=== PATIENT | female | born 1940 | race African-American/Black ===

== ENCOUNTER 2017-01-11 21:24 | Emergency (ER) | payer OTHER ==
--- NOTE | 2017-01-11 21:53 | PROVIDER DOCUMENTATION ---
HPI-General Adult - General Chief Complaint: Weakness Stated Complaint: CONGESTION/WEAKNESS Time Seen by Provider: 01/11/17 21:45 Source: patient, family Allergies/Adverse Reactions: Patient Allergies Allergy/AdvReac Type Severity Reaction Status Date / Time EXCEDRIN AdvReac Intermediate NAUSEA/VOMI Uncoded 07/08/16 11:51 TING Home Medications: Home Medication List Medication Instructions Recorded Confirmed Last Taken Type Amlodipine [Norvasc] 10 mg PO DAILY 03/23/14 01/11/17 01/11/17 History Aspirin [Aspirin EC] 81 mg PO DAILY 03/23/14 01/11/17 01/11/17 History Carvedilol [Coreg] 25 mg PO BID 03/23/14 01/11/17 01/11/17 History Losartan Potassium [Cozaar] 100 mg PO DAILY 03/23/14 01/11/17 01/11/17 History Metformin HCl 1,000 mg PO BID 03/23/14 01/11/17 01/11/17 History Simvastatin 40 mg PO QHS 03/23/14 01/11/17 01/11/17 History Hydralazine HCl 50 mg PO TID 07/06/16 01/11/17 01/11/17 History Insulin Glargine [Lantus] 35 unit SUBQ QHS 07/06/16 01/11/17 01/11/17 History Insulin Lispro [Humalog] 0 unit SQ DIRECTED 07/06/16 01/11/17 01/11/17 History Hydrocodone/Acetaminophen [[place] 1 - 2 each PO Q4-6H PRN PRN #30 07/08/1601/11/17 Rx 7.5-325 Tablet] tablet Benzonatate [Tessalon] 100 mg PO TID PRN PRN #20 capsule 01/12/17 Unknown Rx - History of Present Illness -Gen Adult Nature of Presenting Problems: Pt is a 76 y/o F c chief complaint of generalized weakness and lower back pain x 3 days. Pt has a h/o similar symptoms c DKA however her blood sugar was 175 this evening. Pt has had a non-productive cough. Decreased appetite. On arrival, pt has a low grade fever and is in minimal distress. Review of Systems - Adult - REVIEW OF SYSTEMS - ADULT Constitutional: reports: chills, fever, fatique Eyes: reports: no symptoms reported. denies: discharge, blurred vision, double vision Ears, Nose, Mouth & Throat: reports: no symptoms reported. denies: nose pain, loose teeth Cardiovascular: reports: no symptoms reported. denies: chest pain, irregular heart rate Respiratory: reports: no symptoms reported. denies: cough, shortness of breath Gastrointestinal: reports: no symptoms reported. denies: abdominal pain, nausea Genitourinary: reports: no symptoms reported. denies: dysuria, hematuria Musculoskeletal: reports: back pain. denies: joint pain, joint swelling Integumentary: reports: no symptoms reported. denies: itching, rash Neurological: reports: no symptoms reported. denies: numbness, paresthesia Psychiatric: reports: no symptoms reported. denies: anxiety, emotional problems Endocrine: reports: no symptoms reported. denies: cold intolerance, heat intolerance Hematologic/Lymphatic: reports: no symptoms reported. denies: blood clots, low blood count Allergic/Immunologic: reports: no symptoms reported. denies: allergic reactions , food allergy All Other Systems: Reviewed and Negative Past History - Adult - PAST MEDICAL HISTORY-ADULT Review of Records: reports: Old Records Reviewed, Nursing Assessment Review, Medications Reviewed, Social history reviewed & non-contributory. Major Childhood Illnesses: reports: history unknown Cardiovascular: reports: HTN Respiratory: reports: denies history Gastrointestinal: reports: denies history Obstetrical/Gynecological: reports: denies history Genitourinary: reports: ESRD, kidney disease Musculoskeletal: reports: denies history Neurological: reports: Seizures/Epilepsy Psychiatric: reports: denies history Endocrine/Immune: reports: Diabetes Other Conditions: reports: other cancer - PRIOR SURGERIES/PROCEDURES Surgical/Procedure History: reports: orthopedic (extremity) (right ankle), other (sinus) - IMMUNIZATION STATUS Childhood Immunizations: See Nurse Assessment Flu Vaccine: See Nurse Assessment - FAMILY HISTORY Family History: reviewed, not pertinent - SOCIAL HISTORY Smoking: denies Substance Use: none/never Alcohol Use Frequency: never Living Situation: family Physical Exam-General - PHYSICAL EXAM-ADULT Initial Vital Signs Reviewed: Yes - CONSTITUTIONAL General Appearance: appears well, alert, no apparent distress - EYES Eyes: PERRL/EOMI, pink conjunctivae - HEAD, EARS, NOSE, MOUTH & THROAT HENMT: normocephalic/atraumatic, moist mucous membranes, normal ENT inspection - NECK Neck: non-tender - RESPIRATORY Respiratory: chest non-tender, lungs clear, normal breath sounds - CARDIOVASCULAR Cardiovascular: normal peripheral pulses, regular rate, rhythm, no edema - GASTROINTESTINAL (ABDOMEN) Abdominal Exam: normal bowel sounds, non tender, soft - MUSCULOSKELETAL Back Exam: normal inspection, CVA tenderness Extremity: normal range of motion, non-tender - SKIN Integumentary: normal color, normal turgor, warm/dry - NEUROLOGIC Neurologic: grossly normal - PSYCHIATRIC Psych/Mental Status: normal mood/affect, normal thought content, normal thought process, oriented x 3 Progress - PLAN OF CARE/RESULTS Progress/Plan/Lab Results: Orders Category Date Time Status Finger Stick Blood Sugar (ED) DIRECTED Care 01/11/17 21:46 Active Oxygen Therapy- ED Nursing DIRECTED Care 01/11/17 21:46 Active CHEST-2 VIEWS [RAD] Stat Exams 01/11/17 21:32 Taken HEAD W/O CONTRAST [CT] Stat Exams 01/11/17 23:26 Taken ABG [RESP] Routine Lab 01/11/17 21:46 Completed BLOOD CULTURE [BLDCUL] Stat Lab 01/11/17 21:32 Ordered CBC WITH DIFF [HEME] Stat Lab 01/11/17 21:49 Completed CK PROFILE [SP CHEM] Stat Lab 01/11/17 21:49 Completed COMPREHENSIVE METABOLIC PANEL [CHEM] Stat Lab 01/11/17 21:[address] Stat Lab 01/11/17 21:25 Completed LACTATE, PLASMA [CHEM] Stat Lab 01/11/17 21:49 Completed [address]OTIME WITH INR PL [COAG] Stat Lab 01/11/17 21:[address] [COAG] Stat Lab 01/11/17 21:49 Completed TROPONIN T Stat Lab 01/11/17 21:[address] W/POSS RFLX CULT [URINALYSIS] Stat Lab 01/11/17 23:50 Completed CefTRIAXONE [Rocephin] Med 01/12/17 01:48 Discontinued 1 gm IM NOW ONE Dexamethasone [Decadron] Med 01/12/17 01:48 Discontinued 10 mg IM NOW ONE Lidocaine 1% Pf [Xylocaine-Mpf 1%] Med 01/12/17 01:48 Discontinued 5 ml INJ NOW ONE Pulse Oximetry Stat Oth 01/11/17 21:32 Active EKG [EKG] Stat Ther 01/11/17 21:46 Draft Laboratory Tests 01/11/17 01/11/17 01/11/17 21:25 21:46 21:49 WBC 9.32 RBC 3.91 L Hgb 10.5 L Hct 32.0 L MCV 81.8 MCH 26.9 L MCHC 32.8 L RDW Std Deviation 15.1 H Plt Count 179 MPV 10.7 H Immature Gran % (Auto) 0.2 Neut % (Auto) 60.2 Lymph % (Auto) 26.5 [place] % (Auto) 9.1 Eos % (Auto) 3.8 Baso % (Auto) 0.2 Immature Gran # (Auto) 0.02 Neut # (Auto) 5.61 Lymph # (Auto) 2.47 [place] # (Auto) 0.85 H Eos # (Auto) 0.35 Baso # (Auto) 0.02 PT INR APTT (Factor Assay) Specimen Type ARTERIAL Sample Site R RADIAL pH 7.32 L pCO2 49 H pO2 53 L HCO3 23.7 Base Excess -1.3 Oxyhemoglobin 87.7 L* ABG O2 Sat (Calculated) 14.3 L ABG O2 Saturation 89.6 L ABG Carboxyhemoglobin 1.30 ABG Methemoglobin 0.8 Yovani Test YES A-a O2 Difference 35.0 Total Hemoglobin 11.6 Lactate 0.80 Blood Gas Modality ROOM AIR FiO2 % 21.0 Sodium Potassium Chloride Carbon Dioxide Anion Gap BUN Creatinine Estimated GFR/1.73 m2 BUN/Creatinine Ratio Glucose POC Glucose Calculated Osmolality Calcium Total Bilirubin AST ALT Alkaline Phosphatase Creatine Kinase Creatine Kinase Index CK-MB (CK-2) Troponin T Total Protein Albumin Globulin Albumin/Globulin Ratio Plasma Lactate Urine Source Urine Color Urine Clarity Urine pH Ur Specific Brice Urine Protein Urine Ketones Urine Blood Urine Nitrite Urine Bilirubin Urine Urobilinogen Urine Microscopic RBC Urine WBC Urine Microscopic WBC Ur Epithelial Cells Urine Bacteria Urine Glucose Influenza A (Rapid) NEGATIVE Influenza B (Rapid) NEGATIVE 01/11/17 01/11/17 01/11/17 21:49 21:49 21:49 WBC RBC Hgb Hct MCV MCH MCHC RDW Std Deviation Plt Count MPV Immature Gran % (Auto) Neut % (Auto) Lymph % (Auto) [place] % (Auto) Eos % (Auto) Baso % (Auto) Immature Gran # (Auto) Neut # (Auto) Lymph # (Auto) [place] # (Auto) Eos # (Auto) Baso # (Auto) PT INR APTT (Factor Assay) Specimen Type Sample Site pH pCO2 pO2 HCO3 Base Excess Oxyhemoglobin ABG O2 Sat (Calculated) ABG O2 Saturation ABG Carboxyhemoglobin ABG Methemoglobin Yovani Test A-a O2 Difference Total Hemoglobin Lactate Blood Gas Modality FiO2 % Sodium 138 Potassium 4.4 Chloride 105 Carbon Dioxide 21 L Anion Gap 12 BUN 32 H Creatinine 2.1 H Estimated GFR/1.73 m2 23 BUN/Creatinine Ratio 15 Glucose 104 POC Glucose Calculated Osmolality 283 Calcium 8.8 Total Bilirubin 0.20 AST 24 ALT 24 Alkaline Phosphatase 50 Creatine Kinase 232 H Creatine Kinase Index 3.7 H CK-MB (CK-2) 8.66 H Troponin T < 0.010 Total Protein 6.1 L Albumin 3.6 Globulin 3.0 Albumin/Globulin Ratio 1.0 Plasma Lactate 1.0 Urine Source Urine Color Urine Clarity Urine pH Ur Specific Brice Urine Protein Urine Ketones Urine Blood Urine Nitrite Urine Bilirubin Urine Urobilinogen Urine Microscopic RBC Urine WBC Urine Microscopic WBC Ur Epithelial Cells Urine Bacteria Urine Glucose Influenza A (Rapid) Influenza B (Rapid) 01/11/17 01/11/17 01/12/17 21:49 23:50 01:30 WBC RBC Hgb Hct MCV MCH MCHC RDW Std Deviation Plt Count MPV Immature Gran % (Auto) Neut % (Auto) Lymph % (Auto) [place] % (Auto) Eos % (Auto) Baso % (Auto) Immature Gran # (Auto) Neut # (Auto) Lymph # (Auto) [place] # (Auto) Eos # (Auto) Baso # (Auto) PT 14.0 INR 1.05 APTT (Factor Assay) 28.5 Specimen Type Sample Site pH pCO2 pO2 HCO3 Base Excess Oxyhemoglobin ABG O2 Sat (Calculated) ABG O2 Saturation ABG Carboxyhemoglobin ABG Methemoglobin Yovani Test A-a O2 Difference Total Hemoglobin Lactate Blood Gas Modality FiO2 % Sodium Potassium Chloride Carbon Dioxide Anion Gap BUN Creatinine Estimated GFR/1.73 m2 BUN/Creatinine Ratio Glucose POC Glucose 125 H Calculated Osmolality Calcium Total Bilirubin AST ALT Alkaline Phosphatase Creatine Kinase Creatine Kinase Index CK-MB (CK-2) Troponin T Total Protein Albumin Globulin Albumin/Globulin Ratio Plasma Lactate Urine Source CLEAN CATCH Urine Color YELLOW Urine Clarity CLEAR Urine pH 5.0 Ur Specific [place] 1.010 Urine Protein 2+(100 mg/dL) A Urine Ketones NEGATIVE Urine Blood NEGATIVE Urine Nitrite NEGATIVE Urine Bilirubin NEGATIVE Urine Urobilinogen NORMAL Urine Microscopic RBC Not Reportable Urine WBC NEGATIVE Urine Microscopic WBC <10 Ur Epithelial Cells <10 Urine Bacteria 1+ Urine Glucose NEGATIVE Influenza A (Rapid) Influenza B (Rapid) Vital Signs - 24 hr 01/11/17 01/11/17 21:29 23:13 Temperature 99.6 F 99.2 F Pulse Rate 76 86 Respiratory 20 22 Rate Blood Pressure 161/55 207/90 O2 Sat by Pulse 94 L 95 Oximetry - REASSESSMENT Reassessment #1 Time Reassessed: 01:30 (Discussed c Dr. Muniz who recommended admission to PCP (Dr. Chavez) after reviewing labs and imaging studies.) Reassessment #2 Time Reassessed: 01:45 (Discussed plan of care c family and pt. Pt does not wish to be admitted. Her oxygen sat decreased to 90% however she took several deep breaths and she was satting at 98%. ) Reassessment #3 Time Reassessed: 01:52 (Discussed c Dr. Chavez and reviewed labs and imaging studies. Dr. Chavez is very familiar c this pt and felt comfortable c treating her as an out-pt. He will see her in clinic on Monday. Family and pt agree c this plan and also agree to return to the ER if any worsening of symptoms.) - XRAY 1 XRAY Study: Chest Impression: Normal XRAY Interpretation: no pna, no change from 2016 - CT/MRI 1 CT Study: Head Impression: Normal CT Results: nad - CONSULTS/PCP/HOSPITALIST Notification #1 *Consult/PCP/Hospitalist*: Dr. Chavez (PCP) Time Discussed: 01:35 Reason/Comments: Will see pt in Monday in clinic Departure - Departure Time of Disposition Order: 01:53 DIAGNOSIS: Viral illness URI (upper respiratory infection) Qualifiers: URI type: unspecified URI Qualified Code(s): J06.9 - Acute upper respiratory infection, unspecified Disposition: HOME 01 Certified Medical Emergency: Emergent Condition: Stable Additional Instructions: ED Follow Up Instructions: You have been treated by a care provider in the Emergency Department. These instructions are being provided to you so you can have an understanding of how to care for yourself upon discharge. Upon discharge from the Emergency Department, you are responsible for making arrangements for follow-up care by a physician of your choice. Take all prescribed medications as directed. Return to the Emergency Department immediately for any new or worsening symptoms. You may call the Physician Referral phone number at [phone] to obtain a list of Physicians who are taking new patients. Prescriptions: Benzonatate [Tessalon] 100 mg PO TID PRN PRN #20 capsule PRN Reason: Cough Referrals: Maria A Chavez MD [Primary Care Provider] - Instructions: Viral Infections, [id number], Upper Respiratory Infection, Adult, [id number], Benzonatate capsules Attestation - Physician/ YESSICA Attestation Patient care was provided by Advanced Practice Provider:: Yes Advanced Practice Provider:: Fili De Leon Advanced Practice Provider documentation review:: The Mid-level provider documentation, treatment plan and medical decision making was reviewed by the physician who agrees with all treatment and medical decision making by the P.
[2017-01-11 22:05] LABS: MANUAL DIFF NEEDED? NO
[2017-01-11 22:12] LABS: BASO% 0.2 % (0.0-0.8); EOS# 0.35 X1000 (0.0-0.7); EOS% 3.8 % (0.0-10.0); HEMOGLOBIN 10.5 g/dL (12.0-16.0); IMM GRAN# 0.02 X1000 (0.0-0.04); IMM GRAN% 0.2 % (0.0-0.5); LYMPH# 2.47 X1000 (1.2-3.4); LYMPH% 26.5 % (20.5-51.1); MCH 26.9 PG (27-31); MCHC 32.8 g/dL (33-37); MCV 81.8 FL (81-99); MONO# 0.85 X1000 (0.11-0.59); MONO% 9.1 % (1.7-9.3); MPV 10.7 FL (7.4-10.4); NEUT% 60.2 % (42.2-75.2); PLT 179 X1000 (130-400); RBC 3.91 XMIL (4.2-5.4)
[2017-01-11 22:25] LABS: INR 1.05 (0.86-1.15)
[2017-01-11 22:26] LABS: PTT PL 28.5 Seconds (22.6-43.9)
[2017-01-11 22:35] LABS: ALBUMIN 3.6 g/dL (3.5-5.0); CALCIUM 8.8 mg/dL (8.8-10.2); POTASSIUM 4.4 mmol/L (3.5-5.1); TOTAL BILIRUBIN 0.2 mg/dL (0.20-1.00); TOTAL PROTEIN 6.1 g/dL (6.3-8.3)
[2017-01-11 22:52] LABS: CK INDEX 3.7 (0.0-2.5); CK-MB 8.66 ng/mL (0.0-5.0)
[2017-01-11 23:40] LABS: BE -1.3 mmoll (-3.0-3.0); BLOOD TYPE ARTERIAL; DRAW SITE R RADIAL; METHB 0.8 % (0.0-1.5); O2(CT) 14.3 mL/dL (15.0-23.0); PCO2(98.6) 49 mmHg (35-45); PO2(98.6) 53 mmHg (60-100); SAMPLE BLOOD; SAO2 89.6 % (95.0-100.0); THB 11.6 g/dL (11.5-17.4); pH(98.6) 7.32 (7.35-7.45)
[2017-01-11 23:59] LABS: URINE CULTURE PL NEEDED? NO; URINE SOURCE CLEAN CATCH
[2017-01-12 00:37] LABS: BILIRUBIN URINE NEGATIVE (NEGATIVE); BLOOD URINE NEGATIVE (NEGATIVE); CLARITY CLEAR (CLEAR); COLOR YELLOW; GLUCOSE URINE NEGATIVE (NEGATIVE); LEUKOCYTES URINE NEGATIVE (NEGATIVE); NITRITE URINE NEGATIVE (NEGATIVE); PROTEIN URINE 2+(100 mg/dL) mg/dL (NEGATIVE); UROBILINOGEN URINE NORMAL
--- NOTE | 2017-01-12 00:37 | ED EKG INTERP ---
EKG Interpretation - EKG Time of EKG reading by physician:: 23:25 EKG Read and Signed by:: Boby Muniz Rate: 87 Rhythm: NSR QRS: LVH Comments: borderline ECG Attestation - Scribe Verification/Attestation Scribe:: Jose La Acting as Scribe for:: Boby Muniz Scribe documention review:: This chart was documented by a scribe and accurately reflects the service the provider performed and the decisions made by the provider.
[2017-01-12 00:41] LABS: URINE EPITHELIAL CELLS <10 /HPF (<10); URINE WBC <10 /HPF (<10)
[2017-01-12 00:46] LABS: ALLEN TEST YES; MODALITY ROOM AIR
--- NOTE | 2017-01-12 01:29 | EKG Report ---
Test Performed on : 01/11/2017 11:25:13 PM Test Reason : AMS Blood Pressure : / mmHG Vent. Rate : 087 BPM Atrial Rate : 087 BPM P-R Int : 190 ms QRS Dur : 092 ms QT Int : 358 ms P-R-T Axes : 049 -14 063 degrees QTc Int : 430 ms Normal sinus rhythm. Moderate voltage criteria for LVH, may be normal variant Borderline ECG When compared with ECG of 06-JUL-2016 16:44, Right bundle branch block is no longer present Unconfirmed Result
[2017-01-12] MEDS ORDERED: ROCEPHIN IM ONE (01:48)
[2017-01-12] MEDS ORDERED: XYLOCAINE-MPF 1% INJ ONE (01:48)
[2017-01-12] MEDS ORDERED: DECADRON IM ONE (01:48)
[2017-01-12] MEDS ORDERED: TYLENOL PO ONE (02:19)
[2017-01-12] MEDS ORDERED: TYLENOL ONE (02:21)
[2017-01-12 02:31] VITALS: BP 167/72
--- NOTE | 2017-01-12 06:52 | Diag Imaging Result Document ---
PROCEDURE NAME: CHEST-2 VIEWS - 01/11/2017 FRONTAL AND LATERAL CHEST, 2 VIEWS: COMPARISON: 07/15/2014. FINDINGS: The lungs are well expanded. The heart is mildly enlarged. The vessels are not distended. There are no infiltrates. No pleural effusions. IMPRESSION: 1. No pneumonia. 2. Cardiomegaly.
--- NOTE | 2017-01-12 07:45 | Diag Imaging Result Document ---
PROCEDURE NAME: HEAD W/O CONTRAST - 01/11/2017 CT BRAIN WITHOUT CONTRAST. DOSE REDUCTION PROTOCOL: FINDINGS: No parenchymal hemorrhage. No epidural or subdural hematoma. No subarachnoid hemorrhage. No mass identified on this noncontrasted exam. Mild microvascular ischemic changes. No hydrocephalus. Prominent mucus and mild mucosal thickening in the left maxillary sinus. IMPRESSION: 1. No hemorrhage. 2. Mild microvascular ischemic changes. 3. Left maxillary sinusitis. A preliminary report was given at 1:11 a.m.
== END 2017-01-12 02:33 | disposition home or self-care (01) ==
LOC: P.ED 21:24
DX: B34.9 Viral infection, unspecified (principal); J02.9 Acute pharyngitis, unspecified; R53.1 Weakness; M54.5 Low back pain; R50.9 Fever, unspecified; R53.83 Other fatigue; I12.0 Hypertensive chronic kidney disease with stage 5 chronic kidney disease or end stage renal disease; N18.6 End stage renal disease; Z79.899 Other long term (current) drug therapy; E11.9 Type 2 diabetes mellitus without complications; Z85.9 Personal history of malignant neoplasm, unspecified; Z79.4 Long term (current) use of insulin; Z79.82 Long term (current) use of aspirin
CPT/HCPCS: 70450; 71020; 80053; 81001; 82550; 82553; 82805; 82948; 83605; 84484; 85025; 85610; 85730; 87040; 87804; 93005; 96372; J0696; J1100

== ENCOUNTER 2018-10-10 17:15 | Inpatient (IN) ==
[2018-10-10 18:17] LABS: BE -2.1 mmoll (-3.0-3.0); BLOOD TYPE ARTERIAL; HCO3-(ACT) 23.3 mmoll (20.0-26.0); METHB 0.4 % (0.0-1.5); O2(CT) 13.1 mL/dL (15.0-23.0); O2HB 95.1 % (95.0-99.0); PCO2(98.6) 35 mmHg (35-45); PO2(98.6) 81 mmHg (60-100); SAMPLE BLOOD; THB 9.7 g/dL (11.5-17.4); pH(98.6) 7.41 (7.35-7.45)
[2018-10-10 18:19] LABS: MODALITY CANNULA
[2018-10-10 18:20] LABS: ALLEN TEST YES
--- NOTE | 2018-10-10 18:48 | Diag Imaging Result Doc PS360 ---
EXAM: CHEST-PORTABLE INDICATION: SOB TECHNIQUE: One view COMPARISON: 05/11/2018 FINDINGS: There is airspace consolidation throughout the right lung that is most dense at the right lung base consistent with pneumonia. There is no discrete pleural fluid collection or pneumothorax. The cardiac silhouette is somewhat prominent but stable. IMPRESSION: Multilobar pneumonia on the right. Electronically signed by Fili Greenberg 10/10/2018 6:46 PM
[2018-10-10] MEDS ORDERED: ZITHROMAX 500 MG/NS 500 MG/250 ML IVPB IV ONE (19:06)
[2018-10-10] MEDS ORDERED: ROCEPHIN 1 GM in NS 50 ML IV ONE (19:06)
--- NOTE | 2018-10-10 19:08 | PROVIDER DOCUMENTATION ---
This chart was entered by Ruth Lopez Scribe, acting as scribe for Jostin Rose MD. HPI-Respiratory General - General Chief Complaint: Shortness of Breath Stated Complaint: SOB Time Seen by Provider: 10/10/18 17:27 Source: patient, family (daughter) Allergies/Adverse Reactions: Patient Allergies Allergy/AdvReac Type Severity Reaction Status Date / Time Iodinated Contrast- Oral and AdvReac Unknown Verified 11/15/17 18:42 IV Dye [IV Dye] Home Medications: Home Medication List Medication Instructions Recorded Confirmed Last Taken Type Amlodipine Besylate 10 mg PO DAILY 09/14/17 10/10/18 Unknown History Insulin Lispro [Humalog Kwikpen See Protocol SQ AC + HS 09/14/17 10/10/18 Unknown History [id number]] Sertraline HCl 100 mg PO DAILY 09/14/17 10/10/18 Unknown History Simvastatin 40 mg PO HS 09/14/17 10/10/18 Unknown History Carvedilol 25 mg PO BID@0700,1200 04/17/18 10/10/18 Unknown History Pregabalin [Lyrica] 75 mg PO DAILY 04/17/18 10/10/18 Unknown History Clonidine [Catapres] 0.1 mg PO TID@0700,1200,2000 10/10/18 10/10/18 Unknown History Clopidogrel Bisulfate [Clopidogrel] 75 mg PO QHS 10/10/18 10/10/18 Unknown History Furosemide [Lasix] 40 mg PO DAILY PRN PRN 10/10/18 10/10/18 Unknown History Hydralazine [Apresoline] 100 mg PO TID@0700,1200,1600 10/10/18 10/10/18 Unknown History Insulin Glargine [Lantus] 10 units SUBQ QHS 10/10/18 10/10/18 Unknown History Insulin Glargine [Lantus] 15 unit SUBQ QAM 10/10/18 10/10/18 Unknown History Losartan Potassium 100 mg PO DAILY 10/10/18 10/10/18 Unknown History Polyethylene Glycol 3350 [Miralax] 17 gm PO DAILY 10/10/18 10/10/18 Unknown History - History of Present Illness-Resp Nature of Presenting Problem: 78 yobf presents to the ed with c/o sob, weakness, fever/chills, cough. pt saw pcp and was given a z-pack but took the last dose today. pt had home health nuirse come by today and pt had 80% RA O2 sat and was sent to ed. pt has hx of cancer Quality of Pain: reports: aching Onset/Duration: reports: 1 week ago Timing: reports: still present, intermittent Context: reports: recent URI Cough Quality/Degree: reports: dry cough Episode Frequency: occasional episodes Current Respiratory Medication Therapy: Initiated see nurses note Modifying Factors: worse with: exertion Associated Symptoms: reports: chest pain/soreness, cough, fever/chills, muscle/ bodyaches, shortness of breath. denies: earache Similar Symptoms Previously?: Yes Recently seen or treated by another doctor?: Yes (saw pcp recently given z-pack) Review of Systems - Adult - REVIEW OF SYSTEMS - ADULT Constitutional: reports: chills, fever, fatique Eyes: reports: no symptoms reported Ears, Nose, Mouth & Throat: reports: no symptoms reported Cardiovascular: denies: chest pain, syncope Respiratory: reports: cough, dyspnea on exertion, shortness of breath. denies: pleurisy, wheezing Gastrointestinal: denies: abdominal pain, diarrhea, nausea, vomiting Genitourinary: reports: no symptoms reported Musculoskeletal: reports: see HPI, muscle aches (bodyaches). denies: back pain , neck pain Integumentary: reports: no symptoms reported Neurological: denies: dizziness/vertigo, headache/migraines, numbness, paresthesia, slurred speech, tremors Psychiatric: reports: no symptoms reported Endocrine: reports: no symptoms reported Hematologic/Lymphatic: reports: no symptoms reported Allergic/Immunologic: reports: no symptoms reported All Other Systems: Reviewed and Negative Past History - Adult - PAST MEDICAL HISTORY-ADULT Review of Records: reports: Old Records Reviewed, Nursing Assessment Review, Medications Reviewed, Social history reviewed & non-contributory. 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 Psychiatric: reports: denies history Endocrine/Immune: reports: Diabetes Diabetes Type: Type 2 Diabetes controlled by:: Insulin Dependent Other Conditions: reports: other cancer (CLL) - PRIOR SURGERIES/PROCEDURES Surgical/Procedure History: reports: orthopedic (extremity) (right ankle), other (sinus) - IMMUNIZATION STATUS Childhood Immunizations: See Nurse Assessment Flu Vaccine: See Nurse Assessment - FAMILY HISTORY Family History: reviewed, not pertinent - SOCIAL HISTORY Smoking: denies Substance Use: none/never Alcohol Use Frequency: never Living Situation: family Physical Exam-General - PHYSICAL EXAM-ADULT Initial Vital Signs Reviewed: Yes - CONSTITUTIONAL General Appearance: appears well, alert, mild distress, obese - EYES Eyes: PERRL/EOMI, pink conjunctivae - HEAD, EARS, NOSE, MOUTH & THROAT HENMT: normocephalic/atraumatic, moist mucous membranes - NECK Neck: full range of motion, supple, normal inspection - RESPIRATORY Respiratory: chest non-tender, rales (R>L), other (O2 95% on 2LPM) - CARDIOVASCULAR Cardiovascular: normal peripheral pulses, regular rate, rhythm - GASTROINTESTINAL (ABDOMEN) Abdominal Exam: normal bowel sounds, non tender, soft - MUSCULOSKELETAL Back Exam: normal inspection, no CVA tenderness, no vertebral tenderness Extremity: normal range of motion, non-tender, normal gait, normal inspection, no calf tenderness, normal capillary refill, pelvis stable, swelling (BLE edema trace) - SKIN Integumentary: normal color, normal turgor, warm/dry - NEUROLOGIC Neurologic: e commerce web developer II-XII nml as tested, grossly normal, no motor/sensory deficits - PSYCHIATRIC Psych/Mental Status: normal mood/affect, normal thought content, normal thought process, oriented x 3 Progress - PLAN OF CARE/RESULTS Progress/Plan/Lab Results: Laboratory Results - last 24 hr 10/10/18 10/10/18 10/10/18 18:10 18:47 19:01 WBC RBC Hgb Hct MCV MCH MCHC RDW Std Deviation Plt Count MPV Immature Gran % (Auto) Neut % (Auto) Lymph % (Auto) Pacific % (Auto) Eos % (Auto) Baso % (Auto) Immature Gran # (Auto) Neut # (Auto) Lymph # (Auto) Pacific # (Auto) Eos # (Auto) Baso # (Auto) D-Dimer, Quantitative Specimen Type ARTERIAL Sample Site R RADIAL pH 7.41 pCO2 35 pO2 81 HCO3 23.3 Base Excess -2.1 Oxyhemoglobin 95.1 ABG O2 Sat (Calculated) 13.1 L ABG O2 Saturation 97.0 ABG Carboxyhemoglobin 1.50 ABG Methemoglobin 0.4 Yovani Test YES A-a O2 Difference 132.0 Total Hemoglobin 9.7 L Lactate 0.70 Liter Flow 4.0 Blood Gas Modality CANNULA FiO2 % 36.0 Sodium 138 Potassium 4.0 Chloride 102 Carbon Dioxide 20 L Anion Gap 16 BUN 44 H Creatinine 3.1 H Estimated GFR/1.73 m2 15 BUN/Creatinine Ratio 14 Glucose 171 H Calculated Osmolality 291 Calcium 8.9 Magnesium Total Bilirubin 0.50 AST 30 ALT 26 Alkaline Phosphatase 62 Troponin T C-Reactive Prot, Quant 233.11 H Eau-V-Lzxhofovaqa Pept Total Protein 6.6 Albumin 3.2 L Globulin 3.0 Albumin/Globulin Ratio 1.0 Plasma Lactate Urine Source Urine Color Urine Clarity Urine pH Ur Specific [place] Urine Protein Urine Ketones Urine Blood Urine Nitrite Urine Bilirubin Urine Urobilinogen Urine Microscopic RBC Urine WBC Urine Microscopic WBC Ur Epithelial Cells Urine Crystals Urine Bacteria Urine Casts Urine Yeast Urine Glucose Acetone Level Influenza A (Rapid) NEGATIVE Influenza B (Rapid) NEGATIVE 10/10/18 10/10/18 10/10/18 19:01 19:01 19:01 WBC RBC Hgb Hct MCV MCH MCHC RDW Std Deviation Plt Count MPV Immature Gran % (Auto) Neut % (Auto) Lymph % (Auto) Pacific % (Auto) Eos % (Auto) Baso % (Auto) Immature Gran # (Auto) Neut # (Auto) Lymph # (Auto) Pacific # (Auto) Eos # (Auto) Baso # (Auto) D-Dimer, Quantitative 1.33 H Specimen Type Sample Site pH pCO2 pO2 HCO3 Base Excess Oxyhemoglobin ABG O2 Sat (Calculated) ABG O2 Saturation ABG Carboxyhemoglobin ABG Methemoglobin Yovani Test A-a O2 Difference Total Hemoglobin Lactate Liter Flow Blood Gas Modality FiO2 % Sodium Potassium Chloride Carbon Dioxide Anion Gap BUN Creatinine Estimated GFR/1.73 m2 BUN/Creatinine Ratio Glucose Calculated Osmolality Calcium Magnesium 2.2 Total Bilirubin AST ALT Alkaline Phosphatase Troponin T C-Reactive Prot, Quant [id number]-[id number] Pept Total Protein Albumin Globulin Albumin/Globulin Ratio Plasma Lactate Urine Source Urine Color Urine Clarity Urine pH Ur Specific [place] Urine Protein Urine Ketones Urine Blood Urine Nitrite Urine Bilirubin Urine Urobilinogen Urine Microscopic RBC Urine WBC Urine Microscopic WBC Ur Epithelial Cells Urine Crystals Urine Bacteria Urine Casts Urine Yeast Urine Glucose Acetone Level NEGATIVE Influenza A (Rapid) Influenza B (Rapid) 10/10/18 10/10/18 10/10/18 19:01 19:01 19:01 WBC 22.62 H RBC 3.36 L Hgb 8.9 L Hct 27.1 L MCV 80.7 L MCH 26.5 L MCHC 32.8 L RDW Std Deviation 13.9 Plt Count 194 MPV 10.5 H Immature Gran % (Auto) 0.4 Neut % (Auto) 59.1 Lymph % (Auto) 35.9 Pacific % (Auto) 4.5 Eos % (Auto) 0.0 Baso % (Auto) 0.1 Immature Gran # (Auto) 0.10 H Neut # (Auto) 13.35 H Lymph # (Auto) 8.13 H Pacific # (Auto) 1.01 H Eos # (Auto) 0.01 Baso # (Auto) 0.02 D-Dimer, Quantitative Specimen Type Sample Site pH pCO2 pO2 HCO3 Base Excess Oxyhemoglobin ABG O2 Sat (Calculated) ABG O2 Saturation ABG Carboxyhemoglobin ABG Methemoglobin Yovani Test A-a O2 Difference Total Hemoglobin Lactate Liter Flow Blood Gas Modality FiO2 % Sodium Potassium Chloride Carbon Dioxide Anion Gap BUN Creatinine Estimated GFR/1.73 m2 BUN/Creatinine Ratio Glucose Calculated Osmolality Calcium Magnesium Total Bilirubin AST ALT Alkaline Phosphatase Troponin T 0.020 C-Reactive Prot, Quant [id number]-[id number] Pept 6746 H Total Protein Albumin Globulin Albumin/Globulin Ratio Plasma Lactate Urine Source Urine Color Urine Clarity Urine pH Ur Specific [place] Urine Protein Urine Ketones Urine Blood Urine Nitrite Urine Bilirubin Urine Urobilinogen Urine Microscopic RBC Urine WBC Urine Microscopic WBC Ur Epithelial Cells Urine Crystals Urine Bacteria Urine Casts Urine Yeast Urine Glucose Acetone Level Influenza A (Rapid) Influenza B (Rapid) 10/10/18 10/10/18 19:01 19:27 WBC RBC Hgb Hct MCV MCH MCHC RDW Std Deviation Plt Count MPV Immature Gran % (Auto) Neut % (Auto) Lymph % (Auto) Pacific % (Auto) Eos % (Auto) Baso % (Auto) Immature Gran # (Auto) Neut # (Auto) Lymph # (Auto) [place] # (Auto) Eos # (Auto) Baso # (Auto) D-Dimer, Quantitative Specimen Type Sample Site pH pCO2 pO2 HCO3 Base Excess Oxyhemoglobin ABG O2 Sat (Calculated) ABG O2 Saturation ABG Carboxyhemoglobin ABG Methemoglobin Yovani Test A-a O2 Difference Total Hemoglobin Lactate Liter Flow Blood Gas Modality FiO2 % Sodium Potassium Chloride Carbon Dioxide Anion Gap BUN Creatinine Estimated GFR/1.73 m2 BUN/Creatinine Ratio Glucose Calculated Osmolality Calcium Magnesium Total Bilirubin AST ALT Alkaline Phosphatase Troponin T C-Reactive Prot, Quant Val-C-Nklbchjvpqu Pept Total Protein Albumin Globulin Albumin/Globulin Ratio Plasma Lactate 0.5 Urine Source CATH Urine Color YELLOW Urine Clarity VERY CLOUDY A Urine pH 5.0 Ur Specific [place] 1.015 Urine Protein 3+(500 mg/dL) A Urine Ketones TRACE Urine Blood NEGATIVE Urine Nitrite NEGATIVE Urine Bilirubin NEGATIVE Urine Urobilinogen NORMAL Urine Microscopic RBC <10 Urine WBC TRACE A Urine Microscopic WBC <10 Ur Epithelial Cells <10 Urine Crystals NONE SEEN Urine Bacteria 4+ Urine Casts NONE SEEN Urine Yeast NONE SEEN Urine Glucose NEGATIVE Acetone Level Influenza A (Rapid) Influenza B (Rapid) Orders Category Date Time Status Admit - [facility] Routine AdmDCTranf 10/10/18 20:30 Active Activity - Strict Bedrest ORDERED Care 10/10/18 20:30 Active Saline Loc NOW Care 10/10/18 17:50 Completed Vital Signs Order Q 4-HR ASSESS Care 10/10/18 20:30 Active Diabetic Diet Diet 10/10/18 20:32 Active CHEST-PORTABLE [RAD] Stat Exams 10/10/18 17:53 Completed ABG [RESP] Routine Lab 10/10/18 18:10 Completed C REACTIVE PROT QUANT [CHEM] Stat Lab 10/10/18 19:01 Completed CBC WITH ELECTRONIC DIFF [HEME] Stat Lab 10/10/18 19:01 Completed COMPREHENSIVE METABOLIC PANEL [CHEM] Stat Lab 10/10/18 19:01 Completed D-DIMER [COAG] Stat Lab 10/10/18 19:[address] Stat Lab 10/10/18 18:47 Completed Ketone [ACETONE SERUM] [CHEM] Stat Lab 10/10/18 19:01 Completed LACTATE, PLASMA [CHEM] Stat Lab 10/10/18 19:01 Completed MAGNESIUM [CHEM] Stat Lab 10/10/18 19:01 Completed PRO B-NATRIURETIC PEPTIDE Stat Lab 10/10/18 19:01 Completed TROPONIN T Stat Lab 10/10/18 19:[address] W/POSS RFLX CULT [URINALYSIS] Stat Lab 10/10/18 19:27 Completed URINE CULTURE [RM] Routine Lab 10/10/18 19:46 Results 0.9% Sodium Chloride Inj [Ns] 2,000 ml Med 10/10/18 20:30 Discontinued IV 125 mls/hr Azithromycin 500 mg/Ns [Zithromax 500 mg/Ns] Med 10/10/18 19:06 Discontinued 500 mg in 250 ml IV NOW CefTRIAXONE [Rocephin] 1 gm Med 10/10/18 19:06 Discontinued 0.9% Sodium Chloride Inj [Ns] 50 ml IV NOW EKG [EKG] Stat Ther 10/10/18 17:51 Draft Transfer/Admit Order [TRANSFER] Routine Transfer 10/10/18 20:29 Completed Result Diagrams: 10/11/18 11:05 10/11/18 11:05 - XRAY 1 XRAY: Bilateral XRAY Study: Chest Impression: See EMR Report - CHANGE OF SHIFT REPORT (ED Provider) Report Given and Care Transferred to:: DR Nona PEREZ Time of Transfer: 19:08 Items Pending: Labs Departure - Departure Date of Disposition Decision: 10/10/18 Time of Disposition Decision: 19:00 DIAGNOSIS: SOB (shortness of breath) Disposition: ADMITTED INPATIENT 09 Certified Medical Emergency: Emergent Condition: Stable - Critical Care Note This patient required my direct & personal management of CC.: No Attestation - Physician/ YESSICA Attestation Patient care was provided by Advanced Practice Provider:: No The physician spent face to face time with patient:: Yes Advanced Practice Provider documentation review:: Supervising physician onsite and consulted in the evaluation and care of this patient. The physician did have a face to face encounter with the patient. This chart was documented by the indicated scribe, (Ruth Lopez Scribe) and accurately reflects the services I performed and decisions made by me, Jostin Rose MD, as attested by the provider's signature.
[2018-10-10 19:19] LABS: BASO# 0.02 X1000 (0.0-0.2); BASO% 0.1 % (0.0-0.8); EOS# 0.01 X1000 (0.0-0.7); HEMATOCRIT 27.1 % (37.0-47.0); HEMOGLOBIN 8.9 g/dL (12.0-16.0); IMM GRAN% 0.4 % (0.0-0.5); LYMPH# 8.13 X1000 (1.2-3.4); LYMPH% 35.9 % (20.5-51.1); MCH 26.5 PG (27-31); MCHC 32.8 g/dL (33-37); MCV 80.7 FL (81-99); MONO# 1.01 X1000 (0.11-0.59); MONO% 4.5 % (1.7-9.3); MPV 10.5 FL (7.4-10.4); NEUT# 13.35 X1000 (1.4-6.5); NEUT% 59.1 % (42.2-75.2); PLT 194 X1000 (130-400); RBC 3.36 XMIL (4.2-5.4); RDW 13.9 % (11.5-14.5); WBC 22.62 X1000 (4.8-10.8)
[2018-10-10 19:24] LABS: INFLUENZA A NEGATIVE (NEGATIVE); INFLUENZA B NEGATIVE (NEGATIVE)
[2018-10-10 19:32] LABS: ALBUMIN 3.2 g/dL (3.5-5.0); CALCIUM 8.9 mg/dL (8.8-10.2); CREATININE 3.1 mg/dL (0.5-0.9); TOTAL BILIRUBIN 0.5 mg/dL (0.20-1.00); TOTAL PROTEIN 6.6 g/dL (6.3-8.3)
[2018-10-10 19:45] LABS: BILIRUBIN URINE NEGATIVE (NEGATIVE); BLOOD URINE NEGATIVE (NEGATIVE); CLARITY VERY CLOUDY (CLEAR); COLOR YELLOW; GLUCOSE URINE NEGATIVE (NEGATIVE); KETONE URINE TRACE mg/dL (NEGATIVE); LEUKOCYTES URINE TRACE (NEGATIVE); NITRITE URINE NEGATIVE (NEGATIVE); SP GRAVITY URINE 1.015; URINE BACTERIA 4+ /HFP; URINE CAST NONE SEEN /LPF; URINE CRYSTAL NONE SEEN /HPF; URINE EPITHELIAL CELLS <10 /HPF (<10); URINE RBC <10 /HPF (<10); URINE SOURCE CATH; URINE WBC <10 /HPF (<10); URINE YEAST NONE SEEN /HPF; UROBILINOGEN URINE NORMAL
[2018-10-10] MEDS: NS 2,000 ML IV ONE (21:33)
[2018-10-10 22:32] LABS: C REACTIVE PROT QUANT 233.11 mg/L (0.00-5.00)
--- NOTE | 2018-10-11 01:27 | EKG Report ---
Test Performed on : 10/10/2018 10:11:34 PM Test Reason : SOB Blood Pressure : / mmHG Vent. Rate : 071 BPM Atrial Rate : 071 BPM P-R Int : 176 ms QRS Dur : 140 ms QT Int : 480 ms P-R-T Axes : 038 -37 038 degrees QTc Int : 521 ms Normal sinus rhythm. Left axis deviation Right bundle branch block Minimal voltage criteria for LVH, may be normal variant Abnormal ECG When compared with ECG of 06-MAY-2018 07:45, (Unconfirmed) HI interval has decreased Unconfirmed Result
[2018-10-11] MEDS: NS 2,000 ML IV ONE (05:34)
[2018-10-11] MEDS ORDERED: NS 1,000 ML ONE (05:35)
[2018-10-11] MEDS ORDERED: DUONEB (A & A) INH PRN (06:59)
[2018-10-11] MEDS: DUONEB (A & A) INH SCH ×5 (07:57→23:18)
[2018-10-11] MEDS: ZOLOFT PO SCH (10:06)
[2018-10-11] MEDS: NORVASC PO SCH (10:07)
[2018-10-11] MEDS: COZAAR PO SCH (10:07)
[2018-10-11] MEDS: MIRALAX PO SCH (10:07)
[2018-10-11] MEDS: LYRICA PO SCH (10:18)
[2018-10-11] MEDS: BASAGLAR SUBQ SCH ×2 (10:19→21:50)
[2018-10-11 11:24] LABS: CALCIUM 8.8 mg/dL (8.8-10.2); CREATININE 2.8 mg/dL (0.5-0.9)
[2018-10-11 11:36] LABS: BASO# 0.03 X1000 (0.0-0.2)
[2018-10-11 11:37] LABS: BASO% 0.1 % (0.0-0.8); EOS# 0.08 X1000 (0.0-0.7); EOS% 0.4 % (0.0-10.0); HEMATOCRIT 26.7 % (37.0-47.0); HEMOGLOBIN 8.8 g/dL (12.0-16.0); IMM GRAN# 0.13 X1000 (0.0-0.04); IMM GRAN% 0.6 % (0.0-0.5); LYMPH# 8.79 X1000 (1.2-3.4); LYMPH% 39.5 % (20.5-51.1); MCH 26.7 PG (27-31); MCV 81.2 FL (81-99); MONO# 1.16 X1000 (0.11-0.59); MONO% 5.2 % (1.7-9.3); MPV 10.6 FL (7.4-10.4); NEUT# 12.05 X1000 (1.4-6.5); NEUT% 54.2 % (42.2-75.2); PLT 202 X1000 (130-400); RBC 3.29 XMIL (4.2-5.4); RDW 14.2 % (11.5-14.5); WBC 22.24 X1000 (4.8-10.8)
[2018-10-11 11:52] LABS: ANISOCYTOSIS 1+; LYMPHS 27 % (21-51); MONO 2 % (1-9); SEGS 71 % (42-75)
[2018-10-11] MEDS: ZOSYN 2.25 GM in NS 50 ML IV SCH ×4 (12:30→22:57)
[2018-10-11] MEDS: CATAPRES PO SCH ×2 (12:31→21:51)
[2018-10-11] MEDS: COREG PO SCH (12:31)
[2018-10-11] MEDS: APRESOLINE PO SCH ×2 (12:31→16:10)
--- NOTE | 2018-10-11 12:49 | HISTORY AND PHYSICAL ---
PRIMARY CARE PHYSICIAN: Sekou Ovalle MD CHIEF COMPLAINT: Shortness of breath and a subjective fever. Per home health nurse, she had an O2 saturation at home on room air of 80% so she was sent to the emergency room for evaluation. HISTORY OF PRESENTING ILLNESS: This is a 78-year-old female, who presents to [facility] ER after she was seen by her home health nurse and was found to have an O2 saturation on room air of 80%. Was also having some subjective fever and chills, shortness of breath, and weakness. Had apparently seen her primary care physician about a week ago, was given a Z-Armando, and took her last dose yesterday. On arrival to the emergency room, she was saturating 96% on 4 L. Her white blood cell count was 22.62. She had an elevated D-dimer at 1.33. A BUN of 44 with a creatinine of 3.1, which is above her baseline around 2 to 2.30. Her proBNP was 6746. Her C-reactive protein was 233.11. Urinalysis has been negative. Her chest x- ray revealed a multilobar pneumonia on the right so she has been admitted for further evaluation and treatment. PAST MEDICAL HISTORY: Diabetes type 2, chronic kidney disease, hypertension, cancer, and seizures. PAST SURGICAL HISTORY: Right ankle surgery and a sinus surgery. FAMILY HISTORY: Reviewed and noncontributory. SOCIAL HISTORY: She currently lives at home and is cared for by her daughter. ALLERGIES: Iodinated contrast, oral and IV. HOME MEDICATIONS: She takes amlodipine 10 mg p.o. daily, Coreg 25 mg p.o. b.i.d., clonidine 0.1 mg p.o. t.i.d., Plavix 75 mg p.o. at bedtime, Lasix 40 mg p.o. daily p.r.n. will be held, hydralazine 100 mg p.o. t.i.d., Lantus 10 units subcutaneous at bedtime and 15 units subcutaneous q.a.m., Humalog KwikPen per protocol will be held, losartan 100 mg p.o. daily, MiraLAX 17 g p.o. daily, Lyrica 75 mg p.o. daily, sertraline 100 mg p.o. daily, and simvastatin 40 mg p.o. at bedtime. DIAGNOSTIC DATA: Laboratory data showed a white blood cell count of 22.62, hemoglobin 8.9, hematocrit 27.1, platelets 194,000. D-dimer of 1.33. ABG that showed a pH of 7.41, pCO2 of 35, PO2 of 81, bicarbonate 23.3, and this was on 4 L via nasal cannula. Sodium 138 , potassium 4, chloride 102, CO2 of 20, BUN of 44, creatinine 3.1, glucose 171. Magnesium 2.2. C-reactive protein 233.11. Troponin 0.020, proBNP of 6746. Plasma lactate 0.5. Urinalysis was negative except for 4+ bacteria. Acetone level was negative. Influenza A and B were both negative. Chest x-ray showed multilobar pneumonia on the right. EKG: Normal sinus rhythm at 71. REVIEW OF SYSTEMS: She was positive for subjective fever, chills, body aches, generalized weakness, shortness of breath, nonproductive cough. Denied any chest pain, abdominal pain, constipation, diarrhea, or burning or hurting with urination. PHYSICAL EXAMINATION: VITAL SIGNS: On arrival, she had a temperature of 98 degrees, pulse 70, respirations 14, blood pressure 153/85, saturating 96% on 4 L. GENERAL: This is a 78-year-old female who is lying in the bed and answers questions appropriately. HENMT: Normocephalic, atraumatic. Normal ENT inspection. Oropharynx and nares are clear. EYES: Pupils are equal, round, and reactive to light and accommodation. Extraocular movements are intact. NECK: Normal inspection. Normal range of motion. LUNGS: With some scattered rales bilaterally posteriorly with right greater than left. Equal lung expansion and chest wall movement noted. HEART: With regular rate and rhythm. No murmurs, rubs, or gallops. ABDOMEN: Soft. Nontender. Nondistended. Bowel sounds are present x4 quadrants. MUSCULOSKELETAL: She has 5/5 strength x4 extremities. NEUROLOGICAL: The cranial nerves 2 through 12 appear grossly intact. ASSESSMENT: 1. Bilateral multilobar pneumonia. 2. Leukocytosis secondary to #1. 3. Elevated D-dimer. 4. Acute on chronic kidney disease. 5. Diabetes, type 2. PLAN: She was admitted to the medical unit at [place]. Placed on O2 per protocol. She has an indwelling Herndon catheter. Diabetic diet. We are going to check a V/Q lung scan and bilateral lower extremity venous Doppler today to rule out any PE/DVT. I am going to hold up on given her any Lovenox at this time as her creatinine is up, and I do not want to anticoagulate if it is unnecessary. We will place her on DuoNeb q.4 h. routinely and q.2 h. p.r.n., Ambien normal saline at 125 mL an hour, Rocephin 1 gram IV q.24 h., Zithromax 500 mg IV 24. Continue home medicines as previously identified. We will recheck a CBC, BMP in the a.m. Urine culture is pending. Patient seen and examined by me face to face, all the laboratory, vitals signs, and images were reviewed, patient presented to the emergency department with severe shortness of breath, she seems to be in some respiratory distress, apparently she has been diagnosed some days ago with pneumonia, she completed her treatment with azithromycin, and she was starting to get better but for the past few days she started to decline again, she does have bilateral decrease of the breath sounds, rhonchi, x ray showed multilobar pneumonia bilaterally, family at the bedside, she will be on breathing treatment, antibiotics, cultures, I will probably get a Chest CT, I agree with the rest of the OFFICE AUDITOR's assessment and plan, Sneha Shannon MD. Dictated by SUJATHA Barnett for Brandyn Vargas MD cc: MD Guera Justice CRNP Omar J. Sosa-Chirinos, MD [facility]
--- NOTE | 2018-10-11 12:54 | Diag Imaging Result Doc PS360 ---
EXAM: LUNG SCAN / VQ INDICATION: elevated ddimer TECHNIQUE: 39.9 mCi of aerosolized technetium 99 DTPA was administered for the ventilation portion of the scan. 5.8 mCi of IV technetium 99 MAA was administered for the perfusion portion of the scan. COMPARISON: 05/07/2018 FINDINGS: The ventilation portion of the scan is somewhat suboptimal with much of the radiotracer contents in the central bronchi. However, no discrete perfusion defects are identified. IMPRESSION: Negative VQ scan. Electronically signed by Fili Greenberg 10/11/2018 12:52 PM
[2018-10-11] MEDS: ZYVOX 600 MG/D5W 600 MG/300 ML IVPB IV SCH (12:59)
--- NOTE | 2018-10-11 15:17 | Extremity Venous Study ---
EXAM: Venous U/S Bilateral Legs - 10/11/2018 HISTORY: elevated d-dimer TECHNIQUE: Bilateral lower extremity Doppler venous ultrasound COMPARISON: 05/07/2018 FINDINGS: The deep veins of the bilateral lower extremities demonstrate flow and compressibility. There are no filling defects identified. IMPRESSION: No evidence of deep venous thrombosis in either lower extremity. Electronically signed by Sekou Sykes 10/11/2018 3:15 PM
[2018-10-11] MEDS: HUMALOG DOSE (PARKWAY) SUBQ SCH ×2 (16:06→21:51)
[2018-10-11] MEDS ORDERED: ZITHROMAX 500 MG/NS 500 MG/250 ML IVPB IV SCH (18:00)
[2018-10-11] MEDS ORDERED: ROCEPHIN 1 GM in NS 50 ML IV SCH (19:00)
[2018-10-11] MEDS: PLAVIX PO SCH (21:50)
[2018-10-11] MEDS: ZOCOR PO SCH (21:51)
[2018-10-12] MEDS: ZYVOX 600 MG/D5W 600 MG/300 ML IVPB IV SCH ×2 (01:21→12:20)
[2018-10-12] MEDS: DUONEB (A & A) INH SCH ×6 (03:35→22:43)
[2018-10-12] MEDS: ZOSYN 2.25 GM in NS 50 ML IV SCH ×3 (05:50→16:07)
[2018-10-12] MEDS: APRESOLINE PO SCH ×4 (05:51→16:03)
[2018-10-12] MEDS: CATAPRES PO SCH ×4 (05:52→21:26)
[2018-10-12] MEDS: COREG PO SCH ×3 (05:52→12:20)
[2018-10-12] MEDS: HUMALOG DOSE (PARKWAY) SUBQ SCH ×4 (06:06→21:18)
[2018-10-12 07:34] LABS: BASO# 0.02 X1000 (0.0-0.2); BASO% 0.1 % (0.0-0.8); EOS# 0.13 X1000 (0.0-0.7); EOS% 0.6 % (0.0-10.0); HEMATOCRIT 25.6 % (37.0-47.0); HEMOGLOBIN 8.4 g/dL (12.0-16.0); IMM GRAN# 0.09 X1000 (0.0-0.04); IMM GRAN% 0.4 % (0.0-0.5); LYMPH# 9.07 X1000 (1.2-3.4); LYMPH% 41.5 % (20.5-51.1); MCH 26.3 PG (27-31); MCHC 32.8 g/dL (33-37); MCV 80.3 FL (81-99); MONO# 1.03 X1000 (0.11-0.59); MONO% 4.7 % (1.7-9.3); MPV 10.1 FL (7.4-10.4); NEUT# 11.52 X1000 (1.4-6.5); NEUT% 52.7 % (42.2-75.2); PLT 202 X1000 (130-400); RBC 3.19 XMIL (4.2-5.4); RDW 14.1 % (11.5-14.5); WBC 21.86 X1000 (4.8-10.8)
[2018-10-12 08:01] LABS: CALCIUM 8.7 mg/dL (8.8-10.2); CREATININE 2.9 mg/dL (0.5-0.9); POTASSIUM 3.8 mmol/L (3.5-5.1)
[2018-10-12 09:13] LABS: LYMPHS 39 % (21-51); MONO 4 % (1-9); SEGS 57 % (42-75)
[2018-10-12] MEDS: LYRICA PO SCH (10:08)
[2018-10-12] MEDS: NORVASC PO SCH (10:08)
[2018-10-12] MEDS: BASAGLAR SUBQ SCH ×2 (10:08→21:26)
[2018-10-12] MEDS: ZOLOFT PO SCH (10:08)
[2018-10-12] MEDS: MIRALAX PO SCH (10:09)
[2018-10-12] MEDS ORDERED: TYLENOL PO PRN (13:43)
--- NOTE | 2018-10-12 13:43 | Diag Imaging Result Doc PS360 ---
EXAM: CT THORAX W/O CONTRAST HISTORY: Pneumonia TECHNIQUE: Images were obtained from the lung apices through bases as per standard protocol. COMPARISON: 05/13/2018 FINDINGS: There is cardiomegaly with bilateral pleural effusions and bibasilar airspace disease right greater than left. There are enlarged mediastinal lymph nodes right paratracheal, precarinal, AP window and prevascular regions. There are groundglass trays left upper lobe, right upper lobe, right middle lobe, and right lower lobe. Findings consistent with pneumonia, pulmonary edema, or other airspace filling process including hemorrhage or lymphoma. Correlate clinically. There is diffuse anasarca of the visualized upper abdominal wall and bilateral flanks. There is trace ascites. There a 2 cm mildly, hyperdense left renal lesion with possible calcifications. Hounsfield units measure approximately 60. This is considered an indeterminate lesion on this noncontrasted study and renal cell carcinoma is not excluded. Recommend further evaluation with dedicated renal CT or MRI. There is an unchanged hypodensity right kidney, statistically renal cyst. IMPRESSION: 1.Bilateral groundglass infiltrates most prominent on the right associated with bilateral pleural effusions and bibasilar atelectasis. Findings could represent cardiogenic edema or other airspace filling process. Correlate clinically. 2.Mediastinal lymphadenopathy. 3.Diffuse anasarca and trace ascites. 4.Indeterminate hyperdense left renal nodule. Recommend follow-up evaluation with dedicated renal CT or MRI. This exam was performed using automated exposure control, adjustment of mA or kV according to patient size, and/or use of iterative reconstruction technique. Electronically signed by Shakila Henry 10/12/2018 1:40 PM
[2018-10-12] MEDS ORDERED: LASIX IV ONE (14:10)
--- NOTE | 2018-10-12 15:43 | PROGRESS NOTE ---
DATE: 10/12/2018 SUBJECTIVE: This patient states that she is feeling better, she is still complaining of moderate shortness of breath, she does have bilateral multilobar pneumonia which is more evident on the right side, also she has pleural effusion as per the CT scan report. This patient has been getting antibiotics broad spectrum which has been adjusted to her kidney function. She is completely alert and oriented x3. She is tolerating p.o. She is not ambulating right now due to her shortness of breath and weakness. OBJECTIVE: Vital Signs: Temperature 98.9 degrees, pulse 71, respiratory rate 24, blood pressure 107/72, oxygen saturation 93 on 4 L of nasal cannula. HEENT: Head normocephalic. No trauma. PERRLA. Neck: Supple. No JVD. No masses. Central trachea. Chest: Decreased breath sounds globally with bilateral rhonchi and crackles at the bases, decreased air entry and some scattered expiratory wheezing. Abdomen: Soft, nontender, nondistended. No hepatosplenomegaly. Extremities: Edema, no clubbing, no cyanosis. Neurological: Alert and oriented x3. No focal deficits. LABORATORY: WBC 21.8, hemoglobin 8.4, hematocrit 25.6, platelets 202,000, sodium 137, potassium 3.8, chloride 103, bicarbonate 20, BUN 43, creatinine 2.9, glucose 183, calcium 8.7. ASSESSMENT AND PLAN: 1. Multilobar pneumonia which is more evident on the right side, will continue with broad spectrum antibiotics. She has been placed on Zosyn and Zyvox which are renally dosed, will continue with breathing treatment, oxygen supplementation and pulmonary toilet, CPT. 2. Hypoxemic respiratory failure, as per #1 continue with oxygen supplementation. 3. Leukocytosis secondary to #1. 4. Elevated D-dimer, we have requested a V/Q scan and lower extremity venous ultrasound which are normal, for now will monitor. 5. Acute on chronic kidney disease aware. She received some fluids in the emergency department but that has been stopped due to pulmonary edema, now I will give her a dose of Lasix to try to decrease the amount of fluid inside her lungs. 6. Pulmonary edema as above, she will receive 1 dose of Lasix, she does have pulmonary edema which is more evident with the CT scan. 7. Type 2 diabetes stable. Continue with the same management. 8. Resuscitation status, this patient is full code. cc: Brandyn Vargas MD
[2018-10-12] MEDS: PLAVIX PO SCH (21:27)
[2018-10-12] MEDS: ZOCOR PO SCH (21:27)
[2018-10-12] MEDS: HEPARIN SUBQ SCH (21:27)
[2018-10-13] MEDS ORDERED: NS 0 ML ONE (00:01)
[2018-10-13] MEDS: ZOSYN 2.25 GM in NS 50 ML IV SCH ×4 (00:18→18:20)
[2018-10-13] MEDS: ZYVOX 600 MG/D5W 600 MG/300 ML IVPB IV SCH ×2 (01:56→11:50)
[2018-10-13] MEDS: DUONEB (A & A) INH SCH ×5 (03:19→23:38)
[2018-10-13] MEDS: HUMALOG DOSE (PARKWAY) SUBQ SCH ×4 (06:14→21:40)
[2018-10-13] MEDS: COREG PO SCH ×2 (06:29→11:49)
[2018-10-13] MEDS: APRESOLINE PO SCH ×3 (06:29→17:08)
[2018-10-13] MEDS: CATAPRES PO SCH ×3 (06:29→21:47)
[2018-10-13 06:56] LABS: BASO# 0.02 X1000 (0.0-0.2); BASO% 0.1 % (0.0-0.8); EOS# 0.14 X1000 (0.0-0.7); EOS% 0.6 % (0.0-10.0); HEMOGLOBIN 8.5 g/dL (12.0-16.0); IMM GRAN# 0.11 X1000 (0.0-0.04); IMM GRAN% 0.5 % (0.0-0.5); LYMPH# 10.55 X1000 (1.2-3.4); LYMPH% 45.1 % (20.5-51.1); MCH 26.2 PG (27-31); MCHC 32.7 g/dL (33-37); MONO% 4.7 % (1.7-9.3); MPV 10.8 FL (7.4-10.4); NEUT# 11.49 X1000 (1.4-6.5); PLT 229 X1000 (130-400); RBC 3.25 XMIL (4.2-5.4); RDW 14.1 % (11.5-14.5); WBC 23.41 X1000 (4.8-10.8)
[2018-10-13 07:02] LABS: LYMPHS 51 % (21-51); MONO 3 % (1-9); SEGS 44 % (42-75)
[2018-10-13 07:03] LABS: POLYCHROM OCCASIONAL
[2018-10-13 07:04] LABS: OVALOCYTES OCCASIONAL; POIKILOCYTOSIS OCCASIONAL; STOMATOCYTES OCCASIONAL
[2018-10-13 07:18] LABS: CALCIUM 8.7 mg/dL (8.8-10.2); CREATININE 3.3 mg/dL (0.5-0.9); POTASSIUM 3.6 mmol/L (3.5-5.1)
[2018-10-13] MEDS: ZOLOFT PO SCH (09:27)
[2018-10-13] MEDS: LYRICA PO SCH (09:27)
[2018-10-13] MEDS: MIRALAX PO SCH (09:27)
[2018-10-13] MEDS: NORVASC PO SCH (09:27)
[2018-10-13] MEDS: BASAGLAR SUBQ SCH ×2 (09:28→21:48)
[2018-10-13] MEDS: HEPARIN SUBQ SCH ×2 (09:28→21:47)
--- NOTE | 2018-10-13 13:45 | PROGRESS NOTE ---
DATE: 10/13/2018 SUBJECTIVE: The patient notes she is still coughing and congested and still having some shortness of breath. Her sister notes that she has not really been out of bed. She has had decreased oral intake. OBJECTIVE/PHYSICAL: T-max 100.2, T current 99; pulse 65, respiratory 22, BP 150/60. General: Patient is an obese female who is lying flatly in the bed. She is in mild current respiratory distress. HEENT: Normocephalic, atraumatic. ASHISH. Neck supple. No JVD. CARDIOVASCULAR: Regular rate. No murmurs. Chest clear. No crackles, but positive rhonchi. Abdomen soft, nondistended. Extremities: Moves all extremities. Neurologic: No focal changes. Skin warm and dry. No rashes. ASSESSMENT: 1. Multilobar pneumonia. 2. Hypoxic respiratory failure. 3. Leukocytosis. White count still elevated at 23. 4. Fkglz-es-kcifwnq renal failure. Creatinine is still elevated at 3.3. Her baseline is 2 to 2.5. 5. Escherichia coli urinary tract infection. This is resistant to Levaquin. She is currently on Zosyn and Zyvox. 6. Pulmonary edema. We will continue Lasix as needed. PLAN: We will continue following the patient in the hospital. Further orders as needed. cc: Skyler Humphries MD
[2018-10-13] MEDS: ZOCOR PO SCH (21:47)
[2018-10-13] MEDS: PLAVIX PO SCH (21:47)
[2018-10-13] MEDS ORDERED: ZOSYN ONE (23:29)
[2018-10-14] MEDS: ZOSYN 2.25 GM in NS 50 ML IV SCH ×4 (00:16→18:09)
[2018-10-14] MEDS: DUONEB (A & A) INH SCH ×7 (00:57→22:46)
[2018-10-14] MEDS: ZYVOX 600 MG/D5W 600 MG/300 ML IVPB IV SCH ×2 (01:00→12:47)
[2018-10-14] MEDS: COREG PO SCH ×2 (06:40→12:46)
[2018-10-14] MEDS: APRESOLINE PO SCH ×3 (06:41→17:10)
[2018-10-14] MEDS: CATAPRES PO SCH ×3 (06:41→21:04)
[2018-10-14] MEDS: HUMALOG DOSE (PARKWAY) SUBQ SCH ×4 (06:42→21:05)
[2018-10-14] MEDS: LYRICA PO SCH (10:01)
[2018-10-14] MEDS: COZAAR PO SCH (10:01)
[2018-10-14] MEDS: NORVASC PO SCH (10:01)
[2018-10-14] MEDS: ZOLOFT PO SCH (10:02)
[2018-10-14] MEDS: MIRALAX PO SCH (10:02)
[2018-10-14] MEDS: HEPARIN SUBQ SCH ×2 (10:02→21:04)
[2018-10-14] MEDS: BASAGLAR SUBQ SCH ×2 (10:03→21:06)
--- NOTE | 2018-10-14 17:59 | PROGRESS NOTE ---
DATE: 10/14/2018 SUBJECTIVE: Patient notes that she is starting to feel better, she is starting to breathe easier. Denies any chest pains or palpitations. PHYSICAL: Temperature 97.8, pulse 67, respiratory 20, BP 155/59.General: Patient is awake, alert, she is in mild respiratory distress, her color is improved. Overall she appears to feel like she is better than yesterday. HEENT: Normocephalic. Neck: Supple. CV: Regular rate. Chest: Clear, positive rhonchi, no wheezing, better air movement. Abdomen: Soft. Extremities: Moves all extremities. ASSESSMENT: 1. Escherichia coli urinary tract infection resistant to Levaquin currently on Zosyn and Zyvox. 2. Multilobar pneumonia. 3. Acute on chronic renal failure. Creatinine is still mildly elevated at 3.3 with a baseline at 2 to 2.3. 4. Leukocytosis. 5. Pulmonary edema. 6. Type 2 diabetes. Overall patient appears to be improving. We will continue the course today and will adjust tomorrow if necessary, will recheck labs and follow. cc: Skyler Humphries MD
--- NOTE | 2018-10-14 19:52 | Diag Imaging Result Doc PS360 ---
CHEST-PORTABLE - 10/14/2018 INDICATION: choking/sob COMPARISON: 10/10/2018 FINDINGS: There has been improvement in the right basilar infiltrate. Stable cardiomegaly and pulmonary vascular congestion. No pneumothorax or large pleural effusion. IMPRESSION: Improvement in the right basilar infiltrate/pneumonia. Electronically signed by Mayur Nunes 10/14/2018 7:49 PM
[2018-10-14] MEDS: ZOCOR PO SCH (21:04)
[2018-10-14] MEDS: PLAVIX PO SCH (21:04)
[2018-10-15] MEDS: ZOSYN 2.25 GM in NS 50 ML IV SCH ×2 (00:01→06:16)
[2018-10-15] MEDS: ZYVOX 600 MG/D5W 600 MG/300 ML IVPB IV SCH (00:38)
[2018-10-15] MEDS: DUONEB (A & A) INH SCH ×6 (03:31→23:24)
[2018-10-15] MEDS: CATAPRES PO SCH ×2 (06:16→14:42)
[2018-10-15] MEDS: APRESOLINE PO SCH ×3 (06:16→17:01)
[2018-10-15] MEDS: COREG PO SCH ×2 (06:16→14:43)
[2018-10-15] MEDS ORDERED: INSULIN PEN NEEDLES MISC PRN ×2 (06:25→11:53)
[2018-10-15 06:31] LABS: HEMATOCRIT 24.5 % (37.0-47.0); MCHC 32.7 g/dL (33-37); MCV 79.5 FL (81-99); MPV 10.5 FL (7.4-10.4); RBC 3.08 XMIL (4.2-5.4); WBC 23.77 X1000 (4.8-10.8)
[2018-10-15 07:02] LABS: ALBUMIN 2.4 g/dL (3.5-5.0); CALCIUM 8.4 mg/dL (8.8-10.2); MAGNESIUM 2.3 mg/dL (1.5-2.7); POTASSIUM 3.5 mmol/L (3.5-5.1); TOTAL BILIRUBIN 0.3 mg/dL (0.20-1.00); TOTAL PROTEIN 5.9 g/dL (6.3-8.3)
[2018-10-15] MEDS: HUMALOG DOSE (PARKWAY) SUBQ SCH ×2 (07:07→10:32)
[2018-10-15] MEDS ORDERED: NS 1,000 ML IV SCH ×2 (08:30→12:00)
[2018-10-15] MEDS ORDERED: ZYVOX PO SCH (09:00)
[2018-10-15] MEDS: HEPARIN SUBQ SCH ×2 (09:16→22:35)
[2018-10-15] MEDS: COZAAR PO SCH (09:16)
[2018-10-15] MEDS: ZOLOFT PO SCH (09:16)
[2018-10-15] MEDS: LYRICA PO SCH (09:16)
[2018-10-15] MEDS: NORVASC PO SCH (09:16)
[2018-10-15] MEDS: BASAGLAR SUBQ SCH (09:18)
--- NOTE | 2018-10-15 09:18 | PROGRESS NOTE ---
DATE: 10/15/2018 SUBJECTIVE: The patient and her daughter both state that she is feeling better. Her cough has improved. Her speech has improved. She is not gotten out of bed yet. OBJECTIVE: Vital Signs: She has been afebrile over the past 24 hours. Temperature 98.8 degrees, pulse 67, respiratory rate 20, blood pressure 155/59. General: The patient is awake and alert. She is in no current respiratory distress. Overall, she does appear to be improving. She appears clinically strong. Breathing is improved. HEENT: Normocephalic. Neck: Supple. CARDIOVASCULAR: Regular rate. No murmurs. Chest: Decreased but equal breath sounds. No current wheezing. No crackles. Good air movement. Abdomen: Soft, nondistended. Extremities: Moves all extremities. ASSESSMENT: 1. Acute on chronic renal failure. Creatinine this morning has actually worsened to 5.0, was 3.3 to 3.8 yesterday. Her baseline is around 2 to 2.3. Uncertain etiology. We did stop her intravenous fluids yesterday. We will restart her intravenous fluids this morning. Will stop her Zyvox to see if this is contributing. 2. Multilobar pneumonia. Her chest x-ray this morning is better. Clinically, she appears to be improving as noted. However, we will stop her Zyvox due to her renal issue. 3. Hypoxic respiratory failure, appears to be improving. 4. Leukocytosis. White count remains stable at 23. 5. Escherichia coli urinary tract infection resistant to Levaquin, but sensitive to Zosyn. Will continue. 6. Diabetes. PLAN: Per the daughter's request, we will transfer her to [facility], [place] to allow Pulmonology and Infectious Disease to see Ms. Cedeno. We will stop her Herndon catheter. Will restart her IV fluids. Will attempt to get her out of bed. Continue to encourage incentive spirometry. Further orders as needed. cc: Skyler Humphries MD
[2018-10-15] MEDS: MIRALAX PO SCH (09:22)
[2018-10-15] MEDS ORDERED: DUONEB (A & A) INH PRN (11:52)
[2018-10-15] MEDS ORDERED: ZOSYN 2.25 GM in NS 50 ML IV SCH (12:00)
[2018-10-15] MEDS ORDERED: PNEUMOVAX 23 IM ONE (12:45)
[2018-10-15 13:26] LABS: IRON SATURATION 13 %; TIBC 120 ug/dL; TOTAL IRON 15 ug/dL (49-151); UNBOUND IRON 105 ug/dL (112-346)
[2018-10-15 14:15] LABS: FERRITIN 262 ng/mL (13-150)
[2018-10-15 14:45] LABS: URINE SOURCE CATH
[2018-10-15 15:01] LABS: BILIRUBIN URINE NEGATIVE (NEGATIVE); BLOOD URINE LARGE (NEGATIVE); COLOR ORANGE; GLUCOSE URINE NEGATIVE (NEGATIVE); KETONE URINE NEGATIVE (NEGATIVE); LEUKOCYTES URINE LARGE (NEGATIVE); NITRITE URINE NEGATIVE (NEGATIVE); PH URINE 5.5; PROTEIN URINE 200 mg/dL (NEGATIVE); SP GRAVITY URINE 1.012; TURBIDITY URINE TURBID (CLEAR); UROBILINOGEN URINE NORMAL (NORMAL)
[2018-10-15 15:05] LABS: UR EPITHELIAL CELLS <10 /HPF (<10); URINE BACTERIA NEGATIVE /HPF; URINE RBC TNTC /HPF (<10); URINE WBC TNTC /HPF (<10)
[2018-10-15 15:10] LABS: URINE CASTS GRANULAR PRESENT; URINE YEAST PRESENT
[2018-10-15 15:11] LABS: URINE CRYSTALS NONE SEEN; URINE SMALL ROUND CELLS NONE SEEN
[2018-10-15] MEDS: MAXIPIME 1 GM in NS 50 ML IV SCH (15:16)
--- NOTE | 2018-10-15 15:19 | INFECTIOUS DISEASE CONSULT REP ---
DATE: 10/15/2018 CONCLUSION: The patient is admitted to the hospital with what appears to be a right lower lobe pneumonia. She also has a urinary tract infection. RECOMMENDATIONS: I agree with treating the patient with Zyvox. I have substituted cefepime for Zosyn. DISCUSSION: The patient's history was taken from her daughter. The daughter says that her mother approximately 9 days ago became progressively more short of breath. She had a fever up to 103 degrees and a cough, but she did not cough up much sputum. She was not having diarrhea or dysuria. The patient's CBC shows a white count of 23,770, hemoglobin 8 and platelet count 224,000. Creatinine is 5. GFR is 10. Liver function studies are normal. Stool for Clostridium difficile toxin is negative. Blood cultures are negative. Urine grew E coli. Sputum grew normal hanny and yeast. Chest x-ray shows there is less pulmonary venous congestion. There appears to be a right lower lobe pneumonia. PAST MEDICAL HISTORY / REVIEW OF SYSTEMS: I was unable to obtain this from the patient. The patient's daughter said the patient was living alone and doing well until she got sick and at that time the daughter has been taking care of her. The patient was able to walk with a walker. She did not have any problems hearing or seeing. She was able to eat. She was not having diarrhea or dysuria. She was not complaining about any joints or muscle aches according to the daughter. TITLE MANAGER HISTORY: She is a 2, para 1, AB 1. PREVIOUS HOSPITALIZATIONS AND OPERATIONS: She has had surgery on her right ankle. She was admitted for a stroke. She has had a sinus surgery and she had an infection during admission in [place], but the daughter was uncertain as to where the infection came from. MEDICAL DISEASES: Positive for diabetes mellitus, hypertension, stroke and end-stage renal disease. INFECTIOUS DISEASE HISTORY: Positive for pneumonia and UTI. FAMILY HISTORY: Positive for diabetes mellitus and hypertension. SOCIAL HISTORY: [place] She was living alone, but her daughter has been living with her since she has gotten sick. The patient does not have any pets at home. ALLERGIES: Her only allergy is to iodinated contrast, both oral and IV. HOME MEDICATIONS: Include the following: Amlodipine, carvedilol, clonidine, clopidogrel, Lasix, Apresoline, insulin, losartan, MiraLAX, Lyrica, sertraline and simvastatin. PHYSICAL EXAMINATION: Vital Signs: Temperature is 99.1, pulse 79, respirations 16, blood pressure 131/50. Patient weighs 184 pounds. General: This is an ill-appearing elderly female. She is in no acute distress. Head, Eyes, Ears, Nose and Throat: She can hear my spoken words and see near objects. She does not have any white coating to her tongue. She is not draining from her nose or ears. Neck: No stiffness. Lungs: There were bibasilar rales. Cardiovascular: Heart rate was regular with a systolic murmur. Abdomen: Soft and nontender. Extremities: The patient has bilateral leg edema, but no erythema. Neurologic: The patient is slightly lethargic. She can move her extremities. There is no tremor. Integument: No rash noted. Thank you for the consult. cc: Fred Garcia MD
--- NOTE | 2018-10-15 15:43 | Diag Imaging Result Doc PS360 ---
US RENAL 2 (RETROPER) COMPLETE - 10/15/2018 INDICATION: decreased renal function TECHNIQUE: COMPARISON: CT from 05/12/2018 FINDINGS: There is a simple appearing cyst at the lower pole the left kidney measuring 2.2 cm. Renal sizes are a bit small. No hydronephrosis or hydroureter. Urinary bladder is collapsed by a Herndon catheter. The right kidney measures 8 x 3.2 x 3.9 cm. The left kidney measures 8.6 x 4.3 x 4.9 cm. Cortex measures 8 mm bilaterally. IMPRESSION: 1. Bilateral renal atrophy but no acute disease. 2. Benign-appearing left renal cyst. Electronically signed by Mayur Nunes 10/15/2018 3:40 PM
[2018-10-15 16:07] LABS: UR CREAT RANDOM 95.1 mg/dL (11-20)
[2018-10-15 16:16] LABS: UR PROT RANDOM 230.4 mg/dL
[2018-10-15] MEDS ORDERED: LASIX IV ONE (17:01)
[2018-10-15] MEDS: HUMALOG SUBQ SCH ×2 (17:01→22:34)
--- NOTE | 2018-10-15 17:59 | PROGRESS NOTE ---
DATE: 10/15/2018 SUBJECTIVE: The patient has been transferred from [place]. She was admitted over there since 10/11/2018, mainly because of shortness of breath and subjective fever. On presentation, the patient's oxygen saturation was about 80%. This afternoon, she continues to have some shortness of breath. OBJECTIVE: Vital signs: Blood pressure 126/45, pulse 61, respirations 14, temperature 99.3 degrees. General: Ms. Cedeno is a 78-year-old female. She is in bed. She is in mild respiratory distress. HEENT: Mucosa is pink and moist. Anicteric. Acyanotic. Neck: Supple. There is positive JVD. Chest: Air entry is bilaterally reduced. There are diffuse bilateral posterior crackles. Cardiovascular: Regular rate and rhythm. Abdomen: Soft, distended, nontender. Bowel sounds present. Extremities: About 1+ pedal edema. Central nervous system: The patient is awake, alert, and oriented. LABORATORY DATA: WBC 23.77, hemoglobin 8.0, platelet count 224,000. Chemistry is also reviewed. Sodium is 134, potassium 3.5, chloride 95, bicarb 18, BUN 53, and creatinine went up to 5.0. DIAGNOSTIC STUDIES: Renal ultrasound shows bilateral renal atrophy, but no acute. A CT scan of the chest did show bilateral ground-glass infiltrate, most predominant on the right, associated with bilateral pleural effusion. Findings consistent with cardiogenic edema and/or airspace filling process. EKG shows left axis deviation with right bundle branch block. Previous echocardiogram shows ejection fraction of 65%. ASSESSMENT: 1. Fluid overload. I think this is a combination of congestive heart failure with preserved ejection fraction or worsening of patient's underlying renal disease. I will stop the intravenous fluids and start the patient on Lasix. Also, consult has been placed for Nephrology to see the patient. 2. Acute on chronic renal failure. Renal function continues to be remarkably getting worse. I think there is acute tubular necrosis on top of the patient's chronic renal failure. Ultrasound does show bilateral renal atrophy, which would be consistent with the chronicity of her renal problems. Nephrology is pending to evaluate the patient. 3. Hypertension. We will continue with her medications. I have, however, discontinued the losartan because of the worsening renal failure and have also discontinued the amlodipine because of the worsening fluid retention. 4. Suspected bilateral pneumonia. The patient is on Zyvox and Zosyn. PLAN: In general, Ms. Cedeno seems to be retaining a lot of fluid, which I think is a combination of the IV fluid that she is getting and the worsening of her renal failure probably associated with diastolic heart failure. I have discontinued the IV fluids. I will give her 60 mg of IV Lasix to challenge the kidneys and also await Renal consult recommendations. Will continue with the current antibiotics and will follow up with further recommendations from the other subspecialties. cc: Rasheed Park MD
[2018-10-15] MEDS ORDERED: BASAGLAR SUBQ SCH (21:00)
[2018-10-15] MEDS: ZYVOX PO SCH (22:32)
[2018-10-15] MEDS: PLAVIX PO SCH (22:33)
[2018-10-15] MEDS: ZOCOR PO SCH (22:33)
--- NOTE | 2018-10-15 23:43 | CONSULTATION ---
DATE OF CONSULTATION: 10/15/2018 REQUESTING PROVIDER: Dr. Skyler Humphries. REASON FOR CONSULTATION: Pneumonia. Family request. HISTORY OF PRESENT ILLNESS: This is a 78-year-old female with a medical history of diabetes, end-stage renal disease, hypertension, neuropathy, chronic lymphocytic leukemia and seizure. She has been admitted to [facility] with bilateral multilobar pneumonia, hypoxemic respiratory failure, acute on chronic kidney disease, and E coli urinary tract infection since 10/10/2018. Today patient is transferred here for further evaluation and management. Currently the patient still has some dry cough, shortness of breath and general weakness. She also has diarrhea, which is C. diff negative. She has no fever, nausea, vomiting, pleurisy, wheezing, chest pain or palpitation. PAST MEDICAL HISTORY: 1. Diabetes mellitus type 2, insulin dependent. 2. End-stage renal disease. 3. Hypertension. 4. Neuropathy. 5. Chronic lymphocytic leukemia. 6. Seizure. PAST SURGICAL HISTORY: 1. Right ankle open reduction, internal fixation. 2. Sinus surgery. SOCIAL HISTORY: Patient lives at home with home health nurse. She is also cared for by her daughter. She has no history of tobacco, alcohol or illicit drug use. FAMILY HISTORY: Positive for diabetes and hypertension. ALLERGIES: Iodinated contrast both oral and IV. REVIEW OF SYSTEMS: A 10 point review of systems is conducted and the pertinent is listed within the HPI, otherwise noncontributory. PHYSICAL EXAMINATION: Vital Signs: Temperature 98.7 degrees, pulse 65, blood pressure 147/50, respiratory rate 20, and oxygen saturation 100% on nasal cannula at 4 L. General: Chronically ill appealing, obese, in no acute respiratory distress. HEENT: Atraumatic. Trachea midline. Respiratory: Diminished breathing sounds bilaterally with early inspiratory crackles. Cardiovascular: Regular rate and rhythm. Gastrointestinal: Soft, nontender, nondistended. Normoactive bowel sounds in all 4 quadrants. Extremities: Bilateral lower extremity pitting edema 1+. Neurologic: Alert, oriented x3. LAB DATA: White blood cell 23.77, hemoglobin 8.0, hematocrit 24.5, platelet 224,000. Sodium 134, potassium 3.5, chloride 99, carbon dioxide 18, BUN 53, creatinine 5.0, and glucose 114. ASSESSMENT: This is a 78-year-old female with a medical history of diabetes, end- stage renal disease, hypertension, neuropathy, chronic lymphocytic leukemia and seizure. She has been admitted to the [facility] with bilateral multilobar pneumonia, hypoxemic respiratory failure, acute on chronic kidney disease, and Escherichia coli urinary tract infection since 10/10/2018. 1. Pneumonia. 2. Acute renal failure. 3. Lung scan V/Q negative for pulmonary embolism. 4. Congestive heart failure. PLAN: 1. Continue antibiotic and diuretics as prescribed. 2. Renal consultation. 3. ABG and chest x-ray if indicated. 4. Check proBNP in the morning. 5. Continue GI and DVT prophylaxis. Thank you for the courtesy of this consult. Dictated by SUJATHA Escalera for Gabriel Hi MD cc: SUJATHA Escalera MD [facility]
[2018-10-16] MEDS: CATAPRES PO SCH ×2 (01:48→06:35)
[2018-10-16] MEDS: MAXIPIME 1 GM in NS 50 ML IV SCH ×2 (02:27→14:43)
[2018-10-16] MEDS: TYLENOL PO PRN (02:29)
[2018-10-16] MEDS: DUONEB (A & A) INH SCH ×6 (03:01→23:06)
[2018-10-16 04:53] LABS: ALLEN TEST YES; BE -8.8 mmoll (-3.0-3.0); BLOOD TYPE ARTERIAL; HCO3-(ACT) 18.1 mmoll (20.0-26.0); METHB 0.8 % (0.0-1.5); MODALITY CANNULA; O2HB 96.8 % (95.0-99.0); PCO2(98.6) 38 mmHg (35-45); PO2(98.6) 117 mmHg (60-100); SAMPLE BLOOD; SAO2 99.3 % (95.0-100.0); THB 7.9 g/dL (11.5-17.4); pH(98.6) 7.27 (7.35-7.45)
[2018-10-16] MEDS: HUMALOG SUBQ SCH ×4 (06:14→21:34)
[2018-10-16 06:24] LABS: HEMATOCRIT 23.7 % (37.0-47.0); HEMOGLOBIN 7.9 g/dL (12.0-16.0); MCHC 33.3 g/dL (33-37); MCV 80.9 FL (81-99); MPV 10.4 FL (7.4-10.4); RBC 2.93 XMIL (4.2-5.4); RDW 13.9 % (11.5-14.5); WBC 26.99 X1000 (4.8-10.8)
[2018-10-16] MEDS: COREG PO SCH (06:35)
[2018-10-16] MEDS: APRESOLINE PO SCH ×3 (06:36→17:04)
[2018-10-16 06:44] LABS: ALB/GLOB RATIO 0.8; ALBUMIN 2.6 g/dL (3.5-5.0); CALCIUM 8.5 mg/dL (8.8-10.2); CREATININE 5.8 mg/dL (0.5-0.9); MAGNESIUM 2.2 mg/dL (1.5-2.7); POTASSIUM 3.7 mmol/L (3.5-5.1); TOTAL BILIRUBIN 0.33 mg/dL (0.20-1.00); TOTAL PROTEIN 5.9 g/dL (6.3-8.3)
--- NOTE | 2018-10-16 07:12 | Diag Imaging Result Doc PS360 ---
CHEST-1 VIEW - 10/16/2018 INDICATION: SOB COMPARISON: 10/14/2018 FINDINGS: Stable significant cardiomegaly and pulmonary vascular congestion. No focal infiltrates. No pneumothorax or large pleural effusion. IMPRESSION: Cardiomegaly and pulmonary vascular congestion. Improved right basilar infiltrate. Electronically signed by Mayur Nunes 10/16/2018 7:09 AM
--- NOTE | 2018-10-16 07:27 | INFECTIOUS DISEASE PROGRESS NO ---
DATE: 10/16/2018 PRESENT ILLNESS: The patient has a right lower lobe pneumonia and an E. coli urinary tract infection. MEDICATIONS: The patient is receiving Zyvox and cefepime. PHYSICAL EXAMINATION: Vital Signs: Temperature earlier was 101.5. The latest temperature is 99.7 degrees, pulse 61, respirations 18, blood pressure 143/61. General: This is an ill- appearing, elderly female. She is in no acute distress. She told me today she is feeling better. Head, Eyes, Ears, Nose, and Throat: She can hear my spoken words and see near objects. She does not have any white coating on her tongue. Neck: No stiffness. Lungs: Clear to auscultation. Cardiovascular: Regular heart rate. Abdomen: Soft and nontender. Neurologic: The patient is arousable. She moved her extremities to request. There was no tremor. Integument: No rash. LAB AND X-RAY STUDIES: I do not see an x-ray yet for today. The CBC shows a white count of 26,990, hemoglobin 7.9, and platelet count is 226,000. The patient's creatinine is 5.8. GFR is 9. Blood gases show a pH of 7.27, a PO2 of 111, and a pCO2 of 38. ASSESSMENT AND PLAN: The patient has pneumonia and a urinary tract infection. My plan is to continue the current antibiotics as mentioned above. COMORBIDITIES: She is elderly, she has had a stroke, she has end-stage renal disease, and she is a diabetic. cc: Fred Garcia MD
[2018-10-16] MEDS ORDERED: BASAGLAR SUBQ SCH (09:00)
[2018-10-16] MEDS: ZYVOX PO SCH ×3 (09:00→21:40)
[2018-10-16] MEDS ORDERED: NORVASC PO SCH (09:00)
[2018-10-16] MEDS ORDERED: COZAAR PO SCH (09:00)
[2018-10-16] MEDS: ZOLOFT PO SCH (09:20)
[2018-10-16] MEDS: LYRICA PO SCH (09:20)
[2018-10-16] MEDS: HEPARIN SUBQ SCH ×2 (09:21→21:34)
[2018-10-16] MEDS: MIRALAX PO SCH (09:21)
[2018-10-16] MEDS: LASIX IV SCH ×2 (12:28→22:18)
[2018-10-16] MEDS ORDERED: D50W SYRINGE IV ONE (12:37)
--- NOTE | 2018-10-16 12:57 | PROGRESS NOTE ---
DATE: 10/16/2018 SUBJECTIVE: Overnight the patient had a fever episode with temperature of 101.5 degrees Fahrenheit. In the morning time she was also noted to have hypoglycemia. Looking at her medication, she has been receiving long-acting insulin glargine, which I discontinued. We discussed about her lung exam findings and pneumonia. We also discussed about her diabetes and kidney dysfunction. Currently, patient denies feeling short of breath at rest. She does feel a little jittery because of low blood sugars and she is about to start eating her meal. OBJECTIVE: Vital signs: Currently temperature of 98.4 degrees, pulse 64 per minute, blood pressure 150/60, saturating 99% on 3 L nasal cannula. General: Does not appear to be in acute distress. However, she does have lowered speech. HEENT: Oral cavity is moist. Respiratory: Air entry bilaterally equal. She does have bilateral crackles in supramammary and inframammary region. No wheezes on examination. Cardiovascular: S1, S2 normal. Systolic crescendo decrescendo murmur affecting the base of the heart, best heard in the aortic region. No rub or gallop. Abdomen: Soft, nontender. Active bowel sounds. Extremities: Only mild pitting lower extremity edema. Neurologic: Alert and oriented x3. Input and output: She has been making about 400-500 mL of urine every day. LAB: Evaluation suggests persistent leukocytosis, microcytic anemia, metabolic acidosis, hyponatremia, elevated proBNP. MICROBIOLOGY: Previously urine culture was growing Escherichia coli. Repeat blood culture and urine culture has been ordered. ASSESSMENT AND PLAN: 1. Suspected bilateral and predominantly right lower lobe pneumonia which is improving. Continue the patient on intravenous antibiotics including cefepime and linezolid. Infectious Disease on board. 2. Acute hypoxic respiratory failure, combination of right lower lobe pneumonia and volume overload secondary to worsening renal function. The patient has been ordered intravenous Lasix by Nephrology. I will follow up with input and output through her Herndon catheter. 3. Acute on chronic renal failure. The patient appears to have progression of her chronic kidney disease. Nephrology on board. 4. Metabolic acidosis with mild elevation of anion gap with non-anion gap metabolic acidosis, likely related to her progression of chronic kidney disease to end-stage apparently now. Start patient on Bicitra. Follow up with [facility] tomorrow. 5. History of hypertension. Continue patient on carvedilol, home clopidogrel, hydralazine. 6. Episode of fever overnight. The patient is already on broad-spectrum antibiotics. I will follow up with urine culture and blood culture results, which I have ordered. 7. Hypoglycemia with history of insulin dependent diabetes mellitus: likely because of her long-acting insulin use. I have stopped her long-acting insulin. Continue sliding scale insulin and frequent blood sugar checks. 8. Disposition. Patient remains inside the hospital for her pneumonia, volume overload, and end- stage renal disease. Plan of care discussed with her. All of her questions have been answered. cc: Remi Bethea MD MTDD
[2018-10-16] MEDS: BICITRA PO SCH ×3 (15:25→21:41)
[2018-10-16] MEDS: ZOCOR PO SCH ×2 (21:35→21:42)
[2018-10-16] MEDS: PLAVIX PO SCH ×2 (21:35→21:40)
[2018-10-17] MEDS: LASIX IV SCH ×3 (01:44→23:17)
[2018-10-17] MEDS: MAXIPIME 1 GM in NS 50 ML IV SCH ×2 (02:25→14:33)
[2018-10-17] MEDS: DUONEB (A & A) INH SCH ×6 (03:45→22:35)
[2018-10-17] MEDS: APRESOLINE PO SCH ×3 (06:18→17:53)
[2018-10-17] MEDS: COREG PO SCH ×2 (06:18→12:24)
[2018-10-17 06:43] LABS: CALCIUM 8.7 mg/dL (8.8-10.2); CREATININE 5.8 mg/dL (0.5-0.9); POTASSIUM 3.7 mmol/L (3.5-5.1)
[2018-10-17] MEDS: HUMALOG SUBQ SCH ×4 (07:44→21:31)
--- NOTE | 2018-10-17 08:55 | ED EKG INTERP ---
This chart was entered by Jose La Scribe, acting as scribe for Boby Muniz MD. EKG Interpretation - EKG Time of EKG reading by physician:: 22:11 EKG Read and Signed by:: Boby Muniz EKG Interpretation (*Must complete 3 of following elements*): Abnormal Rate: 71 Rhythm: NSR [place]: left QRS: RBB, LVH Attestation - Physician/ YESSICA Attestation The physician spent face to face time with patient:: Yes Advanced Practice Provider documentation review:: Supervising physician onsite and consulted in the evaluation and care of this patient. The physician did have a face to face encounter with the patient. This chart was documented by the indicated scribe, (Jose La Scribe) and accurately reflects the services I performed and decisions made by me, Boby Muniz MD, as attested by the provider's signature.
[2018-10-17] MEDS: ZOLOFT PO SCH (09:11)
[2018-10-17] MEDS: HEPARIN SUBQ SCH ×2 (09:11→21:30)
[2018-10-17] MEDS: ZYVOX PO SCH ×2 (09:11→21:30)
[2018-10-17] MEDS: LYRICA PO SCH (09:12)
[2018-10-17] MEDS: BICITRA PO SCH ×2 (09:12→21:25)
[2018-10-17] MEDS: MIRALAX PO SCH (09:12)
--- NOTE | 2018-10-17 13:14 | NEPHROLOGY CONSULTATION ---
DATE: 10/17/2018 REASON FOR CONSULTATION: Acute kidney injury overlying chronic kidney disease. HISTORY OF PRESENT ILLNESS: Ms. Cedeno is a 78-year-old black female who is followed by us in the office. She has known chronic kidney disease with baseline creatinine of approximately 2.2 to 2.5. She was most recently seen in our office in April. She has been ill at home with hypoxemia, cough, shortness of breath and sputum production. Because of this, she sought attention with the [facility] where she was treated with antibiotics and released. She did not improve and so she returned to the hospital and was subsequently admitted. Her initial laboratory data on the initial ER visit on the found creatinine 3.1, BUN 44. She was treated with IV fluids, but her urine output has been excellent such that her overall fluid balance is roughly equal since admission. Additionally, her chest x-ray was read as multilobar pneumonia initially. Her repeat chest x-ray performed yesterday show improvement of her pneumonia with some evidence of vascular congestion. In this context, her creatinine has risen from 3.1 on presentation to 5.8 yesterday and again unchanged today. We are asked to help with her management. She started the conversation by saying she does not want to go on dialysis. PAST MEDICAL HISTORY: As above. She also has diabetes, hypertension and history of seizure disorder. HOME MEDICATIONS: 1. Azithromycin. 2. Amlodipine. 3. Insulin, 4. Sertraline. 5. Simvastatin. 6. Pregabalin. 7. Carvedilol. 8. Clopidogrel. 9. Losartan. 10. Clonidine. 11. Hydralazine. 12. PEG. 13. Furosemide. ALLERGIES: IV contrast. SOCIAL HISTORY: She lives with her granddaughter currently here in [place]. Her home is in [place]. No alcohol or tobacco. FAMILY HISTORY: Otherwise noncontributory. REVIEW OF SYSTEMS: Otherwise noncontributory. PHYSICAL EXAMINATION: Vital Signs: Blood pressure 156/51, heart rate 66, respirations 16, afebrile. Generally: She is an older black female sitting at 45 degrees. On oxygen no acute distress. Skin: Warm and dry. Somewhat pale. No bruises. HEENT: Conjunctivae are pink and moist. Pupils are equal and round. Oropharynx is dry. Tongue is midline. Dentition normal. Neck: Supple. Trachea is midline. Jugular venous distention is present, as is hepatojugular reflux. Heart: PMI is not palpable. Regular rate and rhythm with systolic murmur present .no gallops. Lungs: Have equal breath sounds. Few scattered crackles. No wheezes. No accessory muscle use. Abdomen: Soft, nontender. Bowel sounds present. No organomegaly. Extremities: Have 2 to 3+ edema. No clubbing or cyanosis. IMPRESSION AND PLAN: Acute kidney injury overlying chronic kidney disease. Her chronic kidney disease is on the basis of her diabetes. Acute kidney injury in the context of her pneumonia. Her ultrasound shows no evidence of obstruction but she does have small kidneys bilaterally. I counseled her regarding the severity of her illness. She does have mild asterixis on exam. She has no absolute indications for dialysis today and her urine output is excellent so we will continue to observe until tomorrow. Her labs have somewhat stabilized in the last 24 hours. I counseled her though that she may require dialysis if her labs are worse tomorrow or she develops other symptoms. I have reviewed her medications and no changes are required today. Thank you for the consult. cc: Kishore Nicholson MD
--- NOTE | 2018-10-17 13:27 | PROGRESS NOTE ---
DATE: 10/17/2018 SUBJECTIVE: This morning, Ms. Cedeno refers to be doing a lot better. She is breathing a whole lot better than before. The daughter was at the bedside at the time of the encounter. OBJECTIVE: Vital Signs: Blood pressure is 156/51, pulse is 66, respirations are 16, temperature is 96 degrees. General Examination: Ms. Cedeno is a 78-year-old, female. She was in bed. No distress. HEENT: Mucosa was pink and moist. Anicteric. Acyanotic. Neck: Supple. Chest: Air entry was still bilaterally reduced. There were crackles posteriorly. Cardiovascular: Regular rate and rhythm. There is a 2/6 murmur radiating to the neck and I think there is a possible R2 regurgitation as well. Abdomen: Soft. Distended but nontender. There is edema around the lateral aspect of the abdominal wall. Extremities: About 3+ pedal edema. PHOTOGRAPHER MODEL: The patient is awake, alert, and oriented. Laboratory Data: Sodium is 138, potassium is 3.7, chloride is 99, bicarb is 20, BUN is 58. Is and Os: Urine output increased to 2450. The patient is currently negative balance of 881. Diagnostic Data: An echocardiogram which was done in November of this year did show an ejection fraction of 65% with normal wall motion. There was no evidence of stenosis or insufficiency on the aortic valve. ASSESSMENT: 1. Fluid overload. We think this is due to worsening of underlying renal failure. However, congestive heart failure with preserved ejection fraction is also a possibility. The patient was seen by nephrology and they have started her on high dose Lasix. We will continue to observe. She seems to be getting a lot better. Fluid is getting down and she is now negative balance. 2. Acute on chronic renal failure. The patient follows up with Dr. Nicholson. 3. Hypertension, controlled. 4. Bilateral lower lobe pneumonia. Patient is on antibiotics and infectious disease is on board. 5. Acute hypoxemic respiratory failure on presentation, improving. PLAN: In general, I think Ms. Cedeno is getting a little better. Fluid status seems to be getting better with the Lasix challenge. We are going to continue with the current antibiotic coverage and Lasix, and follow up with recommendations from the other subspecialties. Patient is being seen by nephrology, ID, and pulmonary medicine, and we appreciate their valuable input. cc: Rasheed Park MD
[2018-10-17] MEDS: TYLENOL PO PRN (17:53)
[2018-10-17] MEDS ORDERED: NORCO-7.5 PO ONE (21:27)
[2018-10-17] MEDS: ZOCOR PO SCH (21:30)
[2018-10-17] MEDS: PLAVIX PO SCH (21:30)
[2018-10-18] MEDS: MAXIPIME 1 GM in NS 50 ML IV SCH ×2 (02:01→14:52)
[2018-10-18] MEDS: DUONEB (A & A) INH SCH ×6 (03:51→23:32)
[2018-10-18] MEDS ORDERED: CALMOSEPTINE OINTMENT TOP PRN (05:25)
[2018-10-18] MEDS: APRESOLINE PO SCH ×4 (06:28→17:05)
[2018-10-18] MEDS: COREG PO SCH ×3 (06:29→12:54)
[2018-10-18 07:08] LABS: BASO# 0.02 X1000 (0.0-0.2); BASO% 0.1 % (0.0-0.8); EOS# 0.37 X1000 (0.0-0.7); EOS% 1.2 % (0.0-10.0); HEMATOCRIT 25.4 % (37.0-47.0); HEMOGLOBIN 8.4 g/dL (12.0-16.0); IMM GRAN# 0.09 X1000 (0.0-0.04); IMM GRAN% 0.3 % (0.0-0.5); LYMPH# 14.59 X1000 (1.2-3.4); MCH 26.3 PG (27-31); MCHC 33.1 g/dL (33-37); MCV 79.4 FL (81-99); MONO# 1.05 X1000 (0.11-0.59); MONO% 3.5 % (1.7-9.3); MPV 10.5 FL (7.4-10.4); NEUT# 13.66 X1000 (1.4-6.5); NEUT% 45.9 % (42.2-75.2); PLT 266 X1000 (130-400); RDW 13.8 % (11.5-14.5); WBC 29.78 X1000 (4.8-10.8)
[2018-10-18 07:31] LABS: LYMPHS 56 % (21-51); MONO 2 % (1-9); SEGS 42 % (42-75)
[2018-10-18 07:34] LABS: ALB/GLOB RATIO 0.8; ALBUMIN 2.8 g/dL (3.5-5.0); CALCIUM 8.9 mg/dL (8.8-10.2); CREATININE 5.8 mg/dL (0.5-0.9); POTASSIUM 3.3 mmol/L (3.5-5.1); TOTAL BILIRUBIN 0.27 mg/dL (0.20-1.00); TOTAL PROTEIN 6.3 g/dL (6.3-8.3)
[2018-10-18] MEDS: HUMALOG SUBQ SCH ×4 (08:17→21:59)
[2018-10-18] MEDS: MIRALAX PO SCH (09:17)
--- NOTE | 2018-10-18 09:26 | Diag Imaging Result Doc PS360 ---
EXAM: CHEST-PORTABLE INDICATION: pneumonia TECHNIQUE: One view COMPARISON: 10/16/2018 FINDINGS: Pulmonary venous congestion is approximately stable. The mild right basilar infiltrate has largely resolved. No new consolidation is identified. There is stable cardiomegaly. IMPRESSION: Stable cardiomegaly and mild pulmonary venous congestion. Essential resolution of the right basilar consolidation seen on previous studies. Electronically signed by Fili Greenberg 10/18/2018 9:24 AM
--- NOTE | 2018-10-18 09:37 | INFECTIOUS DISEASE PROGRESS NO ---
DATE: 10/18/2018 PRESENT ILLNESS: The patient is being treated for right lower lobe pneumonia as well as an E coli urinary tract infection. She has also grown yeast in her urine and has an oral candidiasis. MEDICATIONS: Today is day 3 of cefepime 1 g IV every 12 hours as a modified renal dose. She is also on day 3 of Zyvox 600 mg by mouth every 12 hours. PHYSICAL EXAMINATION: Vital Signs: Temp has stayed down within the last 24 hours. Most recently, her vital signs show a temperature of 98.6 degrees, pulse rate 70, respiratory rate 17. Blood pressure 157/70, O2 saturation 100% on 2 L nasal cannula. General: This is an elderly, chronically ill-appearing female. She is lying in the bed currently in no acute distress. HEENT: Atraumatic, normocephalic. Oral mucous membranes are mildly erythematous and she complains of burning pain to her tongue. Conjunctivae are pale. Neck: Supple. Trachea is midline. Cardiovascular: Heart rate is regular. There is a systolic murmur noted. Pedal and radial pulses are palpable bilaterally. There is a generalized edema noted which is pitting. Respiratory: Lung sounds have some scattered crackles. No wheezes or rhonchi noted. Abdomen: Soft, round, and nontender. Bowel sounds are active. Neurologic: She is awake , alert, and oriented. Equal hand spring bender and able to move her bilateral lower extremities with generalized weakness. LABORATORY AND X-RAY: Today her white count is 29.78, hemoglobin 8.4, platelet count 266,000. Creatinine is 5.8, GFR is 9. AST is 20, ALT 28, alkaline phosphatase is 84. Blood cultures x2 sets have been negative so far. Originally, her urine culture grew Escherichia coli. Most recently, it has grown a yeast on the preliminary report. Sputum culture grew yeast and normal hanny. No imaging reports today. ASSESSMENT AND PLAN: Ms. Cedeno has pneumonia and a urinary tract infection. There is a continued leukocytosis. As far as I can tell, the patient has not received any steroids. Although we normally do not treat yeast in the urine, she does have oral candidiasis, so we will go ahead and give her micafungin 100 mg IV daily as well as Nystatin swish and swallow. Since there has not been a chest x-ray for a couple days, we will go ahead and get a chest x- ray to be done portably, today. We will also continue her Zyvox and cefepime as ordered. These plans have been discussed with and recommended by Dr. Garcia. COMORBIDITIES: She is elderly with a previous stroke and acute on chronic kidney disease which may require dialysis, diabetes mellitus, and a seizure history. Dictated by SUJATHA Martínez for Fred Garcia MD This chart was documented by, SUJATHA Martínez and accurately reflects the services performed, treatment plan and medical decisions as attested by the providers signature Fred Garcia MD. cc: Fred Garcia MD MTDD
[2018-10-18] MEDS: MYCAMINE 100 MG in NS 100 ML IV SCH (09:43)
[2018-10-18] MEDS: BICITRA PO SCH ×2 (09:47→21:59)
[2018-10-18] MEDS: HEPARIN SUBQ SCH ×2 (09:48→21:59)
[2018-10-18] MEDS: ZYVOX PO SCH ×2 (09:48→21:58)
[2018-10-18] MEDS: ZOLOFT PO SCH (09:49)
[2018-10-18] MEDS: LYRICA PO SCH (09:49)
--- NOTE | 2018-10-18 12:05 | NEPHROLOGY PROGRESS NOTE ---
DATE: 10/18/2018 SUBJECTIVE: She is awake today. She states she ate her breakfast. No shortness of breath and remains very weak and has not been out of bed. OBJECTIVE: Vital Signs: Blood pressure 157/70, heart rate 70 respirations 17, afebrile. Intake 1 L, output 2.3 L. She is net -2.2 L since admission. General: No acute distress. Skin: Warm and dry. HEENT: Conjunctivae are pink. Neck: Neck veins are not distended. Heart: Regular with systolic murmur. Lungs: Equal. No crackles or wheezes. Abdomen: Soft, nontender. Bowel sounds present. Extremities: 1+ edema. No clubbing or cyanosis. IMPRESSION: Acute kidney injury overlying chronic kidney disease. Her labs have been stable over the last 3 days and she has excellent urine output. PLAN: I will continue to observe without dialysis. I have warned her that if her renal function does not improve she may require it. She has mild hypokalemia but her electrolytes are otherwise acceptable. Acid-base in target. cc: Kishore Nicholson MD
[2018-10-18] MEDS: LASIX IV SCH (12:54)
[2018-10-18] MEDS: MYCOSTATIN SUSP PO SCH ×3 (12:55→21:59)
--- NOTE | 2018-10-18 15:42 | PROGRESS NOTE ---
DATE: 10/18/2018 SUBJECTIVE: This morning Ms. Cedeno refers to be doing a little better. Per the nursing staff, no acute complaint. The daughter was not at the bedside at the time of the encounter. However, I was able to reach her on the phone to discuss with her about her mother's current medical status. OBJECTIVE: Vitals: Blood pressure is 152/54, pulse is 76, respiration is 16, temperature is 98.4 degrees. The patient is saturating 99% on 2 L. General: On general exam, Ms. Cedeno is a 78- year-old female. She was in bed, no distress. HEENT: Mucosa is pink and moist. Anicteric. Acyanotic. Neck: Supple. Respiratory System: There is bilateral air entry reduction in both lung smith. There are a few crackles in the posterior lung smith. Cardiovascular: Regular rate and rhythm. There is 2/6 murmur radiating to the neck and aortic regurgitation murmur as well. Abdomen: Soft, distended, but nontender. Minimal edema at the lateral aspect of the abdominal wall. Extremities: Just about 2+ pedal edema. ANTHROPOLOGIST PHYSICAL: Patient was slightly lethargic, but easily arousable and was able to sustain adequate conversation. LABORATORY DATA: WBC is up to 29.78, hemoglobin is 8.4, platelet count of 266. The patient has 56% of lymphocytes. BUN is up to 67, creatinine is maintaining at 5.8. The patient's intake/output revealed urine output was 2300. The patient is currently negative balance of 2766. ASSESSMENT: 1. Fluid overload on presentation. The patient is on high-dose regimen Lasix and seems to be doing a lot better. 2. Acute on chronic renal failure. We think this is probably just worsening of the underlying renal failure. Nephrology is on board. They have started discussing possibilities of renal replacement therapy. 3. Hypertension is controlled. 4. Bilateral lower lobe pneumonia. Patient is on intravenous antibiotics. Infectious Disease is on board. 5. Acute hypoxemic respiratory failure on presentation, improving. 6. Candiduria. The patient has been started on micafungin and it is because white cell count is going up, there is yeast in the urine, and there is suspicion of esophageal and oral candidiasis as well. 7. Escherichia coli urinary tract infection. We will continue with the antibiotics. 8. History of chronic lymphocytic leukemia. The patient follows up with Dr. Camacho. The patient does have elevated white cell count, which I think is a combination of her underlying chronic lymphocytic leukemia and possibly the ongoing infection. I have discussed this with both Infectious Disease and Oncology, Dr. Camacho. cc: Rasheed Park MD
[2018-10-18] MEDS: TYLENOL PO PRN (21:58)
[2018-10-18] MEDS: ZOCOR PO SCH (21:58)
[2018-10-18] MEDS: PLAVIX PO SCH (21:59)
[2018-10-19] MEDS: LASIX IV SCH (00:01)
[2018-10-19] MEDS: MAXIPIME 1 GM in NS 50 ML IV SCH ×2 (03:15→15:36)
[2018-10-19] MEDS: DUONEB (A & A) INH SCH ×6 (03:18→23:17)
[2018-10-19 06:18] LABS: BASO# 0.02 X1000 (0.0-0.2); BASO% 0.1 % (0.0-0.8); EOS# 0.42 X1000 (0.0-0.7); EOS% 1.4 % (0.0-10.0); HEMATOCRIT 26.7 % (37.0-47.0); HEMOGLOBIN 8.7 g/dL (12.0-16.0); IMM GRAN# 0.08 X1000 (0.0-0.04); IMM GRAN% 0.3 % (0.0-0.5); LYMPH# 15.48 X1000 (1.2-3.4); LYMPH% 52.9 % (20.5-51.1); MCH 26.2 PG (27-31); MCHC 32.6 g/dL (33-37); MCV 80.4 FL (81-99); MONO# 0.99 X1000 (0.11-0.59); MONO% 3.4 % (1.7-9.3); MPV 9.7 FL (7.4-10.4); NEUT% 41.9 % (42.2-75.2); PLT 270 X1000 (130-400); RBC 3.32 XMIL (4.2-5.4); RDW 13.8 % (11.5-14.5); WBC 29.29 X1000 (4.8-10.8)
[2018-10-19] MEDS: APRESOLINE PO SCH ×3 (06:19→22:12)
[2018-10-19] MEDS: COREG PO SCH ×2 (06:19→15:44)
[2018-10-19] MEDS: HUMALOG SUBQ SCH ×4 (07:43→22:11)
[2018-10-19 07:50] LABS: ALBUMIN 2.8 g/dL (3.5-5.0); CALCIUM 9.3 mg/dL (8.8-10.2); CREATININE 5.3 mg/dL (0.5-0.9); PHOSPHORUS 6.3 mg/dL (2.7-4.5); POTASSIUM 3.5 mmol/L (3.5-5.1)
[2018-10-19] MEDS: NS 1,000 ML IV SCH (10:15)
[2018-10-19] MEDS: ZOLOFT PO SCH (12:25)
[2018-10-19] MEDS: MYCAMINE 100 MG in NS 100 ML IV SCH (12:26)
[2018-10-19] MEDS: ZYVOX PO SCH ×2 (12:26→22:11)
[2018-10-19] MEDS: LYRICA PO SCH (12:26)
[2018-10-19] MEDS: HEPARIN SUBQ SCH (12:26)
[2018-10-19] MEDS: MYCOSTATIN SUSP PO SCH ×3 (12:26→22:10)
[2018-10-19] MEDS: BICITRA PO SCH ×2 (12:30→22:12)
--- NOTE | 2018-10-19 14:01 | NEPHROLOGY PROGRESS NOTE ---
DATE: 10/19/2018 SUBJECTIVE: She is weak and minimally interactive today. Poor intake. No shortness of breath. No nausea or vomiting. OBJECTIVE: Vital Signs: Blood pressure 150/53, heart rate 71 respirations 12 and afebrile. Intake 700 mL; output 4 L. General: On physical exam, lethargic, but arousable. No distress. Skin: Warm and dry. Eyes: Conjunctivae are pink. Neck: Neck veins are flat. Oropharynx is dry. Heart: Regular. No gallops. Lungs: Equal. No crackles. Abdomen: Soft, nontender. Bowel sounds are present. Extremities: No edema, clubbing or cyanosis. IMPRESSION: Acute kidney injury overlying chronic kidney disease. Her labs continue to improve. However, I am concerned that she is somewhat volume contracted today and this may be the cause of her worsening symptoms. I will administer normal saline 75 mL an hour and stop her intravenous Lasix. Observe her response. Her daughter is present today, and we were able to discuss renal replacement therapy. The patient has been very reluctant to consider that at any point. Continue to observe. cc: Kishore Nicholson MD
--- NOTE | 2018-10-19 15:17 | INFECTIOUS DISEASE PROGRESS NO ---
DATE: 10/19/2018 PRESENT ILLNESS: Patient is being treated for a right lower lobe pneumonia and Escherichia coli urinary tract which has resolved and also a fungal urinary tract infection and finally oral candidiasis. MEDICATIONS: This is day 4 of cefepime and day 4 of Zyvox by mouth as well. PHYSICAL EXAMINATION: Vital Signs: Temperature is 98.4 degrees, pulse 71, respirations 12, blood pressure 150/53. General: This is a chronically ill-appearing elderly female. She is in no acute distress. Head, eyes, ears, nose, and throat: She does not have any drainage from her nose or the ears. It was difficult for me to see how well her hearing and vision was. Neck: No stiffness. Lungs: Clear to auscultation. Cardiovascular: Regular heart rate. Abdomen: Soft and nontender. Neurologic: The patient was lying in bed and did not move much. She did not answer questions and she did not follow request to move her extremities. There was no tremor. LAB AND X-RAY: There are no new radiographic studies[place] [address], hemoglobin 8.7, and platelet count of 270,000. Creatinine is 5.3. GFR is 10. Blood cultures are negative. Urine culture in 1st grew eserichia and now is growing yeast. ASSESSMENT AND PLAN: The patient has pneumonia and urinary tract infection. I plan to continue the current antibiotics and repeat her lab and x-ray on October 22. COMORBIDITIES: She is elderly. She has chronic kidney disease and diabetes mellitus and a seizure history. cc: Fred Garcia MD
--- NOTE | 2018-10-19 16:45 | PULMONOLOGY PROGRESS NOTE ---
DATE: 10/19/2018 SUBJECTIVE: The patient is awake and alert. She is slow to answer questions. She repeatedly says, "Okay." OBJECTIVE: The patient has been afebrile for the last 24 hours, blood pressure 150/53, heart rate 71, respiratory rate 12, oxygen saturation 100%. HEENT: Pupils are equal and reactive. Oropharynx appears clear. Neck is supple. Chest reveals shallow breath sounds bilaterally. Cardiac: S1, S2. Abdomen is soft and without hepatosplenomegaly. Extremities reveal trace edema. DIAGNOSTIC DATA: No new microbiology data. Chest x-ray yesterday and from earlier in the admission reviewed. She has mild pulmonary vascular congestion with resolving right-sided infiltrates. White blood count is 29,000, hemoglobin 8.7, platelet count 270,000. Chemistry shows sodium 146, potassium 3.5, chloride 100, bicarbonate 28, BUN is 61, creatinine 5.3. IMPRESSION: A 78 year old with atypical pneumonia, chronic lymphocytic leukemia, acute hypoxemic respiratory failure, acute on chronic renal failure, with component of confusion and decrease in performance status over the last 2 weeks. There is some improvement in the radiograph, but her kidney function continues to remain elevated. It is possible that her decline in functional status is related to her renal function and recent infection, but the patient does have CLL. RECOMMENDATIONS: 1. Continue antibiotics per Infectious Disease. 2. Follow up chest x-ray tomorrow. 3. Additional recommendations pending hospital course. cc: Chalo Robertson MD
[2018-10-19] MEDS: TYLENOL PO PRN (17:16)
--- NOTE | 2018-10-19 18:08 | PROGRESS NOTE ---
DATE: 10/19/2018 SUBJECTIVE: This morning Ms. Cedeno was extremely lethargic, hardly able to wake up. The daughter was at the bedside at the time of the encounter. OBJECTIVE: Vitals: Blood pressure is 151/62, pulse of 83, respiration is 14, temperature 98 degrees. General: Ms. Cedeno 78-year-old female she was in bed. She was extremely drowsy, lethargic but did not have any respiratory compromise symptoms and signs. Cardiovascular: Regular rate and rhythm. There is a 2/6 murmur radiating to the neck. Respiratory: Air entry was bilateral reduced some crackles posteriorly in both lung smith. Abdomen: Soft, nontender. Extremities: No pedal edema. PULP GRINDER AND BLENDER: Patient was more lethargic than yesterday, was hard to really wake her up except with extreme painful stimulation and she would try to fight your hand. Positive asterixis LABORATORY DATA: WBC is 29.29, hemoglobin is 8.7, platelet count of 270-,000. Chemistry is also reviewed, BUN is 61, creatinine is 5.3. Patient I's and O's urine output was 4055, negative balance of 7004. ASSESSMENT: 1. Fluid overload on presentation. Patient was on high dose Lasix regimen currently negative balance of 7000. 2. Altered mental status with no focalization, we think this is multifactorial including renal failure and dehydration. Patient has been started on gentle hydration by nephrology. We are going to keep a very close eye. 3. Acute on chronic renal failure. Creatinine is fairly stable. Electrolytes and acid base are also acceptable. 4. Bilateral lower lobe pneumonia, questionable for aspiration, ID is on board. Will continue with antibiotics. 5. Escherichia coli urinary tract infection. 6. Candiduria. Patient has been started on micafungin. 7. Leukocytosis with predominantly lymphocytic with a background history of chronic lymphocytic leukemia. So in general I think Ms. Cedeno seems to be more lethargic today. I think it is all metabolic related especially from her renal failure on top of that dehydration. Patient is getting gentle hydration overnight and will reevaluate her in the morning. If mentation does not improve we will scan her brain.She might be getting close to dialysis. cc: Rasheed Park MD [facility]
[2018-10-19] MEDS: MIRALAX PO SCH (18:53)
[2018-10-19] MEDS: ZOCOR PO SCH (22:10)
[2018-10-19] MEDS: PLAVIX PO SCH (22:11)
[2018-10-20] MEDS: MYCOSTATIN SUSP PO SCH ×3 (00:35→23:29)
[2018-10-20] MEDS: MAXIPIME 1 GM in NS 50 ML IV SCH ×2 (01:42→17:18)
[2018-10-20] MEDS: TYLENOL PO PRN (01:42)
[2018-10-20] MEDS: DUONEB (A & A) INH SCH ×6 (03:46→23:08)
[2018-10-20] MEDS: HEPARIN SUBQ SCH ×3 (04:26→22:56)
[2018-10-20] MEDS: APRESOLINE PO SCH ×2 (05:52→17:21)
[2018-10-20] MEDS: COREG PO SCH ×2 (05:52→17:22)
[2018-10-20] MEDS: HUMALOG SUBQ SCH ×4 (06:12→23:29)
[2018-10-20 09:11] LABS: BASO# 0.03 X1000 (0.0-0.2); BASO% 0.1 % (0.0-0.8); EOS# 0.44 X1000 (0.0-0.7); EOS% 1.4 % (0.0-10.0); HEMATOCRIT 29.8 % (37.0-47.0); HEMOGLOBIN 9.5 g/dL (12.0-16.0); IMM GRAN# 0.12 X1000 (0.0-0.04); IMM GRAN% 0.4 % (0.0-0.5); LYMPH# 16.57 X1000 (1.2-3.4); LYMPH% 51.4 % (20.5-51.1); MCH 26.1 PG (27-31); MCHC 31.9 g/dL (33-37); MCV 81.9 FL (81-99); MONO# 0.87 X1000 (0.11-0.59); MONO% 2.7 % (1.7-9.3); MPV 9.7 FL (7.4-10.4); NEUT# 14.22 X1000 (1.4-6.5); PLT 279 X1000 (130-400); RBC 3.64 XMIL (4.2-5.4); RDW 13.8 % (11.5-14.5); WBC 32.25 X1000 (4.8-10.8)
[2018-10-20 09:31] LABS: EOS 1 % (1-10); LYMPHS 51 % (21-51); MONO 2 % (1-9); SEGS 41 % (42-75)
[2018-10-20 09:41] LABS: ALBUMIN 3.2 g/dL (3.5-5.0); CALCIUM 9.8 mg/dL (8.8-10.2); CREATININE 4.4 mg/dL (0.5-0.9); PHOSPHORUS 3.9 mg/dL (2.7-4.5)
[2018-10-20] MEDS: OFIRMEV 1000 MG/ISOTONIC SOLN 1,000 MG/100 ML BOTTLE IV PRN ×2 (11:31→22:57)
--- NOTE | 2018-10-20 11:32 | PROGRESS NOTE ---
DATE: 10/20/2018 SUBJECTIVE: This morning, Ms. Cedeno continues to be altered. Still has the eyes closed and will respond only yes or no. OBJECTIVE: Vitals: Blood pressure is 186/68, pulse is 83, respirations 20, temperature 98.5. General: Ms. Cedeno is a 78-year-old, female. She is in bed. Does not seem to be in cardiopulmonary distress. HEENT: Mucosa is pink and dry. Anicteric. Acyanotic. Neck: Supple. Chest: Good air entry bilaterally. Few crackles posteriorly. Cardiovascular: Regular rate and rhythm. No murmurs, no rubs, no gallops. Abdomen: Soft, nontender. Bowel sounds present. Extremities: No pedal edema. Distal pulses present. SPORTS MEDIA: Patient continues to be lethargic, will move very actively all extremities spontaneously and on painful stimulation. Eyes continue to be closed. Pupils are equal and reactive. LABORATORY DATA: WBC is 32.35, hemoglobin is 9.5, platelet count 279. Patient still has lymphocytosis. There is 5% of atypical lymphocytes on peripheral smear. Chemistry is also reviewed, potassium is 3.0, BUN is 51, which is improving and creatinine is down to 4.4. The patient is still making adequate urine with urine output of 2900. The patient is currently negative balance of 8804. ASSESSMENT AND PLAN: 1. Fluid overload on presentation. This is resolved. The patient is actually currently behind, is over diuresed and is negative balance. 2. Altered mental status with no focalization. Etiology could be multifactorial. We think it is a combination of dehydration and renal failure. However, central nervous system manifestation of her underlying chronic lymphocytic leukemia is a remote possibility. We will do a CT scan of the head today to rule out any possible etiology since patient has not been improving for the past couple days. 3. Bilateral lower lobe pneumonia, questionable for aspiration. Patient is on antibiotics including cefepime, Zyvox, today is 5 days. Micafungin was started 3 days ago. 4. Clinical volume depletion. The patient is currently on gentle IV hydration. Kidney function seems to be getting better and urine output continues to be great on acute on chronic renal failure. 5. Candiduria. Patient is on micafungin. 6. Leukocytosis, predominantly lymphocytic. This morning, white cell count continues to be even higher. The patient has a history of chronic lymphocytic leukemia. There is 5% on peripheral blood of atypical lymphocytes, which could all be because of the chronic lymphocytic leukemia. I will notify her oncologist Dr. Camacho on the trend. Also note, that the patient's beta 2 microglobulin was very high at 17.2. 7. Hypokalemia. We will replace this. cc: MD LEONIDES Siu
--- NOTE | 2018-10-20 11:42 | Diag Imaging Result Doc PS360 ---
EXAM: CT HEAD W/O CONTRAST INDICATION: encephalopathy TECHNIQUE: This exam was performed using automated exposure control, adjustment of mA or kV according to patient size, and/or use of iterative reconstruction technique. COMPARISON: 12/17/2017 FINDINGS: There is suggestion of minimal periventricular white matter microangiopathy, stable. There is no definite acute infarct given the limited sensitivity of CT versus MRI. There is no discrete intracranial mass, mass effect, or intracranial hemorrhage. There are small bilateral mastoid air cell effusions. Surrounding soft tissues and bony structures are essentially unremarkable, otherwise. IMPRESSION: 1.Stable minimal chronic appearing white matter changes. No definite acute intracranial pathology. 2.Small bilateral mastoid air cell effusions. Electronically signed by Fili Greenberg 10/20/2018 11:39 AM
[2018-10-20] MEDS: MYCAMINE 100 MG in NS 100 ML IV SCH (12:55)
--- NOTE | 2018-10-20 14:44 | NEPHROLOGY PROGRESS NOTE ---
DATE: 10/20/2018 SUBJECTIVE: She is very somnolent this morning. She really did not answer any of my questions. OBJECTIVE: Vital Signs: Blood pressure 196/82, heart rate 84, respirations 20, afebrile. Intake 1.4 L; output 4.7 L. General: On physical examination, no acute distress. Skin: Warm and dry. Neck: Neck veins are not appreciated. Heart: Regular with systolic murmur present. Lungs: Have equal breath sounds. No crackles. Abdomen: Soft, nontender. Bowel sounds present. Extremities: Have no edema, clubbing, or cyanosis. IMPRESSION: 1. Acute kidney injury overlying chronic kidney disease. Her creatinine is improving again once we started intravenous fluids. We will continue this. She still is polyuric despite discontinuation of furosemide. 2. Electrolytes and acid-base are in target. 3. Altered sensorium. The etiology is not obvious. She is not receiving any medications that should cause significant sedation. cc: Kishore Nicholson MD
[2018-10-20] MEDS: NS 1,000 ML IV SCH (17:14)
[2018-10-20] MEDS: ZOLOFT PO SCH (17:22)
[2018-10-20] MEDS: ZYVOX PO SCH ×2 (17:22→23:28)
[2018-10-20] MEDS: MIRALAX PO SCH (17:23)
[2018-10-20] MEDS: LYRICA PO SCH (17:23)
[2018-10-20] MEDS: BICITRA PO SCH ×2 (17:24→23:27)
--- NOTE | 2018-10-20 17:57 | PULMONOLOGY PROGRESS NOTE ---
DATE: 10/20/2018 SUBJECTIVE: The patient will open her eyes to stimulation. She will not answer questions. OBJECTIVE: The patient has been afebrile over the last 24 hours. Blood pressure is 186/68, heart rate 83, respiratory rate 20, oxygen saturation 100%. HEENT: Pupils are equal and reactive. Oropharynx is clear. Neck is supple. Chest reveals good air entry bilaterally without wheezing or rhonchi. Cardiac: S1, S2. Abdomen is soft. DIAGNOSTIC DATA: CT scan of the brain reveals chronic white matter changes without definite acute intracranial pathology. White blood count is 32,000, hemoglobin 9.5, platelet count 279,000. Sodium is 145, potassium 3.0, chloride 100, bicarbonate 33, BUN is 51, creatinine 4.4. IMPRESSION: A 78 year old with atypical pneumonia, chronic lymphocytic leukemia, acute hypoxemic respiratory failure, acute on chronic renal failure with delirium. Etiology for altered mental status is not clear. RECOMMENDATIONS: 1. Continue current antibiotics. 2. Chest x-ray has been scheduled for Monday morning. 3. Lumbar puncture might be a consideration, but unfortunately the patient is currently on heparin and Plavix. cc: Chalo Robertson MD
[2018-10-20 19:28] LABS: FLOW CYTOMETERY SOURCE WHOLE BLOOD; LEUKEMIA LYMPHOMA BY FLOW REFERRED FOR TESTING
[2018-10-20] MEDS: PLAVIX PO SCH (23:29)
[2018-10-20] MEDS: ZOCOR PO SCH (23:30)
[2018-10-21] MEDS: MAXIPIME 1 GM in NS 50 ML IV SCH ×2 (03:01→16:58)
[2018-10-21] MEDS: DUONEB (A & A) INH SCH ×6 (03:08→22:55)
[2018-10-21] MEDS: OFIRMEV 1000 MG/ISOTONIC SOLN 1,000 MG/100 ML BOTTLE IV PRN ×3 (05:23→17:48)
[2018-10-21 06:20] LABS: BASO# 0.04 X1000 (0.0-0.2); BASO% 0.1 % (0.0-0.8); EOS# 0.26 X1000 (0.0-0.7); EOS% 0.9 % (0.0-10.0); HEMATOCRIT 31.8 % (37.0-47.0); HEMOGLOBIN 10.2 g/dL (12.0-16.0); IMM GRAN# 0.09 X1000 (0.0-0.04); IMM GRAN% 0.3 % (0.0-0.5); LYMPH# 17.23 X1000 (1.2-3.4); LYMPH% 56.9 % (20.5-51.1); MCH 26.6 PG (27-31); MCHC 32.1 g/dL (33-37); MCV 82.8 FL (81-99); MONO# 0.72 X1000 (0.11-0.59); MONO% 2.4 % (1.7-9.3); MPV 10.1 FL (7.4-10.4); NEUT# 11.93 X1000 (1.4-6.5); NEUT% 39.4 % (42.2-75.2); PLT 269 X1000 (130-400); RBC 3.84 XMIL (4.2-5.4); RDW 13.9 % (11.5-14.5); WBC 30.27 X1000 (4.8-10.8)
[2018-10-21 06:36] LABS: ALBUMIN 3.4 g/dL (3.5-5.0); CALCIUM 8.6 mg/dL (8.8-10.2); CREATININE 3.7 mg/dL (0.5-0.9); PHOSPHORUS 4.2 mg/dL (2.7-4.5)
[2018-10-21] MEDS: COREG PO SCH ×2 (06:43→11:59)
[2018-10-21] MEDS: APRESOLINE PO SCH ×3 (06:43→16:58)
[2018-10-21] MEDS: HUMALOG SUBQ SCH ×4 (06:44→20:35)
[2018-10-21] MEDS: NS 1,000 ML IV SCH (08:16)
[2018-10-21] MEDS: HEPARIN SUBQ SCH ×2 (11:54→20:35)
[2018-10-21] MEDS: BICITRA PO SCH ×2 (11:59→20:35)
[2018-10-21] MEDS: ZYVOX PO SCH ×2 (12:00→20:36)
[2018-10-21] MEDS: ZOLOFT PO SCH (12:00)
[2018-10-21] MEDS: LYRICA PO SCH (12:00)
[2018-10-21] MEDS: MIRALAX PO SCH (12:01)
[2018-10-21] MEDS: MYCOSTATIN SUSP PO SCH ×4 (12:01→20:35)
[2018-10-21] MEDS: MYCAMINE 100 MG in NS 100 ML IV SCH (12:02)
[2018-10-21] MEDS ORDERED: LIPOSYN 20% 500 ML IV SCH (12:15)
[2018-10-21] MEDS ORDERED: LIPOSYN 20% 250 ML IV SCH (12:33)
--- NOTE | 2018-10-21 14:49 | PROGRESS NOTE ---
DATE: 10/21/2018 SUBJECTIVE: This morning Mr. Cedeno continues to be altered. The daughter was at the bedside. There were no new complaints. OBJECTIVE: Vital Signs: Blood pressure is 193/79, pulse is 89, respirations 16, temperature 97.7. Patient was saturating 99% on 2 L nasal cannula. General: Ms. Cedeno is a 78-year-old female. She was in bed. She did not seem to be in any cardiopulmonary distress. HEENT: Mucosa pink, slightly dry. Anicteric. Acyanotic. Neck: Supple. Respiratory System: There is good air entry bilaterally. A few crackles in the posterior lung smith. Cardiovascular: Regular rate and rhythm. No murmurs, no rubs, no gallops. Gastrointestinal: Abdomen soft, nontender. Bowel sounds present. There is no hepatosplenomegaly. Extremities: No pedal edema. Distal pulses present. CAMPUS WELLNESS COORDINATOR: Patient is still lethargic. She will move all extremities, but she will not follow any commands. Pupils are equal, and they are reactive. LABORATORY DATA: WBC is 30.27, hemoglobin is 10.2, platelet count of 269,000. Chemistry is also reviewed. Sodium is 148, potassium is 3.0, chloride 98. Creatinine is down to 3.7, and BUN is down to 45. The patient's I's and O's: Urine output was 4300 overnight. The patient is still negative balance of 11,969. ASSESSMENT AND PLAN: 1. Altered mental status, with no focalizing sign. So far, neuroimaging is completely unremarkable. We think this is all associated with metabolic encephalopathy. We will continue to observe. 2. Clinical volume depletion. The patient is still 11,000 mL behind fluid. She is extremely polyuric. We are going to continue with the IV fluids. I was actually going to increase the rate. However, because I will start her on Clinimix, I will rather keep her on the same rate, and add Clinimix for nutritional support. 3. Candiduria. Patient is on micafungin. 4. Lymphocytic predominant leukocytosis, likely due to underlying chronic lymphocytic leukemia. 5. Electrolyte abnormalities. We will continue to replace and address accordingly. Today, we are going to continue with the normal saline infusion. The patient continues to look remarkably dry. She has not eaten anything, and so I will start her on Clinimix with lipid infusion, re-evaluate her later on today, and repeat her labs for tomorrow morning. The daughter was at the bedside at the time of the encounter, and I did explained everything to her. I also notified the patient's Heme-Onc specialist, Dr. Camacho, and he recommends to do an IgG level, and replace if it is low. He does not think that the altered mentation is related to the chronic lymphocytic leukemia. cc: Rasheed Park MD
[2018-10-21] MEDS: CLINIMIX E 4.25%-5% SOLUTION 1,000 ML IV SCH (16:51)
--- NOTE | 2018-10-21 20:17 | PULMONOLOGY PROGRESS NOTE ---
DATE: 10/21/2018 SUBJECTIVE: The patient appears restless and moving arms and legs periodically. She will not follow commands. She will not open her eyes. OBJECTIVE: Vital signs: The patient remains afebrile. Blood pressure is 151/62, heart rate 95, respiratory rate 16 and oxygen saturation 93%. HEENT: Pupils are equal but, the patient purposely closes her eyes. Oropharynx appears dry. Neck: Supple. Chest: Reveals crackles in both lung bases. Cardiac: S1, S2. Abdomen: Soft. Extremities: Without edema. LABORATORY: Sodium 148, potassium 3.0, chloride 98, bicarbonate 29, BUN 45, creatinine 3.7. Glucose 204. WBC 30,000, hemoglobin 10.2, and platelet count 269,000. IMPRESSION: 78-year-old with atypical pneumonia, chronic lymphocytic leukemia, acute hypoxemic respiratory failure, and acute on chronic renal failure with delirium. Kidney function continues to improve, but her mental status continues to remain altered. RECOMMENDATIONS: 1. Continue current antibiotics. 2. Continue oxygen for hypoxemic respiratory failure. 3. Follow up chest x-ray and arterial blood gas tomorrow morning. 4. Consider discontinuation of Plavix. This was used for stroke prevention. She may require lumbar puncture if her mental status does not improve. cc: Chalo Robertson MD
[2018-10-21] MEDS: ZOCOR PO SCH (20:36)
[2018-10-21] MEDS: PLAVIX PO SCH (20:36)
[2018-10-22] MEDS: MAXIPIME 1 GM in NS 50 ML IV SCH ×2 (03:30→15:02)
[2018-10-22] MEDS: DUONEB (A & A) INH SCH ×6 (03:58→23:12)
[2018-10-22] MEDS ORDERED: APRESOLINE IV ONE (04:50)
[2018-10-22 05:04] LABS: ALLEN TEST YES; BE 10.2 mmoll (-3.0-3.0); BLOOD TYPE ARTERIAL; HCO3-(ACT) 32.9 mmoll (20.0-26.0); METHB 1.1 % (0.0-1.5); O2(CT) 15.5 mL/dL (15.0-23.0); O2HB 96.3 % (95.0-99.0); PO2(98.6) 108 mmHg (60-100); SAMPLE BLOOD; SAO2 98.4 % (95.0-100.0); THB 11.3 g/dL (11.5-17.4); pH(98.6) 7.44 (7.35-7.45)
[2018-10-22 05:05] LABS: MODALITY CANNULA
[2018-10-22 05:06] LABS: PCO2(98.6) 53 mmHg (35-45)
[2018-10-22] MEDS: CLINIMIX E 4.25%-5% SOLUTION 1,000 ML IV SCH (05:17)
[2018-10-22] MEDS: OFIRMEV 1000 MG/ISOTONIC SOLN 1,000 MG/100 ML BOTTLE IV PRN (05:30)
[2018-10-22] MEDS: HUMALOG SUBQ SCH ×3 (06:26→11:20)
[2018-10-22 06:48] LABS: BASO# 0.02 X1000 (0.0-0.2); EOS# 0.02 X1000 (0.0-0.7); HEMATOCRIT 35.4 % (37.0-47.0); HEMOGLOBIN 11.3 g/dL (12.0-16.0); LYMPH# 26.72 X1000 (1.2-3.4); MCH 26.7 PG (27-31); MCHC 31.9 g/dL (33-37); MCV 83.5 FL (81-99); MONO# 0.01 X1000 (0.11-0.59); MPV 10.7 FL (7.4-10.4); NEUT# 17.04 X1000 (1.4-6.5); PLT 298 X1000 (130-400); RBC 4.24 XMIL (4.2-5.4); RDW 14.4 % (11.5-14.5); WBC 43.81 X1000 (4.8-10.8)
[2018-10-22 07:12] LABS: MAGNESIUM 2.1 mg/dL (1.5-2.7); PHOSPHORUS 4.4 mg/dL (2.7-4.5)
--- NOTE | 2018-10-22 07:22 | Diag Imaging Result Doc PS360 ---
EXAM: CHEST-1 VIEW 10/22/2018 HISTORY: pneumonia TECHNIQUE: AP portable at 0602 COMMENT: Compared to the previous study of 10/18/2018 the basilar opacities which were previously present have diminished. The heart size is diminished as well. IMPRESSION: Improved pulmonary edema and cardiomegaly. Electronically signed by Jass Velez 10/22/2018 7:20 AM
[2018-10-22 07:26] LABS: CALCIUM 10.1 mg/dL (8.8-10.2); CREATININE 3.2 mg/dL (0.5-0.9); POTASSIUM 3.3 mmol/L (3.5-5.1)
[2018-10-22] MEDS ORDERED: D5W 1,000 ML IV SCH (07:30)
[2018-10-22] MEDS ORDERED: BASAGLAR SUBQ ONE (07:31)
[2018-10-22] MEDS ORDERED: HUMULIN R IV ONE ×3 (08:11→16:30)
[2018-10-22] MEDS ORDERED: 1/2 NS + KCL 20 MEQ 1,000 ML IV SCH ×2 (08:15→13:15)
[2018-10-22] MEDS ORDERED: LABETALOL IV ONE (08:29)
--- NOTE | 2018-10-22 08:45 | PROGRESS NOTE ---
DATE: 10/22/2018 SUBJECTIVE: This morning, Ms. Cedeno continues to be remarkably altered, nonverbal. However, she will move all extremities. OBJECTIVE: Vital Signs: Blood pressure is 202/112, temperature is 97.6 degrees , pulse is 97, respirations are 14, the patient was saturating 100% on nasal cannula. General Examination: Mr. Ceedno is a 78-year-old, female. She is in bed. Did not seem to be in any distress. HEENT: Mucosa is pink and dry. Anicteric. Acyanotic. Neck: Supple. There is no JVD. Respiratory System: There is good air entry bilaterally. I did not hear any crackles or rhonchi. No accessory muscle use. Cardiovascular System: Regular rate and rhythm. No murmurs, no rubs, no gallops. GI: Abdomen was soft. Bowel sounds were present. There was no hepatosplenomegaly. Extremities: No pedal edema. Distal pulses present. DIRECTOR COLLEGE : Patient is still lethargic. Will move all extremities upon painful stimulation. She will barely open her eyes upon the voice of her family members but, for the most part, there is not any focalization. The patient does not have any nuchal rigidity either. Pupils are equal and they are reactive. Laboratory Data: WBC is up to 43.81, hemoglobin is 11.3, platelet count of 298, 000. PH is 7.44, pCO2 is 53, PaO2 of 108. Chemistry is also reviewed. Sodium is 152, potassium is 3.3, chloride is 102, bicarb is 30 but there is a gap of 20, BUN went up to 60 and creatinine is down to 3.2. Patient's glucose was 405. Acetone was positive. ASSESSMENT: 1. Altered mental status with no focalization. The patient continues to be altered. Her neuroimaging was completely unremarkable. This is presumed to be metabolic encephalopathy. Her renal function seems to be getting better but she still looks remarkably dehydrated. This morning, she is ketone positive. Glucoses are high. She has a gap. I am going to presumptively treat her for diabetic ketoacidosis and see if that helps. I will discontinue her Clinimix and lipid infusion, and move her to the intensive care unit. We will re-evaluate her later on this afternoon and see how she is doing. 2. Clinical volume depletion. The patient continues to be significantly polyuric. Urine output yesterday was 3900 and she is negative balance of 14,315. We will continue with the intravenous fluids. I have changed the fluid from normal saline to half- normal saline because of elevated sodium. We will repeat the sodium this afternoon and see how she is doing. 3. Candiduria. The patient is currently on micafungin. 4. Lymphocytic predominant leukocytosis, likely due to underlying chronic lymphocytic leukemia. Hematology/oncology is aware. 5. Electrolyte abnormalities including hypokalemia. We will continue to replace this. 6. Uncontrolled hypertension. The patient is not taking any oral medication because of her altered mentation so I would change her oral medications to intravenous. PLAN: In general, this morning, I think Ms. Cedeno looks more dehydrated. She is positive in her ketones which it could be from the DKA but it could also be from the same dehydration and starvation ketosis. However, her calcium is relatively elevated and her WBC, hemoglobin, and platelet counts are all slightly elevated which I think it is evidence of being hemoconcentrated. We are going to move her to the ICU. We are going to continue with the adequate hydration. I have gone up on the fluid to 100 mL per hour. We will re-evaluate her BMP this afternoon. She is going to be on DKA protocol at least for now until we have the glucose a lot better controlled. There is a concern that the patient could potentially also have a DIRECTOR COLLEGE infection. An LP was mentioned but there was concern that she was on Plavix. Awaiting ID further recommendations. cc: Rasheed Park MD Critical time spent 45 minutes. LEONIDES
[2018-10-22] MEDS: POTASSIUM CHLORIDE 20 MEQ/SWI 20 MEQ/100 ML IVPB IV SCH ×2 (09:15→14:45)
[2018-10-22] MEDS: HEPARIN SUBQ SCH ×2 (09:21→21:23)
[2018-10-22] MEDS: ZYVOX PO SCH ×2 (09:22→22:51)
[2018-10-22] MEDS: MYCOSTATIN SUSP PO SCH ×4 (09:22→21:23)
--- NOTE | 2018-10-22 12:05 | NEPHROLOGY PROGRESS NOTE ---
DATE: 10/22/2018 SUBJECTIVE: She still not responsive today. OBJECTIVE: Vital Signs: Blood pressure 196/85, heart rate 110, respirations 20, afebrile. General: No acute distress. Again, altered mental status. She does not respond. Eyes are closed. Skin: Warm and dry. HEENT: Conjunctivae are pink. Neck: Neck veins are not visible. Heart: Regular. No gallops. Lungs: Equal. No crackles. Extremities: Have no edema, clubbing, or cyanosis. IMPRESSION: Acute kidney injury overlying chronic kidney disease. Creatinine continues to improve. Her baseline creatinine is approximately 2.5. I had a conversation with her daughter today stating that if she does not improve with regard to her other medical illnesses then we may have to consider dialysis. However, given her clinical deterioration in the context of improving creatinine, I think it is unlikely that uremia is the cause of her symptoms. cc: Kishore Nicholson MD
[2018-10-22] MEDS: CARDENE 20 MG/NS 20 MG/200 ML PIGGYBACK IV SCH ×3 (12:34→21:12)
[2018-10-22] MEDS: MYCAMINE 100 MG in NS 100 ML IV SCH (12:35)
[2018-10-22] MEDS ORDERED: POTASSIUM CHLORIDE 40 MEQ/SWI 40 MEQ/100 ML IVPB IV PRN (13:09)
[2018-10-22] MEDS ORDERED: MAGNESIUM SULFATE 2 GM/S.W.I. 2 GM/50 ML IVPB IV PRN (13:09)
[2018-10-22] MEDS ORDERED: D5 NS + KCL 20 MEQ 1,000 ML IV SCH (13:09)
[2018-10-22] MEDS ORDERED: D50W SYRINGE IV PRN (13:09)
[2018-10-22] MEDS ORDERED: POTASSIUM CHLORIDE 20 MEQ/SWI 20 MEQ/100 ML IVPB IV PRN (13:09)
[2018-10-22] MEDS ORDERED: SODIUM PHOSPHATE 30 MMOL in D5W 250 ML IV PRN (13:09)
[2018-10-22] MEDS ORDERED: HUMULIN R 100 UNIT in NS 99 ML IV SCH (13:30)
[2018-10-22 14:32] LABS: CALCIUM 10.4 mg/dL (8.8-10.2); CREATININE 3.3 mg/dL (0.5-0.9); POTASSIUM 3.3 mmol/L (3.5-5.1)
[2018-10-22] MEDS ORDERED: HUMULIN R IV SCH (15:00)
[2018-10-22] MEDS: D5W 1,000 ML IV SCH (16:17)
[2018-10-22] MEDS ORDERED: HUMULIN R 100 UNIT in NS 100 ML SUBQ SCH (16:30)
[2018-10-22] MEDS ORDERED: D50W SYRINGE IV SCH (16:30)
--- NOTE | 2018-10-22 17:25 | PULMONOLOGY PROGRESS NOTE ---
DATE: 10/22/2018 SUBJECTIVE: The patient will not follow commands. She was transferred to the intensive care unit for altered sensorium. OBJECTIVE: The patient remains afebrile. Blood pressure is 196/85, heart rate 110, respiratory rate 20, oxygen saturation 100% on 3 L per nasal cannula. HEENT: Pupils are equal, but the patient forcibly closes her eyes. Oropharynx appears clear but slightly dry. Neck is supple. Chest is clear without wheezing or rhonchi. Cardiac: S1, S2. Abdomen is soft with good bowel sounds. Extremities are without edema. DIAGNOSTIC DATA: Chest x-ray reveals decreasing pulmonary edema. Arterial blood gas reveals a pH of 7.44, pCO2 of 53, pO2 of 108. Chemistries show sodium 155, potassium 3.3, chloride 107, bicarbonate 34, BUN was 65, creatinine 3.3. IMPRESSION: A 78 year old with atypical pneumonia with clearing infiltrates, chronic lymphocytic leukemia, acute hypoxemic respiratory failure with improvement, acute on chronic renal failure with ongoing delirium. She continues to be hypernatremic. RECOMMENDATIONS: 1. Continue current antibiotics. 2. Continue oxygen for hypoxemic respiratory failure. 3. Agree with free water for ongoing hypernatremia. 4. Lumbar puncture discussions are being considered. Review of her Plavix MAR indicates her last dose was on 10/18/2018. cc: Chalo Robertson MD
[2018-10-22 20:32] LABS: CALCIUM 9.9 mg/dL (8.8-10.2); CREATININE 3.3 mg/dL (0.5-0.9); POTASSIUM 3.8 mmol/L (3.5-5.1)
[2018-10-23] MEDS: CARDENE 20 MG/NS 20 MG/200 ML PIGGYBACK IV SCH ×3 (01:38→13:35)
[2018-10-23] MEDS: D5W 1,000 ML IV SCH ×3 (02:20→21:48)
[2018-10-23] MEDS: MAXIPIME 1 GM in NS 50 ML IV SCH (02:26)
[2018-10-23] MEDS: DUONEB (A & A) INH SCH ×6 (03:14→22:56)
[2018-10-23] MEDS: MYCOSTATIN SUSP PO SCH ×4 (08:30→22:00)
[2018-10-23] MEDS: ZYVOX 600 MG/D5W 600 MG/300 ML IVPB IV SCH ×2 (08:32→21:49)
[2018-10-23] MEDS: HEPARIN SUBQ SCH ×2 (08:32→21:50)
[2018-10-23 09:51] LABS: ALBUMIN 3.7 g/dL (3.5-5.0); CALCIUM 9.6 mg/dL (8.8-10.2); CREATININE 3.6 mg/dL (0.5-0.9); PHOSPHORUS 3.4 mg/dL (2.7-4.5); POTASSIUM 3.4 mmol/L (3.5-5.1)
[2018-10-23] MEDS ORDERED: INSULIN PEN NEEDLES ONE (10:03)
[2018-10-23] MEDS: BASAGLAR SUBQ SCH ×2 (10:04→21:51)
[2018-10-23] MEDS: HUMALOG SUBQ SCH ×3 (10:05→21:50)
[2018-10-23] MEDS: MYCAMINE 100 MG in NS 100 ML IV SCH (10:07)
[2018-10-23 10:08] LABS: HEMATOCRIT 32.2 % (37.0-47.0); HEMOGLOBIN 10.3 g/dL (12.0-16.0); MCH 26.4 PG (27-31); MCV 82.6 FL (81-99); MPV 10.3 FL (7.4-10.4); RBC 3.9 XMIL (4.2-5.4); RDW 14.4 % (11.5-14.5); WBC 48.14 X1000 (4.8-10.8)
[2018-10-23] MEDS: MERREM 500 MG in NS 50 ML IV SCH ×2 (10:12→21:49)
--- NOTE | 2018-10-23 10:27 | INFECTIOUS DISEASE PROGRESS NO ---
DATE: 10/23/2018 PRESENT ILLNESS: The patient has an altered mental status, the etiology of which I am uncertain. She also has a marked leukocytosis. MEDICATIONS: The patient is currently receiving Cefepime, micafungin and Zyvox. PHYSICAL EXAMINATION: Vital Signs: Temperature is 97.8 degrees, pulse 92, respirations 21, blood pressure 155/95. General: This is an ill-appearing, elderly female. She seems delirious. Head, Eyes, Ears, Nose, and throat: No drainage noted from the nose or ears. The patient did not respond to verbal stimuli. Neck: No meningismus. Lungs: Clear to auscultation. Cardiovascular: Heart rate is regular. Abdomen: Soft and nontender. Neurologic: The patient occasionally moves her head or extremity. She does not respond to verbal stimuli. There is no tremor. Integument: No rash noted. LABORATORY AND X-RAY: The patient's chest x-ray shows pulmonary venous congestion. The patient's CBC shows a white count that is increased to 43,810, hemoglobin 11.3, and platelet count of 298,000. Blood bases show a pH of 7.44, pO2 of 108, and a pCO2 of 53. The creatinine was 3.3. GFR is 16. IgG is 895. Blood cultures are negative. Urine culture grew yeast. Chest x-ray shows improved pulmonary edema. CT scan of head shows chronic white matter changes. ASSESSMENT AND PLAN: 1. The patient has funguria and she also has an altered mental status and marked leukocytosis. My plan is to continue micafungin and Zyvox and discontinue cefepime and put meropenem in its place. I am getting two blood cultures. I have put in a consult for Dr. Whitley tomorrow to see the patient and to consider doing a lumbar puncture. I ordered the nurses to monitor the patient for seizures while patient is on meropenem. 2. Comorbidities: She is elderly. She has chronic kidney disease, diabetes mellitus and a seizure history. cc: Fred Garcia MD [facility]
--- NOTE | 2018-10-23 14:01 | PULMONOLOGY PROGRESS NOTE ---
DATE: 10/23/2018 SUBJECTIVE: The patient responds to tactile stimuli. She does not respond to voice. She will not follow commands. OBJECTIVE: Vital Signs: The patient has been afebrile for the last 24 hours. Blood pressure 150/92, heart rate 90, respiratory rate 16, oxygen saturation 98% on 2 liters per nasal cannula. HEENT: Pupils are equal and reactive. Oropharynx appears dry. Neck: Supple. Chest: Reveals shallow breath sounds without wheezing or rhonchi. Cardiac: S1 and S2. Abdomen: Soft. Extremities: Without edema. LABORATORY DATA: White blood count continues to climb at 48,000. Sodium 146, potassium 3.4, chloride 102, bicarbonate 29, BUN 66, creatinine 3.6. IMPRESSION: A 78-year-old with pneumonia which is clearing, chronic lymphocytic leukemia. progressive leukocytosis, acute hypoxemic respiratory failure which is stable to improved, acute on chronic renal failure with continued delirium. The patient has hypernatremia but this has improved. RECOMMENDATIONS: 1. Continue current antibiotics. 2. Continue oxygen. 3. Continue free water for hypernatremia. 4. Agree with plans for Neurology evaluation for possible lumbar puncture. cc: Chalo Robertson MD
--- NOTE | 2018-10-23 17:46 | PROGRESS NOTE ---
DATE: 10/23/2018 SUBJECTIVE: Patient resting in bed. She is confused. OBJECTIVE: Vital Signs: Temperature 97.1, pulse 92, respiratory 11, blood pressure 168/88, oxygen 99%. HEENT: Atraumatic, normocephalic. Cardiovascular: S1, S2. Respiratory: Has evidence of good air entry bilaterally. Abdomen: Soft, nontender, no masses felt. Extremities: No evidence of edema. Central nervous system: No obvious focal deficit noted. LABS: WBC is 48.15, hematocrit is 30.2 with a platelet count of 260,000, sodium 146, potassium 3.4, chloride 102, bicarb 29, BUN is 60, creatinine 3.6. ASSESSMENT AND PLAN: 1. Encephalopathy. Etiology not very clear. Will obtain MRI of the brain as well as an EEG, get ammonia level and also thyroid function test. Neurology has been consulted. 2. Candiduria. Antibiotic management per ID. 3. Hypertension. Optimize blood pressure control. 4. Hypokalemia. Replace potassium cautiously in light of impaired renal function. 5. Acute kidney injury with overlying chronic kidney disease. Nephrology following. 6. Deep vein thrombosis prophylaxis heparin. 7. Gastrointestinal prophylaxis PPI. cc: Filiberto Harry MD
[2018-10-23] MEDS: PROTONIX IV SCH (18:04)
[2018-10-23] MEDS: SODIUM CHLORIDE 0.9% INJ SCH (18:05)
[2018-10-24] MEDS: CARDENE 20 MG/NS 20 MG/200 ML PIGGYBACK IV SCH ×4 (01:59→23:22)
[2018-10-24] MEDS: DUONEB (A & A) INH SCH ×6 (03:00→23:30)
[2018-10-24 05:03] LABS: ALLEN TEST YES; BE 4.1 mmoll (-3.0-3.0); BLOOD TYPE ARTERIAL; HCO3-(ACT) 28.1 mmoll (20.0-26.0); METHB 0.8 % (0.0-1.5); O2HB 96.6 % (95.0-99.0); PCO2(98.6) 45 mmHg (35-45); PO2(98.6) 120 mmHg (60-100); SAMPLE BLOOD; SAO2 98.2 % (95.0-100.0); THB 12.4 g/dL (11.5-17.4); pH(98.6) 7.42 (7.35-7.45)
[2018-10-24 05:05] LABS: MODALITY CANNULA
[2018-10-24] MEDS: HUMALOG SUBQ SCH ×4 (06:22→21:15)
[2018-10-24 06:26] LABS: HEMATOCRIT 29.8 % (37.0-47.0); HEMOGLOBIN 9.4 g/dL (12.0-16.0); MCH 26.7 PG (27-31); MCHC 31.5 g/dL (33-37); MCV 84.7 FL (81-99); RBC 3.52 XMIL (4.2-5.4); RDW 14.6 % (11.5-14.5); WBC 31.66 X1000 (4.8-10.8)
--- NOTE | 2018-10-24 07:15 | Diag Imaging Result Doc PS360 ---
EXAM: CHEST-PORTABLE 10/24/2018 HISTORY: abnormal exam TECHNIQUE: AP portable at 0537 COMMENT: There is some subsegmental atelectasis in the left costophrenic angle which was not present previously. Otherwise the appearance the chest considering differences in inspiration has not changed since 10/22/2018. IMPRESSION: Left lower lobe atelectasis. Electronically signed by Jass Velez 10/24/2018 7:13 AM
[2018-10-24 07:58] LABS: ALBUMIN 3.1 g/dL (3.5-5.0); CALCIUM 8.5 mg/dL (8.8-10.2); CREATININE 4.6 mg/dL (0.5-0.9); PHOSPHORUS 3.9 mg/dL (2.7-4.5); POTASSIUM 3.4 mmol/L (3.5-5.1)
[2018-10-24] MEDS: ZYVOX 600 MG/D5W 600 MG/300 ML IVPB IV SCH ×2 (08:08→21:06)
[2018-10-24] MEDS: BASAGLAR SUBQ SCH ×2 (08:08→21:03)
[2018-10-24] MEDS: D5W 1,000 ML IV SCH (08:08)
[2018-10-24] MEDS: MYCOSTATIN SUSP PO SCH ×4 (08:09→21:15)
[2018-10-24] MEDS: HEPARIN SUBQ SCH ×2 (08:09→21:05)
--- NOTE | 2018-10-24 09:30 | INFECTIOUS DISEASE PROGRESS NO ---
DATE: 10/24/2018 PRESENT ILLNESS: The patient has an altered mental status and leukocytosis, the etiology of which I am uncertain. MEDICATIONS: The patient has been on micafungin now for 6 days and on Zyvox and meropenem for 1 day. PHYSICAL EXAMINATION: Vital Signs: Temperature is 98.2 degrees, pulse 89, respirations 12, blood pressure 162/84. General: This is an ill-appearing, elderly female. She seems to be delirious. She moves her head back and forward, but does not respond to verbal stimuli. Head/eyes/ears/nose/throat: No drainage was noted from the nose or ears. Neck: No meningismus. Lungs: Clear to auscultation. Cardiovascular: Regular heart rate. Abdomen: Soft and nontender. Neurologic: The patient moves her head to each side. She does not respond to verbal stimuli. There was no tremor. Integument: No rash noted. LAB AND X-RAY: Chest x-ray shows left lower lobe atelectasis. The latest blood cultures are negative. Creatinine is 4.6. GFR is 11. CBC shows a white count is down to 31,660, hemoglobin 9.4, and platelet count of 129,000. Blood cultures thus far are negative. Arterial blood gases show a pH of 7.42, a PO2 of 120, and a pCO2 of 45. ASSESSMENT AND PLAN: The patient has an altered mental status and leukocytosis, the etiology of which I am uncertain. My plan is to continue Zyvox, meropenem and micafungin. Dr. Whitley has been consulted for the patient. COMORBIDITIES: The patient's comorbidities: She is elderly and she has chronic kidney disease, diabetes mellitus, and a history of seizures. cc: Fred Garcia MD
--- NOTE | 2018-10-24 09:43 | NEPHROLOGY PROGRESS NOTE ---
DATE: 10/24/2018 SUBJECTIVE: She will not open her eyes for me. She did nod in response. No other interaction. OBJECTIVE: Vital Signs: Blood pressure 162/84, heart rate 91, respirations 13, afebrile. General: She is elderly woman lying in bed at 20 degrees, in no distress. Skin: Warm and dry. HEENT: Conjunctivae are pink. Neck: Neck veins are not distended. Trachea is midline. Heart: Regular with a systolic murmur. Lungs: Equal breath sounds. No crackles or wheezes. Abdomen: Soft, nontender. Bowel sounds are present. Extremities: No edema, clubbing, or cyanosis. IMPRESSION: Acute kidney injury overlying chronic kidney disease. Her labs are worsening again. Creatinine is 4.6 today. Urine output is trailing off, but she has been in negative fluid balance overall. We will check urine electrolytes and then give a trial of intravenous fluids today, and observe her response. Her most recent chest x-ray was performed yesterday and there was no mention of pulmonary edema. She is at high risk for requiring hemodialysis. cc: Kishore Nicholson MD
[2018-10-24] MEDS: NS 1,000 ML IV SCH ×2 (10:00→19:36)
[2018-10-24] MEDS: MYCAMINE 100 MG in NS 100 ML IV SCH (10:30)
[2018-10-24] MEDS: MERREM 500 MG in NS 50 ML IV SCH ×2 (10:30→21:04)
[2018-10-24] MEDS ORDERED: XYLOCAINE-MPF 1% INJ ONE (11:29)
--- NOTE | 2018-10-24 12:48 | CONSULTATION ---
DATE OF CONSULTATION: 10/24/2018 HISTORY: Ms. Ferrell is 78 years old, and she has altered mental status with elevated WBC count. Dr. Garcia saw her for infectious disease evaluation and suggested consideration for lumbar puncture. She is not able to provide history. On admission, 10/11/2018, she was noted to "answer questions appropriately." Later notes reported her to be "lethargic." More recently, she has been "not responding." Review of chart shows initial WBC count around 20,000; later 48,000; 31,000 most recently. BUN has increased from 40s at admission to 80s recently. She has been afebrile. Noncontrast CT 10/20/2018 showed minor white matter changes but nothing focal or acute and no bleeding. Computer record shows prior brain MRI without contrast done 12/18/2017 was unremarkable. She has reported evidence of right lower lobe pneumonia, Escherichia coli UTI, fungal UTI, oral Candidiasis. There is reported past history of seizure. She does not have medicines for seizure control listed except for Lyrica only 75 mg daily. She has not had evidence of seizure clinically this admission. I don't know details of prior seizure disorder or timing of initial or last seizure. I do not know her baseline cognitive and mental state. I do not see any documented prior neurologic history of stroke or serious head injury. Record does not show history of ethanol abuse or illicit drug use. PHYSICAL EXAMINATION: On exam today, she is awake, opened eyes when I called her name, looked at me, frowned, grunted a little bit, but did not respond verbally. She did not follow commands with my repeated requests. She moved her limbs purposefully. Tone is symmetric on the right and left. Plantar response is silent bilaterally. Reflexes are absent at the ankles and 1+ at the wrists symmetrically. She has full lateral eye movements spontaneously and with passive head turning. Upgaze may be a little bit diminished, difficult to municipal court judge. Facial motility is diminished, but symmetric. Tongue is midline. Head is unremarkable. Neck is supple without meningismus. Lumbar puncture was done at the L4 space with opening pressure 27 cm of CSF. Crystal clear fluid was obtained and sent to the lab. Closing pressure was about 8 cm. She tolerated that well. IMPRESSION: 1. Global encephalopathy, uncertain etiology. I do not see clinical evidence of increased intracranial pressure, but CSF pressure is elevated. Negative imaging is reassuring. We might consider repeat imaging later. 2. Possible previous seizure history. I do not have any documentation of that. Depending on her clinical course, we might need to consider EEG to make sure there is not subclinical seizure to account for some of her altered mentation. Thanks for asking Neurology to see Ms. Cedeno. cc: Matthew Whitley III, MD MTDD
[2018-10-24 13:53] LABS: GLUCOSE CSF 114 mg/dL (39-75)
[2018-10-24 14:02] LABS: PROTEIN CSF 61.6 mg/dL (15-45)
[2018-10-24 14:22] LABS: APPEARANCE CLEAR; WBC BF 0 /cumm
[2018-10-24 14:25] LABS: RBC BF 7 /cumm
--- NOTE | 2018-10-24 14:53 | PROGRESS NOTE ---
DATE: 10/24/2018 SUBJECTIVE: The patient is resting in bed. She is difficult to arouse. OBJECTIVE: Vital signs are as follows: Temperature 98.2, pulse 90, respirations 18, blood pressure 149/76, oxygen saturation 96%. HEENT: Atraumatic and normocephalic. Cardiovascular: S1, S2. Respiratory System has evidence of good entry bilaterally. Abdomen is soft, nontender. No masses felt. Extremities: No evidence of edema. Central nervous system difficult to assess in light of the patient's current mental status. LABORATORY DATA: WBC 31.6, hematocrit 29.8 with a platelet count of 127,000. ABG 7.42/42/120/98.2 percent. Sodium is 136, potassium 3.4, chloride 94, bicarb 27. BUN is 82, creatinine 4.6. X-ray of the chest shows left lower lobe atelectasis. ASSESSMENT AND PLAN: 1. Encephalopathy, query etiology. The patient has had a spinal tap done. We will follow up on that report. Neurology is following. We will continue to follow up on patient's mental status. 2. Candiduria. Treatment per Infectious Disease. 3. Hypertension. Optimize blood pressure control. 4. Hypokalemia. Replace potassium cautiously in light of impaired renal function. 5. Deep vein thrombosis prophylaxis, heparin. 6. Gastrointestinal prophylaxis. Proton pump inhibitor. cc: Filiberto Harry MD
[2018-10-24] MEDS: POTASSIUM CHLORIDE 20 MEQ/SWI 20 MEQ/100 ML IVPB IV SCH ×2 (15:04→16:59)
[2018-10-24] MEDS: PROTONIX IV SCH (16:58)
[2018-10-25] MEDS: DUONEB (A & A) INH SCH ×6 (03:40→23:29)
[2018-10-25 04:14] LABS: HEMATOCRIT 28.4 % (37.0-47.0); HEMOGLOBIN 9.2 g/dL (12.0-16.0); MCH 26.5 PG (27-31); MCHC 32.4 g/dL (33-37); MCV 81.8 FL (81-99); RBC 3.47 XMIL (4.2-5.4); RDW 14.1 % (11.5-14.5); WBC 32.15 X1000 (4.8-10.8)
[2018-10-25 04:39] LABS: ALBUMIN 2.9 g/dL (3.5-5.0); CALCIUM 8.7 mg/dL (8.8-10.2); CREATININE 4.8 mg/dL (0.5-0.9); POTASSIUM 3.8 mmol/L (3.5-5.1)
[2018-10-25] MEDS: NS 1,000 ML IV SCH ×2 (05:33→15:50)
[2018-10-25] MEDS: HUMALOG SUBQ SCH ×4 (06:28→20:15)
[2018-10-25] MEDS: CARDENE 20 MG/NS 20 MG/200 ML PIGGYBACK IV SCH ×3 (06:34→20:13)
[2018-10-25] MEDS: MYCOSTATIN SUSP PO SCH ×4 (08:40→20:28)
[2018-10-25] MEDS: ZYVOX 600 MG/D5W 600 MG/300 ML IVPB IV SCH ×2 (08:40→20:14)
[2018-10-25] MEDS: HEPARIN SUBQ SCH ×2 (08:40→20:14)
[2018-10-25] MEDS: BASAGLAR SUBQ SCH ×2 (08:48→20:13)
--- NOTE | 2018-10-25 10:01 | NEPHROLOGY PROGRESS NOTE ---
DATE: 10/25/2018 SUBJECTIVE: She does open her eyes for me today, but remains nonverbal. OBJECTIVE: Vital Signs: Blood pressure 115/75, heart rate 97, respirations 17. Intake 3.9 L, output 1.9 L, all of which is urine output. General: No acute distress. Skin: Warm and dry. HEENT: Conjunctivae are pink. Oropharynx is not examined. Neck: Neck veins are not visible. Heart: Regular with systolic murmur. Lungs: Equal. No crackles or wheezes. Abdomen: Soft, nontender. Bowel sounds are present. Extremities: No edema, clubbing, or cyanosis. IMPRESSION: Acute kidney injury overlying chronic kidney disease, stage 4. Her urine output has been low in the last 48 hours and BUN and creatinine have been rising. Fortunately, in the last 24 hours, her urine output has picked up. BUN has fallen significantly though her creatinine is about the same. She does not meet criteria for dialysis, and so we will continue close observation without other intervention. She is in net negative fluid balance since admission, but is in positive fluid balance in the last 3 days. Continue current care. Her last chest x-ray was performed yesterday and there is no evidence of pulmonary edema. cc: Kishore Nicholson MD
--- NOTE | 2018-10-25 10:21 | INFECTIOUS DISEASE PROGRESS NO ---
DATE: 10/25/2018 PRESENT ILLNESS: The patient has an altered mental status and leukocytosis, the etiology of which I am uncertain. She appears to have improved today as far as her mental status goes. MEDICATIONS: This is the 7th day of treatment with micafungin and the second day of treatment with Zyvox and meropenem. PHYSICAL EXAMINATION: VITAL SIGNS: Temperature is 98.2 degrees, pulse 97, respirations 17, blood pressure 115/75. GENERAL: This is an ill-appearing elderly female. Today, she seemed to be tracking with her eyes but she did not respond to verbal stimuli. HEAD, EYES, EARS, NOSE AND THROAT: No drainage was noted from the nose or ears. NECK: No meningismus. LUNGS: Clear to auscultation. CARDIOVASCULAR: Regular heart rate. ABDOMEN: Soft and nontender. NEUROLOGIC: The patient as mentioned above seems more alert. She does track with her eyes. She did not follow my request to move her extremities. There was no tremor. INTEGUMENT: No rash noted. LAB AND X-RAY: The patient's cerebrospinal fluid had no white cells. The glucose was 114 and the protein was 61.6. The CSF meningitis and encephalitis panel was completely negative. CBC shows a white count of 32,150, hemoglobin 9.2 and platelet count 174,000. Creatinine is 4.8. GFR is 11. ASSESSMENT AND PLAN: Patient still has a leukocytosis. I think her mental status has improved slightly. My plan is to continue with the current antimicrobial regimen consisting of Zyvox, meropenem and micafungin. COMORBIDITIES: She is elderly and she has chronic kidney disease. She also is a diabetic and there is a history of seizures. cc: Fred Garcia MD
[2018-10-25] MEDS: MERREM 500 MG in NS 50 ML IV SCH ×2 (11:08→21:39)
[2018-10-25] MEDS: MYCAMINE 100 MG in NS 100 ML IV SCH (11:08)
--- NOTE | 2018-10-25 13:15 | PROGRESS NOTE ---
DATE: 10/25/2018 SUBJECTIVE: Patient is awake. Seems to have improved, remarkably. OBJECTIVE: Vital signs: Temperature 98.1 degrees, pulse is 91, respiratory rate 18, blood pressure is 116/70, oxygen 99%. HEENT: Atraumatic, normocephalic. Cardiovascular: S1, S2. Respiratory system: Good air entry bilaterally. Abdomen: Soft, nontender. No masses felt. Extremities: No evidence of edema. Central nervous system: No obvious focal deficit noted. LABORATORY DATA: WBC 13.15, hematocrit is 28.4 with a platelet count of [id number]. Sodium is 140, potassium 3.8, chloride is 100, bicarb 25, BUN is 66. Creatinine 0.8. ASSESSMENT AND PLAN: 1. Encephalopathy. Etiology not clear. The patient's mental status seemed to have improved. The patient did have a spinal tap yesterday and meningitis/encephalitis. PCR negative. We will continue to follow up on patient's neurologic status. 2. Leukocytosis with candiduria. Antibiotic management per Infectious Disease. Continue to follow up on patient's white count. Suspect that this is due to infection. 3. Hypertension. Optimize blood pressure control. 4. Acute kidney injury superimposed on chronic kidney disease. Nephrology following. 5. Deep vein thrombosis prophylaxis. Heparin. 6. Gastrointestinal prophylaxis. PPI. cc: Filiberto Harry MD
--- NOTE | 2018-10-25 13:47 | PROGRESS NOTE ---
DATE: 10/25/2018 Ms. Cedeno has continued to slowly become brighter and more alert, but she has not communicated verbally. I spoke with daughter at the bedside today. Daughter reports minimal baseline forgetfulness, nothing really remarkable for age. There is no history of serious head injury. There was mention of seizure, but never diagnosis of seizure, and never treatment for seizure according to daughter. According to daughter, patient never had a definite seizure. There is past history of "stroke" causing transient speech difficulty some time ago, but no focal neurologic feature associated with that event. There is no other history of stroke, according to daughter. On exam today, Ms. Cedeno is more alert than yesterday. She kept her gaze on me, frowned, grunted, but did not speak. She did not follow my simple commands. Spinal fluid reports are noted. There is no evidence of UTILIZATION MANAGEMENT RN infection. I do not have any new suggestion from Neurology standpoint. Since she is improving day by day with level of consciousness, I do not think we have to do anything urgently. Thanks for asking Neurology to see Ms. Cedeno. cc: MD LEONIDES Pierce III
--- NOTE | 2018-10-25 16:00 | OPERATIVE NOTE ---
PROCEDURE DATE: 10/24/2018 PROCEDURE: Lumbar puncture at L4 space with opening pressure about 27 cm of CSF. PROCEDURE DETAILS: Crystal clear fluid was obtained and sent to the lab. Closing pressure was about 8 cm. She tolerated procedure well. cc: Matthew Whitley III, MD
[2018-10-25] MEDS: PROTONIX IV SCH (17:25)
[2018-10-25] MEDS: CLINIMIX E 4.25%-5% SOLUTION 1,000 ML IV SCH (17:25)
[2018-10-26] MEDS: DUONEB (A & A) INH SCH ×6 (03:25→23:22)
[2018-10-26] MEDS: CARDENE 20 MG/NS 20 MG/200 ML PIGGYBACK IV SCH ×3 (04:38→21:10)
[2018-10-26 05:35] LABS: ALBUMIN 2.8 g/dL (3.5-5.0); CALCIUM 8.9 mg/dL (8.8-10.2); CREATININE 5.1 mg/dL (0.5-0.9); HEMATOCRIT 27.3 % (37.0-47.0); HEMOGLOBIN 8.8 g/dL (12.0-16.0); MCH 26.5 PG (27-31); MCHC 32.2 g/dL (33-37); MCV 82.2 FL (81-99); MPV 11.1 FL (7.4-10.4); PHOSPHORUS 6.5 mg/dL (2.7-4.5); POTASSIUM 3.6 mmol/L (3.5-5.1); RBC 3.32 XMIL (4.2-5.4); RDW 14.3 % (11.5-14.5); WBC 29.74 X1000 (4.8-10.8)
[2018-10-26] MEDS: HUMALOG SUBQ SCH ×4 (06:50→21:12)
[2018-10-26] MEDS: MERREM 500 MG in NS 50 ML IV SCH ×2 (09:11→21:11)
[2018-10-26] MEDS: ZYVOX 600 MG/D5W 600 MG/300 ML IVPB IV SCH ×2 (09:11→21:12)
[2018-10-26] MEDS: BASAGLAR SUBQ SCH ×2 (09:12→21:23)
[2018-10-26] MEDS ORDERED: INSULIN PEN NEEDLES ONE (09:12)
[2018-10-26] MEDS: HEPARIN SUBQ SCH ×2 (09:13→21:12)
[2018-10-26] MEDS: MYCOSTATIN SUSP PO SCH (09:38)
--- NOTE | 2018-10-26 10:30 | INFECTIOUS DISEASE PROGRESS NO ---
DATE: 10/26/2018 PRESENT ILLNESS: Ms. Cedeno has had a leukocytosis and encephalopathy, both of which seem to be improving. She is status post lumbar puncture. The patient also had an oral candidiasis, which seems to have resolved. MEDICATIONS: Today is day 8 of treatment with micafungin 100 mg IV daily, and day 3 of meropenem 500 mg IV every 12 hours and Zyvox 600 mg IV every 12 hours. She has also been on nystatin swish and swallow for oral candidiasis, which seems to have resolved. PHYSICAL EXAMINATION: Vital Signs: Temperature 98 degrees, pulse rate 93, respiratory rate 14, blood pressure 169/79, O2 saturation 99% on 2 L nasal cannula. General: This is a chronically ill-appearing, elderly female. She is lying in the bed with her daughter at her side. The patient is in no acute distress. HEENT: Atraumatic, normocephalic. Oral mucous membranes are pink and moist. Conjunctivae are pale. Neck: Supple. Trachea is midline. Cardiovascular: Heart rate and rhythm are regular. Normal sinus rhythm on the monitor. Pedal and radial pulses are palpable bilaterally. Mild edema noted to her upper and lower extremities. Respiratory: Lung sounds are clear in the upper lobes, diminished in the bases. Respiratory excursion is normal and symmetric. Abdomen: Soft, round, and nontender. Bowel sounds are active. Neurologic: She is awake and alert. She is currently nonverbal, but follows commands and is responding appropriately today. She has generalized weakness, but is able to move all extremities equally with no tremor. LABORATORY AND X-RAY: Today, her white count is 29.74, hemoglobin 8.8, platelet count 172,000. Creatinine is 5.1, GFR 10. AFB smear from her cerebrospinal fluid is negative. Cerebrospinal fluid showed no white blood cells. The meningitis/encephalitis panel by PCR was negative. CSF Gram stain shows no bacteria and the culture is preliminary. No imaging reports today. ASSESSMENT AND PLAN: Ms. Cedeno has a leukocytosis with altered mental status , both of which seems to be improving. Since she is doing well on the current antimicrobials, we will keep Zyvox, meropenem, and micafungin through the weekend and then reevaluate. Since she is on micafungin, and there is no sign of oral candidiasis at this point, we will go ahead and discontinue her nystatin swish and swallow. The previous plans have been discussed with and recommended by Dr. Garcia. COMORBIDITIES: She is elderly with chronic kidney disease, diabetes mellitus, and history of seizures. Dictated by SUJATHA Martínez for Fred Garcia MD This chart was documented by, SUJATHA Martínez and accurately reflects the services performed, treatment plan and medical decisions as attested by the providers signature Fred Garcia MD. cc: Fred Garcia MD [facility]US[facility]uan F
--- NOTE | 2018-10-26 10:51 | PROGRESS NOTE ---
DATE: 10/26/2018 SUBJECTIVE: Ms. Cedeno's daughter reports no recent deterioration. OBJECTIVE: She is even more alert today. She was much brighter than yesterday during my time at the bedside. She kept her gaze on me and maintained her attention. She followed a few simple commands. She spoke some understandable words inconsistently. I do not have any new suggestion from neurologic standpoint today. We might repeat EEG later, but daughter's history that she did not have definite prior seizure is reassuring. Thanks for asking Neurology to see Ms. Cedeno. cc: MD LEONIDES Pierce III
--- NOTE | 2018-10-26 11:18 | NEPHROLOGY PROGRESS NOTE ---
DATE: 10/26/2018 SUBJECTIVE: She has her eyes spontaneously open and nods and she did answer briefly with 1 or 2 words. OBJECTIVE: Vital Signs: Blood pressure 169/79, heart rate 94, respirations 14, afebrile. Intake 2.5 L. Output 2.1 L. General: No acute distress. Skin: Warm and dry. Eyes: Conjunctivae are pink. Neck: Neck veins are not distended. Heart: Regular with systolic murmur present. Lungs: Have equal breath sounds. No crackles. Abdomen: Soft, nontender. Bowel sounds are present. Extremities: No edema, clubbing or cyanosis. IMPRESSION: Acute kidney injury overlying chronic kidney disease. Creatinine is trending up, but her BUN is trending down. Clinically, she is improved. She has no acute indications for hemodialysis so we will continue to observe daily without change. She is receiving IV fluids in the form of Clinimix. No changes are required today. cc: Kishore Nicholson MD
[2018-10-26] MEDS: CLINIMIX E 4.25%-5% SOLUTION 1,000 ML IV SCH (11:52)
[2018-10-26] MEDS: MYCAMINE 100 MG in NS 100 ML IV SCH (11:52)
--- NOTE | 2018-10-26 17:05 | PROGRESS NOTE ---
DATE: 10/26/2018 SUBJECTIVE: Patient is awake but lethargic. OBJECTIVE: Vital Signs: Temperature 97.8 degrees, pulse 98, respiratory 15, blood pressure is 155/75, oxygen saturation 97%. HEENT: Atraumatic, normocephalic. Cardiovascular: S1-S2. Respiratory: No rales or rhonchi. Abdomen: Soft, nontender, no masses felt. Extremities: No significant edema in the lower extremities. Central nervous system: The patient is awake, nonverbal, lethargic. LABS: WBC 28.75, hematocrit 27.43 with a platelet count of 172,000, sodium is 143, potassium is 3.6, chloride 101, bicarb 22, BUN is 65, creatinine is 5.1. ASSESSMENT AND PLAN: 1. Encephalopathy. Mental status has improved. Will continue to follow patient's clinical progression. Etiology of encephalopathy not clear may be related to infection. 2. Leukocytosis with candiduria. Continue antibiotics as recommended by ID. 3. Hypertension, optimize blood pressure control. 4. Acute kidney injury with superimposed kidney disease. Renal function seems to be worsening, nephrology following. 5. Deep vein thrombosis prophylaxis heparin. 6. Gastrointestinal prophylaxis PPI. 7. Nutrition, patient is on Clinimix. cc: Filiberto Harry MD
[2018-10-26] MEDS: PROTONIX IV SCH (17:13)
[2018-10-26] MEDS: SODIUM CHLORIDE 0.9% INJ SCH (17:13)
[2018-10-27] MEDS: DUONEB (A & A) INH SCH ×6 (03:34→23:31)
[2018-10-27] MEDS: CARDENE 20 MG/NS 20 MG/200 ML PIGGYBACK IV SCH ×3 (03:39→20:50)
[2018-10-27] MEDS: HUMALOG SUBQ SCH ×4 (06:13→20:50)
[2018-10-27] MEDS: HEPARIN SUBQ SCH ×2 (09:20→20:45)
[2018-10-27] MEDS: MERREM 500 MG in NS 50 ML IV SCH ×2 (09:20→21:55)
[2018-10-27] MEDS: BASAGLAR SUBQ SCH ×2 (09:21→20:45)
[2018-10-27] MEDS: CLINIMIX E 4.25%-5% SOLUTION 1,000 ML IV SCH (12:21)
--- NOTE | 2018-10-27 12:28 | Diag Imaging Result Doc PS360 ---
EXAM: CHEST-PORTABLE 10/27/2018 HISTORY: CVL placement TECHNIQUE: AP portable at 1201 COMMENT: There is a right internal jugular central venous catheter with its tip in the right atrium. There is no evidence of pneumothorax or pleural fluid collection however there are patchy opacities present in the right apex, and the left lower lobe which were largely present on 10/24/2018. IMPRESSION: Atelectasis versus pneumonia. Electronically signed by Jass Velez 10/27/2018 12:25 PM
[2018-10-27] MEDS: MYCAMINE 100 MG in NS 100 ML IV SCH (12:45)
[2018-10-27] MEDS: ZYVOX 600 MG/D5W 600 MG/300 ML IVPB IV SCH (12:45)
--- NOTE | 2018-10-27 14:22 | OPERATIVE NOTE ---
PROCEDURE DATE: 10/27/2018 TIME: 11:50 in the morning. Been asked to place a central venous line for IV access. The patient was supine on the bed. Trendelenburg position was obtained. The right side of the neck was prepped and draped in a sterile fashion. The nurse assisted in holding her head to the left. We ultrasounded the vein, identified it. We then anesthetized the skin 1% lidocaine, made a small stab incision and accessed the left internal jugular vein, passed the guidewire without difficulty. We then dilated the tract and passed the triple-lumen catheter to the extent that it would go. We were able to aspirate blood from each lumen and then irrigated each with saline. We secured the flange to the skin with silk contained within the tray. A Biostep patch was placed at the exit site and a sterile OpSite dressing was applied. She tolerated it well. A chest x-ray was ordered. cc: Jostin Ya MD
[2018-10-27 14:36] LABS: HEMATOCRIT 27.4 % (37.0-47.0); HEMOGLOBIN 8.9 g/dL (12.0-16.0); MCH 26.6 PG (27-31); MCHC 32.5 g/dL (33-37); MPV 10.8 FL (7.4-10.4); RBC 3.34 XMIL (4.2-5.4); RDW 14.3 % (11.5-14.5); WBC 32.53 X1000 (4.8-10.8)
--- NOTE | 2018-10-27 14:52 | NEPHROLOGY PROGRESS NOTE ---
DATE: 10/27/2018 SUBJECTIVE: She is spontaneously awake and alert. Minimally verbal, but responds and follows commands. OBJECTIVE: Vital Signs: Blood pressure 177/71, heart rate 92, respiration 11, afebrile. General: No acute distress. Skin: Warm and dry. Neck: Neck veins are not distended. Heart: Regular. No gallops. Murmur is present. Lungs: Equal. No crackles. Abdomen: Soft, nontender. Bowel sounds present. Extremities: No edema, clubbing or cyanosis. IMPRESSION: Acute kidney injury overlying chronic kidney disease. She has no new lab data today. Urine output is excellent and she is clinically improving. We will recheck labs in the morning. cc: Kishore Nicholson MD
[2018-10-27 14:59] LABS: ALBUMIN 3.1 g/dL (3.5-5.0); CALCIUM 9.2 mg/dL (8.8-10.2); CREATININE 4.6 mg/dL (0.5-0.9); PHOSPHORUS 6.5 mg/dL (2.7-4.5)
[2018-10-27] MEDS: PROTONIX IV SCH (17:00)
--- NOTE | 2018-10-27 18:53 | PROGRESS NOTE ---
DATE: 10/27/2018 SUBJECTIVE: Patient 78-year-old female who is lying in bed in no distress. She is awake but lethargic, does not answer questions does not follow commands . PHYSICAL: Vital Signs: Reviewed, she is afebrile pulse 91, respiratory 12, BP 155/108, she is still on Cardene drip. Patient is awake. She is in no distress as noted does not follow commands does not answer questions . HEENT: Normocephalic, atraumatic. Neck: Supple. CV: Regular rate, no murmurs. Chest: Relatively clear, no crackles, no wheezing, positive airway noise, does not follow commands does not take deep breaths . Abdomen: Soft, nondistended, no masses. Extremities: Has no edema . Neuro: As noted patient is nonverbal, she is lethargic . ASSESS: 1. Hypertensive crisis, continue Cardene. 2. Leukocytosis. 3. Anna urea. 4. Metabolic encephalopathy. 5. Chronic malnutrition. PLAN: Will continue patient on Merrem, Micafungin and Zyvox. Continue treat nutrition with Clinimix and continue to follow. cc: Skyler Humphries MD
[2018-10-28] MEDS: ZYVOX 600 MG/D5W 600 MG/300 ML IVPB IV SCH ×2 (01:00→13:20)
[2018-10-28] MEDS: DUONEB (A & A) INH SCH ×6 (03:09→23:25)
[2018-10-28 06:10] LABS: BASO# 0.03 X1000 (0.0-0.2); BASO% 0.1 % (0.0-0.8); EOS# 0.29 X1000 (0.0-0.7); EOS% 1.1 % (0.0-10.0); HEMATOCRIT 27.1 % (37.0-47.0); HEMOGLOBIN 8.7 g/dL (12.0-16.0); IMM GRAN# 0.05 X1000 (0.0-0.04); IMM GRAN% 0.2 % (0.0-0.5); LYMPH# 17.61 X1000 (1.2-3.4); MCHC 32.1 g/dL (33-37); MCV 81.1 FL (81-99); MONO# 0.68 X1000 (0.11-0.59); MONO% 2.5 % (1.7-9.3); NEUT# 8.85 X1000 (1.4-6.5); NEUT% 32.1 % (42.2-75.2); PLT 183 X1000 (130-400); RBC 3.34 XMIL (4.2-5.4); RDW 14.3 % (11.5-14.5); WBC 27.51 X1000 (4.8-10.8)
[2018-10-28] MEDS: HUMALOG SUBQ SCH ×4 (06:34→20:56)
[2018-10-28] MEDS: CLINIMIX E 4.25%-5% SOLUTION 1,000 ML IV SCH ×2 (06:35→08:58)
[2018-10-28 06:38] LABS: CALCIUM 8.6 mg/dL (8.8-10.2); CREATININE 4.9 mg/dL (0.5-0.9); PHOSPHORUS 5.8 mg/dL (2.7-4.5); POTASSIUM 3.7 mmol/L (3.5-5.1)
--- NOTE | 2018-10-28 07:30 | Diag Imaging Result Doc PS360 ---
EXAM: CHEST-1 VIEW 10/28/2018 HISTORY: SOB TECHNIQUE: AP portable upright at 0430 COMMENT: The inspiration is less optimal than on 10/27/2018. There is opacification in the left lower lobe obscuring portions of the hemidiaphragm. This is slightly worse than on the previous study. IMPRESSION: Worsened atelectasis versus pneumonia left lower lobe. Electronically signed by Jass Velez 10/28/2018 7:27 AM
[2018-10-28 07:55] LABS: LYMPHS 60 % (21-51); MONO 2 % (1-9); SEGS 38 % (42-75)
[2018-10-28] MEDS: BASAGLAR SUBQ SCH ×2 (08:58→20:55)
[2018-10-28] MEDS: HEPARIN SUBQ SCH ×2 (09:13→20:55)
[2018-10-28] MEDS: MERREM 500 MG in NS 50 ML IV SCH ×2 (09:13→20:59)
[2018-10-28] MEDS: CARDENE 20 MG/NS 20 MG/200 ML PIGGYBACK IV SCH ×2 (10:50→19:23)
[2018-10-28] MEDS: MYCAMINE 100 MG in NS 100 ML IV SCH (11:50)
--- NOTE | 2018-10-28 14:38 | INFECTIOUS DISEASE PROGRESS NO ---
DATE: 10/28/2018 PRESENT ILLNESS: The patient has made a remarkable recovery. She is alert and talking. She appears to have a left lower lobe pneumonia/atelectasis or a combination of both, however. MEDICATIONS: This is the 10th day of treatment with micafungin and the 5th day of treatment with Zyvox and meropenem. PHYSICAL EXAMINATION: Vital Signs: Temperature is 97.3, pulse 94, respirations 14, blood pressure 174/78. General: The patient as mentioned above is awake and smiling. She is talking. She is in no acute distress. Head, Eyes, Ears, Nose and Throat: No drainage noted from the nose or ears. She appears to be able to hear my spoken words and see near objects. There are some white patches on her tongue to indicate that she may have thrush. Neck: No meningismus. Lungs: Clear to auscultation. Cardiovascular: Heart rate is regular. Abdomen: Soft and nontender. Neurologic: Patient is alert. She responded to verbal stimuli. There is no tremor. She did move her legs to request. LAB AND X-RAY: Chest x-ray shows left lower lobe atelectasis/pneumonia. Cerebral spinal fluid cultures negative. Acid-fast smear on the spinal fluid is negative. The meningitis/encephalitis panel is negative. CBC shows a white count of 27,510, hemoglobin 8.7 and platelet count 183,000. Creatinine is 4.9. GFR is 10. ASSESSMENT AND PLAN: The patient I think has pneumonia which could be causing her leukocytosis. I plan to continue meropenem and Zyvox. However, I am going to discontinue micafungin. As regarding the patient's oral candidiasis, even though the patient was on micafungin, she still appeared to have it. I am going to start her on nystatin swish and swallow. COMORBIDITIES: Include the patient is elderly and she has chronic kidney disease, diabetes mellitus and a history of seizures. cc: Fred Garcia MD
[2018-10-28] MEDS: PROTONIX IV SCH (15:20)
--- NOTE | 2018-10-28 15:42 | PROGRESS NOTE ---
DATE: 10/28/2018 INTERVAL HISTORY: Patient remains nonverbal, but appears awake and alert, following most commands and answering yes/no questions appropriately. Reportedly will occasionally give one-word answers to her granddaughter, but not anyone else. No acute events overnight. Remains on Cardene drip with some success on weaning down. REVIEW OF SYSTEMS: Unable to obtain secondary to patient's nonverbal status and mental status. LABORATORY DATA: White count 27.5, hemoglobin 8.7, hematocrit 27.1, platelets 183,000. Sodium 141, potassium 3.7, BUN 70, creatinine 4.9, glucose 178, phosphorus 5.8, calcium 8.6, albumin 3. IMAGING: Chest x-ray with opacification of the left lower lobe, slightly worse than previous, likely atelectasis versus possible pneumonia. PHYSICAL EXAMINATION: Vital Signs: T-max 98, pulse 94, respirations 14, blood pressure 174/78, O2 saturation 96% on room air. General: No acute distress, somewhat drowsy, but awake and arouses easily. Follows simple commands well. Will answer yes/no questions, but does not speak. HEENT: Normocephalic, atraumatic. Moist mucous membranes. Neck: No cervical adenopathy. Cardiovascular: A 3/6 right upper sternal border murmur noted. Pulmonary: Lungs essentially clear to auscultation bilaterally. No wheezing, rales, or rhonchi noted. Abdomen: Soft, nontender, nondistended. Bowel sounds positive. Extremities: Peripheral pulses intact. No clubbing, cyanosis, or edema. Neurologic: Cranial nerves appear grossly intact. No focal deficits identified. Psychiatric: Drowsy but awake and arouses easily. Unable to assess orientation secondary to nonverbal status. Skin: No new rashes or lesions identified. ASSESSMENT AND PLAN: 1. Metabolic encephalopathy, etiology somewhat uncertain. Almost certainly some underlying dementia. On empiric antibiotics with Zyvox and Merrem but infectious workup has been largely unremarkable aside from marked leukocytosis. CSF studies were essentially unremarkable. The patient's mental status does appear to be improving slowly. May simply be encephalopathy related to pneumonia on admission and underlying dementia with very slow resolution. Continue to monitor closely. 2. Possible pneumonia. Remains on empiric antibiotics as per infectious disease. Urine culture with Escherichia coli, but other cultures negative. Stable from a respiratory standpoint. Continue to monitor. 3. Marked leukocytosis. Slight downtrend since admission with empiric antibiotics, but still markedly elevated. Also associated with relatively stable anemia and borderline thrombocytopenia. Suspect chronic lymphocytic leukemia. Will discuss with family whether they want to pursue oncology workup prior to consulting Oncology as there is likely little that needs to be done about it at this point. 4. Acute kidney injury on chronic kidney disease 3. Baseline creatinine appears to be just over 2. On this admission, creatinine has been in the 4s and 5s. Creatinine remains markedly elevated, but the patient with good urine output. Nephrology following, and no acute need for dialysis at this time. Continue to monitor closely. 5. Hypertensive urgency. The patient remains on Cardene drip. Awaiting swallow study. If she does well with swallow study, we will begin adding oral agents and try to wean her off the Cardene. If patient is able to be weaned off Cardene, then can likely go to a floor room. 6. Malnutrition. Patient on Clinimix. Continue to monitor. If mental status continues to improve and she does well with swallow study, then may be able to start on a diet. 7. Deep vein thrombosis prophylaxis. SCDs. 8. Disposition: Swallow study today. If she does well, then work on weaning off of Cardene and move to the floor. Will likely need SNF placement.
[2018-10-28] MEDS: MUCOMYST 20% INH SCH ×2 (15:55→19:25)
[2018-10-28] MEDS: MYCOSTATIN SUSP PO SCH ×2 (16:27→20:56)
[2018-10-29] MEDS: CARDENE 20 MG/NS 20 MG/200 ML PIGGYBACK IV SCH ×2 (02:45→17:36)
[2018-10-29] MEDS: DUONEB (A & A) INH SCH ×6 (03:07→23:09)
[2018-10-29] MEDS: CLINIMIX E 4.25%-5% SOLUTION 1,000 ML IV SCH ×3 (04:00→23:22)
--- NOTE | 2018-10-29 07:02 | INFECTIOUS DISEASE PROGRESS NO ---
DATE: 10/29/2018 SUBJECTIVE: The patient, this morning unfortunately, is very lethargic. She has a left lower lobe pneumonia versus atelectasis or a combination of both. She had received treatment for a fungal urinary tract infection and no more treatment is necessary. MEDICATION: Meropenem, Zyvox and Nystatin swish and swallow. OBJECTIVE: Vital Signs: Temperature is 98.2 degrees, pulse 90, respirations 14 , blood pressure 143/73. General: This is an ill-appearing, lethargic, elderly female. Head/eyes/ears/nose/throat: No drainage noted from the nose or ears. Neck: No stiffness. A right internal jugular venous catheter is in place. Lungs: Clear to auscultation. Cardiovascular: Heart rate is regular. Abdomen: Soft and not tender. Neurologic: As mentioned above, patient is very lethargic this morning. She does not have a tremor. She did not respond to verbal stimuli to move her extremities. Integument: No rash noted. LAB AND X-RAY: The patient's creatinine is 4.9. GFR is 10. The CBC shows a white count of 27,510, hemoglobin 8.7, and platelet count 183,000. ASSESSMENT AND PLAN: The patient, I think, could have pneumonia, and I plan to continue meropenem and Zyvox. The patient has oral candidiasis, and I have previously ordered nystatin swish and swallow for it. The patient is going to have to wake up a lot more if we are going to be using the nystatin swish and swallow. COMORBIDITIES: The patient is elderly, and she has chronic kidney disease, diabetes mellitus, and a history of seizures. cc: Fred Garcia MD [facility]
[2018-10-29] MEDS: MUCOMYST 20% INH SCH ×2 (07:45→23:09)
[2018-10-29] MEDS: HEPARIN SUBQ SCH ×2 (08:01→20:19)
[2018-10-29] MEDS: BASAGLAR SUBQ SCH ×2 (08:01→20:19)
[2018-10-29] MEDS: MYCOSTATIN SUSP PO SCH ×4 (08:02→20:20)
[2018-10-29] MEDS: HUMALOG SUBQ SCH ×4 (08:02→20:20)
[2018-10-29 09:25] LABS: HEMATOCRIT 25.9 % (37.0-47.0); HEMOGLOBIN 8.3 g/dL (12.0-16.0); MCH 26.1 PG (27-31); MCV 81.4 FL (81-99); MPV 10.4 FL (7.4-10.4); RBC 3.18 XMIL (4.2-5.4); RDW 14.3 % (11.5-14.5)
[2018-10-29 09:50] LABS: ALBUMIN 2.9 g/dL (3.5-5.0); CREATININE 4.4 mg/dL (0.5-0.9); PHOSPHORUS 5.5 mg/dL (2.7-4.5); POTASSIUM 4.1 mmol/L (3.5-5.1)
[2018-10-29] MEDS: MERREM 500 MG in NS 50 ML IV SCH ×2 (10:53→22:01)
--- NOTE | 2018-10-29 13:01 | NEPHROLOGY PROGRESS NOTE ---
DATE: 10/29/2018 TIME SEEN: 0715. SUBJECTIVE: Ms. Cedeno is awake today. She is still nonverbal. She has no complaints. OBJECTIVE: Her most recent vital signs: Temperature 97.9, blood pressure 158/ 79, heart rate 101, respirations 18. She is on room air. Last recorded saturation 94%. She has had 2600 in, 2575 out to Herndon catheter. LABS: Sodium is 142, potassium 4.1, chloride 102, CO2 27, BUN 68, creatinine is 4.4. Her glucose is 175. Her anion gap is 13. Calcium 9, phosphorus 5.5, albumin 2.9. White count 22, hemoglobin is 8.3, hematocrit is 25.9, with a platelet count of 158,000. General: This is a 78-year-old female. She is resting quietly in bed. She appears in no acute distress. Skin: Warm and dry. HEENT: Normocephalic, atraumatic. Conjunctiva is pale pink. She has ASHISH. Mucous membranes are dry. Neck: Supple. Trachea midline. She has JVD at the 6 cm valerie. Cardiovascular: She is regular rate and rhythm. S4 is present. She has a soft systolic murmur. Lungs: Clear to auscultation anteriorly, equal excursion on room air. Abdomen: Nontender. Slightly distended. Positive bowel sounds. Genitourinary: Herndon catheter is in place, not inspected. Extremities: Have no edema. No clubbing or cyanosis. ASSESSMENT AND PLAN: 1. Acute kidney injury overlying chronic kidney disease stage 3B. Patient's creatinine is slowly improved today to 4.4 from 4.9 on previous labs. She has had adequate urine output. No indications for intervention. 2. Electrolytes, acid-base balance. These remain fairly stable. 3. Anemia. This is low but stable with no indications for intervention. 4. Left lower lobe pneumonia with atelectasis. This continues to be followed by Dr. Garcia and the primary care team. She continues on meropenem, Zyvox, and nystatin swish and swallow. I would like to thank you for allowing us to follow with this patient. Dictated by SUJATHA Vera for Kishore Nicholson MD Face to face encounter, data reviewed, discussed with Maxim Wilson on 10/29/18. I agree with the above assessment and plan of care. cc: SUJATHA Vera MD MTDD
--- NOTE | 2018-10-29 13:11 | Diag Imaging Result Doc PS360 ---
MRI BRAIN W/O CONTRAST - 10/29/2018 INDICATION: AMS COMPARISON: 10/20/2018 FINDINGS: There is no area of restricted diffusion. The ventricles and sulci are normal in size and contour. No intracranial mass or hemorrhage. Midline structures including the optic chiasm and pituitary are normal. IMPRESSION: Negative exam. Electronically signed by Mayur Nunes 10/29/2018 1:08 PM
[2018-10-29] MEDS: ZYVOX 600 MG/D5W 600 MG/300 ML IVPB IV SCH ×2 (13:30)
--- NOTE | 2018-10-29 15:39 | EEG REPORT ---
DATE: 10/23/2018 REFERRING PHYSICIAN: Filiberto Harry MD ANALYSIS REPORTING DEVELOPER: Levi Lizama. BACKGROUND INFORMATION/TECHNIQUE: This is a digitally recorded routine EEG with video. HISTORY: A 78-year-old female patient with altered mental status and confusion. She is nonverbal at this time. She seems to be aware and tracks. EEG is ordered to detect evidence of seizures. EEG FINDINGS: A posterior dominant alpha rhythm is notably absent. The background is disorganized and consists of theta-delta slowing with some admixed faster frequencies at times. At times there are sharply contoured waveforms diffusely. Diffuse triphasic like waves are also noted throughout the study. Some of these, at times, are sharply contoured. These are not definitely epileptiform. No definite seizures. No definite persistent focal slowing. Hyperventilation was not performed. Photic stimulation did not alter the record. No definite drowsiness patterns. Stage II sleep is not seen. EKG demonstrates regular RR intervals. IMPRESSION AND CLINICAL CORRELATION: Abnormal routine EEG due to moderate generalized slowing, disorganization and diffuse triphasic like waves, some of which have sharply contoured components. There are no definite epileptiform discharges or seizures on the record. These findings are indicative of a moderate, nonspecific encephalopathy. Triphasic waves are also nonspecific, seen typically with encephalopathies related to hepatic or renal derangements. cc: MD Filiberto Guillen MD [facility]
--- NOTE | 2018-10-29 15:42 | PROGRESS NOTE ---
DATE: 10/29/2018 SUBJECTIVE: The patient is awake. Her sensorium seems to be much improved. OBJECTIVE: Vital Signs: Temperature 97.7 degrees, pulse 91, respirations 14, blood pressure 184/85, O2 saturation 97%. HEENT: Atraumatic, normocephalic. Cardiovascular System: S1, S2. Respiratory system: Evidence of good air entry bilaterally. Abdomen: Soft, nontender. No masses felt. Extremities: No evidence of edema. Central nervous system: The patient is awake. Sensorium is much better. LABORATORY DATA: WBC 22, hematocrit 25.9, platelet count 158,000. Sodium 142, potassium 4.1, chloride 102, bicarb 27, BUN 68, creatinine 4.4. ASSESSMENT AND PLAN: 1. Encephalopathy. The patient's mental status continues to improve. Will continue to follow up on patient's clinical progression. 2. Probable pneumonia. Continue antibiotics as recommended by Infectious Disease. 3. Hypertension. Optimize blood pressure control. 4. Acute kidney injury superimposed on chronic kidney disease. Renal function seems to have improved slightly. Continue to follow up on patient's kidney function. 5. Deep vein thrombosis prophylaxis. Heparin. 6. Gastrointestinal prophylaxis. Proton pump inhibitor. cc: Filiberto Harry MD
[2018-10-29] MEDS: PROTONIX IV SCH (16:05)
--- NOTE | 2018-10-29 17:50 | PROGRESS NOTE ---
DATE: 10/29/2018 SUBJECTIVE: No major overnight events. The patient has had an altered mental status and leukocytosis. She is being treated for pneumonia, e coli and fungal urinary tract infection as well as oral candidiasis. She has had acute kidney injury on chronic kidney disease. Head CT on 10/20/2018, noncontrasted, did not show any acute intracranial findings. A spinal tap was unremarkable. She has been afebrile. Blood pressure 160s-170s systolic. Pulse 90s. Respirations 15. She was 94% on room air. Ms. Cedeno is supine in bed. She appears to be resting comfortably. When I enter the room and say her name, she opens her eyes and regards. She is able to state her first and last name which was hard to understand but was accurate. She followed multiple simple commands given to her today. Left, right and digit distinction preserved. She spoke an appropriate three word sentence on two occasions. She was not oriented. Her pupils are equal, round and reactive, miotic OU. Gaze is conjugate and forward. Ocular movements were full at least in the horizontal planes. She blinks to threat. Face appeared to be symmetrical as best I could tell from her position in bed. Tongue was midline. Palate elevates symmetrically. She was seen spontaneously moving her upper extremities purposefully. I did not see definite obvious asymmetry. She also moved her lower extremities to noxious stimuli at least 2/5. DIAGNOSTICS: MRI of the brain, noncontrasted, was personally reviewed. There were no acute findings. White count 22 today down trending. Normal sodium. BUN 68. Creatinine 4.4. BUN was 44 on admission. Creatinine was 3.1 on admission. Other labs were reviewed. Blood sugars over the last couple of days showed 175 to 223. She had an EEG that was personally reviewed. This was performed on 10/23/2018. It showed moderate generalized slowing with disorganization and diffuse triphasic like waves. There were also some sharply contoured waveforms throughout the record. Nothing definitely epileptiform. No seizures. ASSESSMENT AND PLAN: Global encephalopathy, likely multifactorial. Apparent improvement from prior. No definite seizure activity. Negative CSF studies and cranial imaging is reassuring. Apparent improvement is also reassuring. I would like to reassess tomorrow and , depending on her clinical status, I may repeat the EEG then. Otherwise, I would continue treating her medical conditions and hope that she will continue to improve. Hold any sedating medications. cc: Jenise Wheeler MD MTDD
[2018-10-30] MEDS: ZYVOX 600 MG/D5W 600 MG/300 ML IVPB IV SCH ×2 (00:02→14:00)
[2018-10-30] MEDS: CARDENE 20 MG/NS 20 MG/200 ML PIGGYBACK IV SCH ×2 (01:59→18:00)
[2018-10-30] MEDS: DUONEB (A & A) INH SCH ×5 (03:26→23:23)
[2018-10-30] MEDS: HUMALOG SUBQ SCH (06:00)
[2018-10-30 06:37] LABS: ALBUMIN 3.1 g/dL (3.5-5.0); CALCIUM 8.9 mg/dL (8.8-10.2); CREATININE 4.1 mg/dL (0.5-0.9); PHOSPHORUS 5.7 mg/dL (2.7-4.5); POTASSIUM 3.8 mmol/L (3.5-5.1)
[2018-10-30 06:42] LABS: HEMOGLOBIN 8.2 g/dL (12.0-16.0); MCH 26.8 PG (27-31); MCHC 32.8 g/dL (33-37); MCV 81.7 FL (81-99); MPV 11.2 FL (7.4-10.4); RBC 3.06 XMIL (4.2-5.4); RDW 14.6 % (11.5-14.5); WBC 20.03 X1000 (4.8-10.8)
[2018-10-30] MEDS: MUCOMYST 20% INH SCH ×2 (08:03→19:10)
--- NOTE | 2018-10-30 08:55 | INFECTIOUS DISEASE PROGRESS NO ---
DATE: 10/30/2018 PRESENT ILLNESS: The patient is being treated now for a pneumonia. The patient now is having pneumonia. She has wide swings in her neurologic status. This morning, she is smiling and did follow requests to move her extremities. Yesterday, she was very lethargic and did not respond to verbal stimuli. The patient also has oral candidiasis. MEDICATIONS: This is the 7th day of treatment with Zyvox and meropenem. The patient also is on nystatin for oral candidiasis. PHYSICAL EXAMINATION: Vital Signs: Temperature is 98 degrees, pulse 88, respirations 17, blood pressure 180/80. General: This is an ill-appearing, elderly female. She is more alert today and she is smiling. Head, Eyes, Ears, Nose, and Throat: There is no drainage from the nose or ears. I could not get a good look in her mouth. Neck: The patient has a right internal jugular venous tunneled dialysis catheter in place. Lungs: Clear to auscultation. Cardiovascular: Regular heart rate. Abdomen: Soft and nontender. Neurologic: The patient is awake and smiling today. She did follow some requests to move her extremities. There was no tremor. LAB AND X-RAY: CBC shows a white count of 20,030, hemoglobin 8.2, and platelet count 149,000. Creatinine is 4.1. GFR is 13. MRI of the brain showed no abnormality. ASSESSMENT AND PLAN: The patient has pneumonia and oral candidiasis. I plan to continue meropenem and Zyvox, and also nystatin swish and swallow respectively. COMORBIDITIES: The patient is elderly. She has chronic kidney disease, diabetes mellitus, and a history of seizures. cc: Fred Garcia MD
[2018-10-30] MEDS: HEPARIN SUBQ SCH ×2 (09:25→21:32)
[2018-10-30] MEDS: MYCOSTATIN SUSP PO SCH ×4 (09:25→21:34)
[2018-10-30] MEDS: MERREM 500 MG in NS 50 ML IV SCH ×2 (09:25→21:31)
[2018-10-30] MEDS: BASAGLAR SUBQ SCH ×2 (09:42→21:30)
[2018-10-30] MEDS ORDERED: INSULIN PEN NEEDLES ONE (09:44)
[2018-10-30] MEDS: HUMULIN R SUBQ SCH ×3 (10:55→21:33)
--- NOTE | 2018-10-30 12:12 | NEPHROLOGY PROGRESS NOTE ---
DATE: 10/30/2018 TIME SEEN: 0710. SUBJECTIVE: Ms. Cedeno is resting quietly in bed. She is awake and alert. She shakes her head appropriately, though she remains nonverbal. OBJECTIVE: Vitals: Her most recent vital signs temperature 98 degrees, blood pressure 167/80, heart rate 90, respirations 14. She is on room air. Last recorded saturation 96%. General: This is a 78-year-old [place] female resting quietly in bed. She appears chronically ill, though in no acute distress. Skin: Warm and dry. HEENT: Normocephalic, atraumatic. Conjunctivae pale pink. She has ASHISH. Her mucous membranes are dry. Neck: Supple, trachea midline. She has no evidence of JVD. Cardiovascular: She is regular rate and rhythm. S4 is present. Lungs: Clear to auscultation anteriorly. Equal excursion on room air. Abdomen: Soft, nontender, positive bowel sounds. Genitourinary: Not inspected. Herndon catheter is in place. Extremities: No edema. No clubbing or cyanosis. Neurological: As mentioned above. INPUT AND OUTPUT: She has had 2500 in, 2700 out to Herndon catheter. LABORATORY DATA: Sodium 142, potassium 3.8, chloride 101, CO2 27, BUN 64, creatinine 4.1, glucose 158. Anion gap of 14, calcium 8.9, phosphorus 5.7, albumin 3.1. White count 20.03, hemoglobin 8.2, hematocrit 25, platelet count 149,000. ASSESSMENT AND PLAN: 1. Acute kidney injury overlying chronic kidney disease stage 3B. The patient' s creatinine has improved from 4.4 to 4.1 today. Adequate urine out. Secondary to patient's slow improvement, we will check a 24-hour urine for creatinine clearance and total proteinuria to evaluate the patient's renal status. 2. Electrolytes, acid-base balance and anemia. These all remain acceptable. 3. Increased work of breathing. She has lower lobe pneumonia with atelectasis. This is followed by the primary care team with Dr. Garcia. I would like to thank you for allowing us to follow with this patient. Dictated by SUJATHA Vera for Kishore Nicholson MD Face to face encounter, data reviewed, discussed with Maxim Wilson on 10/30/18. I agree with the above assessment and plan of care. rg cc: SUJATHA Vera MD MTDD
[2018-10-30] MEDS ORDERED: CATAPRES-TTS-1 TD SCH (13:15)
--- NOTE | 2018-10-30 15:19 | PROGRESS NOTE ---
DATE: 10/30/2018 SUBJECTIVE: No major overnight events. She continues treatment for her underlying infections. OBJECTIVE: She remains afebrile. Her blood pressures have been recently 140s to 180s systolic; pulse 90s. Ms. Cedeno is supine in bed, awake with eyes open. She regards as I enter the room, she smiles. She seems to understand what is spoken to her but today I was not able to get her to vocalize. Follows simple commands. Left and right digit distinction preserved. Pupils are equal, round, and reactive. Miotic OU. Gaze conjugate and forward. Ocular movements were full. She does blink to threat. Face appears to be symmetrical. She is again seen to spontaneously move her upper extremities purposely. ASSESSMENT AND PLAN: Global encephalopathy, likely multifactorial with apparent improvement compared to prior. I am going to repeat the EEG today and review it at the bedside while it is running. I want to reevaluate for subclinical seizure activity. No further suggestions to add to my notes from yesterday. cc: Jenise Wheeler MD MTDD
[2018-10-30] MEDS: PROTONIX IV SCH (16:00)
--- NOTE | 2018-10-30 17:49 | PROGRESS NOTE ---
DATE: 10/30/2018 SUBJECTIVE: The patient is resting comfortably in bed. She remains on a Cardene drip. She remains nonverbal. OBJECTIVE: Vital Signs: Temperature 97.5 degrees, blood pressure 158/75, heart rate 93, respirations 12, and O2 saturation 96% on room air. General: This is a chronically ill-appearing elderly female lying in bed, in no acute distress. Heart: S1 and S2, normal. Regular rate and rhythm. Lungs: Clear to auscultation bilaterally. Abdomen: Positive bowel sounds. Soft, nontender, nondistended. Extremities: No edema, no cyanosis. Neurologic: The patient is awake. She will follow commands; however, she is nonverbal. LABORATORY DATA: White blood cell count 20, hemoglobin 8.2, hematocrit 25, platelets 149,000. Sodium 142, potassium 3.8, chloride 101, CO2 of 27, BUN 64, creatinine 4.1, glucose 158, phosphorus 5.7, albumin 3.1. ASSESSMENT AND PLAN: 1. Global encephalopathy. The patient does follow commands; however, she is not verbal, which is a change from the patient's baseline. We will continue to monitor the patient closely for improvement. Neurology is following. 2. Acute kidney injury on chronic kidney disease. Slowly improving. Nephrology is following. 3. Accelerated hypertension. The patient is currently on a Cardene drip. Since the patient is unable to take oral medications at this time, we will start a Catapres TTS- 1 patch and try to wean the patient off of the Cardene. 4. Dysphagia. The patient failed 2 swallow evaluations. The patient will need an NGT to initiate tube feedings. 5. Pneumonia. Continue with antibiotic therapy as directed by Dr. Garcia. 6. Oral candidiasis. Continue on nystatin. 7. Leukocytosis. Slowly improving. Continue with antibiotic therapy. 8. Anemia. We will continue to monitor the hemoglobin and hematocrit closely. 9. Protein calorie malnutrition. The patient is currently on Clinimix. She will likely need tube feeds. 10. Diabetes mellitus type 2. Continue on sliding scale insulin. 11. Gastrointestinal prophylaxis. Continue on IV Protonix. 12. Deep vein thrombosis prophylaxis. Continue on heparin. cc: MD LEONIDES Mendoza
--- NOTE | 2018-10-30 18:14 | EEG REPORT ---
DATE: 10/30/2018 REFERRING PHYSICIAN: Dr. Jenise Anne. THREAD WINDER: Kerry Penn. BACKGROUND INFORMATION AND TECHNIQUE: This is a portable digitally recorded EEG with video. HISTORY: This is a 78-year-old female patient with altered mental status. EEG is ordered to detect evidence of seizure. EEG FINDINGS: A posterior dominant alpha rhythm is notably absent. The background consists of theta-delta slowing with some admixed faster frequencies. Spontaneous variability is good. Reactivity is good. Rare, diffuse broad-based triphasic-like waves are seen during the study. No epileptiform discharges. No seizures. Hyperventilation was not performed. Photic stimulation did not alter the record. No definite drowsiness patterns. Stage II sleep is not seen. EKG demonstrates regular intervals. IMPRESSION AND CLINICAL CORRELATION: Abnormal routine EEG due to moderate generalized slowing with rare triphasic-like waves, indicative of a moderate nonspecific encephalopathy. No epileptiform discharges and no seizures are seen on the current study. This does not rule out an underlying seizure disorder. This EEG is improved when compared to the previous study. Generalized slowing is a nonspecific finding that can be seen in processes that diffusely affect the cerebrum, including toxic metabolic, pharmacologic, post-hypoxic and infectious etiologies, amongst others. Triphasic waves are also a nonspecific finding seen with encephalopathies most often related to hepatic or renal derangements. cc: Jenise Wheeler MD MTDD
[2018-10-30] MEDS ORDERED: DIFLUCAN 100 MG/NS 100 MG/50 ML IVPB IV SCH (20:00)
[2018-10-30] MEDS: CLINIMIX E 4.25%-5% SOLUTION 1,000 ML IV SCH (20:21)
[2018-10-31] MEDS: CARDENE 20 MG/NS 20 MG/200 ML PIGGYBACK IV SCH ×3 (00:18→22:46)
[2018-10-31] MEDS: ZYVOX 600 MG/D5W 600 MG/300 ML IVPB IV SCH ×2 (00:33→12:33)
[2018-10-31] MEDS: DUONEB (A & A) INH SCH ×7 (03:04→23:07)
[2018-10-31 06:40] LABS: HEMATOCRIT 27.6 % (37.0-47.0); MCH 26.5 PG (27-31); MCHC 32.6 g/dL (33-37); MCV 81.2 FL (81-99); MPV 11.2 FL (7.4-10.4); RBC 3.4 XMIL (4.2-5.4); RDW 14.7 % (11.5-14.5); WBC 24.88 X1000 (4.8-10.8)
[2018-10-31] MEDS: HUMULIN R SUBQ SCH ×4 (06:42→21:12)
[2018-10-31 06:57] LABS: ALBUMIN 3.6 g/dL (3.5-5.0); CALCIUM 9.5 mg/dL (8.8-10.2); CREATININE 3.7 mg/dL (0.5-0.9); PHOSPHORUS 5.4 mg/dL (2.7-4.5); POTASSIUM 4.2 mmol/L (3.5-5.1)
[2018-10-31] MEDS: MUCOMYST 20% INH SCH ×2 (07:58→19:44)
[2018-10-31] MEDS: HEPARIN SUBQ SCH ×2 (08:41→21:12)
[2018-10-31] MEDS: BASAGLAR SUBQ SCH ×2 (08:41→21:15)
[2018-10-31] MEDS: MYCOSTATIN SUSP PO SCH ×4 (08:42→21:11)
--- NOTE | 2018-10-31 09:36 | NEPHROLOGY PROGRESS NOTE ---
DATE: 10/31/2018 TIME SEEN: 0720. SUBJECTIVE: Ms. Cedeno is resting quietly in bed. She is awake and alert. She does answer yes and no today, assists with exam. OBJECTIVE: Vitals: Her most recent vital signs, her last temperature 97.5 degrees, blood pressure 153/80, heart rate 93, respirations 12. She is on 2 L nasal cannula. Last recorded saturation 100%. General: This is a 78-year-old female. She is resting quietly in bed. She appears in no acute distress. Skin: Warm and dry. HEENT : Normocephalic, atraumatic. Conjunctiva is pale pink. She has ASHISH. Mucous membranes are dry. Neck: Supple, trachea midline, unable to determine JVD. Cardiovascular: She is regular rate and rhythm, S4 present. Lungs: Clear to auscultation anteriorly. Equal excursion on room air. Abdomen: Soft, nontender, positive bowel sounds. Genitourinary: Not inspected. Herndon catheter is in place with a 24-hour urine in progress. Extremities: No edema. No clubbing or cyanosis. Neurological: As mentioned above. INPUT AND OUTPUT: She has had 2550 in, 2950 out to Herndon catheter. LABORATORY: Sodium 142, potassium 4.2, chloride 101, CO2 27, BUN 61, creatinine 3.7, glucose 170. Her anion gap is 14, calcium 9.5, phosphorus 5.4, albumin 3.6. White count 24.88, hemoglobin 9, hematocrit 27.6, platelet count 162,000. ASSESSMENT AND PLAN: 1. Acute kidney injury overlying chronic kidney disease, stage IIIB. Patient's BUN and creatinine continue to improve. Her creatinine is down to 3.7 from 4.1 yesterday. Adequate urine out, slow improvement. 24-hour urine is mentioned in progress. 2. Electrolytes, acid-base balance and anemia. These are all acceptable. 3. Increased work of breathing with pneumonia,. This is followed by Dr. Garcia and the primary care team. I would to thank you for allowing us to follow with this patient. Dictated by SUJATHA Vera for Kishore Nicholson MD Face to face encounter, data reviewed, discussed with Maxim Wilson on 10/31/17. I agree with the above assessment and plan of care. cc: SUJATHA Vera MD MTDD
[2018-10-31] MEDS: MERREM 500 MG in NS 50 ML IV SCH ×2 (09:39→21:11)
--- NOTE | 2018-10-31 10:17 | INFECTIOUS DISEASE PROGRESS NO ---
DATE: 10/31/2018 PRESENT ILLNESS: Ms. Cedeno is being treated for pneumonia as well as an oral candidiasis. She has encephalopathy as well as hypertension on a Cardene drip, which is why she continues in the ICU. MEDICATIONS: She is on day 8 of meropenem 500 mg IV every 12 hours and Zyvox 600 mg IV every 12 hours. She is also on nystatin swish and swallow. PHYSICAL EXAMINATION: Vital Signs: Temperature is 97.5 degrees, pulse rate 92 , respiratory rate 16, blood pressure 174/83, O2 saturation is 100% on room air. General: This is a chronically ill- appearing, elderly female. She is lying on her left lateral side in no acute distress. HEENT: Atraumatic, normocephalic. Oral mucous membranes are pink and moist. Conjunctivae are pale. Neck: Supple. Trachea is midline. There is a right intrajugular central line noted with site free of edema, erythema, or drainage. Cardiovascular: Heart rate and rhythm are regular. Normal sinus rhythm on the monitor. Pedal and radial pulses are +2 bilaterally. Respiratory: Lung sounds are diminished bilaterally. Abdomen: Soft, round, and nontender. Bowel sounds are active. Neurologic: She is awake, alert, and nonverbal. She will nod her head at times and follow commands at times. LABORATORY AND X-RAY: Today, her white count is 24.88, hemoglobin 9, platelet count 162,000. Creatinine is 3.7. GFR 14. No imaging reports today. ASSESSMENT AND PLAN: Ms. Cedeno has pneumonia and oral candidiasis. She does have a leukocytosis; however, her oxygen saturation is 100% on room air. We will recheck a chest x-ray in the morning. She also has oral candidiasis and has been receiving nystatin swish and swallow. Unfortunately, she has failed her swallowing studies so we will change the nystatin to swish and spit. For now, we will continue her meropenem and Zyvox. These plans have been discussed with and recommended by Dr. Garcia. COMORBIDITIES: For Ms. Cedeno include that she is elderly, with acute kidney injury on chronic kidney disease, diabetes mellitus, and a history of seizures. Dictated by SUJATHA Martínez for Fred Garcia MD This chart was documented by, SUJATHA Martínez and accurately reflects the services performed, treatment plan and medical decisions as attested by the providers signature Fred Garcia MD. cc: Fred Garcia MD [facility]
[2018-10-31] MEDS ORDERED: CATAPRES-TTS-2 TD SCH (11:30)
--- NOTE | 2018-10-31 11:47 | PROGRESS NOTE ---
DATE: 10/31/2018 SUBJECTIVE: The patient is resting comfortably in bed. She has no complaints. She is currently on a Cardene drip at 2.5 mg/hour. OBJECTIVE: Vital Signs: Temperature 98.6, blood pressure 161/74, heart rate 91 , respirations 12, O2 saturation 100% on room air. Urine output 2.7 L. General: This is a chronically ill- appearing, elderly female lying in bed in no acute distress. Head: Normocephalic, atraumatic. Heart: S1, S2 normal. Regular rate and rhythm. Lungs: Equal air entry bilaterally. No wheezing. No rales. No rhonchi. Abdomen: Positive bowel sounds. Soft, nontender, nondistended. Extremities: No edema. No cyanosis. No calf tenderness. Neurologic: The patient is alert and oriented, however; she is nonverbal. She will nod her head to questions and she does follow commands. LABS: White blood cell count 24, hemoglobin 9, hematocrit 27, platelets 162. Sodium 142, potassium 4.2, chloride 101, CO2 of 27, BUN 61, creatinine 3.7, glucose 170, phosphorus 5.4. ASSESSMENT AND PLAN: 1. Pneumonia. Continue on the current IV antibiotic regimen as directed by Dr. Garcia. 2. Oral candidiasis. The patient is on nystatin. Continue with the current regimen. 3. Accelerated hypertension. We will wean off the Cardene drip. We will continue with clonidine transdermal patch since the patient is n.p.o. Will restart oral medications once the NG tube has been inserted. 4. Acute kidney injury on chronic kidney disease. Slowly improving. The patient has excellent urine output and the BUN and creatinine continue to improve daily. Nephrology is following. 5. Diabetes mellitus type 2. Continue on glargine plus sliding scale insulin. 6. Nutrition. The patient has failed 2 swallow evaluations. We will discuss with the patient and her family about possible PEG tube placement for long-term feeding. In the meantime will order an NG tube for medications and tube feedings. 7. Global encephalopathy. Slowly improving. However, the patient is still not talking on a consistent basis. We will continue to monitor the patient closely for improvement. 8. Leukocytosis. The patient's white blood cell count increased today. We will continue with antibiotics as directed by Dr. Garcia. 9. Gastrointestinal prophylaxis. Continue on IV Protonix. 10. Deep vein thrombosis prophylaxis. Continue on heparin. cc: Sima Mccall MD MTDD
[2018-10-31 12:13] LABS: CREATININE 3.7 mg/dL (0.7-1.2); UR CREATININE 27.8 mg/dL (11-20); UR CREATININE TOTAL 771.5 mg/24 (600-1600); UR PROTEIN 185.9 mg/dL
--- NOTE | 2018-10-31 12:57 | PROGRESS NOTE ---
DATE: 10/31/2018 Ms. Cedeno continues awake, alert, attentive. She answered a few simple questions. She followed simple commands consistently. I do not see anything new neurologically. I had hoped she would recover more quickly to her baseline mental state, but she still seems to be making progress. No new suggestions today. cc: Matthew Whitley III, MD
[2018-10-31] MEDS: CLINIMIX E 4.25%-5% SOLUTION 1,000 ML IV SCH (16:07)
[2018-10-31] MEDS: PROTONIX IV SCH (16:07)
--- NOTE | 2018-10-31 18:54 | Diag Imaging Result Doc PS360 ---
EXAM: CHEST/ABD TUBE PLACEMENT 10/31/2018 HISTORY: ngt placement TECHNIQUE: AP upright chest and abdomen for NG tube placement COMMENT: There is an NG tube with its tip in the distal stomach. IMPRESSION: NG tube in the stomach. Electronically signed by Jass Velez 10/31/2018 6:51 PM
[2018-10-31] MEDS ORDERED: COREG NG SCH (21:00)
[2018-10-31] MEDS: COREG NG SCH (21:11)
[2018-11-01] MEDS: ZYVOX 600 MG/D5W 600 MG/300 ML IVPB IV SCH ×2 (00:19→13:06)
[2018-11-01] MEDS: DUONEB (A & A) INH SCH ×6 (03:46→23:42)
[2018-11-01 04:11] LABS: HEMATOCRIT 27.1 % (37.0-47.0); HEMOGLOBIN 8.9 g/dL (12.0-16.0); MCH 26.7 PG (27-31); MCHC 32.8 g/dL (33-37); MCV 81.4 FL (81-99); MPV 10.2 FL (7.4-10.4); RBC 3.33 XMIL (4.2-5.4); RDW 14.8 % (11.5-14.5); WBC 27.5 X1000 (4.8-10.8)
[2018-11-01 05:17] LABS: ALBUMIN 3.4 g/dL (3.5-5.0); CALCIUM 9.7 mg/dL (8.8-10.2); CREATININE 3.3 mg/dL (0.5-0.9); PHOSPHORUS 5.1 mg/dL (2.7-4.5); POTASSIUM 4.7 mmol/L (3.5-5.1)
[2018-11-01] MEDS: CARDENE 20 MG/NS 20 MG/200 ML PIGGYBACK IV SCH (05:47)
[2018-11-01] MEDS: HUMULIN R SUBQ SCH ×4 (06:12→20:48)
--- NOTE | 2018-11-01 07:17 | Diag Imaging Result Doc PS360 ---
EXAM: CHEST-PORTABLE 11/01/2018 HISTORY: pneumonia TECHNIQUE: AP portable at 0511 COMMENT: The inspiration is suboptimal. There is some atelectasis or pneumonia partially obscuring the left hemidiaphragm. This appears to have improved slightly since 10/28/2018. The heart size remains enlarged. The NG tube remains with its tip below the diaphragm. The right internal jugular central venous catheter remains with its tip in the right atrium. IMPRESSION: Slightly improved atelectasis or pneumonia. Electronically signed by Jass Velez 11/01/2018 7:14 AM
[2018-11-01] MEDS: MUCOMYST 20% INH SCH ×2 (08:07→19:25)
--- NOTE | 2018-11-01 08:29 | Diag Imaging Result Doc PS360 ---
EXAM: CHEST/ABD TUBE PLACEMENT 11/01/2018 HISTORY: NGT placement- had to advance NGT TECHNIQUE: AP portable chest and abdomen for NG tube placement COMMENT: There is an NG tube in the distal stomach. IMPRESSION: NG tube in the stomach. Electronically signed by Jass Velez 11/01/2018 8:27 AM
[2018-11-01] MEDS: HEPARIN SUBQ SCH ×2 (08:47→21:28)
[2018-11-01] MEDS: BASAGLAR SUBQ SCH ×2 (08:48→21:29)
[2018-11-01] MEDS: APRESOLINE NG SCH ×3 (08:48→21:28)
[2018-11-01] MEDS: MYCOSTATIN SUSP PO SCH ×4 (08:48→21:27)
[2018-11-01] MEDS: NORVASC NG SCH (08:48)
[2018-11-01] MEDS: COREG NG SCH ×2 (08:48→21:28)
[2018-11-01] MEDS: MERREM 500 MG in NS 50 ML IV SCH ×2 (09:42→21:28)
[2018-11-01] MEDS: CLINIMIX E 4.25%-5% SOLUTION 1,000 ML IV SCH (09:42)
--- NOTE | 2018-11-01 11:56 | PROGRESS NOTE ---
DATE: 11/01/2018 Ms. Cedeno has had apparent global encephalopathy with gradual and steady improvement in recent days. Family at the bedside agree she continues slowly improving with her alertness and attention. On exam today, she is awake and alert. She seems a little bit brighter than yesterday. She spoke to me a little bit more spontaneously. I do not have any new suggestion from Neurology standpoint. Thanks for asking us to see Ms. Cedeno. cc: MD LEONIDES Pierce III
[2018-11-01] MEDS ORDERED: LABETALOL IV PRN (12:42)
--- NOTE | 2018-11-01 13:56 | NEPHROLOGY PROGRESS NOTE ---
DATE: 11/01/2018 TIME SEEN: 0645. SUBJECTIVE: Ms. Cedeno is awake and alert. She is again speaking verbally, but only in monosyllables. She does smile and assist with appropriate evaluation. VITAL SIGNS: Her most recent vital signs show temperature 97.4 degrees, blood pressure 185/88, heart rate 86, respirations 12. She is currently on room air. Last recorded saturation 96%. She has had 1535 in, 1460 out to Herndon catheter. She does have an NG tube with tube feedings infusing at 10 mL an hour. LABORATORY DATA: Sodium 140, potassium 4.7, chloride 99, CO2 24, BUN 57, creatinine 3.3, glucose 101. Anion gap is 17, calcium 9.7, phosphorus 5.1, albumin 3.4. White count 27.5, hemoglobin 8.9, hematocrit 27.1 with a platelet count of 142,000. The patient had a 24- hour urine completed yesterday afternoon showing a creatinine clearance of 14% with a total proteinuria of 5.1 g. PHYSICAL EXAMINATION: General: This is a 78-year-old female. She is resting quietly in bed. She is in no acute distress. Skin: Warm and dry. She is awake and responds appropriately to person. HEENT: Normocephalic, atraumatic. Conjunctivae pale pink. She has ASHISH. Mucous membranes are dry. Neck: Supple. Trachea midline. No evidence of JVD. Cardiovascular: She is regular rate and rhythm. She has a soft systolic murmur. Lungs: Clear to auscultation bilaterally. Equal excursion on room air. Abdomen: Slightly round, nontender. Positive bowel sounds. Genitourinary: Not inspected. Herndon catheter is in place with adequate urine out. Extremities: No edema. No clubbing or cyanosis. Neurological: As mentioned above. ASSESSMENT AND PLAN: 1. [place] on chronic kidney disease stage 4. The patient has continued to slowly improved from acute kidney injury. Creatinine is down to 3.3 with a BUN of 57. Adequate urine out. No indications for intervention. A 24-hour urine shows low creatinine clearance ,of 14%, though the patient is in recovery phase. We will continue to monitor and evaluate. 2. Electrolytes and acid-base balance. These appear stable. 3. Anemia. This is low, but stable, requiring no intervention at this time. 4. Increased work of breathing. The patient is currently on room air in a semi- supine position, followed by the primary care team. I would like to thank you for allowing us to follow with this patient. Dictated by SUJATHA Vera for Kishore Nicholson MD Face to face encounter, data reviewed, discussed with Maxim Wilson on 11/01/18. I agree with the above assessment and plan of care. cc: SUJATHA Vera MD [facility]
[2018-11-01] MEDS ORDERED: APRESOLINE IV ONE (15:40)
[2018-11-01] MEDS: PROTONIX IV SCH (15:57)
[2018-11-01] MEDS: SODIUM CHLORIDE 0.9% INJ SCH (15:57)
[2018-11-01] MEDS: APRESOLINE IV PRN (21:27)
[2018-11-02] MEDS: ZYVOX 600 MG/D5W 600 MG/300 ML IVPB IV SCH ×2 (00:44→12:26)
[2018-11-02] MEDS: DUONEB (A & A) INH SCH ×6 (04:10→22:57)
[2018-11-02] MEDS: APRESOLINE NG SCH ×3 (04:17→21:22)
--- NOTE | 2018-11-02 04:25 | PROGRESS NOTE ---
DATE: 11/01/2018 SUBJECTIVE: The patient is resting comfortably in bed. No acute events noted overnight. OBJECTIVE: Vital Signs: Temperature 98.6 degrees, blood pressure 153/80, heart rate 81, respirations 13, O2 saturation 98% on 2 L nasal cannula, and urine output 2.2 L. General: This is a chronically ill-appearing elderly female lying in bed in no acute distress. HEENT: Head normocephalic and atraumatic. Heart: S1, S2 normal. Regular rate and rhythm. Lungs: Clear to auscultation bilaterally. Abdomen: Positive bowel sounds. Soft, nontender, and nondistended. Extremities: No edema. No cyanosis. Neurologic: The patient is alert and oriented x3. She remains nonverbal however. LABORATORY: White blood cell count 27, hemoglobin 8.9, hematocrit 27 and platelets 142,000. Sodium 140, potassium 4.7, chloride 99, CO2 24, BUN 57, creatinine 3.3, glucose 175, and albumin 3.4. ASSESSMENT AND PLAN: 1. Pneumonia. Continue with IV antibiotic therapy. 2. Oral candidiasis. The patient is currently on nystatin. 3. Accelerated hypertension. We will increase the patient's hydralazine. Continue on Coreg and Norvasc. We will also provide p.r.n. hydralazine. 4. Acute kidney injury on chronic kidney disease slowly improving. Nephrology is following. 5. Diabetes mellitus type 2. Continue on glargine plus sliding scale insulin. 6. Nutrition. The patient is currently on nephro tube feeds. 7. Global encephalopathy. Slowly improving. 8. Leukocytosis. Unchanged. Continue with antibiotic therapy. 9. Gastrointestinal prophylaxis. Continue on Protonix. 10. Deep vein thrombosis prophylaxis. Continue on heparin. cc: Sima Mccall MD [facility]
[2018-11-02 05:22] LABS: HEMATOCRIT 25.4 % (37.0-47.0); HEMOGLOBIN 8.4 g/dL (12.0-16.0); MCH 26.8 PG (27-31); MCHC 33.1 g/dL (33-37); MCV 81.2 FL (81-99); MPV 10.5 FL (7.4-10.4); RBC 3.13 XMIL (4.2-5.4); RDW 14.7 % (11.5-14.5); WBC 23.78 X1000 (4.8-10.8)
--- NOTE | 2018-11-02 05:24 | INFECTIOUS DISEASE PROGRESS NO ---
DATE: 11/01/2018 PRESENT ILLNESS: Ms. Cedeno is being treated for a pneumonia and oral candidiasis. There is also an encephalopathy. MEDICATIONS: Today is day 9 of meropenem 500 mg IV every 12 hours and Zyvox 600 mg IV every 12 hours. She also continues on nystatin swish and spit. PHYSICAL EXAMINATION: Vital Signs: Temperature is 99.1 degrees, pulse rate 82 , respiratory rate 16, blood pressure 182/105. O2 saturation is 98% on room air. General: This is a chronically ill-appearing, elderly female. She is lying in the bed, in no acute distress. HEENT: Atraumatic, normocephalic. Oral mucous membranes are pink and moist. Conjunctivae are pale. Neck: Supple. Trachea is midline. She has a right intrajugular central line with the site free of edema, erythema, or drainage. Respiratory: Lung sounds are clear in the upper lobes, diminished in the bases. Cardiovascular: Heart rate and rhythm are regular, normal sinus rhythm on the monitor. Pedal and radial pulses are +2 bilaterally. Abdomen: Soft, round, and nontender. Bowel sounds are active. There is an NG tube in place, and she is receiving tube feedings at this time. Neurologic: She is awake, alert, and nonverbal at this time. She nods her head appropriately and will follow commands at times. She squeezed my fingers bilaterally with generalized weakness noted but refused to move her lower extremities. LABORATORY AND X-RAY: Today her white count is 27.5, hemoglobin 8.9, platelet count 142,000. Creatinine is 3.3. GFR is 16. Chest x-ray today shows slightly improved atelectasis or pneumonia on the left. ASSESSMENT AND PLAN: Ms. Cedeno has pneumonia and an oral candidiasis. There is also a leukocytosis. Chest x-ray shows a little bit of improvement. For now, we will continue her meropenem and Zyvox as ordered. We will also continue her nystatin swish and spit for the oral candidiasis. These plans have been discussed with and recommended by Dr. Garcia. COMORBIDITIES: for Ms. Cedeno include that she is elderly with acute on chronic kidney disease, diabetes mellitus, and history of seizures. Dictated by SUJATHA Martínez for Fred Garcia MD This chart was documented by, SUJATHA Martínez and accurately reflects the services performed, treatment plan and medical decisions as attested by the providers signature Fred Garcia MD. cc: Fred Garcia MD [facility]
[2018-11-02 06:05] LABS: ALBUMIN 3.3 g/dL (3.5-5.0); CALCIUM 9.2 mg/dL (8.8-10.2); CREATININE 3.2 mg/dL (0.5-0.9); POTASSIUM 4.3 mmol/L (3.5-5.1)
[2018-11-02] MEDS: HUMULIN R SUBQ SCH ×4 (06:20→21:44)
[2018-11-02] MEDS: MUCOMYST 20% INH SCH ×2 (07:49→19:22)
--- NOTE | 2018-11-02 08:53 | INFECTIOUS DISEASE PROGRESS NO ---
DATE: 11/02/2018 PRESENT ILLNESS: The patient is being treated for a basilar pneumonia and oral candidiasis. She has had encephalopathy, but she seems to be more coherent in the last 2 days. MEDICATIONS: The patient is on a combination of Zyvox and meropenem now for 10 days. PHYSICAL EXAMINATION: Vital Signs: Temperature is 99.2 degrees, pulse 92, respirations 18, blood pressure 154/68. General: This is a chronically ill-appearing elderly female. She is in no acute distress. Head, Eyes, Ears, Nose, and throat: She does not have any white coating of her tongue. She appears to be able to hear my spoken words and see near objects. Neck: No meningismus. The patient has a right internal jugular vein catheter in place. The site is not swollen or draining. Lungs: Clear to auscultation. Cardiovascular: Heart rate is regular. Abdomen: Soft and nontender. Neurologic: The patient is alert. She did not talk but she did nod her head to certain questions that I asked her. She does not have any tremor. LAB AND X-RAY: Chest x-ray shows improvement of the patient's left lower lobe pneumonia. The creatinine is 3.2, the GFR is 17. [place] [address], hemoglobin 8.4, and platelet count 126,000. ASSESSMENT AND PLAN: Patient has a pneumonia and oral candidiasis. I plan to continue Zyvox and meropenem over the weekend, and also the nystatin at the patient's swishes around in her mouth and then spits out because she failed the swallow test. COMORBIDITIES: She is elderly and has chronic kidney disease, diabetes mellitus, and a history of seizures. cc: Fred Garcia MD
[2018-11-02] MEDS: MYCOSTATIN SUSP PO SCH ×4 (09:10→21:21)
[2018-11-02] MEDS: COREG NG SCH ×2 (09:10→21:22)
[2018-11-02] MEDS: NORVASC NG SCH (09:10)
[2018-11-02] MEDS: MERREM 500 MG in NS 50 ML IV SCH ×2 (09:10→21:22)
[2018-11-02] MEDS: HEPARIN SUBQ SCH ×2 (09:10→21:20)
[2018-11-02] MEDS: BASAGLAR SUBQ SCH ×2 (09:50→21:21)
--- NOTE | 2018-11-02 10:31 | NEPHROLOGY PROGRESS NOTE ---
DATE: 11/02/2018 SUBJECTIVE: She is awake and alert, and nods to questions but still nonverbal. OBJECTIVE: Vital Signs: Blood pressure 154/68, heart rate 92, respiration 18, temperature 99.2 degrees. General: No acute distress. Skin: Warm and dry. Neck: Neck veins are not distended. Heart: Regular. No gallops. Lungs: Equal. No crackles or wheezes. Abdomen: Soft, nontender. Bowel sounds present. Extremities: 1+ edema. No clubbing or cyanosis. IMPRESSION: Acute kidney injury overlying chronic kidney disease. Creatinine 3.2 today. Baseline approximately 2.5 to 3. No indications for dialysis at this time. Volume status is acceptable. Electrolytes/acid base/blood pressure in target. cc: Kishore Nicholson MD
--- NOTE | 2018-11-02 15:16 | PROGRESS NOTE ---
DATE: 11/02/2018 SUBJECTIVE: The patient is resting comfortably in bed. No acute events noted overnight. OBJECTIVE: Vital Signs: Temperature 98.5 degrees, blood pressure 158/67, heart rate 80, respirations 18, O2 saturation 97% on room air. General: This is a chronically ill-appearing, elderly female lying in bed, in no acute distress. Heart: S1, S2 normal. Regular rate and rhythm. Lungs: Equal air entry bilaterally. No crackles. No rales. Abdomen: Positive bowel sounds. Soft, nontender, nondistended. Extremities: No edema, no cyanosis. Neurologic: The patient is alert and oriented, but nonverbal. LABORATORY DATA: White blood cell count 23, hemoglobin 8.4, hematocrit 25, platelets 126,000. Sodium 139, potassium 4.3, chloride 99, CO2 24, BUN 57, creatinine 3.2, glucose 142, phos 5, albumin 3.3. ASSESSMENT AND PLAN: 1. Pneumonia. Continue with intravenous antibiotic therapy as directed by Dr. Garcia. 2. Oral candidiasis. The patient is on nystatin. 3. Hypertension, improved. Continue on Coreg, hydralazine and Norvasc. 4. Acute kidney injury on chronic kidney disease. Improved. 5. Diabetes mellitus type 2. Continue on glargine plus sliding scale insulin. 6. Nutrition. The patient is currently on Nepro tube feeds. The patient will need a repeat swallow evaluation to determine long-term goals. 7. Global encephalopathy. Improved. 8. Leukocytosis. Slowly improving. Continue with antibiotic therapy. 9. Thrombocytopenia. Will monitor the patient's platelet count closely. 10. Gastrointestinal prophylaxis. Continue on Protonix. 11. Deep vein thrombosis prophylaxis. The patient is on heparin. cc: Sima Mccall MD
[2018-11-02] MEDS: PROTONIX IV SCH (16:00)
[2018-11-02] MEDS: DIFLUCAN 100 MG/NS 100 MG/50 ML IVPB IV SCH (16:00)
--- NOTE | 2018-11-02 23:52 | PULMONOLOGY PROGRESS NOTE ---
DATE: 11/02/2018 SUBJECTIVE: Patient is awake and alert. She is nonverbal but does track the practitioner. OBJECTIVE: The patient has been afebrile for the last 24 hours. Blood pressure 154/68, heart rate 92, oxygen saturation 95% on nasal cannula.HEENT: Pupils are equal and reactive. Oropharynx is clear. Neck: Supple. Chest: Reveals shallow breath sounds bilaterally without wheezing or rhonchi. Cardiac: S1-S2. Abdomen: Is soft. Extremities: Reveal trace edema. IMPRESSION: 78-year-old with CLL, encephalopathy which appears to be improving , hypoxemic respiratory failure, pneumonia. Overall she appears significantly improved over the last week. Plan 1. Continue oxygen for respiratory failure 2. Continue bronchial hygiene. cc: Chalo Robertson MD [facility]
[2018-11-03] MEDS: ZYVOX 600 MG/D5W 600 MG/300 ML IVPB IV SCH ×2 (00:12→12:44)
[2018-11-03] MEDS: DUONEB (A & A) INH SCH ×6 (02:53→23:39)
[2018-11-03] MEDS: APRESOLINE NG SCH ×3 (04:04→22:42)
[2018-11-03 06:11] LABS: HEMATOCRIT 25.7 % (37.0-47.0); HEMOGLOBIN 8.4 g/dL (12.0-16.0); MCH 26.3 PG (27-31); MCHC 32.7 g/dL (33-37); MCV 80.6 FL (81-99); MPV 10.7 FL (7.4-10.4); RBC 3.19 XMIL (4.2-5.4); RDW 14.5 % (11.5-14.5); WBC 20.26 X1000 (4.8-10.8)
[2018-11-03] MEDS: HUMULIN R SUBQ SCH ×4 (06:31→22:43)
[2018-11-03 06:50] LABS: ALBUMIN 3.3 g/dL (3.5-5.0); CALCIUM 9.4 mg/dL (8.8-10.2); CREATININE 3.6 mg/dL (0.5-0.9); POTASSIUM 4.2 mmol/L (3.5-5.1)
[2018-11-03] MEDS: MUCOMYST 20% INH SCH ×2 (07:58→20:12)
--- NOTE | 2018-11-03 08:24 | Diag Imaging Result Doc PS360 ---
CHEST-PORTABLE - 11/03/2018 INDICATION: pneumonia COMPARISON: 11/01/2018 FINDINGS: Stable right central line and nasogastric tube in good position. Stable low lung volumes with some trace bibasilar atelectasis. No focal infiltrates, pneumothorax, or pleural effusion. Heart size is normal. IMPRESSION: No acute disease or change from prior. Electronically signed by Mayur Nunes 11/03/2018 8:21 AM
[2018-11-03] MEDS: NORVASC NG SCH (09:19)
[2018-11-03] MEDS: HEPARIN SUBQ SCH ×2 (09:19→22:43)
[2018-11-03] MEDS: MERREM 500 MG in NS 50 ML IV SCH ×2 (09:19→22:43)
[2018-11-03] MEDS: MYCOSTATIN SUSP PO SCH ×4 (09:19→22:43)
[2018-11-03] MEDS: BASAGLAR SUBQ SCH ×2 (09:19→22:45)
[2018-11-03] MEDS: COREG NG SCH ×2 (09:19→22:42)
--- NOTE | 2018-11-03 14:08 | PROGRESS NOTE ---
DATE: 11/03/2018 SUBJECTIVE: The patient is resting comfortably in bed. She is tolerating her tube feeds. No acute events noted overnight. OBJECTIVE: Vital Signs: Temperature 97.3, blood pressure 167/69, heart rate 75 , respirations 18, O2 saturation 95% on room air. Urine output 1.6 L. General: This is an elderly female lying in bed in no acute distress. Heart: S1, S2 normal. Regular rate and rhythm. Lungs: Equal air entry bilaterally. No crackles. No rales. Abdomen: Positive bowel sounds. Soft, nontender, nondistended. Extremities: No edema. No cyanosis. Neurologic: The patient is alert and oriented x3. She is nonverbal. LABORATORY DATA: White blood cell count 20, hemoglobin 8.4, hematocrit 25, platelets 134,000. Sodium 140, potassium 4.2, chloride 99, CO2 of 26. BUN 60, creatinine 3.6, glucose 165, phosphorus 5, albumin 3.3. Chest x-ray shows bibasilar atelectasis. ASSESSMENT AND PLAN: 1. Pneumonia. Continue with antibiotic therapy as directed by Dr. Garcia. 2. Oral Candidiasis. Continue on nystatin. 3. Hypertension. Continue on the current antihypertensive regimen. 4. Acute kidney injury on chronic kidney disease. The patient's BUN and creatinine are a little bit higher today. We will continue to monitor this closely. 5. Diabetes mellitus, type 2. Continue on glargine plus sliding scale insulin. 6. Nutrition. Continue with tube feeds. The patient will have a swallow evaluation done on Monday. 7. Global encephalopathy. Improved. 8. Leukocytosis. Improved. 9. Gastrointestinal prophylaxis. Continue on Protonix. 10. Deep vein thrombosis prophylaxis. Continue on heparin. Continue with PT. cc: Sima Mccall MD [facility]
--- NOTE | 2018-11-03 16:06 | NEPHROLOGY PROGRESS NOTE ---
DATE: 11/03/2018 SUBJECTIVE: She is lying in bed. Denies new complaints. Remains nonverbal. OBJECTIVE: Vital Signs: Blood pressure 167/69, heart rate 75, respiration 18, afebrile. General: No acute distress. Skin: Warm and dry. Neck: Neck veins are not distended. Cardiovascular: Heart is regular. No gallops. Respiratory: Lungs are equal. No crackles. Abdomen: Soft, nontender. Bowel sounds are present. Extremities: Have 1+ edema. No clubbing or cyanosis. IMPRESSION: Chronic kidney disease stage IV. Her labs are roughly stable over the last several days. Good urine output. No indications for dialysis. cc: Kishore Nicholson MD
[2018-11-03] MEDS: PROTONIX IV SCH (18:55)
[2018-11-03] MEDS: DIFLUCAN 100 MG/NS 100 MG/50 ML IVPB IV SCH (18:55)
[2018-11-04] MEDS: ZYVOX 600 MG/D5W 600 MG/300 ML IVPB IV SCH ×2 (03:04→13:38)
[2018-11-04] MEDS: DUONEB (A & A) INH SCH ×6 (03:30→22:55)
[2018-11-04] MEDS: APRESOLINE NG SCH ×3 (04:50→21:52)
[2018-11-04] MEDS: HUMULIN R SUBQ SCH ×4 (06:27→21:54)
[2018-11-04 07:23] LABS: BASO# 0.04 X1000 (0.0-0.2); BASO% 0.2 % (0.0-0.8); EOS# 0.19 X1000 (0.0-0.7); EOS% 0.9 % (0.0-10.0); HEMATOCRIT 26.3 % (37.0-47.0); HEMOGLOBIN 8.5 g/dL (12.0-16.0); IMM GRAN# 0.04 X1000 (0.0-0.04); IMM GRAN% 0.2 % (0.0-0.5); LYMPH# 15.13 X1000 (1.2-3.4); LYMPH% 70.3 % (20.5-51.1); MCH 26.3 PG (27-31); MCHC 32.3 g/dL (33-37); MCV 81.4 FL (81-99); MONO# 0.74 X1000 (0.11-0.59); MONO% 3.4 % (1.7-9.3); NEUT# 5.39 X1000 (1.4-6.5); PLT 121 X1000 (130-400); RBC 3.23 XMIL (4.2-5.4); RDW 14.6 % (11.5-14.5); WBC 21.53 X1000 (4.8-10.8)
[2018-11-04 08:06] LABS: ALBUMIN 3.3 g/dL (3.5-5.0); CALCIUM 9.5 mg/dL (8.8-10.2); CREATININE 3.4 mg/dL (0.5-0.9); PHOSPHORUS 4.3 mg/dL (2.7-4.5); POTASSIUM 4.1 mmol/L (3.5-5.1)
[2018-11-04 08:11] LABS: LYMPHS 70 % (21-51); SEGS 30 % (42-75)
[2018-11-04 08:13] LABS: LARGE PLATELETS OCCASIONAL
[2018-11-04] MEDS: MUCOMYST 20% INH SCH ×2 (08:15→19:22)
--- NOTE | 2018-11-04 10:46 | Diag Imaging Result Doc PS360 ---
CHEST-PORTABLE - 11/04/2018 INDICATION: NGT placement COMPARISON: 11/03/2018 FINDINGS: There is a nasogastric tube in good position in the stomach. Stable right central line in good position. No significant infiltrates. No definite bowel obstruction. IMPRESSION: Nasogastric tube in good position in the stomach. Electronically signed by Mayur Nunes 11/04/2018 10:43 AM
[2018-11-04] MEDS: COREG NG SCH ×2 (11:21→21:52)
[2018-11-04] MEDS: NORVASC NG SCH (11:22)
[2018-11-04] MEDS: HEPARIN SUBQ SCH ×2 (11:23→22:04)
[2018-11-04] MEDS: MYCOSTATIN SUSP PO SCH ×4 (11:23→21:56)
[2018-11-04] MEDS: MERREM 500 MG in NS 50 ML IV SCH ×2 (11:23→22:04)
[2018-11-04] MEDS: BASAGLAR SUBQ SCH ×2 (13:19→21:54)
[2018-11-04] MEDS: APRESOLINE IV PRN (16:16)
[2018-11-04] MEDS: PROTONIX IV SCH (16:16)
[2018-11-04] MEDS: DIFLUCAN 100 MG/NS 100 MG/50 ML IVPB IV SCH (16:16)
--- NOTE | 2018-11-04 18:20 | PROGRESS NOTE ---
DATE: 11/04/2018 SUBJECTIVE: The patient pulled out her NG tube this morning. It was then replaced by the nursing staff. Otherwise no other acute events noted overnight. OBJECTIVE: Vital Signs: Temperature 98 degrees, blood pressure 165/74, heart rate 77, respirations 18, O2 saturation 99% on room air. General: This is a chronically ill-appearing elderly female lying in bed in no acute distress. Heart: S1, S2 normal. Regular rate and rhythm. Lungs: Clear to auscultation bilaterally. No wheezing, no rales, no rhonchi. Abdomen: Positive bowel sounds. Soft, nontender, nondistended. Extremities: No edema, no cyanosis. Neuro: The patient is alert and oriented x3. She remains nonverbal. LABS: White blood cell count 21, hemoglobin 8.5, hematocrit 26, platelets 121, 000, sodium 141, potassium 4.1, chloride 101, CO2 25, BUN 51, creatinine 3.4, glucose 183, albumin 3.3. ASSESSMENT AND PLAN: 1. Pneumonia. Improved. Continue on Merrem and Zyvox. 2. Oral candidiasis. The patient is on nystatin. 3. Hypertension. Continue on the current antihypertensive regimen. 4. Acute kidney injury on chronic kidney disease. Stable. 5. Diabetes mellitus type 2. Continue on glargine and sliding scale insulin. 6. Nutrition. The patient is scheduled to undergo a swallow evaluation tomorrow. Continue with tube feeds. 7. Leukocytosis. Unchanged. The patient is on antibiotic therapy. 8. Global encephalopathy. Improved. 9. Gastrointestinal prophylaxis. Continue on Protonix. 10. Deep vein thrombosis prophylaxis. Continue on heparin. 11. Disposition. Will consult Tax Collection Coordinator for inpatient rehab placement. Continue with physical therapy. cc: Sima Mccall MD [facility]
--- NOTE | 2018-11-04 20:31 | PULMONOLOGY PROGRESS NOTE ---
DATE: 11/04/2018 SUBJECTIVE: The patient is awake. She tracks the practitioner. She does not interact or answer questions. OBJECTIVE: Blood pressure 165/74, heart rate 77, respiratory rate 18, oxygen saturation 99%. HEENT: Pupils are equal and reactive. Oropharynx is clear. Neck: Is supple. Chest: Reveals good air entry bilaterally. Cardiac: S1-S2. Abdomen: Is soft and without hepatosplenomegaly. Extremities: Without edema. LABORATORIES: Sodium 141, potassium 4.1, chloride 101, bicarbonate 25, BUN 51, creatinine 3.4. White blood count 21,000 hemoglobin 8.5, platelet count 121,000. Chest x-ray yesterday revealed shallow lung smith with trace bibasilar atelectasis. Chest x-ray this morning following NG tube placement reveals no significant infiltrates. IMPRESSION: A 78-year-old with chronic lymphocytic leukemia, encephalopathy, hypoxemic respiratory failure, bibasilar pneumonia and atelectasis. Her chest x-ray is now clear. Her oxygen saturation is now 99% on room air. RECOMMENDATIONS: 1. Complete antibiotics at the discretion of Dr. Fred Garcia. 2. Continue oxygen checks. Patient is now on room air. cc: Chalo Robertson MD
[2018-11-05] MEDS: ZYVOX 600 MG/D5W 600 MG/300 ML IVPB IV SCH (00:59)
[2018-11-05] MEDS: DUONEB (A & A) INH SCH ×6 (03:00→23:23)
[2018-11-05] MEDS: APRESOLINE NG SCH ×3 (04:58→23:12)
[2018-11-05] MEDS: HUMULIN R SUBQ SCH ×4 (06:42→23:16)
--- NOTE | 2018-11-05 07:01 | Diag Imaging Result Doc PS360 ---
EXAM: CHEST-PORTABLE HISTORY: pneumonia TECHNIQUE: Portable chest single view COMPARISON: 11/04/2018 FINDINGS: No change in the right jugular line or nasogastric tube. The heart remains mildly enlarged. No consolidation. No pleural effusions identified. IMPRESSION: Stable chest. Electronically signed by Juan Luis Mena 11/05/2018 6:59 AM
[2018-11-05 07:17] LABS: BASO# 0.05 X1000 (0.0-0.2); BASO% 0.2 % (0.0-0.8); EOS# 0.23 X1000 (0.0-0.7); HEMATOCRIT 27.1 % (37.0-47.0); HEMOGLOBIN 8.8 g/dL (12.0-16.0); IMM GRAN# 0.04 X1000 (0.0-0.04); IMM GRAN% 0.2 % (0.0-0.5); LYMPH# 17.22 X1000 (1.2-3.4); LYMPH% 71.5 % (20.5-51.1); MCH 26.7 PG (27-31); MCHC 32.5 g/dL (33-37); MCV 82.1 FL (81-99); MONO% 3.3 % (1.7-9.3); MPV 11.2 FL (7.4-10.4); NEUT# 5.75 X1000 (1.4-6.5); NEUT% 23.8 % (42.2-75.2); PLT 139 X1000 (130-400); RDW 14.8 % (11.5-14.5); WBC 24.09 X1000 (4.8-10.8)
[2018-11-05 07:29] LABS: ALBUMIN 3.4 g/dL (3.5-5.0); CALCIUM 9.9 mg/dL (8.8-10.2); CREATININE 3.1 mg/dL (0.5-0.9); PHOSPHORUS 3.8 mg/dL (2.7-4.5); POTASSIUM 4.2 mmol/L (3.5-5.1)
[2018-11-05 07:40] LABS: LYMPHS 54 % (21-51); MONO 2 % (1-9); SEGS 42 % (42-75)
[2018-11-05] MEDS: MUCOMYST 20% INH SCH ×2 (08:13→19:41)
[2018-11-05] MEDS: NORVASC NG SCH (09:58)
[2018-11-05] MEDS: MYCOSTATIN SUSP PO SCH ×4 (09:58→23:55)
[2018-11-05] MEDS: HEPARIN SUBQ SCH ×2 (09:58→23:15)
[2018-11-05] MEDS: COREG NG SCH ×2 (09:58→23:14)
[2018-11-05] MEDS: MERREM 500 MG in NS 50 ML IV SCH (09:58)
[2018-11-05] MEDS: BASAGLAR SUBQ SCH ×2 (11:39→23:15)
--- NOTE | 2018-11-05 12:21 | PROGRESS NOTE ---
DATE: 11/05/2018 SUBJECTIVE: The patient is resting comfortably in bed. Her daughter is at the bedside. The patient still refuses to swallow when things are placed in her mouth. Swallow evaluation was attempted; however, the patient failed it. OBJECTIVE: Vital Signs: Temperature 97.9 degrees, blood pressure 160/68, heart rate 77, respirations 16, O2 saturation is 100% on room air. General: This is a chronically ill- appearing, elderly female, lying in bed, in no acute distress. Heart: S1, S2 normal. Regular rate and rhythm. Lungs: Clear to auscultation bilaterally. Abdomen: Positive bowel sounds. Soft, nontender, nondistended. Extremities: No edema. No cyanosis. Neurologic: The patient is awake and alert but nonverbal. LABS: White blood cell count 24, hemoglobin 8.8, hematocrit 27, platelets 139, 000. Sodium 140, potassium 4.2, chloride 99, CO2 26, BUN 51, creatinine 3.1, glucose 229. Chest x-ray shows a stable chest. ASSESSMENT AND PLAN: 1. Pneumonia. Resolved. 2. Oral candidiasis. The patient is on nystatin. 3. Hypertension. Controlled. Continue with the current antihypertensive regimen. 4. Acute kidney injury on chronic kidney disease. Stable. 5. Diabetes mellitus type 2. Continue on glargine and sliding scale insulin. 6. Nutrition. The patient failed the swallow evaluation this morning because she refused to swallow. We will continue with tube feeds. The patient will likely need a PEG tube. 7. Leukocytosis. The patient's white count is elevated today. We will continue on the current antibiotic therapy. 8. Encephalopathy. Unchanged. The patient is still nonverbal. Will start the zoloft. 9. Gastrointestinal prophylaxis. Continue on Protonix. 10. Deep vein thrombosis prophylaxis. Continue on heparin. 11. Disposition. Bible Worker is working on finding an inpatient rehab bed for the patient. Continue with physical therapy. cc: Sima Mccall MD [facility]
--- NOTE | 2018-11-05 13:11 | NEPHROLOGY PROGRESS NOTE ---
DATE: 11/05/2018 SUBJECTIVE: Patient is resting in bed. She is awake. She will follow commands , although apparently has failed her swallowing evaluation because she does not follow command to do that. OBJECTIVE: Vital Signs: Temperature 99 degrees, pulse 81, respiratory rate 16 , blood pressure 132/71. Intake 350 mL. Output 1 L. General: This is a chronically ill- appearing, elderly female resting in bed. She is awake and alert. She has swats at me whenever I try to auscultate lung and bowel sounds. HEENT: Normocephalic, atraumatic. ASHISH. She has an NG tube with tube feeding. Neck: Supple without JVD. Cardiovascular: Regular rate and rhythm. Pulmonary: She is clear bilaterally. No increased work of breathing. Abdomen: Soft. Positive bowel sounds. : Not inspected. Extremities: She has trace to 1+ edema. No clubbing, cyanosis. Integumentary: Skin is warm and dry. LAB DATA: WBC of 24.9, hemoglobin 8.8. Sodium 140, potassium 4.2, CO2 26, creatinine 3.1. ASSESSMENT AND PLAN: 1. Chronic kidney disease stage 4. Renal function has been really unchanged over the weekend. She has adequate urine output. She has no indications for intervention otherwise. Continue to follow. 2. Pneumonia. She is on appropriately dosed antibiotics. 3. Hypertension is in target. 4. Disposition. Once the patient is cleared from a primary standpoint and is discharged we will follow up with her as an outpatient within 2-3 weeks. Dictated by SUJATHA Loera for Kishore Nicholson MD Face to face encounter, data reviewed, discussed with Hetal Yen on 11/05/18. I agree with the above assessment and plan of care. cc: Kishore Nicholson MD [facility]
--- NOTE | 2018-11-05 15:03 | INFECTIOUS DISEASE PROGRESS NO ---
DATE: 11/05/2018 PRESENT ILLNESS: The patient is being treated for a pneumonia. The latest chest x-ray shows the pneumonia is cleared. She also is on nystatin for oral candidiasis. The patient had an encephalopathy, but that appears to have cleared and she seems coherent. MEDICATIONS: The patient is on Zyvox, meropenem, fluconazole, and nystatin swish and spit out. PHYSICAL EXAMINATION: Vital Signs: Temperature is 98 degrees, pulse 78, respirations 15, blood pressure 170/60. General: The patient looks much better. She is smiling. She is moving around well. She does not look like she is in any acute distress. Head, Eyes, Ears, Nose, and Throat: She does not have any white coating on her tongue. She can hear my spoken words and see near objects. Neck: No stiffness. Lungs: Clear to auscultation. Cardiovascular: Regular heart rate. Abdomen: Soft and nontender. Neurologic: The patient is alert. She can move her extremities. There is no tremor. The patient had, while I was examining her, a very large liquid brown stool in the bed. LABORATORY AND X-RAY: Chest x-ray shows clear lung smith. CBC shows a white count of 24,090, hemoglobin 8.8, and platelet count 139,000. Creatinine is 3.1. GFR is 18. ASSESSMENT AND PLAN: The patient's pneumonia has cleared. I have stopped Zyvox and meropenem. Also, I have stopped IV fluconazole. I have ordered on the patient's large liquid stool Clostridium difficile toxin and antigen. I also stopped the nystatin swish and spit out because she is not on any antibiotics now. COMORBIDITIES: The patient is elderly. She has chronic kidney disease, and she had encephalopathy, but it has cleared. She still continues to have leukocytosis, but it is gradually getting better. My plan is to stop all of the antibiotics and antifungals and send her stool for Clostridium difficile and toxin and antigen. The patient's comorbidities, she is elderly. She has chronic kidney disease, diabetes mellitus, and she has a history of having a seizure. cc: Fred Garcia MD
--- NOTE | 2018-11-05 17:03 | PROGRESS NOTE ---
DATE: 11/05/2018 SUBJECTIVE: No major overnight events. The patient has been treated for multiple infections. Family at bedside reports that her mentation has continued to improve. She also reports that the patient was able to swallowing something for the other daughter, but it looks as though she did not participate for the repeat swallow test here in the hospital. OBJECTIVE: She has been afebrile. Blood pressure is 161/68, pulse 70s, respirations 16, oxygen saturation 98% on room air. Ms. Cedeno is supine in bed with eyes closed. She appears to be resting comfortably. She is easily awakened and regards. She knows her name, states the name of her family member at bedside. She would shrug her shoulders when asked other orientation questions. She followed simple commands consistently. She followed commands pertaining to left, right, and digit distinction. She said one three word sentence during my time at the bedside. She was mostly attentive but on two instances I did restimulate her, as she seemed to drift back to sleep. LABORATORY DATA: White count is 24. Normal sodium. BUN 51, creatinine 3.1, which are downtrending. Blood sugar is 160s to 229. ASSESSMENT AND PLAN: Global encephalopathy, multifactorial with slow, gradual recovery. She seemed better today than when I saw her a week ago, which is reassuring. Negative brain imaging and CSF studies are reassuring. I would continue treating her as you are doing and monitor for continued improvement. Frequent reorienting would be beneficial. Minimize any unnecessary medications. cc: Jenise Wheeler MD
[2018-11-05] MEDS: PROTONIX IV SCH (18:05)
[2018-11-05] MEDS: DIFLUCAN 100 MG/NS 100 MG/50 ML IVPB IV SCH (18:06)
[2018-11-05] MEDS: ZOLOFT NG SCH (23:13)
[2018-11-06] MEDS ORDERED: BENADRYL LIQUID PO ONE ×2 (02:43→23:23)
[2018-11-06] MEDS: DUONEB (A & A) INH SCH ×6 (03:29→23:29)
[2018-11-06] MEDS: HUMULIN R SUBQ SCH ×4 (06:48→21:41)
[2018-11-06] MEDS: APRESOLINE NG SCH ×3 (06:49→21:42)
[2018-11-06 07:31] LABS: BASO# 0.03 X1000 (0.0-0.2); BASO% 0.1 % (0.0-0.8); EOS# 0.29 X1000 (0.0-0.7); EOS% 1.3 % (0.0-10.0); HEMOGLOBIN 8.1 g/dL (12.0-16.0); IMM GRAN# 0.05 X1000 (0.0-0.04); IMM GRAN% 0.2 % (0.0-0.5); LYMPH% 67.7 % (20.5-51.1); MCH 25.7 PG (27-31); MCHC 31.2 g/dL (33-37); MCV 82.5 FL (81-99); MONO# 0.88 X1000 (0.11-0.59); MONO% 4.1 % (1.7-9.3); MPV 11.1 FL (7.4-10.4); NEUT# 5.73 X1000 (1.4-6.5); NEUT% 26.6 % (42.2-75.2); PLT 120 X1000 (130-400); RBC 3.15 XMIL (4.2-5.4); RDW 14.7 % (11.5-14.5); WBC 21.58 X1000 (4.8-10.8)
[2018-11-06] MEDS: MUCOMYST 20% INH SCH ×2 (07:33→19:29)
[2018-11-06 07:42] LABS: ALBUMIN 3.3 g/dL (3.5-5.0); CREATININE 3.2 mg/dL (0.5-0.9); PHOSPHORUS 3.7 mg/dL (2.7-4.5)
[2018-11-06] MEDS: HEPARIN SUBQ SCH ×2 (08:35→21:42)
[2018-11-06] MEDS: BASAGLAR SUBQ SCH ×2 (08:36→21:40)
[2018-11-06] MEDS: COREG NG SCH ×2 (08:36→21:42)
[2018-11-06] MEDS: NORVASC NG SCH (08:37)
[2018-11-06] MEDS: MYCOSTATIN SUSP PO SCH ×2 (08:37→14:15)
--- NOTE | 2018-11-06 13:35 | PROGRESS NOTE ---
DATE: 11/06/2018 SUBJECTIVE: She is a patient of Dr. Sekou Ovalle. She came in with shortness of breath, subjective fever, O2 saturations dropping into the 80s. This is a 78-year-old female who presented to [facility] after she was seen at home by home health nurse and was found to have O2 saturations in 80s. Also having some subjective fever, chills, shortness of breath, and weakness. Apparently saw her primary care about a week before that, given a Z-Armando. On arrival to the emergency room her saturations were 96% on 4 L O2. Her white blood cell count was 22,620, elevated D-dimer at 1.33, BUN 44, creatinine 3.1, which is above her baseline which is about 2 to 2.3. ProBNP was 6,746. C-reactive protein was 233. Chest x-ray revealed multilobar pneumonia in the right. She was admitted. PAST MEDICAL HISTORY: Diabetes mellitus type 2, chronic kidney disease, hypertension, cancer, and seizures. PAST SURGICAL HISTORY: Right ankle surgery and sinus surgery. ADMISSION DIAGNOSES: 1. Bilateral multilobar pneumonia. 2. Leukocytosis. 3. Elevated D-dimer. 4. Acute on chronic kidney disease. 5. Diabetes mellitus. Chest x-ray on 10/14/2018: Improvement right basilar infiltrate pneumonia. Pulmonary was consulted. Dr. Hi felt she had pneumonia, acute renal failure. Lung V/Q scan was negative for pulmonary embolism. [place] she had some pulmonary venous hypertension and congestive heart failure. So, continued diuretics and antibiotics. Infectious Disease was asked to see 10/16 for right lower lobe pneumonia with E. coli urinary tract infection. Nephrology asked to see for acute kidney injury overlying chronic kidney disease. Her chronic kidney disease is on the basis of diabetes, acute kidney injury, in the context pneumonia. Ultrasound showed no evidence of obstruction. She has small kidneys bilaterally. She did have asterixis on exam. No absolute indications for dialysis. Urinary output was excellent, so continued to observe. OBJECTIVE: General: Today on exam she was sleeping, easy to arouse, comfortable. Vital signs: Temp 98.6 degrees, pulse 72, respirations 22, blood pressure 161/89. HEENT: Pupils are equal. Neck: No distended neck veins. Lungs: Clear anterolateral. Cardiovascular: Regular rhythm and rate without murmur or S3. Abdomen: Soft. Skin: Warm, dry. Urine output 2600 mL. LABORATORY: Blood sugar 211, 197, and 227. ASSESSMENT AND PLAN: 1. Pneumonia, which is resolved. 2. Oral candidiasis. Patient still on nystatin. 3. Hypertension, controlled. 4. Acute kidney injury on chronic kidney disease, which is improved. Most recent renal function, creatinine is 3.2. It was up to 3.6. 5. Diabetes mellitus type 2. On glargine sliding scale. Sugars fairly well controlled. 6. Nutrition. Trying to encourage her to swallow. Continue with the tube feedings. She may likely need a PEG tube. 7. Leukocytosis, persists. Continue current antibiotic treatment. 8. Encephalopathy, unchanged. Started back on her Zoloft. 9. Gastrointestinal prophylaxis. On Protonix. 10. Deep venous thrombosis prophylaxis. On heparin low dose. 11. Disposition. Working her up with physical therapy. We will see where we end up. 12. Review of her orders. They did send off stool for toxin study. She is on insulin glargine 10 units at bedtime, Zoloft 100 mg at bedtime, Apresoline 50 mg q.8 hours, acetylcysteine 20% 3 mL inhalation b.i.d., albuterol ipratropium q.4 hours, Norvasc 10 mg a day, Coreg 25 mg b.i.d., heparin 5000 units subcutaneously q.12, insulin glargine 15 units q.a.m., Protonix 40 mg q.24 hours, Nystatin suspension 5 mL 4 times a day. cc: Yovani Melgoza MD
--- NOTE | 2018-11-06 14:44 | NEPHROLOGY PROGRESS NOTE ---
DATE: 11/06/2018 SUBJECTIVE: The patient is sitting up in bed. She waves hello to me when I say her name. OBJECTIVE: Vital Signs: Temperature 98.6 degrees, pulse 82, respiratory rate 18, blood pressure 146/66. Intake 595 mL, output 1.3 L. EXAM: General: Elderly female, resting in bed. Awake and alert. She does not appear in any distress. HEENT: Normocephalic, atraumatic. She has a feeding tube noted to the left naris. Oral mucosa moist. Neck: Supple. No JVD. Cardiovascular: Regular rate and rhythm. Pulmonary: She has no increased work of breathing. It is clear. Abdomen: Soft. Positive bowel sounds. : Not inspected. Extremities: Trace edema. Integumentary: Skin is warm and dry. LAB DATA: Sodium 144, potassium 4.0, CO2 26, creatinine 3.2. ASSESSMENT AND PLAN: Chronic kidney disease, stage 4. Renal function is stable. Adequate urine output. No indications for intervention otherwise. Will arrange for followup within 2 to 3 weeks after hospital discharge. We will sign off at this time. If we can be of further assistance, please do not hesitate to contact us. Dictated by SUJATHA Loera for Kishore Nicholson MD Face to face encounter, data reviewed, discussed with Hetal Yen on 11/06/17. I agree with the above assessment and plan of care. cc: Kishore Nicholson MD [facility]
[2018-11-06] MEDS: PROTONIX IV SCH (16:41)
[2018-11-06] MEDS: ZOLOFT NG SCH (21:42)
--- NOTE | 2018-11-06 22:53 | INFECTIOUS DISEASE PROGRESS NO ---
DATE: 11/06/2018 PRESENT ILLNESS: Ms. Cedeno has been successfully treated for pneumonia as well as an oral candidiasis. At this point there is a continued leukocytosis and low- grade fever. MEDICATIONS: At this point she is not on any antimicrobials. PHYSICAL EXAMINATION: Vital Signs: Temperature is 98.6 degrees, pulse rate 70 , respiratory rate 22, blood pressure 163/70, O2 saturations 97% on room air. General: This is a chronically ill- appearing, elderly female. She is lying in bed, much more awake, alert and communicative today. HEENT: Atraumatic, normocephalic. She does have a NG tube in place. Oral mucous membranes are pink and moist. Conjunctivae are pale. Neck: Supple. Trachea is midline. There is intrajugular line on the right side. The site is without edema, erythema or drainage. Respiratory: Lung sounds are clear and diminished bilaterally. Cardiovascular : Heart rate is regular. Pedal and radial pulses are palpable bilaterally. Abdomen: Soft, round and nontender. Bowel sounds are active. She is receiving tube feedings. Neurologic: She is awake and alert and gesturing regularly to communicate. At this point she is nonverbal, but her family states she has been talking to them from time to time. No tremor noted. LABORATORY AND X-RAY: Today her white count is 21.58, hemoglobin 8.1, platelet count 120,000, creatinine is 3.2, GFR is 17. No imaging reports today. ASSESSMENT AND PLAN: Ms. Cedeno has been successfully treated for a pneumonia and oral candidiasis. She is currently on no antimicrobials. There is a low-grade temp. At this point she continues to have a leukocytosis but there is a underlying chronic lymphocytic leukemia. There is a right intrajugular line that is still in place. At this point we will go ahead and have her nurse discontinue the central line and culture the tip. She is currently not on any IV medications. These plans have been discussed with and recommended by Dr. Garcia. COMORBIDITIES: Include that she is elderly, with encephalopathy, CLL, chronic kidney disease, diabetes mellitus and a history of seizures. Dictated by SUJATHA Martínez for Fred Garcia MD This chart was documented by, SUJATHA Martínez and accurately reflects the services performed, treatment plan and medical decisions as attested by the providers signature Fred Garcia MD. cc: Fred Garcia MD MTDD
[2018-11-07] MEDS: DUONEB (A & A) INH SCH ×6 (03:26→22:57)
[2018-11-07] MEDS: APRESOLINE NG SCH (05:01)
[2018-11-07 06:20] LABS: BASO# 0.05 X1000 (0.0-0.2); BASO% 0.2 % (0.0-0.8); EOS# 0.29 X1000 (0.0-0.7); EOS% 1.3 % (0.0-10.0); HEMATOCRIT 27.6 % (37.0-47.0); HEMOGLOBIN 8.9 g/dL (12.0-16.0); IMM GRAN# 0.03 X1000 (0.0-0.04); IMM GRAN% 0.1 % (0.0-0.5); LYMPH# 15.87 X1000 (1.2-3.4); LYMPH% 71.2 % (20.5-51.1); MCH 26.6 PG (27-31); MCHC 32.2 g/dL (33-37); MCV 82.6 FL (81-99); MONO# 0.41 X1000 (0.11-0.59); MONO% 1.8 % (1.7-9.3); MPV 10.9 FL (7.4-10.4); NEUT# 5.65 X1000 (1.4-6.5); NEUT% 25.4 % (42.2-75.2); PLT 133 X1000 (130-400); RBC 3.34 XMIL (4.2-5.4); RDW 14.9 % (11.5-14.5)
[2018-11-07 06:58] LABS: EOS 1 % (1-10); LYMPHS 53 % (21-51); MONO 1 % (1-9); SEGS 42 % (42-75)
[2018-11-07 07:09] LABS: ALBUMIN 3.6 g/dL (3.5-5.0); CALCIUM 9.3 mg/dL (8.8-10.2); CREATININE 2.8 mg/dL (0.5-0.9); PHOSPHORUS 3.5 mg/dL (2.7-4.5); POTASSIUM 4.2 mmol/L (3.5-5.1)
[2018-11-07] MEDS: HUMULIN R SUBQ SCH ×4 (07:33→23:11)
[2018-11-07] MEDS: MUCOMYST 20% INH SCH ×2 (07:50→19:44)
[2018-11-07] MEDS: BASAGLAR SUBQ SCH ×2 (09:36→23:11)
[2018-11-07] MEDS: COREG NG SCH (09:36)
[2018-11-07] MEDS: NORVASC NG SCH (09:36)
[2018-11-07] MEDS: HEPARIN SUBQ SCH ×3 (09:36→23:11)
--- NOTE | 2018-11-07 12:48 | PROGRESS NOTE ---
DATE: 11/07/2018 SUBJECTIVE: She is feeling better. No complaints. OBJECTIVE: Temperature 98.0, pulse 79, respirations 19, blood pressure 187/70. Pupils are equal and round. Lungs are clear in all lung smith. Cardiovascular: Regular rhythm and rate without murmur or S3. Abdomen is soft. Skin is warm and dry. Blood sugar 113, 274, 230. ASSESSMENT AND PLAN: 1. Successively treated for pneumonia and oral Candidiasis. She has continued leukocytosis but, at this point, not on any antimicrobial, so she is doing better. From Nephrology standpoint, kidney disease stage 4. Renal function is stable. So, she has a place I think at [facility] and rehab, and so we will see if we can get her back over there. Blood pressure has been controlled. cc: Yovani Melgoza MD
--- NOTE | 2018-11-07 13:15 | DISCHARGE SUMMARY ---
ADMISSION DATE: 10/10/2018 DISCHARGE DATE: 11/07/2018 HISTORY OF PRESENT ILLNESS: She is followed by Dr. Sekou Ovalle. She came in with shortness of breath. Subjective fever per home health. She has had O2 saturations around 80%, so was sent to the emergency room. This is a 78-year-old, female, who presented to [facility] after seeing a home health nurse and was found with O2 saturations on room air of 80%. She also had some subjective fever, chills, shortness of breath and weakness. Apparently seen by primary care physician about a week before, given a Z-Armando. On arrival to the emergency room, she was saturating around 96% on 4 L. Her white blood cell count was 22,620, elevated D-dimer 1.33. BUN of 44 and creatinine 3.1, which is above her baseline 2 to 2.3. Her proBNP was 6746. Her C-reactive protein was 233. Urinalysis was negative. Chest x-ray revealed multi lobar pneumonia in the right, so she has been admitted for further evaluation and treatment. PAST MEDICAL HISTORY: 1. Diabetes mellitus type 2. 2. Chronic kidney disease. 3. Hypertension. 4. Cancer. 5. History of seizures. 6. Apparently she CLL. 7. Right ankle surgery and sinus surgery in the past. ADMISSION DIAGNOSES: 1. Bilateral multi lobar pneumonia and leukocytosis, secondary to #1. 2. Elevated D-dimer. 3. Acute on chronic kidney disease. 4. Diabetes mellitus type 2. Chest CT on 10/12: Bilateral ground-glass infiltrates, most prominent in the right associated with bilateral pleural effusions and bibasilar atelectasis. Findings could represent cardiac edema. 5. Mediastinal lymphadenopathy. 6. Diffuse anasarca, trace ascites. 7. Intermediate hyperdense left renal nodule. Recommend follow up with another CT or MRI. HOSPITAL COURSE: Chest x-ray on 10/14: Improvement in the right basilar infiltrate. Renal ultrasound on 10/15: Bilateral renal atrophy, but no acute disease. Benign-appearing renal cyst. Infectious Disease consultation per Dr. Igor Garcia. Appeared to be right lower lobe pneumonia and urinary tract infection. The patient was on Zyvox and substituted cefepime for Zosyn. Dr. Alexsander Nicholson admitted her, consulted for Nephrology. Thought to have acute kidney injury overlying chronic kidney disease. Her chronic kidney disease is on the basis of her diabetes. Acute kidney injury in the context of pneumonia. ultrasound showed no evidence of obstruction and she does have small kidneys bilaterally. She did have mild asterixis on exam. No absolute indications for dialysis and treated conservatively. Follow up chest x-ray on 10/18: Stable cardiomegaly, mild pulmonary venous congestion and essential resolution of the right basilar consolidation showed steady improvement. Renal function improved. Pulmonary was asked to see. Dr. Robertson felt she had an atypical pneumonia, chronic lymphocytic leukemia, acute hypoxemic respiratory failure, acute on chronic renal failure with delirium, but seemed to improve. Antibiotics were stopped. Renal function had improved and felt she could go to [facility] on 11/07/2018. Dr. Wheeler had seen her and felt she had global encephalopathy, multifactorial, with slow gradual recovery. Seems to be improving every day. Negative brain imaging and CSF studies were reassuring. Continued to treat with monitor. Continue activity. and felt she could go to [facility] on 11/07/2018. DISCHARGE MEDICATIONS: 1. To get DuoNeb treatments as needed. 2. Norvasc 10 mg per NG tube daily. 3. Coreg 25 mg b.i.d. 4. Apresoline IV was stopped. She takes Apresoline 50 mg every 8 hours. Protonix was given IV q. 24 hours. We will stop that. 5. Zoloft 100 mg a day at bedtime. cc: Yovani Melgoza MD
[2018-11-07] MEDS: REGLAN PO PRN (17:46)
[2018-11-07] MEDS: COREG PO SCH ×2 (19:57→23:12)
[2018-11-07] MEDS: APRESOLINE PO SCH ×2 (19:57→23:11)
[2018-11-07] MEDS: ZOLOFT PO SCH ×2 (19:57→23:11)
[2018-11-08] MEDS: DUONEB (A & A) INH SCH ×4 (03:21→15:31)
[2018-11-08] MEDS: APRESOLINE PO SCH (06:12)
--- NOTE | 2018-11-08 06:13 | INFECTIOUS DISEASE PROGRESS NO ---
DATE: 11/07/2018 OBJECTIVE: At this point Ms. Cedeno has gone 24 hours without any low-grade fever. Her central line has been removed and she is not receiving any antimicrobials. PLAN: The tentative plan is for her to be discharged tomorrow. At this point we will sign off and be available to see her as needed. These plans have been discussed with and recommended by Dr. Garcia. Dictated by SUJATHA Martínez for Fred Garcia MD This chart was documented by, SUJATHA Martínez and accurately reflects the services performed, treatment plan and medical decisions as attested by the providers signature Fred Garcia MD. cc: Fred Garcia MD [facility] CENTERJuan F
[2018-11-08] MEDS ORDERED: PROTONIX PO SCH (07:00)
--- NOTE | 2018-11-08 07:16 | Diag Imaging Result Doc PS360 ---
EXAM: CHEST-1 VIEW 11/08/2018 HISTORY: SOB TECHNIQUE: AP portable at 0545 COMMENT: The inspiration is suboptimal. Compared to 11/05/2018 the right internal jugular central venous catheter and the NG tube have been removed. There continues to be some atelectasis in the left costophrenic sulcus. Otherwise there has been no significant change. IMPRESSION: Poor inspiration and left lower lobe atelectasis. Electronically signed by Jass Velez 11/08/2018 7:13 AM
[2018-11-08] MEDS: MUCOMYST 20% INH SCH (07:59)
[2018-11-08] MEDS: REGLAN PO PRN (08:44)
[2018-11-08] MEDS ORDERED: NORVASC PO SCH (09:00)
[2018-11-08] MEDS: HEPARIN SUBQ SCH (09:58)
[2018-11-08] MEDS: COREG PO SCH (09:58)
[2018-11-08] MEDS: BASAGLAR SUBQ SCH (09:59)
[2018-11-08] MEDS: HUMULIN R SUBQ SCH (12:11)
--- NOTE | 2018-11-08 13:23 | DISCHARGE SUMMARY ---
ADMISSION DATE: 10/10/2018 DISCHARGE DATE: 11/08/2018 HISTORY AND HOSPITAL COURSE: She came in with shortness of breath, subjective fever per home health, and was admitted. ADMISSION DIAGNOSES: 1. Bilateral multilobar pneumonia. 2. Elevated D-dimer. 3. Acute on chronic kidney disease. 4. Diabetes mellitus. 5. Mediastinal lymphadenopathy. 6. Diffuse anasarca with trace ascites. See discharge for further details that was done on 11/07/2018. Feel she is ready to go to rehab. Her rehab discharge medications have been ordered, so we will we will let her go today. We did get her NG tube out as she is swallowing well. cc: Yovani Melgoza MD
[2018-11-08 15:08] VITALS: BP 163/65
== END 2018-11-08 16:55 | DRG 193 ==
LOC: P.ED 17:15 → P.MEDSURG 22:05 → SUATTDRO 22:05 → 4N 10-15 11:48 → ICU 10-22 11:34 → 3S 11-02 01:50 → 3N 11-03 15:23
PROVIDERS: ATTEND Emergency Medicine
CPT/HCPCS: 70450; 70551; 71010; 71045; 71250; 74000; 74018; 76770; 78582; 80048; 80053; 80069; 81001; 81050; 82009; 82140; 82232; 82570; 82575; 82607; 82728; 82746; 82784; 82805; 82945; 82948; 83540; 83550; 83605; 83615; 83735; 83880; 84100; 84134; 84156; 84157; 84300; 84439; 84443; 84484; 85025; 85027; 85379; 86140; 87015; 87040; 87070; 87077; 87088; 87102; 87116; 87186; 87205; 87206; 87275; 87276; 87324; 87449; 87496; 87529; 87532; 87653; 87798; 87804; 87899; 88184; 88185; 89050; 92610; 93005; 93970; 94640; 94667; 94668; 94761; 94762; 94799; 95816; 96361; 96365; 96367; 97110; 97140; 97163; 97166; 97530; 99285; A9270; A9539; A9540; C9113; J0131; J0360; J0456; J0692; J0696; J1450; J1644; J1815; J1940; J2020; J2185; J2248; J2543; J3480; J7030; J7070; S0164; XXXXX

== ENCOUNTER 2018-11-23 15:50 | Inpatient (IN) ==
--- NOTE | 2018-11-23 16:36 | EKG Report ---
Test Performed on : 11/23/2018 4:00:33 PM Test Reason : chest pain Blood Pressure : / mmHG Vent. Rate : 059 BPM Atrial Rate : 059 BPM P-R Int : 250 ms QRS Dur : 162 ms QT Int : 476 ms P-R-T Axes : 041 -49 043 degrees QTc Int : 471 ms Sinus bradycardia. with 1st degree AV block. Right bundle branch block Left anterior fascicular block Bifascicular block Moderate voltage criteria for LVH, may be normal variant Abnormal ECG When compared with ECG of 10-OCT-2018 22:11, (Unconfirmed) IN interval has increased Questionable change in QRS duration Unconfirmed Result
--- NOTE | 2018-11-23 17:03 | Diag Imaging Result Doc PS360 ---
EXAM: CT HEAD W/O CONTRAST 11/23/2018 HISTORY: transient dysarthria TECHNIQUE: This exam was performed using automated exposure control, adjustment of mA or kV according to patient size, and/or use of iterative reconstruction technique. COMMENT: There is no evidence of mass effect, bleed, abnormal extra-axial fluid collection, or hydrocephalus. There are calcifications in the globus pallidus bilaterally and calcifications in both internal carotid arteries. Dated 10/20/2018 there has been no significant change in the appearance of the brain. There has been apparent maxillary antral window formation least on the left and mucosal thickening is present in the visualized portion of the left maxillary sinus. IMPRESSION: No evidence of acute intracranial disease. Chronic left maxillary sinusitis. Electronically signed by Jass Velez 11/23/2018 5:01 PM
--- NOTE | 2018-11-23 17:04 | Diag Imaging Result Doc PS360 ---
EXAM: CHEST-1 VIEW 11/23/2018 HISTORY: mental status changes; recent pneumonia TECHNIQUE: Erect AP chest at 1700 COMMENT: There is ill-defined opacity in the lateral left base which may have also been present on 11/08/2018 but is slightly more conspicuous today. IMPRESSION: Minimal left lower lobe pneumonia. Electronically signed by Jass Velez 11/23/2018 5:01 PM
[2018-11-23 17:05] LABS: BASO# 0.02 X1000 (0.0-0.2); BASO% 0.1 % (0.0-0.8); EOS# 0.15 X1000 (0.0-0.7); EOS% 0.6 % (0.0-10.0); HEMATOCRIT 21.4 % (37.0-47.0); HEMOGLOBIN 7.2 g/dL (12.0-16.0); IMM GRAN# 0.03 X1000 (0.0-0.04); IMM GRAN% 0.1 % (0.0-0.5); LYMPH# 17.83 X1000 (1.2-3.4); LYMPH% 76.7 % (20.5-51.1); MCH 26.5 PG (27-31); MCHC 33.6 g/dL (33-37); MCV 78.7 FL (81-99); MONO# 0.89 X1000 (0.11-0.59); MONO% 3.8 % (1.7-9.3); MPV 11.4 FL (7.4-10.4); NEUT# 4.33 X1000 (1.4-6.5); NEUT% 18.7 % (42.2-75.2); PLT 147 X1000 (130-400); RBC 2.72 XMIL (4.2-5.4); RDW 15.8 % (11.5-14.5); WBC 23.25 X1000 (4.8-10.8)
[2018-11-23] MEDS ORDERED: NS 1,000 ML IV ONE (17:28)
[2018-11-23] MEDS ORDERED: ZOSYN 3.375 GM in NS 50 ML IV ONE (17:36)
[2018-11-23] MEDS ORDERED: VANCOMYCIN 1 GM/NS 1 GM/250 ML IVPB IV ONE (17:36)
[2018-11-23 17:45] LABS: ALBUMIN 3.4 g/dL (3.5-5.0); CALCIUM 8.6 mg/dL (8.8-10.2); CREATININE 4.1 mg/dL (0.5-0.9); MAGNESIUM 2.3 mg/dL (1.5-2.7); POTASSIUM 5.5 mmol/L (3.5-5.1); TOTAL BILIRUBIN 0.2 mg/dL (0.20-1.00); TOTAL PROTEIN 5.9 g/dL (6.3-8.3)
[2018-11-23] MEDS ORDERED: CALCIUM GLUCONATE IV PUSH ONE (17:52)
[2018-11-23] MEDS ORDERED: ALBUTEROL 0.5% INH CONC FOR HYPERKALEMIA INH ONE (17:53)
[2018-11-23 18:35] LABS: INR 1.08; PROTIME 14.6 Seconds (11.0-16.0)
[2018-11-23 18:36] LABS: PTT 31.4 Seconds (22.3-41.8)
[2018-11-23 19:25] LABS: BILIRUBIN URINE NEGATIVE (NEGATIVE); BLOOD URINE NEGATIVE (NEGATIVE); CLARITY SL. CLOUDY (CLEAR); COLOR YELLOW; GLUCOSE URINE NEGATIVE (NEGATIVE); KETONE URINE NEGATIVE (NEGATIVE); LEUKOCYTES URINE TRACE (NEGATIVE); NITRITE URINE NEGATIVE (NEGATIVE); PROTEIN URINE 1+(30 mg/dL) mg/dL (NEGATIVE); UROBILINOGEN URINE NORMAL
--- NOTE | 2018-11-23 19:25 | PROVIDER DOCUMENTATION ---
This chart was entered by Ruth Lopez Scribe, acting as scribe for Clay Mojica MD. HPI-General Adult - General Chief Complaint: Stroke-Like Symptoms Stated Complaint: POSS CVA, Slurred speech Time Seen by Provider: 11/23/18 16:08 Source: patient, family, EMS Allergies/Adverse Reactions: Patient Allergies Allergy/AdvReac Type Severity Reaction Status Date / Time Iodinated Contrast- Oral and AdvReac Unknown Verified 11/15/17 18:42 IV Dye [IV Dye] Home Medications: Home Medication List Medication Instructions Recorded Confirmed Last Taken Type Amlodipine Besylate 10 mg PO DAILY 09/14/17 10/10/18 Unknown History Insulin Lispro [Humalog Kwikpen See Protocol SQ AC + HS 09/14/17 10/10/18 Unknown History U-100] Sertraline HCl 100 mg PO DAILY 09/14/17 10/10/18 Unknown History Simvastatin 40 mg PO HS 09/14/17 10/10/18 Unknown History Carvedilol 25 mg PO BID@0700,1200 04/17/18 10/10/18 Unknown History Pregabalin [Lyrica] 75 mg PO DAILY 04/17/18 10/10/18 Unknown History Clonidine [Catapres] 0.1 mg PO TID@0700,1200,2000 10/10/18 10/10/18 Unknown History Clopidogrel Bisulfate [Clopidogrel] 75 mg PO QHS 10/10/18 10/10/18 Unknown History Furosemide [Lasix] 40 mg PO DAILY PRN PRN 10/10/18 10/10/18 Unknown History Hydralazine [Apresoline] 100 mg PO TID@0700,1200,1600 10/10/18 10/10/18 Unknown History Insulin Glargine [Lantus] 10 units SUBQ QHS 10/10/18 10/10/18 Unknown History Insulin Glargine [Lantus] 15 unit SUBQ QAM 10/10/18 10/10/18 Unknown History Losartan Potassium 100 mg PO DAILY 10/10/18 10/10/18 Unknown History Polyethylene Glycol 3350 [Miralax] 17 gm PO DAILY 10/10/18 10/10/18 Unknown History Acetylcysteine 20% [Mucomyst 20%] 3 ml INH RTBID vial 11/07/18 Unknown Rx Albuterol 2.5MG/Ipratrop 0.5MG 3 ml INH RTQ4H neb 11/07/18 Unknown Rx [Duoneb (A & A)] Carvedilol [Coreg] 25 mg NG BID tablet 11/07/18 Unknown Rx Hydralazine [Apresoline] 50 mg NG Q8HR tablet 11/07/18 Unknown Rx Insulin Glargine [Basaglar] 10 unit SUBQ QHS insuln.pen 11/07/18 Unknown Rx Insulin Glargine [Basaglar] 15 unit SUBQ QAM insuln.pen 11/07/18 Unknown Rx - History of Present Illness -Gen Adult Nature of Presenting Problems: 89 yobf presents to the ed via ems from [facility]. pt was in rehab for past pneumonia. daughters at bedside sts on Monday they noticed their mothers speech has been slurred at times and she will struggle to find the correct words. on exam pt is speaking more clearly and has equal strength in BUE and BLE. pt is nontoxic in appearance Location of Pain/Injury: reports: none Pain Radiation: reports: no radiation Quality of Pain: reports: none Severity: reports: mild Onset/Duration: reports: 2 days ago Timing: reports: improving, intermittent Context/Activities at Onset: reports: light activity Modifying Factors: improves with: nothing Associated Symptoms: reports: other (mild slurred speech). denies: back/neck pain, chest pain, diarrhea, dizziness, fatigue, fever/chills, headaches, muscle aches, nausea, vomiting, weakness Similar Symptoms Previously?: Yes Recently seen or treated by another doctor?: No Review of Systems - Adult - REVIEW OF SYSTEMS - ADULT ROS:: ROS per family Constitutional: denies: chills, fever Eyes: reports: no symptoms reported Ears, Nose, Mouth & Throat: reports: no symptoms reported Cardiovascular: denies: chest pain, palpitations Respiratory: denies: shortness of breath, wheezing Gastrointestinal: reports: difficulty swallowing. denies: abdominal pain, diarrhea, nausea, vomiting Genitourinary: reports: no symptoms reported Musculoskeletal: denies: back pain, muscle aches, muscle weakness, neck pain Integumentary: reports: no symptoms reported Neurological: reports: see HPI, slurred speech, tremors. denies: dizziness/ vertigo, headache/migraines, loss of balance, numbness, syncope Psychiatric: reports: no symptoms reported Endocrine: reports: no symptoms reported Hematologic/Lymphatic: reports: no symptoms reported Allergic/Immunologic: reports: no symptoms reported All Other Systems: Reviewed and Negative Past History - Adult - PAST MEDICAL HISTORY-ADULT Review of Records: reports: Old Records Reviewed, Nursing Assessment Review, Medications Reviewed, Social history reviewed & non-contributory. Major Childhood Illnesses: reports: history unknown Cardiovascular: reports: HTN, hyperlipidemia Respiratory: reports: denies history Gastrointestinal: reports: denies history Obstetrical/Gynecological: reports: denies history Genitourinary: reports: kidney disease Musculoskeletal: reports: denies history Neurological: reports: CVA, Seizures/Epilepsy Psychiatric: reports: denies history Endocrine/Immune: reports: Diabetes Diabetes Type: Type 2 Other Conditions: reports: other cancer (CLL) - PRIOR SURGERIES/PROCEDURES Surgical/Procedure History: reports: orthopedic (extremity) (right ankle), other (sinus) - IMMUNIZATION STATUS Childhood Immunizations: See Nurse Assessment Flu Vaccine: See Nurse Assessment - FAMILY HISTORY Family History: reviewed, not pertinent - SOCIAL HISTORY Smoking: denies Substance Use: denies Alcohol Use Frequency: never Living Situation: care facility Physical Exam-General - PHYSICAL EXAM-ADULT Initial Vital Signs Reviewed: Yes - CONSTITUTIONAL General Appearance: alert, no apparent distress, other (frail) - EYES Eyes: PERRL/EOMI, pale conjunctivae - HEAD, EARS, NOSE, MOUTH & THROAT HENMT: moist mucous membranes, normal ENT inspection - NECK Neck: non-tender, full range of motion, supple, normal inspection - RESPIRATORY Respiratory: chest non-tender, decreased breath sounds - CARDIOVASCULAR Cardiovascular: normal peripheral pulses, bradycardia - CHEST (BREASTS) Chest/Breast: deferred - GASTROINTESTINAL (ABDOMEN) Abdominal Exam: normal bowel sounds, non tender, soft - GENITOURINARY Female Genitalia/Pelvic Exam: deferred Rectal Exam: deferred - MUSCULOSKELETAL Back Exam: normal inspection, no CVA tenderness, no vertebral tenderness Extremity: normal range of motion, non-tender, pedal edema (2+) - SKIN Integumentary: normal turgor, warm/dry, pallor - NEUROLOGIC Neurologic: double corner cutter II-XII nml as tested, grossly normal, no motor/sensory deficits . negative: abnormal cerebellar tests, aphasia (no dysarthria), motor weakness , sensory deficit - PSYCHIATRIC Psych/Mental Status: normal mood/affect, oriented x 3 Progress - PLAN OF CARE/RESULTS Progress/Plan/Lab Results: Vital Signs - 8 hr 11/23/18 15:50 Temperature 98.0 F Pulse Rate 60 Respiratory Rate 16 Blood Pressure 133/073 O2 Sat by Pulse Oximetry 99 Result Diagrams: 11/23/18 15:58 11/23/18 15:58 - REASSESSMENT Reassessment #1 Time Reassessed: 17:28 (dr mojica at bedside) Status: improving - EKG 1 Time of EKG reading by physician:: 16:00 EKG Read and Signed by:: Boby Muniz EKG Interpretation (*Must complete 3 of following elements*): Abnormal Rate: 59 Rhythm: sinus jagdish with 1st degree AV block [place]: normal QRS: RBB, LVH, other (LAFB/Bifascicular block) HI Interval: normal ST Wave: normal 2 Time of EKG reading by physician:: 17:19 EKG Read and Signed by:: Clay Mojica EKG Interpretation (*Must complete 3 of following elements*): Abnormal Rate: 40 Rhythm: marked sinus bradycardia with AV dissociation/Idioventricular rhythm [place]: left (deviation) QRS: LVH (with qrs widening) HI Interval: normal ST Wave: normal - XRAY 1 XRAY: Bilateral XRAY Study: Chest Impression: See EMR Report (EXAM: CHEST-1 VIEW 11/23/2018 HISTORY: mental status changes; recent pneumonia TECHNIQUE: Erect AP chest at 1700 COMMENT: There is ill-defined opacity in the lateral left base which may have also been present on 11/08/2018 but is slightly more conspicuous today. IMPRESSION: Minimal left lower lobe pneumonia. Electronically signed by Jass Velez 11/23/2018 5:01 PM 11/23/18 170 Interpreting Physician: Jass Velez MD Dictated Date/Time: 11/23/18 170 cc: Clay Mojica MD; Sekou Ovalle MD) - CT/MRI 1 CT Study: Head Impression: See EMR Report (EXAM: CT HEAD W/O CONTRAST 11/23/2018 HISTORY: transient dysarthria TECHNIQUE: This exam was performed using automated exposure control, adjustment of mA or kV according to patient size, and/or use of iterative reconstruction technique. COMMENT: There is no evidence of mass effect, bleed, abnormal extra-axial fluid collection, or hydrocephalus. There are calcifications in the globus pallidus bilaterally and calcifications in both internal carotid arteries. Dated 10/20/2018 there has been no significant change in the appearance of the brain. There has been apparent maxillary antral window formation least on the left and mucosal thickening is present in the visualized portion of the left maxillary sinus. IMPRESSION: No evidence of acute intracranial disease. Chronic left maxillary sinusitis. Electronically signed by Jass Velez 11/23/2018 5:01 PM 11/23/18 1701 Interpreting Physician: Jass Velez MD Dictated Date/Time: 11/23/18 7830 cc: Clay Mojica MD; Sekou Ovalle MD) - CONSULTS/PCP/HOSPITALIST Notification #1 *Consult/PCP/Hospitalist*: Dr. Mchugh Time Discussed: 18:05 Consult Disposition: Admit Departure - Departure Date of Disposition Decision: 11/23/18 Time of Disposition Decision: 18:24 DIAGNOSIS: Hyponatremia, Hyperkalemia, Bradycardia Acute on chronic renal failure Qualifiers: Acute renal failure type: unspecified Chronic kidney disease stage: stage 4 ( severe) Qualified Code(s): N17.9 - Acute kidney failure, unspecified; N18.4 - Chronic kidney disease, stage 4 (severe) Anemia Qualifiers: Anemia type: unspecified type Qualified Code(s): D64.9 - Anemia, unspecified Pneumonia Qualifiers: Pneumonia type: due to unspecified organism Laterality: left Lung location: lower lobe of lung Qualified Code(s): J18.1 - Lobar pneumonia, unspecified organism Sepsis Qualifiers: Sepsis type: sepsis due to unspecified organism Qualified Code(s): A41.9 - Sepsis, unspecified organism Disposition: ADMITTED INPATIENT 09 Certified Medical Emergency: Emergent Condition: Critical Referrals and Follow-Ups: Sekou Ovalle MD [Primary Care Provider] - - Critical Care Note This patient required my direct & personal management of CC.: Yes Total Time (mins): 37 Critical Care Statement: This patient required my direct personal management to treat or rule out processes, the absence of which, could potentiallly result in sudden, clinically significant life or limb threatening deterioration. Attestation - Physician/ YESSICA Attestation Patient care was provided by Advanced Practice Provider:: No The physician spent face to face time with patient:: Yes Advanced Practice Provider documentation review:: Supervising physician onsite and consulted in the evaluation and care of this patient. The physician did have a face to face encounter with the patient. This chart was documented by the indicated scribe, (Ruth Lopez Scribe) and accurately reflects the services I performed and decisions made by , Clay Mojica MD, as attested by the provider's signature.
[2018-11-23 19:29] LABS: URINE WBC <10 /HPF (<10)
[2018-11-23 19:30] LABS: URINE BACTERIA 1+ /HFP; URINE CAST NONE SEEN /LPF; URINE CRYSTAL NONE SEEN /HPF; URINE EPITHELIAL CELLS <10 /HPF (<10); URINE SMALL ROUND CELLS TRANSITIONAL PRESENT; URINE SOURCE CATH; URINE YEAST NONE SEEN /HPF
[2018-11-23] MEDS ORDERED: ATROPINE IV ONE ×2 (20:34→21:47)
[2018-11-23] MEDS ORDERED: VANCOMYCIN IV PER PHARMACY MISC SCH (20:45)
[2018-11-23 21:38] LABS: IRON SATURATION 15 %; TIBC 223 ug/dL; TOTAL IRON 34 ug/dL (49-151); UNBOUND IRON 189 ug/dL (112-346)
[2018-11-23 21:43] LABS: BASO# 0.02 X1000 (0.0-0.2); BASO% 0.1 % (0.0-0.8); EOS# 0.18 X1000 (0.0-0.7); EOS% 0.9 % (0.0-10.0); HEMATOCRIT 19.7 % (37.0-47.0); HEMOGLOBIN 6.6 g/dL (12.0-16.0); IMM GRAN# 0.04 X1000 (0.0-0.04); IMM GRAN% 0.2 % (0.0-0.5); LYMPH# 15.06 X1000 (1.2-3.4); LYMPH% 74.7 % (20.5-51.1); MCH 26.6 PG (27-31); MCHC 33.5 g/dL (33-37); MCV 79.4 FL (81-99); MONO# 0.77 X1000 (0.11-0.59); MONO% 3.8 % (1.7-9.3); MPV 10.5 FL (7.4-10.4); NEUT# 4.08 X1000 (1.4-6.5); NEUT% 20.3 % (42.2-75.2); PLT 129 X1000 (130-400); RBC 2.48 XMIL (4.2-5.4); WBC 20.15 X1000 (4.8-10.8)
[2018-11-23] MEDS: NS 1,000 ML IV SCH (21:50)
[2018-11-23 22:00] LABS: ALBUMIN 3.1 g/dL (3.5-5.0); ALKALINE PHOSPHATASE 55 U/L (32-104); BUN 45 mg/dL (8-22); CALCIUM 8.3 mg/dL (8.8-10.2); CHLORIDE 86 mmol/L (98-107); CREATININE 3.8 mg/dL (0.5-0.9); GLUCOSE 134 mg/dL (70-104); GOT 12 U/L (10-30); GPT 11 U/L (10-36); POTASSIUM 5.9 mmol/L (3.5-5.1); TCO2 23 mmol/L (25-35); TOTAL PROTEIN 5.7 g/dL (6.3-8.3)
[2018-11-23 22:02] LABS: AGAP 11; COSMO 256; SODIUM 120 mmol/L (136-145)
[2018-11-23 22:12] LABS: EOS 1 % (1-10); LYMPHS 78 % (21-51); MONO 1 % (1-9); SEGS 20 % (42-75)
[2018-11-23 22:13] LABS: ANISOCYTOSIS OCCASIONAL; MICROCYTOSIS OCCASIONAL; POIKILOCYTOSIS OCCASIONAL
[2018-11-23 22:14] LABS: HYPOCHROM 2+; OVALOCYTES OCCASIONAL
[2018-11-23] MEDS ORDERED: DOPAMINE 800 MG/D5W 800 MG/250 ML IV.SOLN IV SCH (23:00)
[2018-11-23] MEDS ORDERED: ZOFRAN IV ONE (23:45)
--- NOTE | 2018-11-23 23:48 | HISTORY AND PHYSICAL ---
ADDENDUM: She is a very pleasant lady, very sweet little lady 78 years old. She has got chronic renal failure. Her daughter has been concerned about her slurring of speech for several days. The patient seems fine now. No major issues, but when she came here she has a white count of 23,000. Her hemoglobin and hematocrit are 7 and 21. She is hyponatremic with a sodium of 119 and her BUN and creatinine have climbed to 42 and 4.1. Clinically, though, she does not really look that bad. She does have 2+ pitting edema. She does appear pale. Her chest x-ray showed a left lower lobe pneumonia and she was admitted for treatment. IMPRESSION AND PLAN: 1. Hyponatremia which may be related to diuretic effect. She is on Lasix, losartan. We will give gentle hydration and follow closely to avoid over correction. 2. Pneumonia. She has been placed on vancomycin, and mycin and Zosyn for possible gram-negative type pneumonia. 3. Anemia which I think she would benefit from some transfusion, but since she is a renal patient we will let Dr. Nicholson make that decision. I do not think she meets criteria for dialysis at this point. 4. Hyperkalemia. We will treat with conservative measures and probably give her some Veltassa. It is not profoundly elevated and I do not think her EKG showed significant peaked T waves so we will treat conservatively and follow. There is a little bit of peaking of the T-waves. More concerning though she does have sinus bradycardia which she does drop into the 30s. Now her blood pressure is stable. She is mentating fine, but we are going to monitor her in the unit. Probably related to her renal insufficiency, and beta carl and clonidine. We will get a cardiology consult and we will get a nephrology consultation and go from there. This is a [id number] encounter note with Manasa Sims. I am going to say about 35 minute critical care time for multiple issues, namely the hyperkalemia and need for IV and then bradycardia as well. cc: MD LEONIDES Bocanegra
--- NOTE | 2018-11-24 00:19 | HISTORY AND PHYSICAL ---
PRIMARY CARE PROVIDER: Dr. Sekou Ovalle. CHIEF COMPLAINT: Per daughter and patient in room, weakness. HISTORY OF PRESENT ILLNESS: Ms Cedeno is a 78-year-old female who carries a past medical history of type 2 diabetes, chronic kidney disease, hypertension, seizures, per daughter's report she does not believe that she has any seizure history, cancer. The patient was last admitted to our service on 10/10/2018 and discharged on 11/08/2018. She was admitted at that time for bilateral multilobar pneumonia, acute on chronic kidney disease and sent to [facility]. She was also reported having some dysphagia at that time and required an NG tube. Per daughter in the room, the patient has had some mental status changes and an increase in weakness since Monday of this week. She reported some shaking to her upper extremities, but not seizure like. Daughter was worried that she had a stroke, so she was brought to the ED. Head CT was negative. Chest x-ray showed a minimal left lower lobe pneumonia. Initially, she was sinus rhythm in the 60s. However, now her heart rate is dropping anywhere from 38 to 42. She is not symptomatic. She was found have a white count of 23, hemoglobin and hematocrit of 7 and 21, a platelet count of 147,000, a sodium of 119, a potassium of 5.5, a BUN of 42, a creatinine of 4.1, a proBNP of 2367. She was given a hyperkalemic breathing treatment as well as calcium gluconate push, a liter fluid bolus, started on vancomycin and Zosyn for hospital- acquired pneumonia. We will transfer her to [facility] for ICU for evaluation with Cardiology and Nephrology and possible GI for continued dysphagia. PAST MEDICAL HISTORY: 1. Diabetes mellitus type 2. 2. Chronic kidney disease. 3. Hypertension. 4. Seizures. However, the daughter is adamant that she does not have a seizure history. 5. Hypertension. 6. Cancer. 7. CLL. PAST SURGICAL HISTORY: Right ankle surgery and sinus surgery. FAMILY HISTORY: Reviewed and noncontributory. SOCIAL HISTORY: Prior to this admission, the patient was at [facility]. Prior to that, she was living at home and was cared for by her daughter. She has a supportive daughter at the bedside. No tobacco, alcohol or illicit drug use. ALLERGIES: Iodine contrast, oral and IV. MEDICATIONS: Home medications have not been reconciled from previous discharge summary. She was sent on DuoNebs, Norvasc, Coreg and Zoloft. REVIEW OF SYSTEMS: Fourteen-point review of systems completely negative except for those mentioned in HPI. The patient denies any headache, nausea, vomiting, diarrhea, chest pain, shortness of breath. Per her report, she will only occasionally cough and she coughs while she is getting her breathing treatments at rehab, nothing productive. She did report some generalized weakness. Daughter reports she feels like she is having trouble swallowing. She did not get her follow-up with Dr. Jaramillo. PHYSICAL EXAMINATION: VITAL SIGNS: Temperature is 98 degrees, heart rate upon arrival was 60, she dropped down to 38, she is up to 47, respirations 12, blood pressure 122/71, O2 is 98% on room air. GENERAL: Ms. Cedeno is a pleasant 78-year-old female who is sitting up in the bed receiving a breathing a hyperkalemic breathing treatment. HEENT: Atraumatic, normocephalic. PERRL. NECK: Supple. Trachea midline. CARDIOVASCULAR: S1, S2 appreciated. No murmurs, gallops, or rubs noted. RESPIRATORY: Lung sounds relatively clear. She is bilaterally decreased in the bases. GASTROINTESTINAL: Abdomen was soft, nontender, nondistended. Positive bowel sounds 4 quadrants. EXTREMITIES: Bilateral lower extremity edema. NEUROLOGIC: She is alert and oriented x4. Follows commands. Moves all extremities. No focal deficits noted. DIAGNOSTIC DATA: Head CT showed no evidence of acute intracranial disease, chronic left maxillary sinusitis. EKG showed sinus bradycardia with a first-degree AV block, right bundle branch block, left anterior fascicular block at 59 beats per minute with a QTc of 471. Chest x-ray showed minimal left lower lobe pneumonia. LABORATORY DATA: White count 23, hemoglobin and hematocrit 7.2 and 21.4, platelet count is 147,000. Chemistry: Sodium 119, potassium 5.5, BUN 42, creatinine 4.1, blood glucose is 112, magnesium 2.3. Troponin 0.028. ProBNP 2367. Plasma lactate 1.3. Urinalysis is currently pending. ASSESSMENT AND PLAN: 1. Sinus bradycardia with first-degree atrioventricular block. The patient was hyperkalemic. She has been given a hyperkalemic breathing treatment as well as calcium gluconate and 1 L of fluids. Her heart rate has increased into the uppper 40s. She had dipped down to 38. We will recheck her potassium and continue to trend. Currently asymptomatic 2. Left lower lobe pneumonia, hospital acquired. Patient had recently been discharged from [facility], then at [facility]. We will do broad- spectrum antibiotics to cover for healthcare associated pneumonia with vancomycin and Zosyn renally dosed. 3. Hyponatremia. We will trend q.4 hours. Call attending physician with results. Continue with gentle hydration as to not raise her sodium too high. Hyponatremia may be multifactorial from her acute renal insufficiency as well as medications. We are currently working to have those reconciled. 4. Acute renal failure on chronic kidney disease. We will continue with gentle hydration. Dr. Nicholson is aware of the patient and she will be transferred to [facility] for higher level of care. 5. Anemia. We will check anemia profile. Continue to trend. We will type and screen. We will check serial hemoglobins and hematocrits. 6. Diabetes mellitus. We will continue with sliding scale with pattern blood sugars. 7. Hypertension. 8. CLL history. 9. Questionable seizures. Per daughter, she does not have any known seizure history. 10. Further recommendation to follow physician evaluation, laboratory data and diagnostic data. CRITICAL CARE TIME: Spent 40 minutes. Dictated by SUJATHA Fritz for Augustin Mchugh MD cc: Augustin Mchugh MD [facility]
[2018-11-24] MEDS: DOPAMINE 800 MG/D5W 800 MG/500 ML IV.SOLN IV SCH ×2 (03:17→16:26)
[2018-11-24] MEDS: NS 1,000 ML IV SCH ×2 (03:19→16:27)
[2018-11-24] MEDS: ZOSYN 2.25 GM in NS 50 ML IV SCH ×3 (03:20→18:14)
[2018-11-24] MEDS: ZOFRAN IV PRN ×3 (07:14→17:44)
--- NOTE | 2018-11-24 07:16 | EKG Report ---
Test Performed on : 11/23/2018 5:19:30 PM Test Reason : bradycardia Blood Pressure : / mmHG Vent. Rate : 040 BPM Atrial Rate : 040 BPM P-R Int : 000 ms QRS Dur : 152 ms QT Int : 514 ms P-R-T Axes : 004 -46 018 degrees QTc Int : 418 ms Marked sinus bradycardia. with AV dissociation. and Idioventricular rhythm. Left axis deviation Left ventricular hypertrophy with QRS widening Abnormal ECG When compared with ECG of 23-NOV-2018 16:00, (Unconfirmed) Idioventricular rhythm. has replaced Sinus rhythm. Vent. rate has decreased BY 19 BPM Unconfirmed Result
[2018-11-24] MEDS ORDERED: SAMSCA PO ONE (08:11)
[2018-11-24] MEDS ORDERED: KAYEXALATE PO ONE (08:12)
[2018-11-24] MEDS ORDERED: TEFLARO 600 MG in NS 250 ML IV SCH (09:15)
[2018-11-24 09:53] LABS: HEMOGLOBIN A1C 6.4 % (4.8-6.0)
--- NOTE | 2018-11-24 10:06 | Diag Imaging Result Doc PS360 ---
EXAM: CHEST-PORTABLE 11/24/2018 HISTORY: LLL PNA TECHNIQUE: AP portable at 0956 COMMENT: There is cardiomegaly. There is questionable atelectasis versus pneumonia in both lung bases. This is somewhat more prominent than on the previous study of 11/23/2018. IMPRESSION: Bibasilar atelectasis. Electronically signed by Jass Velez 11/24/2018 10:04 AM
[2018-11-24 10:49] LABS: BASO# 0.03 X1000 (0.0-0.2); BASO% 0.1 % (0.0-0.8); HEMATOCRIT 22.4 % (37.0-47.0); HEMOGLOBIN 7.4 g/dL (12.0-16.0); IMM GRAN# 0.13 X1000 (0.0-0.04); IMM GRAN% 0.3 % (0.0-0.5); LYMPH# 25.12 X1000 (1.2-3.4); MCH 26.4 PG (27-31); MONO# 1.29 X1000 (0.11-0.59); MONO% 3.4 % (1.7-9.3); MPV 11.3 FL (7.4-10.4); NEUT# 11.47 X1000 (1.4-6.5); NEUT% 30.2 % (42.2-75.2); PLT 156 X1000 (130-400); RDW 16.1 % (11.5-14.5); WBC 38.04 X1000 (4.8-10.8)
[2018-11-24 10:52] LABS: HYPOCHROM 1+; SEGS 28 % (42-75)
[2018-11-24 10:53] LABS: ATYPICAL LYMPH 8 %; LYMPHS 64 % (21-51)
[2018-11-24] MEDS: HUMALOG SUBQ SCH ×3 (11:00→21:38)
[2018-11-24] MEDS: TEFLARO 300 MG in NS 250 ML IV SCH ×2 (11:45→21:38)
[2018-11-24] MEDS ORDERED: NS 500 ML ONE (12:43)
--- NOTE | 2018-11-24 14:47 | PROGRESS NOTE ---
DATE: 11/24/2018 SUBJECTIVE: The patient reports feeling some abdominal pain. She is not nauseated but she received Zofran approximately a couple of hours ago. No other issues noted. She is still bradycardic. OBJECTIVE: Vital Signs: Temperature is 98.2, heart rate 54, respiratory rate 18, blood pressure 1318/69, and O2 saturation 97% on 2 L nasal cannula. General: This is a chronically ill-looking 78-year-old female lying in bed in no acute distress. HEENT: The head is normocephalic and atraumatic. Neck: No JVD noted. No carotid bruits. No lymphadenopathy. No thyromegaly. Cardiovascular: S1 and S2 are heard. No murmurs, gallops, or rubs. Regular rate and rhythm. Respiratory: Clear bilaterally to auscultation. No work of breathing or use of accessory muscles. Abdomen: Soft and nontender to palpation. Bowel sounds present. No organomegaly. Extremities: No clubbing. No cyanosis. Bilateral lower extremity edema, 1+. Peripheral pulses are present in both legs. Neurological: The patient is alert and oriented times 3 and moves all extremities. LABORATORY DATA: CBC is pending at the time of my dictation. Sodium is 120 from today and blood sugar is 234. ASSESSMENT AND PLAN: 1. Sinus bradycardia with first degree AV block. The patient continues to be persistently bradycardic. I am not quite sure if that is related to hyperkalemia. In any case, heart rate has been in the range of the high 40s and 50s. We will continue to monitor the patient closely in the ICU and we will consult Cardiology as well. 2. Hospital-acquired left lower lobe pneumonia. The patient has been started on vancomycin and Zosyn but because of chronic kidney disease I prefer to switch the vancomycin to Teflaro and we will do 300 mg IV every 12 hours considering her renal function. 3. Hyponatremia. The patient has been receiving IV fluids but the sodium is still very low. At this point I will try one dose of Samsca 50 mg p.o. and check potassium later on today. 4. Acute on chronic kidney disease. The patient has been seen by Dr. Nicholson in the past. We have consulted him because of her renal dysfunction and elevated potassium and we will see what he has to say. 5. Severe hyperkalemia. We will provide one dose of Kayexalate p.o. and check BMP today later on. 6. Severe anemia. Patient is symptomatic. I prefer to transfuse 2 units of blood this morning. 7. Diabetes mellitus type 2. We will continue on sliding scale insulin and Accu-Cheks before meals and also at bedtime. 8. Hypertension. Blood pressure is under control. We will continue with the same management. 9. Chronic lymphocytic leukemia history. Aware. DISPOSITION: We will continue to monitor this patient in the Intensive Care Unit and we will follow recommendations from subspecialists. cc: Garett Manley MD
[2018-11-24] MEDS ORDERED: ATROPINE IM PRN (16:51)
--- NOTE | 2018-11-24 17:48 | CONSULTATION ---
DATE OF CONSULTATION: 11/24/2018 IMPRESSION: 1. Bradycardia in setting of sinus node dysfunction. This patient on carvedilol 25 mg twice daily which was discontinued on admission. She seems to have adequate heart rate currently on intravenous dopamine. 2. Acute on chronic renal failure. Patient has mild hyperkalemia. 3. Hyponatremia. Etiology not clear. 4. Chronic lymphocytic leukemia with chronic leukocytosis with predominance of lymphocytes. 5. Diabetes mellitus. 6. Hypertension. 7. Possible recurrent aspiration. RECOMMENDATIONS: 1. Continue current treatment with intravenous dopamine as required. 2. Suspect heart rate may improve once carvedilol washes out entirely. 3. Echocardiography. 4. Check urine electrolytes and osmolarity. HISTORY: This 78-year-old -Omani female with past history of chronic kidney disease, hypertension, diabetes mellitus, and CLL was admitted to [facility] recently with some difficulty swallowing and altered mental status. She has been found to have significant hyponatremia and mild hyperkalemia. She also manifests evidence of acute on chronic renal failure. She has demonstrated tendency for bradycardia which appears to be related to sinus node dysfunction with heart rates prior to treatment dipping down to 30 beat per minute range. There has been no syncope. Patient has denied any chest discomfort or dyspnea or lightheadedness. Blood pressure has been fairly stable. She has been treated with intravenous dopamine which is demonstrated modest response in increasing heart rate. It is noteworthy that she had been on Coreg 25 mg twice daily which was discontinued on admission. She was just recently hospitalized for about a month from 10/10/2018 to 11/08/2018. At that time she was admitted with multilobar pneumonia as well as acute on chronic kidney disease. She was ultimately discharged to [facility] and rehab. She is somewhat confused and does not contribute much in the way of history. PAST MEDICAL HISTORY: 1. Diabetes mellitus type 2. 2. Chronic kidney disease. 3. Hypertension. 4. History of seizures. 5. Chronic lymphocytic leukemia. PAST SURGICAL HISTORY: Includes right ankle surgery and sinus surgery. ALLERGIES: She is allergic or intolerant to iodinated contrast. SOCIAL HISTORY: The patient previous was living at home with her daughter providing care. Since last admission she has been in [facility] and rehab. She does not smoke or use alcohol. FAMILY HISTORY: Negative for premature coronary disease. REVIEW OF SYSTEMS: Pulmonary: Noteworthy for some cough but otherwise negative. Gastrointestinal: Noteworthy for some nausea, otherwise negative. Constitutional: Negative/noncontributory. Remainder of review of systems negative/noncontributory with 14 total systems reviewed. PHYSICAL EXAMINATION: General: This is a chronically ill-appearing, older -Omani female in no distress. Vital signs: Blood pressure 123/65, heart rate ranges from 45 to 55 beats per minute with ECG monitor showing sinus bradycardia, sinus pauses, competing ectopic atrial pacemaker. HEENT: Extraocular movements intact. Mucous membranes are moist. Neck: Supple without discernible jugular distention. Chest: Clear to auscultation anteriorly. Cardiac Exam: Reveals a regular rate and rhythm without appreciable murmur or gallop. Abdomen : Soft. Bowel sounds audible. Extremities: Without edema. Neurologic: Reveals her to be alert and oriented to person and place but not time. Speech is slightly slurred but intelligible. She moves all 4 extremities equally well. LABORATORY DATA: Includes a white blood cell count of 38.04, hematocrit 22.4, hemoglobin 7.4, platelet count 156,000. Sodium 120, recent potassium 5.9, chloride 86, carbon dioxide 23, BUN 45, creatinine 3.8, glucose 134. Recent TSH 3.0. Troponin T 0.028. Chest x-ray reviewed and demonstrates questionable infiltrate in left lower lobe versus atelectasis. cc: Geovanni Nino MD [facility]
[2018-11-24 18:18] LABS: ALBUMIN 3.5 g/dL (3.5-5.0); CALCIUM 8.4 mg/dL (8.8-10.2); CREATININE 3.7 mg/dL (0.5-0.9); PHOSPHORUS 4.9 mg/dL (2.7-4.5); POTASSIUM 7.1 mmol/L (3.5-5.1)
[2018-11-24] MEDS ORDERED: KAYEXALATE PR ONE ×5 (18:27→23:00)
--- NOTE | 2018-11-24 19:02 | NEPHROLOGY CONSULTATION ---
DATE: 11/24/2018 REASON FOR CONSULTATION: CKD and hyponatremia. HISTORY OF PRESENT ILLNESS: Ms. Cedeno is a 78-year-old woman with diabetes, hypertension and chronic kidney disease. Her chronic kidney disease is stage 4 to 5 and her last office visit was late last year when we discussed access referral. She was admitted to the hospital thereafter with pneumonia and her renal function worsened from her baseline such that we discussed dialysis. She was adamant that she would not accept it at that time. Her creatinine peaked at 5.8 and then improved to a creatinine of around 3 to 3.5 by the time she was discharged from the hospital on November 07. She has been in rehab and was approaching end of her time there. The family states that her mental status worsened and daughter brought that to the attention of the staff. Ultimately she was transferred to the hospital for evaluation. Her mental status has not been normal throughout her last hospitalization. She became nonverbal for extended period of time, had trouble with aspiration. Her evaluation on admission found her blood pressure and heart rate acceptable however she developed bradycardia through the evening. This happened in the context of moderate hyperkalemia with potassium of 5.9. This was treated medically and is improved at this time. At this time she is awake, alert. She answers me with only 1 or 2 words on occasion and inconsistently. Appropriate overall however. Her daughter answers most questions. PAST MEDICAL HISTORY: As above. HOME MEDICATIONS: On admission were amlodipine, insulin, sertraline, simvastatin, pregabalin, carvedilol, clopidogrel, losartan, clonidine, hydralazine, MiraLAX, furosemide, carvedilol. ALLERGIES: IV contrast. SOCIAL HISTORY: She lives locally in [place] but again has been in SNF for rehab. She has a supportive family. No alcohol or tobacco. FAMILY HISTORY: Otherwise noncontributory. REVIEW OF SYSTEMS: Otherwise noncontributory. PHYSICAL EXAMINATION: Vital Signs: Blood pressure 123/65, heart rate 59, respirations 17, afebrile. General: No acute distress. Mental status as above. Skin: Warm and dry. Conjunctivae are pink. Neck: Neck veins are not distended. Heart: Regular with no gallops. Lungs: Equal. No crackles or wheezes. Abdomen: Soft, nontender. Bowel sounds are present. Extremities: Have 2+ edema. No clubbing or cyanosis. Neurologic: Nonfocal except for her decreased verbal interaction. IMPRESSION: 1. Chronic kidney disease. Her kidney function currently is at her historical baseline. If she remains stable over the next 48 hours we will collect a 24 hour urine. 2. Hyponatremia. Likely multifactorial. She had multiple medications which might exacerbate hyponatremia and this may also be impacted by the presence of pneumonia. Medication list was appropriately narrowed and she is receiving intravenous antibiotics. She has received a single dose of tolvaptan. I will recheck her laboratory data at this time. Her urine sodium was low at less than 10 and her urine osmolality was 187 so these numbers were not consistent with syndrome of inappropriate antidiuretic hormone secretion. She is receiving normal saline currently. We will observe her response. 3. Hyperkalemia. She has been treated medically and I will repeat her potassium before any further orders are entered. cc: Kishore Nicholson MD
[2018-11-24] MEDS: DUONEB (A & A) INH SCH ×2 (19:13→23:30)
[2018-11-24] MEDS: SAMSCA PO ONE (19:24)
[2018-11-25] MEDS: NS 1,000 ML IV SCH ×2 (02:23→17:52)
[2018-11-25] MEDS: ZOSYN 2.25 GM in NS 50 ML IV SCH ×3 (02:23→17:52)
[2018-11-25] MEDS: DUONEB (A & A) INH SCH ×6 (03:07→23:27)
--- NOTE | 2018-11-25 03:33 | OPERATIVE NOTE ---
PROCEDURE DATE: 11/24/2018 PREOPERATIVE DIAGNOSIS: Seizure, chronic kidney disease, and poor peripheral access, with bradycardia. POSTOPERATIVE DIAGNOSIS: Seizure, chronic kidney disease, and poor peripheral access, with bradycardia. PROCEDURE PERFORMED: Right femoral vein triple-lumen catheter. ESTIMATED BLOOD LOSS: Less than 5 mL. ANESTHESIA: Local. COMPLICATIONS: None. INDICATION: A 78-year-old female admitted with symptomatic bradycardia. She is on inotropic support for this, and has very poor peripheral access. She is also anemic and needs multiple medications, as well as blood transfusions. OPERATIVE NOTE: Risks, benefits, alternatives were discussed with both the patient and her daughter, and they consented. After a time-out, her right groin was prepped with chlorhexidine solution, and draped in usual fashion. After local anesthetic was infiltrated, and the femoral vein was accessed on the first pass, dark nonpulsatile venous blood was noted on return. The wire threaded easily. Skin brayan was made, and the tract was dilated. A pre-flushed triple-lumen 7- Lithuanian catheter was advanced, and the wire was removed. All ports withdrew blood and flushed without resistance. It was secured with a silk suture. A dressing was applied. She tolerated this well. No identified complication. cc: Alonzo Nash MD
[2018-11-25 06:47] LABS: HEMATOCRIT 24.2 % (37.0-47.0); MCH 26.9 PG (27-31); MCHC 33.1 g/dL (33-37); MCV 81.5 FL (81-99); MPV 11.3 FL (7.4-10.4); RBC 2.97 XMIL (4.2-5.4); RDW 16.2 % (11.5-14.5); WBC 26.26 X1000 (4.8-10.8)
[2018-11-25] MEDS: HUMALOG SUBQ SCH ×4 (07:00→21:01)
[2018-11-25 07:19] LABS: ALBUMIN 3.4 g/dL (3.5-5.0); CALCIUM 8.5 mg/dL (8.8-10.2); CREATININE 3.8 mg/dL (0.5-0.9); POTASSIUM 5.5 mmol/L (3.5-5.1)
[2018-11-25] MEDS ORDERED: SAMSCA PO ONE (08:00)
[2018-11-25] MEDS ORDERED: DIFLUCAN 150 MG/NS 150 MG/75 ML IVPB IV SCH (08:15)
[2018-11-25] MEDS: KAYEXALATE PR SCH ×2 (09:31→21:00)
[2018-11-25] MEDS: TEFLARO 300 MG in NS 250 ML IV SCH ×2 (09:31→22:03)
--- NOTE | 2018-11-25 10:11 | PROGRESS NOTE ---
DATE: 11/25/2018 SUBJECTIVE: The patient is definitely more awake and alert. She is not feeling nauseated. OBJECTIVE: Vital Signs: Temperature 98.0 degrees, heart rate 58, respiratory rate 19, blood pressure 132/55, O2 saturation 99% on 2 L nasal cannula. General Examination: This is a chronically ill-looking, 78-year-old, female lying in bed, in no acute distress. HEENT: Head is normocephalic and atraumatic. Mucous membranes are dry. Neck: No JVD noted. No carotid bruits. No lymphadenopathy. No thyromegaly. Cardiovascular Examination: S1 and S2 heard. Bradycardic, but no murmurs, gallops, or rubs noted. Respiratory Examination: Minimal coarse breath sounds in both pulmonary bases. Patient is not using any accessory muscles or having work of breathing. Abdomen: Soft, nontender to palpation. Bowel sounds present. No organomegaly. Extremities: No clubbing or cyanosis. Bilateral lower extremity edema 1+ noted. Peripheral pulses present in both legs. Neurological Examination: The patient definitely alert and oriented x3. Moves 4 extremities. Laboratory Data: White cell count 26.26, hemoglobin. 8.0, hematocrit 24.2, platelets 118,000. Sodium 128, potassium 5.5, creatinine 3.8, with GFR 14, phosphorus 5.0. ASSESSMENT AND PLAN: 1. Hospital-acquired left lower lobe pneumonia. Patient is on Teflaro and Zosyn adjusted to renal function. White cell count is still elevated. Oxygen needs are stable at 2 to 3 L of oxygen by nasal cannula. We will continue with the same management. 2. Sinus bradycardia with first-degree atrioventricular block. Dr. Nino from cardiology has been consulted. The patient had been on carvedilol on admission. That has been discontinued. Now requiring dopamine. I think she has been bradycardic because of the carvedilol and the fact that she had renal dysfunction makes it to stay in the system longer. An echocardiogram has been ordered. We will see what it shows. 3. Hyponatremia. Patient had received yesterday 45 mg of Samsca and sodium has raised to 125. We will provide 1 more dose of Samsca 30 mg and see what it shows tomorrow. 4. Acute on chronic kidney disease. Patient I think need dialysis considering that hyperkalemia has reached 7.1 with low sodium and anemia of chronic disease related to this problem as well. We will talk with the family about the importance of starting dialysis at this point. Dr. Nicholson is also involved in her care. We will follow recommendations. 5. Severe hyperkalemia. Patient has received Kayexalate rectally 30 mg twice. Potassium is 5.5 today. We will provide probably 2 more doses and see how she does tomorrow. 6. Severe anemia, most likely related to renal disease. She received 1 unit of blood and so far hemoglobin is 8.0. We will continue to monitor CBC. 7. Diabetes mellitus type 2. We will continue with sliding scale insulin. Accu -Chek before meals and also at bedtime. 8. Hypertension. Blood pressure is under control with vasopressors. We are trying to wean off dopamine on this patient. 9. Chronic lymphocytic leukemia history. Aware. 10. Disposition. We will continue to monitor this patient in the intensive care unit. cc: Garett Manley MD [facility]
[2018-11-26] MEDS: ZOSYN 2.25 GM in NS 50 ML IV SCH ×3 (02:34→17:54)
[2018-11-26] MEDS: NS 1,000 ML IV SCH (02:34)
[2018-11-26] MEDS: DUONEB (A & A) INH SCH ×6 (03:27→23:45)
[2018-11-26] MEDS: HUMALOG SUBQ SCH ×4 (06:16→21:42)
[2018-11-26 06:29] LABS: HEMATOCRIT 25.8 % (37.0-47.0); HEMOGLOBIN 8.1 g/dL (12.0-16.0); MCH 26.2 PG (27-31); MCHC 31.4 g/dL (33-37); MCV 83.5 FL (81-99); MPV 10.8 FL (7.4-10.4); RBC 3.09 XMIL (4.2-5.4); RDW 17.2 % (11.5-14.5); WBC 22.43 X1000 (4.8-10.8)
[2018-11-26 08:12] LABS: ALBUMIN 3.5 g/dL (3.5-5.0); CALCIUM 9.3 mg/dL (8.8-10.2); CREATININE 3.4 mg/dL (0.5-0.9); PHOSPHORUS 5.7 mg/dL (2.7-4.5); POTASSIUM 4.4 mmol/L (3.5-5.1)
[2018-11-26] MEDS: DIFLUCAN 150 MG/NS 150 MG/75 ML IVPB IV SCH (10:00)
--- NOTE | 2018-11-26 10:01 | PROGRESS NOTE ---
DATE: 11/26/2018 SUBJECTIVE: Patient is more alert and awake. No complaints of any nausea, vomiting, or palpitations. OBJECTIVE: Vital Signs: Temperature 98.8 degrees, heart rate 89, respiratory rate 20, blood pressure 152/85, O2 saturation 98% on 2 L nasal cannula. General Examination: This is a 78-year- old, female lying in bed, in no acute distress. HEENT: Head is normocephalic and atraumatic. Mucous membranes are dry. Neck: No JVD noted. No carotid bruits. No lymphadenopathy. No thyromegaly. Cardiovascular Examination: S1 and S2 heard. No murmurs, gallops, or rubs. Respiratory Examination: Minimal coarse breath sounds and crackles in both pulmonary bases. The patient is not using any accessory muscles or having work of breathing. Abdomen: Soft, nontender to palpation. Bowel sounds present. No organomegaly. Extremities: No clubbing, cyanosis. Bilateral lower extremity edema 1+. Note, there are still peripheral pulses present in both legs. Neurological Examination: The patient is alert and oriented x3. Moves 4 extremities. Laboratory Data: White cell count is 22.43, hemoglobin 8.1, hematocrit 25.8, platelets 124,000. BMP showed sodium 151 with potassium 4.4 and creatinine 3.4. ASSESSMENT AND PLAN: 1. Hospital-acquired left lower lobe pneumonia. Patient is on Zosyn and Flagyl renally dosed. Clinically, this patient reports breathing better and requiring 2 L of oxygen by nasal cannula. White cell count is still elevated. We will continue to monitor this patient closely. 2. Sinus bradycardia. At this point, I think the Coreg that the patient used to take at 25 mg by mouth twice a day has been washed out from the system. That is why she is not bradycardic anymore. Blood pressure is much better. At this point, we will continue holding that medication. 3. Hyponatremia, resolved. Actually, the sodium is high. We have to stop that medication. 4. Acute on chronic kidney disease. At this point, I think this patient may need dialysis down the road but definitely we will leave that decision to Dr. Nicholson. Family reports being okay having dialysis. 5. Hyperkalemia. That has resolved. Potassium is 4.4 today. 6. Severe anemia, most likely related to renal disease. Hemoglobin is stable after transfusion of 1 unit of blood. We will continue to monitor. 7. Diabetes mellitus type 2. We will continue with sliding scale insulin and Accu-Cheks before meals and also at bedtime. 8. Hypertension. Blood pressure is under control. Not requiring any more vasopressors. 9. Chronic lymphocytic leukemia. Aware. 10. Disposition. I think we will send this patient to a regular room today. cc: Garett Manley MD
[2018-11-26] MEDS: TEFLARO 300 MG in NS 250 ML IV SCH ×2 (12:50→21:46)
[2018-11-26] MEDS: D5W 1,000 ML IV SCH (12:50)
--- NOTE | 2018-11-26 12:51 | NEPHROLOGY PROGRESS NOTE ---
DATE: 11/26/2018 SUBJECTIVE: Ms. Cedeno states that she is feeling well today. She denies any chest pain. No increased work of breathing. OBJECTIVE: Her most recent vital signs: Temperature 98.1 degrees, blood pressure 146/67, heart rate 88, respirations 16. She is on room air. Last recorded saturation 100%. She has had 2464 in. She has had 8130 out to Herndon catheter. LABS: Sodium 151, potassium 4.4 , chloride 110, CO2 25, BUN 36, creatinine 3.4, glucose 159. Patient's anion gap is 16, calcium 9.3 , phosphorus 5.7, albumin 3.5. White count 22.43, hemoglobin 8.8, hematocrit 25.8, platelet count 124,000. General: This is a 78-year-old female. She is resting quietly in bed. She is in no acute distress. Skin: Warm and dry. HEENT: Normocephalic, atraumatic. Conjunctiva is pale, pink. She has ASHISH. Mucous membranes are dry. Neck: Supple. Trachea midline. No evidence of JVD. Cardiovascular: Regular rate and rhythm without murmur or gallop. Lungs: Clear to auscultation bilaterally, equal excursion on room air. Abdomen: Soft , nontender, positive bowel sounds. Genitourinary: Not inspected. Herndon catheter is in place with adequate urine out. Extremities: Have no edema. No clubbing or cyanosis. Neurological : She is alert to person and to place and most recent events. ASSESSMENT AND PLAN: 1. Chronic kidney disease stage 4. Patient's baseline creatinine is 2.2 to 3. Creatinine has come down from 3.8 to 3.4. BUN has also responded down to 36. She has adequate urine output because her renal status has been stable. We will plan to collect a 24-hour urine over the next day. The patient is aware. 2. Electrolytes. Patient has hypernatremia, today of sodium of 151. She is currently on normal saline at 75 mL an hour. We will change this to D5W. 3. Acid-base balance. This is stable. 4. Anemia. This is low but stable. 5. Bradycardia. This is followed by cardiology and the primary care team. 6. Pneumonia. Patient is on renal dosed antibiotics. I would like to thank you for allowing us to follow with this patient. Dictated by SUJATHA Vera for Kishore Nicholson MD Face to face encounter, data reviewed, discussed with Maxim Wilson on 11/26/18. I agree with the above assessment and plan of care. cc: SUJATHA Vera MD [facility]
--- NOTE | 2018-11-26 15:26 | Diag Imaging Result Doc PS360 ---
BA SWALLOW W/VIDEO SPEECH THER - 11/26/2018 INDICATION: Dysphagia TECHNIQUE: Total fluoroscopy time was 50 seconds. 187 images were obtained. COMPARISON: None FINDINGS: There is no aspiration or penetration. There was moderate hypertrophy of the cricopharyngeal muscle compatible with cricopharyngeal achalasia. Distal esophagus also demonstrated moderately severe discoordinated contractions compatible with presbyesophagus. No strictures. IMPRESSION: 1. Moderate cricopharyngeal achalasia. 2. Moderate presbyesophagus. Electronically signed by Mayur Nunes 11/26/2018 3:24 PM
--- NOTE | 2018-11-26 21:36 | ECHO REPORT ---
ORDER DATE: 11/23/2018 MEASUREMENTS: Left ventricular end-diastolic diameter 4.5, end systolic diameter 2.8, septal thickness 1.0, posterior wall thickness 1.0, aortic root 3.0, left atrium 3.7. SUMMARY: 1. Fair quality study. 2. Very mild sclerosis involving trileaflet aortic valve with normal aortic valve opening demonstrated. Peak gradient across aortic valve is 15 mmHg. Mitral, tricuspid, and pulmonic valves are without evidence of structural abnormality with mild tricuspid regurgitation and trace pulmonic insufficiency. There is trace mitral regurgitation. The estimated systolic PA pressure by Doppler is 40 mmHg. Mild pulmonary hypertension is suggested. Aortic root is normal in size. 3. Normal left ventricular dimensions suggested. Estimated left ventricular ejection fraction appears to be at least 65%. No regional wall motion abnormalities evident. Left atrium is upper normal in size. Right atrium, right ventricle are normal in size with grossly preserved right ventricular systolic function. 4. No pericardial effusion. 5. Inferior vena cava not well demonstrated. cc: Geovanni Nino MD
[2018-11-27] MEDS: D5W 1,000 ML IV SCH ×2 (01:13→15:00)
[2018-11-27] MEDS: DUONEB (A & A) INH SCH ×6 (03:20→23:05)
[2018-11-27] MEDS: ZOSYN 2.25 GM in NS 50 ML IV SCH ×3 (03:24→18:28)
[2018-11-27] MEDS: HUMALOG SUBQ SCH ×4 (06:26→21:21)
[2018-11-27 08:15] LABS: ALBUMIN 3.4 g/dL (3.5-5.0); CALCIUM 8.8 mg/dL (8.8-10.2); CREATININE 2.7 mg/dL (0.5-0.9); PHOSPHORUS 3.8 mg/dL (2.7-4.5); POTASSIUM 3.7 mmol/L (3.5-5.1)
[2018-11-27 08:20] LABS: HEMATOCRIT 27.9 % (37.0-47.0); HEMOGLOBIN 8.9 g/dL (12.0-16.0); MCH 27.2 PG (27-31); MCHC 31.9 g/dL (33-37); MCV 85.3 FL (81-99); MPV 10.5 FL (7.4-10.4); RBC 3.27 XMIL (4.2-5.4); RDW 17.1 % (11.5-14.5); WBC 27.38 X1000 (4.8-10.8)
[2018-11-27] MEDS: DIFLUCAN 150 MG/NS 150 MG/75 ML IVPB IV SCH (09:52)
[2018-11-27] MEDS: TEFLARO 300 MG in NS 250 ML IV SCH ×2 (10:04→20:35)
[2018-11-27 12:18] LABS: UR CREATININE 17.5 mg/dL (11-20); UR PROTEIN 99.7 mg/dL
[2018-11-27 12:19] LABS: CREATININE 2.7 mg/dL (0.7-1.2)
[2018-11-27] MEDS: ZOLOFT PO SCH (15:00)
--- NOTE | 2018-11-27 15:36 | NEPHROLOGY PROGRESS NOTE ---
DATE: 11/27/2018 TIME SEEN: 829 SUBJECTIVE: Ms. Cedeno is resting quietly in bed. She is eating her breakfast. She states that she is feeling better. VITAL SIGNS: Temperature 98.3 degrees, blood pressure 180/64, heart rate 74, respirations 18. She is on 2 L nasal cannula. Last recorded saturation 100%. She has had 2255 in. She has had 2000 out void. LABORATORY DATA: Sodium 145, potassium 3.7, chloride 103, CO2 26, BUN 27, creatinine 2.7, glucose 216, anion gap 16, calcium 8.8, phosphorus 3.8, albumin 3.4. White count 27.38 , hemoglobin 8.9, hematocrit 27.9, platelet count 12.3. Urinalysis: The patient had a 24-hour urine completed in the last 24 hours, indicating a creatinine clearance of 26% with a total proteinuria of 5783. PHYSICAL EXAMINATION: General: This is a 78-year-old, elderly, female. She is resting quietly. She is in no acute distress. Skin: Warm and dry. HEENT: Normocephalic, atraumatic. Conjunctivae pale. She has ASHISH. Mucous membranes dry. Neck: Supple. Trachea midline. No JVD. Cardiovascular: She is regular rate and rhythm without murmur or gallop. Lungs: Clear to auscultation bilaterally. Equal excursion with poor inspiratory effort. She is on room air. Abdomen: Soft, nontender. Positive bowel sounds. Genitourinary : Not inspected. Herndon catheter is in place. Adequate urine out documented. Extremities: No edema. No clubbing or cyanosis. Neurological: She is alert to person and to place, and most recent events. ASSESSMENT AND PLAN: 1. Chronic kidney disease stage 4. The patient has no complaints. A 24-hour urine indicates a creatinine clearance of 26. Adequate urine out. No indications for intervention. BUN and creatinine have continued to improve over the last 24 hours also. 2. Electrolytes, acid-base balance. The patient's hypernatremia has corrected with change to her intravenous fluids. CO2 is improved. 3. Anemia. This is low, but stable. We will defer to the primary care team for any intervention. 4. Bradycardia. This is followed by Cardiology. 5. Pneumonia. Her white count has worsened slightly to 27 from 22.43 yesterday. Again, the patient is on renal-dosed antibiotics. We will refer to the primary care. I would to thank you for allowing us to follow with this patient. Dictated by SUJATHA Vera for Kishore Nicholson MD Face to face encounter, data reviewed, discussed with Maxim Wilson on 11/28/18. I agree with the above assessment and plan of care. cc: SUJATHA Vera MD [facility]
--- NOTE | 2018-11-27 16:01 | PROGRESS NOTE ---
DATE: 11/27/2018 SUBJECTIVE: Patient continues without chest discomfort or dyspnea. She reports feeling comfortable. OBJECTIVE: Blood pressure 176/60. Heart rate 73. Oxygen saturation 100% on room air. There is no significant jugular venous distention. Chest is clear to auscultation. Cardiac exam reveals a regular rate and rhythm without appreciable murmur or gallop. There is no evidence of peripheral edema. IMPRESSION: There is no evidence of peripheral edema. LABORATORY DATA: White blood cell count 27.3, hematocrit 27.9, hemoglobin 8.9, platelet count 123,000. Sodium 145, potassium 3.7, chloride 103, carbon dioxide 26. BUN 27, creatinine 2.7. Glucose 216. IMPRESSION: 1. Recent bradycardia probably due to sinus node dysfunction and beta carl. This has improved with cessation of carvedilol. 2. [id number] renal dysfunction. 3. Hyponatremia, this is improved. 4. Hypertension. Systolic blood pressure elevated. 5. Chronic lymphocytic leukemia. 6. Diabetes mellitus. RECOMMENDATIONS: 1. Add amlodipine for blood pressure. 2. Give resolution of bradycardia, and I will see her further on an as needed basis. cc: Geovanni Nino MD
[2018-11-27] MEDS: NORVASC PO SCH (16:31)
--- NOTE | 2018-11-27 18:22 | GASTROENTEROLOGY CONSULTATION ---
DATE: 11/27/2018 REASON FOR CONSULT: Dysphagia HISTORY OF PRESENT ILLNESS: Ms. Niki Cedeno is a 78 year old woman with IDDM2, CKD, HTN, HLD, CLL, GERD who presented with slurred speech and presyncopal symptoms found to have hyponatremia, HAP, bradycardia, severe anemia who reports having intermittent dysphagia to solids and GERD. No dysphagia to liquids. No N/V/F, CP, SOB, abdominal pain, rectal bleeding, melena. No NSAIDs. No prior EGD. Reports having colonoscopy within the last 5 years. Previously on nexium years ago for GERD. REVIEW OF SYMPTOMS: as per HPI; otherwise, 12-point ROS negative PAST MEDICAL HISTORY: IDDM2, CKD, HTN, CLL, GERD PAST SURGICAL HISTORY: No prior abdominal surgeries HOME MEDICATIONS: On admission were amlodipine, insulin, sertraline, simvastatin, pregabalin, carvedilol, clopidogrel, losartan, clonidine, hydralazine, MiraLAX, furosemide, carvedilol. ALLERGIES: IV contrast. SOCIAL HISTORY: She lives locally in [place] but again has been in SNF for rehab. She has a supportive family. No alcohol or tobacco. FAMILY HISTORY: No FHx of GI malignancies PHYSICAL EXAM VS: T 98.5 HR 77 RR 18 BP 171/50 100% RA GEN: awake, alert, NAD HEENT: Sclerae anicteric. Moist mucous membranes. Neck: No JVD. No lymphadenopathy Cardiac: Regular rate and rhythm, no murmurs. Lungs: CTAB, no wheezing or crackles Abdomen: soft, NT/ND, NABS, no rebound or guarding Extremities: No clubbing, cyanosis or edema. Skin: WWP Neurologic: Nonfocal Psychiatric:Normal affect. LABORATORY DATA Na 145 from 120 on admission Cr 2.7 WBC 27.4 Hgb 8.9 from 6.6, plts 123K LFTs WNL INR 1.00 iron 34, ferritin 240, B12/folate WNL IMAGING: MBS IMPRESSION: 1. Moderate cricopharyngeal achalasia. 2. Moderate presbyesophagus. CXR: bibasilar atelectasis ASSESSMENT AND PLAN Ms. Niki Cedeno is a 78 year old woman with IDDM2, CKD, HTN, HLD, CLL, GERD who presented with slurred speech and presyncopal symptoms found to have hyponatremia, HAP, bradycardia, severe anemia who reports having intermittent dysphagia to solids and GERD. Patient on plavix. MBS shows moderate cricopharyngeal achalasia and moderate presbyesophagus, but no obvious obstruction. Hgb respond to blood transfusion. No prior EGD. Reports colonoscopy in the last 5 years. #Dysphagia - start PPI PO once daily - NPO after MN for diagnostic EGD tomorrow #Anemia: no NANCY: B12/folate WNL: recommend outpatient colonoscopy once pneumonia resolved or sooner if patient develops overt bleeding #HAP: on abx as per primary team #CKD/Hyponatremia: stable; low Na resolved; renal following, apprec recs #Bradycardia: resolved #DM2: on SSI #GERD: PPI as above Thank you for this consult. Will follow with you. Please call with questions or concerns. LEONIDES
--- NOTE | 2018-11-27 18:36 | PROGRESS NOTE ---
DATE: 11/27/2018 SUBJECTIVE: The patient is more alert and awake. She is not complaining of any pain, nausea, or vomiting. No palpitations noted. OBJECTIVE: Vital Signs: Temperature 99.4 degrees, heart rate 76, respiratory rate 16, blood pressure 176/68, O2 saturation 100% on room air. General examination: This is a chronically ill- looking, 78-year-old female lying in bed, in no acute distress. HEENT: Head is normocephalic, atraumatic. Mucous membranes dry. Neck: No JVD noted. No carotid bruits. No lymphadenopathy. No thyromegaly. Cardiovascular: S1, S2 heard. No murmurs, gallops, or rubs. Regular rate and rhythm. Respiratory: Minimal coarse breath sounds noted and minimal wheezing in both pulmonary bases. Patient is not using any accessory muscles or having work of breathing. Abdomen: Soft. Nontender to palpation. Bowel sounds present. No organomegaly. Extremities: No clubbing or cyanosis, but there is bilateral lower extremity edema noted. Peripheral pulses present in both legs. Neurological: Patient is alert and oriented x3. Moves 4 extremities. LABORATORY DATA: White cell count is 27.38, hemoglobin 8.9, hematocrit 27.9, platelets 123,000. Sodium 145, potassium 3.7, creatinine 2.7, GFR 21, glucose 216. ASSESSMENT AND PLAN: 1. Hospital-acquired left lower lobe pneumonia. Patient is clinically doing fine. Requiring 2 L of oxygen by nasal cannula and not having any fever. The patient is on Zosyn and ceftaroline. Her white cell count is elevated still and she is not receiving any steroids. Actually there has been an increased in that white cell count. I think we will continue with the same management. I think also the elevation of the white cell count could be secondary to CLL. I do not think we need to do any changes to her current medications. 2. Sinus bradycardia. We know that the patient has chronic kidney disease and she has been on Coreg 25 mg p.o. b.i.d. I think she has washed out all that medication and heart rate is normal. 3. Hypertension. Blood pressure is getting higher. We will make some changes to her treatment. 4. Acute on chronic kidney disease stage. Dr. Nicholson is following this patient. Family agreed to start dialysis. Dr. Nicholson has ordered a 24 hour urine collection and will see what they have to say. 5. Hyponatremia, resolved. 6. Hyperkalemia, resolved. 7. Severe anemia, most likely related to renal disease. Hemoglobin is stable. 8. Diabetes mellitus type 2. We will continue with sliding scale insulin and Accu-Cheks before meals and also at bedtime. 9. Chronic lymphocytic leukemia. Aware. 10. Disposition. At this point, clinically she is doing fine. White cell count is still elevated but this is because of CLL. I think at this point what we need to know is if we are not going to provide dialysis or not. We will leave that to Dr. Nicholson's expertise. We will follow recommendations. cc: Garett Manley MD MTDJuan F
[2018-11-28] MEDS: ZOSYN 2.25 GM in NS 50 ML IV SCH ×3 (01:54→18:26)
[2018-11-28] MEDS: D5W 1,000 ML IV SCH (01:54)
[2018-11-28] MEDS: DUONEB (A & A) INH SCH ×6 (03:10→23:25)
[2018-11-28] MEDS: HUMALOG SUBQ SCH ×4 (06:00→21:02)
[2018-11-28] MEDS: PRILOSEC PO SCH (06:00)
[2018-11-28] MEDS ORDERED: XYLOCAINE-MPF 2% ONE (07:18)
[2018-11-28] MEDS ORDERED: DIPRIVAN 1% ONE (07:18)
[2018-11-28 07:47] LABS: HEMATOCRIT 28.6 % (37.0-47.0); HEMOGLOBIN 9.2 g/dL (12.0-16.0); MCH 27.4 PG (27-31); MCHC 32.2 g/dL (33-37); MCV 85.1 FL (81-99); MPV 10.2 FL (7.4-10.4); RBC 3.36 XMIL (4.2-5.4); RDW 16.8 % (11.5-14.5); WBC 23.33 X1000 (4.8-10.8)
[2018-11-28 07:53] LABS: ALBUMIN 3.5 g/dL (3.5-5.0); CALCIUM 8.4 mg/dL (8.8-10.2); CREATININE 2.4 mg/dL (0.5-0.9); POTASSIUM 3.6 mmol/L (3.5-5.1)
--- NOTE | 2018-11-28 08:17 | NEPHROLOGY PROGRESS NOTE ---
DATE: 11/28/2018 TIME SEEN: 0645. SUBJECTIVE: Ms. Cedeno is resting quietly in bed. She states that she has no discomfort. Breathing has improved. OBJECTIVE: Vital Signs: Temperature 98 degrees, blood pressure 188/64, heart rate 67, respirations 16. She is on 2 L nasal cannula. Last recorded saturation 100%. She has had 1440 in. She has had 2700 out to Herndon catheter. Labs: Currently pending this a.m. Previous potassium 3.7, previous BUN of 27, with a creatinine of 2.7. Previous hemoglobin 8.9. The patient had a 24 hour urine resulting with a 26% creatinine clearance and 5.7 g of proteinuria. Physical Examination: General: This is a 78-year-old, female resting quietly in bed. No acute distress. Skin: Warm and dry. HEENT: Normocephalic, atraumatic. Conjunctivae are pale. She has ASHISH. Mucous membranes are dry. Neck: Supple. Trachea midline. No JVD. Cardiovascular: She is regular rate and rhythm. She is without murmur or gallop. Lungs: Clear to auscultation bilaterally. Equal excursion, on O2. Abdomen: Soft, round, nontender. Positive bowel sounds. Genitourinary: Adequate urine out to Herndon catheter. Extremities: Have no edema, no clubbing, or cyanosis. Neurological: She is alert to person and to place, and most recent events. ASSESSMENT AND PLAN: 1. Chronic kidney disease stage 4. Patient remains at her historical baseline. She has had adequate urine out. We will stop her intravenous fluids this morning and take her Herndon out. We will order physical therapy and have her out of bed for her meals and assist with bedside commode today. Re-evaluate labs in the morning. 2. Electrolytes and acid-base balance. The patient had been stable yesterday. 3. Anemia. This is low but stable. 4. Bradycardia. Followed by cardiology. 5. Pneumonia. Again, followed by primary care. She is on renal dosed antibiotics. I would like to thank you for allowing us to follow with this patient. Dictated by SUJATHA Vera for Kishore Nicholson MD Face to face encounter, data reviewed, discussed with Maxim Wilson on 11/28/18. I agree with the above assessment and plan of care. cc: SUJATHA Vera MD MTDD
[2018-11-28] MEDS: DIFLUCAN 150 MG/NS 150 MG/75 ML IVPB IV SCH (09:20)
[2018-11-28] MEDS: TEFLARO 300 MG in NS 250 ML IV SCH ×2 (10:59→20:48)
--- NOTE | 2018-11-28 12:12 | GASTROENTEROLOGY PROGRESS NOTE ---
DATE: 11/28/2018 SUBJECTIVE: No acute overnight events. Afebrile. Patient denies N/V/F, abdominal pain. She was scheduled for diagnostic EGD this AM given reported dysphagia, but patient refused and would like to reconsider. PHYSICAL EXAM VS: T 98.1 HR 80 RR 16 BP 185/65 100% 2L NC GEN: awake, alert, NAD HEENT: Sclerae anicteric. Moist mucous membranes. Neck: No JVD. No lymphadenopathy Cardiac: Regular rate and rhythm, no murmurs. Lungs: CTAB, no wheezing or crackles Abdomen: soft, NT/ND, NABS, no rebound or guarding Extremities: No clubbing, cyanosis or edema. Neurologic: Nonfocal. Does not verbalize much Psychiatric:Normal affect. LABORATORY DATA K 3.6 Cr 2.4 WBC 23, hgb 9.2 plts 102K ASSESSMENT AND PLAN Ms. Niki Cedeno is a 78 year old woman with IDDM2, CKD, HTN, HLD, CLL, GERD who presented with slurred speech and presyncopal symptoms found to have hyponatremia, HAP, bradycardia, and severe anemia. GI consulted for intermittent dysphagia to solids and GERD. MBS showed moderate cricopharyngeal achalasia and moderate presbyesophagus, but no obvious obstruction. Patient is currently refusing EGD. She reports colonoscopy 5 years ago. 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 Please call with questions or concerns [facility]
[2018-11-28] MEDS: ZOLOFT PO SCH ×2 (14:26→17:05)
[2018-11-28] MEDS: NORVASC PO SCH ×2 (14:26→21:02)
--- NOTE | 2018-11-28 15:04 | PROGRESS NOTE ---
DATE: 11/28/2018 SUBJECTIVE: The patient is more alert and awake. The patient is not complaining of anything at this point. No nausea or vomiting reported. OBJECTIVE: Vital Signs: Temperature 98.1 degrees, heart rate 75, respiratory rate 20, blood pressure 185/65, O2 saturation 95% on 2 L nasal cannula. General: This is a chronically ill- looking, 78-year-old, female lying in bed, in no acute distress. HEENT: Head is normocephalic and atraumatic. Mucous membranes dry. Neck: Supple. No JVD noted. No carotid bruits. No lymphadenopathy. No thyromegaly. Cardiovascular: S1 and S2 heard. No murmurs, gallops, or rubs. Regular rate and rhythm. Respiratory: Minimal coarse breath sounds still present in both pulmonary bases. The patient is not using any accessory muscles or having work of breathing. Abdomen: Soft. Nontender to palpation. Bowel sounds present. No organomegaly. Extremities: No clubbing or cyanosis, but there is bilateral lower extremity edema, improved in comparing with the last couple of days. Peripheral pulses present in both legs. Neurological: Patient alert and oriented x2. Moves 4 extremities. LABORATORY DATA: White cell count 23.33, hemoglobin 9.2, hematocrit 28.6, platelets 102,000. Normal sodium and potassium with creatinine 2.4. Insulin and outs indicate 2 L and 5.2 L yesterday and the day before yesterday. ASSESSMENT AND PLAN: 1. Hospital-acquired left lower lobe pneumonia, clinically doing fine, continues to requires 2 L of oxygen by nasal cannula. The patient does not have any fever. White cell count is still elevated, but I think this is related to her chronic lymphocytic leukemia and not related really to infection. In any case, will continue with the same management. 2. Sinus bradycardia, resolved. The patient has been on Coreg 25 mg p.o. b.i.d. for a long period of time, but because of her renal dysfunction, that medication stayed longer that it was supposed to, but now her rate is okay. 3. Hypertension. Blood pressure is getting higher. Currently, this patient is receiving amlodipine 5 mg p.o. daily as the only medication for blood pressure. I think it is reasonable to start 5 mg twice daily and we can do also hydralazine p.r.n. to systolic blood pressure greater than 180. 4. Acute on chronic kidney disease stage 5. Dr. Nicholson is following this patient. Initially, there was possible concern for starting dialysis in this patient, but apparently they are not planning to do any dialysis in the near future. Will follow their recommendations. 5. Severe anemia, most likely related to renal disease. Hemoglobin continues to be stable at 9.2. Will continue to monitor. 6. Chronic lymphocytic leukemia. Aware. DISPOSITION: At this point, the patient is doing okay. Because of dysphagia, GI was consulted. EGD was suggest to her but she refused. I talked with the family and they wanted to have the procedure done while she is here. Will communicate with GI, Dr. Acosta, to inform him. cc: Garett Manley MD
[2018-11-28] MEDS: ZOFRAN IV PRN (15:30)
[2018-11-28] MEDS ORDERED: VANCOMYCIN 1 GM/NS 1 GM/250 ML IVPB IV SCH ×2 (18:00)
[2018-11-29] MEDS: ZOSYN 2.25 GM in NS 50 ML IV SCH ×3 (02:57→18:33)
[2018-11-29] MEDS: DUONEB (A & A) INH SCH ×6 (03:49→23:15)
[2018-11-29] MEDS: PRILOSEC PO SCH (06:57)
[2018-11-29] MEDS: HUMALOG SUBQ SCH ×4 (07:51→22:45)
[2018-11-29] MEDS ORDERED: ROBINUL ONE (08:04)
[2018-11-29] MEDS ORDERED: DIPRIVAN 1% ONE (08:05)
[2018-11-29] MEDS ORDERED: XYLOCAINE-MPF 2% ONE (08:05)
[2018-11-29] MEDS ORDERED: ZOFRAN ONE (08:47)
[2018-11-29] MEDS: D5W 1,000 ML IV SCH (11:06)
[2018-11-29] MEDS: TEFLARO 300 MG in NS 250 ML IV SCH ×2 (11:06→22:40)
[2018-11-29] MEDS: NORVASC PO SCH ×2 (11:09→22:45)
[2018-11-29] MEDS: ZOLOFT PO SCH (11:09)
--- NOTE | 2018-11-29 11:16 | OPERATIVE NOTE ---
PROCEDURE DATE: 11/29/2018 TITLE OF PROCEDURE: 1. Esophagogastroduodenoscopy with gastric biopsy. 2. Esophageal dilation with Bartlett dilator 48-Bahraini. PREOPERATIVE DIAGNOSES: 1. Dysphagia. 2. Anemia. 3. Thrombocytopenia. 4. End-stage renal disease, on hemodialysis. 5. Reflux disease. POSTOPERATIVE DIAGNOSES: 1. 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 2. Z-line visualized at 40 cm. 3. Evidence of Anna esophagitis. 4. Schatzki ring at distal esophagus status post 48-Bahraini Bartlett dilation. 5. Evidence of bile in the stomach, which was suctioned out. 6. Evidence of gastritis of body and antrum. This was biopsied. 7. Normal fundus, cardia, incisura. 8. There was evidence of duodenitis in duodenal bulb and second portion of duodenum in a moderate degree with erosions. ESTIMATED BLOOD LOSS: Minimal. COMPLICATIONS: None. ANESTHESIA: Monitored anesthesia care per the anesthesiologist. SPECIMEN: Random gastric biopsy. PROCEDURE: After informed consent, the patient explained the risks, benefits, indications, alternatives to the procedure, the patient was prepared for EGD. The risks of the procedure, including infection, bleeding, pain, trauma to the surrounding structures, perforation, , were explained to the patient, among others, and she acknowledged understanding and agreed to proceed with the procedure. The patient was brought to the OR. She was turned in a left lateral position. A bite block was placed in patient's mouth. After adequate monitored anesthesia monitored anesthesia care, an upper scope was introduced through the oral cavity and advanced all the way to the second portion of the duodenum. The esophagus showed tortuosity, likely suggesting motility disorder, though there was evidence of patchy whitish exudates in the middle distal esophagus suggesting mild Anna esophagitis. There was evidence of a Schatzki ring in the distal esophagus. The scope was able to traverse the area. The Z-line visualized at 40 cm. There was evidence of bile in the stomach, suctioned out. There was underlying erythema in the body and antrum. This was biopsied to rule out H pylori. On retroflexion, there was normal fundus, cardia, incisura appeared normal. The duodenal bulb and second portion of duodenum appeared erythematous and erosive, suggesting duodenitis. There was some erythema and erosions around the ampulla site also. The air and scope was withdrawn. The patient underwent 48-Bahraini Bartlett dilation. Post-dilation we did repeat EGD which showed satisfactory dilation. The air and scope was withdrawn. The patient tolerated procedure well, and will be monitored in OR in stable condition. Discussed the findings with the patient's family. All questions answered. RECOMMENDATIONS: 1. Patient will be on full liquid diet today and advance as tolerated. The patient will need to chew the food well. 2. We will start her on gastroesophageal reflux lifestyle changes. 3. We will start on Protonix 40 mg IV b.i.d. while in the hospital, and we will switch to Protonix once daily for 3 months on discharge. 4. The patient will be on MiraLAX 17 g p.o. once daily for bowel regimen. 5. We will start patient on Iron C b.i.d. and multivitamin once daily for anemia. 6. The patient has mild candidal esophagitis. We will start her on nystatin swish and swallow for 2 weeks. 7. Further recommendations pending hospital course. cc: MD Augustin Hinton MD
[2018-11-29] MEDS: NEPHRO-VITE PO SCH (11:22)
[2018-11-29] MEDS: MIRALAX PO SCH (11:22)
[2018-11-29] MEDS: ICAR-C PO SCH ×2 (11:22→22:45)
[2018-11-29] MEDS: PROTONIX IV SCH ×2 (11:22→22:45)
[2018-11-29] MEDS: SODIUM CHLORIDE 0.9% INJ SCH ×2 (11:23→22:46)
[2018-11-29 12:01] LABS: HEMATOCRIT 30.1 % (37.0-47.0); HEMOGLOBIN 9.5 g/dL (12.0-16.0); MCHC 31.6 g/dL (33-37); MCV 85.5 FL (81-99); MPV 10.5 FL (7.4-10.4); RBC 3.52 XMIL (4.2-5.4); RDW 16.6 % (11.5-14.5); WBC 23.57 X1000 (4.8-10.8)
[2018-11-29 12:14] LABS: ALBUMIN 3.1 g/dL (3.5-5.0); CALCIUM 8.4 mg/dL (8.8-10.2); CREATININE 2.3 mg/dL (0.5-0.9); PHOSPHORUS 3.5 mg/dL (2.7-4.5); POTASSIUM 3.7 mmol/L (3.5-5.1)
[2018-11-29] MEDS: DIFLUCAN PO SCH (13:34)
--- NOTE | 2018-11-29 13:44 | NEPHROLOGY PROGRESS NOTE ---
DATE: 11/29/2018 TIME SEEN: 0645 hours. SUBJECTIVE: Ms. Cedeno states that she has not gone to the bathroom much after having her IV fluids stopped and her Herndon catheter removed. OBJECTIVE: Vital Signs: Temperature 98.4 degrees, blood pressure 178/62, heart rate 73, respirations 14. She is on room air. Last recorded saturation 100%. She has had 875 in, 1775 out from Herndon and voiding yesterday. General: On physical examination, this is a 78-year-old, elderly female resting quietly in bed, no acute distress. Skin : Warm and dry. HEENT: Normocephalic, atraumatic. Conjunctivae pale. She has ASHISH. Mucous membranes dry. Neck: Supple. Trachea midline. No JVD. Cardiovascular: Regular rate and rhythm. She is without murmur. Lungs: Clear to auscultation bilaterally. Equal excursion on room air. Abdomen: Soft, nontender. Slightly distended. Positive bowel sounds. Genitourinary: Not inspected. Patient has been voiding, adequate amount recorded. Extremities: Have no edema. No clubbing or cyanosis. Neurological: She is alert to person and to place. LABS: The patient's labs this a.m. have not been completed. Her previous creatinine was 2.4 with a BUN of 17. White count is 23.57, hemoglobin 9.5, hematocrit 30.1, platelet count of 108. ASSESSMENT AND PLAN: 1. Chronic kidney disease stage IV. The patient does not have any lab for this morning. We will order some for tomorrow. 2. Electrolytes and acid-base balance; these have been fairly stable. 3. Anemia. This remains stable. 4. Leukocytosis. The patient continues on renal-dosed antibiotics. I would like to thank you for allowing us to follow with this patient. Lyjk-up-gorn encounter. Data reviewed and discussed with Gina Wilson. I agree with the above assessment and plan of care. RG Dictated by SUJATHA Vera for Kishore Nicholson MD cc: SUJATHA Vera MD [facility]
--- NOTE | 2018-11-29 15:54 | PROGRESS NOTE ---
DATE: 11/29/2018 OVERNIGHT: No acute events. SUBJECTIVE: This patient is feeling fine. She is denying any chest pain, shortness of breath or cough. She was able to come out of bed and sit in the bedside chair; however, she could not walk in the hallway. We discussed about her exam findings. The patient's daughter is at bedside. Plan of care was discussed with her. She is a surrogate decision maker. VITAL SIGNS: Temperature 98 degrees, pulse 76, blood pressure 163/66, saturating 100% on room air. PHYSICAL EXAMINATION: General: Does not appear in any acute distress. ENT: Oral cavity is moist. Lungs: Air entry decreased in left infrascapular region with inspiratory crackles. Mild inspiratory crackles on right infrascapular region as well. No wheeze or rhonchi. Heart: S1, S2 normal. Systolic murmur heard at the base of the heart. No rub or gallop. Abdomen: Soft, nontender. Extremities: No lower extremity edema. Neurologic: Alert, oriented x3. LABS: 1. Suggestive of persistent leukocytosis, normocytic anemia, chronic thrombocytopenia, which has been present since October 2018. 2. BUN of 19 and creatinine of 2.3 with GFR of 25. Acceptable range of blood sugars. MICROBIOLOGY: No data to date. IMAGING: No new imaging. ASSESSMENT AND PLAN: 1. Hospital-acquired left lower lobe pneumonia. Continue intravenous ceftaroline and intravenous Zosyn. Follow up with procalcitonin level and chest x-ray tomorrow. Her leukocyte count is elevated, which could be in the setting of her chronic lymphoid leukemia. 2. Sinus bradycardia on admission likely because of Coreg use, now resolved. Continue to hold Coreg for now. 3. Hypertension. Continue amlodipine. Add her home hydralazine. 4. Acute on chronic kidney disease stage V. Nephrology on board. Does not think the patient would need emergent hemodialysis. Continue to monitor basic metabolic panel daily. 5. Normocytic anemia, likely anemia of chronic disease related to chronic kidney disease. No need of transfusion at the moment. 6. Chronic lymphoid leukemia, aware, likely contributing to her leukocytosis. 7. Dysphagia, status post esophagogastroduodenoscopy showing candidal esophagitis, Schatzki's ring status post dilatation, gastritis, duodenitis with superficial erosion. Continue pantoprazole intravenous twice daily and transition to oral once a day at the time of discharge. Continue fluconazole. Gastroenterology on board. 8. Disposition: I will follow up with chest x-ray and procalcitonin tomorrow. If the patient continues to feel better, my plan is to discharge her home with home physical therapy. The patient's daughter, who is a surrogate decision maker did not want the patient to go to rehabilitation. Plan of care was discussed with the patient and her daughter. All of their questions have been answered. cc: Remi Bethea MD
[2018-11-29] MEDS: APRESOLINE PO SCH ×2 (17:52→18:33)
[2018-11-30] MEDS: ZOSYN 2.25 GM in NS 50 ML IV SCH ×3 (01:54→09:42)
[2018-11-30] MEDS: DUONEB (A & A) INH SCH ×4 (03:35→16:16)
[2018-11-30] MEDS: D5W 1,000 ML IV SCH (06:31)
[2018-11-30] MEDS: HUMALOG SUBQ SCH ×3 (07:31→16:40)
[2018-11-30 08:00] LABS: ALBUMIN 3.4 g/dL (3.5-5.0); CALCIUM 8.4 mg/dL (8.8-10.2); CREATININE 2.4 mg/dL (0.5-0.9); PHOSPHORUS 3.4 mg/dL (2.7-4.5); POTASSIUM 3.3 mmol/L (3.5-5.1)
--- NOTE | 2018-11-30 08:02 | Diag Imaging Result Doc PS360 ---
EXAM: CHEST-2 VIEWS 11/30/2018 HISTORY: Follow up left lower lobe consolidation TECHNIQUE: PA and lateral chest COMMENT: The inspiration is suboptimal. Compared to 11/24/2018 there has been clearing of some of the basilar opacities present on the previous study. IMPRESSION: Improved atelectasis or pneumonia. Electronically signed by Jass Velez 11/30/2018 8:00 AM
[2018-11-30] MEDS: NEPHRO-VITE PO SCH ×3 (09:16→11:12)
[2018-11-30] MEDS: APRESOLINE PO SCH ×5 (09:16→16:40)
[2018-11-30] MEDS: MIRALAX PO SCH ×2 (09:16→09:41)
[2018-11-30] MEDS: TEFLARO 300 MG in NS 250 ML IV SCH (09:16)
[2018-11-30] MEDS: DIFLUCAN PO SCH ×3 (09:16→11:12)
[2018-11-30] MEDS: ZOLOFT PO SCH ×3 (09:16→11:12)
[2018-11-30] MEDS: PROTONIX IV SCH (09:16)
[2018-11-30] MEDS: ICAR-C PO SCH ×3 (09:16→11:12)
[2018-11-30] MEDS: NORVASC PO SCH ×3 (09:16→11:12)
--- NOTE | 2018-11-30 12:20 | GASTROENTEROLOGY PROGRESS NOTE ---
DATE: 11/30/2018 SUBJECTIVE: No acute overnight events. Afebrile. Patient denies N/V/F, abdominal pain. She is tolerating full liquid diet. PHYSICAL EXAM VS: T 98.1 HR 79 RR 16 BP 164/61 GEN: awake, alert, NAD HEENT: Sclerae anicteric. Moist mucous membranes. Neck: No JVD. No lymphadenopathy Cardiac: Regular rate and rhythm, no murmurs. Lungs: CTAB, no wheezing or crackles Abdomen: soft, NT/ND, NABS, no rebound or guarding Extremities: No clubbing, cyanosis or edema. Neurologic: Nonfocal. Does not verbalize much Psychiatric:Normal affect. LABORATORY DATA WBC 23 Hgb 9.5 plts 108K EGD 11/29/2018 POSTOPERATIVE DIAGNOSES: 1. 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 2. Z-line visualized at 40 cm. 3. Evidence of Anna esophagitis. 4. Schatzki ring at distal esophagus status post 48-Bengali Bartlett dilation. 5. Evidence of bile in the stomach, which was suctioned out. 6. Evidence of gastritis of body and antrum. This was biopsied. 7. Normal fundus, cardia, incisura. 8. There was evidence of duodenitis in duodenal bulb and second portion of duodenum in a moderate degree with erosions. ASSESSMENT AND PLAN Ms. Niki Cedeno is a 78 year old woman with IDDM2, CKD, HTN, HLD, CLL, GERD who presented with slurred speech and presyncopal symptoms found to have hyponatremia, HAP, bradycardia, and severe anemia. GI consulted for intermittent dysphagia to solids and GERD. MBS showed moderate cricopharyngeal achalasia and moderate presbyesophagus. EGD on 03/29 revealed Anna esophagitis , tortuous esophagus, Schatzki's ring, gastritis and duodenitis. Esophagus was dilated and random gastric biopsies were obtained to rule out H pylori. 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 Please call with questions or concerns MTDD
[2018-11-30] MEDS ORDERED: KLOR-CON PO SCH (14:15)
[2018-11-30 15:49] VITALS: BP 153/79
[2018-11-30] MEDS: SODIUM CHLORIDE 0.9% INJ SCH (16:39)
--- NOTE | 2018-12-01 00:50 | NEPHROLOGY PROGRESS NOTE ---
DATE: 11/30/2018 SUBJECTIVE: Patient resting in bed. No complaints. OBJECTIVE: Vital Signs: Temperature 98.1 degrees, pulse 79, respiratory rate 16, blood pressure 164/61, intake 140 mL, output incontinent. General: This is an elderly female, resting in bed. Awake and alert, in no acute distress. HEENT: Normocephalic, atraumatic. Pale conjunctivae. Oral mucosa dry. Neck: Supple, without JVD. Cardiovascular: Regular rate and rhythm. No murmur or gallop. Pulmonary: Clear bilaterally. Equal excursion. Abdomen: Soft, with positive bowel sounds. : Voiding. Extremities: No clubbing, cyanosis. No edema. Integumentary: Skin is warm and dry. LAB DATA: CBC of 23.5, hemoglobin 9.5, sodium 139, potassium 3.3, CO2 25, creatinine 2.4. ASSESSMENT AND PLAN: Chronic kidney disease, stage 4. The patient remains with creatinine at her historical baseline. From a renal perspective, we do not have any additional suggestions. We would follow up with her as an outpatient in 2 to 3 weeks after discharge. If her renal function worsens while she is in the hospital, please do not hesitate to contact us for assistance. Dictated by SUJATHA Loera for Kishore Nicholson MD cc: Kishore Nicholson MD
--- NOTE | 2018-12-01 16:46 | DISCHARGE SUMMARY ---
ADMISSION DATE: 11/24/2018 DISCHARGE DATE: 11/30/2018 DISCHARGE DIAGNOSIS: 1. Sinus bradycardia with first-degree atrioventricular block. 2. Left lower lobe pneumonia hospital-acquired. 3. Hyponatremia, hyperkalemia. 4. Acute renal failure on chronic kidney disease stage 4. 5. Anemia normocytic, likely anemia chronic disease. 6. Dysphagia. 7. Candidal esophagitis and esophageal Schatzki ring status post dilatation. 8. Acute gastritis and acute duodenitis with superficial erosion. 9. Other history, history of insulin-dependent diabetes mellitus. 10. History of chronic kidney disease stage 4. 11. History of chronic lymphoid leukemia. 12. History of essential hypertension. CONSULTATION: Gastroenterology Dr. Verdugo, nephrology Dr. Nicholson, surgeon Dr. Larry Nash, cardiology Dr. Mica Brown. PROCEDURES: Right femoral vein triple-lumen catheter for intravenous access on November 24, EGD on November 29 which detected candidal esophagitis, Schatzki ring at distal esophagus status post 48- Icelandic Bartlett dilatation, evidence of bile in stomach, evidence of acute gastritis, duodenitis with superficial erosion. IMAGING: Head CT on admission had no evidence of acute intracranial disease and chronic maxillary sinusitis. Chest x-ray had detected minimal left lower lobe pneumonia on November 23. Echocardiogram on November 23 had detected mild aortic wall sclerosis, systolic pulmonary artery pressure of 40 mmHg, normal left ventricular ejection fraction of 65% without pericardial effusion. Chest x-ray on November 30 had detected improved atelectasis or pneumonia. VITALS: At the time of discharge temperature 98.9 degrees, pulse 80, blood pressure 150/79, saturation 100% on 1 L nasal cannula. Previously she was 98% on room air as well. PHYSICAL EXAMINATION: At the time of discharge. General: The patient does not appear in any acute distress. She was alert, following simple commands. Oral cavity was moist. Air entry bilaterally equal without any wheeze, rhonchi. She had mild inspiratory crackles bilateral infrascapular region which had improved than yesterday's examination. No wheeze or rhonchi. S1, S2 normal. Systolic murmur at the base of the heart. No rub or gallop. Abdomen: Soft, nontender. Extremities: No lower extremity edema. Neurologic: She was alert and following simple commands. LABS: At the time of discharge. WBC of 23,000 likely because of her chronic lymphoid leukemia, hemoglobin of 9.5, platelet of 108,000, potassium of 3.3 which was being repleted, glucose of 105. Microbiology during hospital admission blood culture and urine culture no growth till date. HOSPITAL COURSE SUMMARY: Mr. Cedeno is 78 years old lady who initially presented with complaints of acute encephalopathy and increase in weakness of a few days duration. She also had some shaking in the upper extremities but without any seizure and daughter was concerned about the stroke. In the emergency room the CT head was unremarkable. However chest x- ray had suggested lower lobe pneumonia and she was started on intravenous antibiotics. During hospital admission she was also noted to have sinus bradycardia episode with heart rate in high 30s to low 40s for which Cardiology was consulted and her beta blockers were stopped. During hospital admission she also noted to have acute kidney injury on chronic kidney disease for which she was given gentle hydration and Nephrology was consulted who suggested that patient did not need any dialysis. After intravenous antibiotics course patient's mental status has improved. Her pneumonia was also started getting improved and her kidney function started recovering. For dysphagia GI was consulted who performed EGD and she eventually underwent dilatation of Schatzki ring and was started on treatment for esophageal candidiasis. At the time of discharge patient and her daughter had expressed wishes that she would like to go to home with home physical therapy rather than rehab and so patient was discharged on home with home health. HOSPITAL COURSE PROBLEM CASTELLANO: 1. Hospital-acquired left lower lobe pneumonia. She is now status post intravenous ceftaroline and intravenous Zosyn of 7 days duration which was stopped at the time of discharge, her chronic leukocytosis is likely because of chronic lymphocytic leukemia. 2. Sinus bradycardia because of beta-carl use was resolved after beta blockers were stopped. 3. Essential hypertension. She was started on amlodipine and hydralazine. She should get in touch with her primary care doctor about adding losartan as tolerated. 4. Acute kidney disease on chronic kidney disease stage 4 which had resolved at the time of discharge and her kidney function was at baseline CKD 4. 5. For her normocytic anemia of chronic disease she did not need any transfusion. 6. For chronic lymphoid leukemia it was in remission did not require treatment. For her dysphagia she will be discharged on p.o. Fluconazole and pantoprazole, she should follow up with Gastroenterology as an outpatient. 7. More than 30 minute was spent in discharging this patient. I called the patient's daughter who is surrogate decision maker, answered all questions and conveyed to her about discharge instructions, all of her questions have been answered. 8. For her insulin-dependent diabetes mellitus she was advised to continue lower dose of insulin, get blood sugar checks and discuss with the regular doctor about increasing the dose as tolerated. Discharge medications: To follow in addendum. > 30 minutes were spent in discharging this patient. cc: Remi Bethea MD MTDJuan F
--- NOTE | 2018-12-02 19:46 | DISCHARGE SUMMARY ---
ADMISSION DATE: 11/24/2018 DISCHARGE DATE: 11/30/2018 ADDENDUM: DISCHARGE MEDICATION LIST: Clopidogrel 75 mg daily, amlodipine 10 mg daily, clonidine 0.1 mg t.i.d., hydralazine 100 mg b.i.d., insulin glargine 15 units in the morning, insulin lispro with meals and at nighttime sliding scale, Lyrica 75 mg p.o. daily, sertraline 100 mg p.o. daily, simvastatin 40 mg at nighttime, 20% Mucomyst 3 mL inhaled b.i.d., albuterol ipratropium 3 mL inhaled q.4 hours, fluconazole 100 mg p.o. daily 12 tablets, iron carbonyl ascorbic acid 1 tablet p.o. b.i.d., pantoprazole 40 mg daily 90 tablets, MiraLAX 17 g p.o. daily. cc: Remi Bethea MD
== END 2018-11-30 18:05 | disposition home health service (06) | DRG 682 ==
LOC: P.ED 15:50 → ICU 11-24 01:27 → SUATTDRO 11-24 01:27 → 3N 11-26 10:45
PROVIDERS: ATTEND Internal Medicine
CPT/HCPCS: 36430; 51702; 70450; 71010; 71020; 71045; 71046; 74230; 80053; 80069; 81001; 81050; 82550; 82575; 82607; 82728; 82746; 82948; 83036; 83540; 83550; 83605; 83735; 83880; 83930; 83935; 84145; 84156; 84295; 84300; 84484; 85014; 85018; 85025; 85027; 85610; 85730; 86850; 86900; 86901; 86920; 87040; 87088; 88305; 88312; 92611; 93005; 93306; 94640; 94761; 96365; 96366; 96367; 96375; 96376; 99285; 99291; A9270; C9113; J0461; J0610; J0712; J1265; J1450; J1815; J2405; J2543; J3370; J7030; J7040; J7050; J7070; P9016; S0164; XXXXX

== ENCOUNTER 2019-06-14 20:33 | Inpatient (IN) ==
[2019-06-14] MEDS ORDERED: NORCO-5 PO ONE (20:48)
--- NOTE | 2019-06-14 21:42 | Diag Imaging Result Doc PS360 ---
EXAM: KNEE 3 VIEWS LEFT HISTORY: fall TECHNIQUE: Left knee, three views COMPARISON: None. FINDINGS: No fracture. No dislocation. Prominent atherosclerosis. Mild to moderate arthritis. IMPRESSION: No acute bony injury. Electronically signed by Juan Luis Mena 06/14/2019 9:39 PM
--- NOTE | 2019-06-14 21:43 | Diag Imaging Result Doc PS360 ---
EXAM: PELVIS HISTORY: fall TECHNIQUE: Pelvis single view COMPARISON: None. FINDINGS: Left femoral neck fracture at the base of the trochanters. Femoral head remains in the acetabulum. Femoral shaft is rotated and superior replaced. Prominent atherosclerosis. No fracture to the pelvis. IMPRESSION: Left femoral neck fracture. Electronically signed by Juan Luis Mena 06/14/2019 9:40 PM
--- NOTE | 2019-06-14 21:44 | Diag Imaging Result Doc PS360 ---
EXAM: FEMUR MIN 2 VIEWS LEFT HISTORY: fall TECHNIQUE: Four views COMPARISON: None. FINDINGS: Left femoral neck fracture to the base of the trochanters. The femoral head remains in the acetabulum. The femoral shaft is superior placed and rotated. Prominent atherosclerosis. IMPRESSION: Left femoral neck fracture. Electronically signed by Juan Luis Mena 06/14/2019 9:41 PM
--- NOTE | 2019-06-14 22:00 | Diag Imaging Result Doc PS360 ---
EXAM: CHEST-1 VIEW HISTORY: FALL TECHNIQUE: Chest single view COMPARISON: 11/30/2018 FINDINGS: The lungs are well expanded. No contusion. No pneumothorax. The heart is not enlarged. The vessels are not distended. There are no infiltrates. No effusion identified. IMPRESSION: No injury Electronically signed by Juan Luis Mena 06/14/2019 9:58 PM
--- NOTE | 2019-06-14 22:06 | PROVIDER DOCUMENTATION ---
This chart was entered by Deirdre Jennings Scribe, acting as scribe for Hari Moseley MD. HPI-Musculoskeletal Pain/Inj - GENERAL Chief Complaint: Fall Stated Complaint: fall from standing Time Seen by Provider: 06/14/19 20:35 Source: patient - HX OF PRESENT ILLNESS-MUSKULOSKELTAL Nature of Presenting Problem: pt is a 79 yr old female presenting via EMS post fall, pt reports she fell from standing on patio, complains of left leg pain from knee up to hip, pt denies anyother injury. pt normally ambulates with walker but had gotten up to sweep off the patio when she lost her balance and fell. pt is unable to stand or ambulate post fall. Quality of Pain: reports: throbbing Severity in ED: severe Onset/Duration: just prior to arrival Timing: still present Modifying Factors: improves with: movement (worsens pain) Any recent injury?: Yes Locality of Occurance: Home Similar Symptoms Previously?: No Recently seen or treated by another doctor?: Yes - FALL INJURY Location of Pain/Injury: reports: lower extremity (left upper leg, knee, hip) Pain Radiation: reports: no radiation Reason for Fall: reports: lost balance Symptoms prior to fall:: reports: none Loss of Consciousness: no loss of consciousness Injury Associated Symptoms: reports: joint pain, unable to bear weight, trouble walking. denies: arm pain, back/neck pain, chest pain, snap/crack/pop sensation - HIP/PELVIS PAIN/INJURY Hip Pain Location: reports: hip (L) Context / Method of Injury: reports: fall Associated Symptoms: reports: denies symptoms - LOWER EXTREMITY PAIN/INJURY Lower Extremities Pain: hip: left, leg: left, knee: left Context / Method of Injury: reports: fell Associated Symptoms: reports: denies symptoms Review of Systems - Adult - REVIEW OF SYSTEMS - ADULT Constitutional: reports: no symptoms reported Eyes: denies: blurred vision, double vision Ears, Nose, Mouth & Throat: reports: no symptoms reported Cardiovascular: denies: chest pain, syncope Respiratory: denies: cough, shortness of breath Gastrointestinal: denies: abdominal pain, nausea, vomiting Genitourinary: reports: no symptoms reported Musculoskeletal: reports: bone pain, joint pain. denies: back pain, neck pain Integumentary: reports: no symptoms reported Neurological: denies: dizziness/vertigo, headache/migraines Psychiatric: reports: no symptoms reported Endocrine: reports: no symptoms reported Hematologic/Lymphatic: reports: no symptoms reported Allergic/Immunologic: reports: no symptoms reported All Other Systems: Reviewed and Negative Past History - Adult - PAST MEDICAL HISTORY-ADULT Review of Records: reports: Old Records Reviewed, Nursing Assessment Review, Medications Reviewed, Social history reviewed & non-contributory. Major Childhood Illnesses: reports: history unknown Cardiovascular: reports: HTN, hyperlipidemia Respiratory: reports: denies history Gastrointestinal: reports: denies history Obstetrical/Gynecological: reports: denies history Genitourinary: reports: kidney disease Musculoskeletal: reports: denies history Neurological: reports: CVA, Seizures/Epilepsy Psychiatric: reports: denies history Endocrine/Immune: reports: Diabetes Other Conditions: reports: other cancer (CLL) - PRIOR SURGERIES/PROCEDURES Surgical/Procedure History: reports: orthopedic (extremity) (right ankle), other (sinus) - IMMUNIZATION STATUS Childhood Immunizations: See Nurse Assessment Flu Vaccine: See Nurse Assessment - FAMILY HISTORY Family History: reviewed, not pertinent - SOCIAL HISTORY Smoking: non-smoker Substance Use: none/never Living Situation: family Physical Exam-Injury Related - Physical Exam-Injury Related Initial Vital Signs Reviewed: Yes General Appearance: appears well, alert, no apparent distress Immobilization?: negative: backboard, C-collar Eyes: PERRL/EOMI Head, Ears, Nose, Mouth & Throat: normocephalic/atraumatic, moist mucous membranes, normal ENT inspection Neck: non-tender, full range of motion, supple, normal inspection Respiratory: chest non-tender, lungs clear, normal breath sounds, no respiratory distress, no accessory muscle use Cardiovascular: normal peripheral pulses, regular rate, rhythm, no edema Chest/Breast: deferred Peripheral Pulses: radial (R): 2+, radial (L): 2+, dorsalis-pedis (R): 2+, dorsalis-pedis (L): 2+ Abdominal Exam: normal bowel sounds, non tender, soft Lymphatic: no adenopathy Back Exam: normal inspection Extremity: tenderness (left knee, left upper leg, left hip). negative: deformity Integumentary: normal color, warm/dry, blanching Neurologic: grossly normal Psych/Mental Status: normal mood/affect - Glascow Coma Score Best Eye Response ([place]): (4) open spontaneously Best Verbal Response (Evar[place]): (5) oriented Best Motor Response ([place]): (6) obeys commands Evaristo Total: 15 Progress - PLAN OF CARE/RESULTS Progress/Plan/Lab Results: Vital Signs - 8 hr 06/14/19 20:29 Temperature 98.2 F Pulse Rate 88 Respiratory Rate 20 Blood Pressure 196/74 O2 Sat by Pulse Oximetry 98 Orders Category Date Time Status Cardiac Monitoring DIRECTED Care 06/14/19 20:36 Active CHEST-1 VIEW [RAD] Stat Exams 06/14/19 21:33 Completed FEMUR MIN 2 VIEWS LEFT [RAD] Stat Exams 06/14/19 20:46 Completed KNEE 3 VIEWS LEFT [RAD] Stat Exams 06/14/19 20:47 Completed PELVIS [RAD] Stat Exams 06/14/19 20:45 Completed CBC WITH ELECTRONIC DIFF [HEME] Stat Lab 06/14/19 20:39 Ordered CMP [COMPREHENSIVE METABOLIC PANEL] [CHEM] Stat Lab 06/14/19 20:39 Uncollected Hydrocodone/APAP 5 mg/325 mg [[place]-5] Med 06/14/19 20:48 Discontinued 1 each PO NOW ONE EKG [EKG] Stat Ther 06/14/19 20:36 Ordered - CONSULTS/PCP/HOSPITALIST Notification #1 *Consult/PCP/Hospitalist*: 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 002A - Fracture of unspecified part of neck of left femur, initial encounter for closed fracture Disposition: ADMITTED INPATIENT 09 Certified Medical Emergency: Emergent Condition: Stable Referrals and Follow-Ups: Sekou Ovalle MD [Primary Care Provider] - - Critical Care Note This patient required my direct & personal management of CC.: No Attestation - Physician/ YESSICA Attestation Patient care was provided by Advanced Practice Provider:: No The physician spent face to face time with patient:: Yes Advanced Practice Provider documentation review:: Supervising physician onsite and consulted in the evaluation and care of this patient. The physician did have a face to face encounter with the patient. This chart was documented by the indicated scribe, (Deirdre Jennings, Emily) and accurately reflects the services I performed and decisions made by me, Hari Moseley MD, as attested by the provider's signature.
[2019-06-14] MEDS ORDERED: ZOFRAN IV PRN (22:10)
[2019-06-14 22:55] LABS: BASO# 0.04 X1000 (0.0-0.2); BASO% 0.2 % (0.0-0.8); EOS# 0.68 X1000 (0.0-0.7); EOS% 2.6 % (0.0-10.0); IMM GRAN# 0.13 X1000 (0.0-0.04); IMM GRAN% 0.5 % (0.0-0.5); LYMPH# 12.92 X1000 (1.2-3.4); LYMPH% 48.6 % (20.5-51.1); MCH 26.6 PG (27-31); MCHC 32.3 g/dL (33-37); MCV 82.4 FL (81-99); MONO# 0.81 X1000 (0.11-0.59); MPV 11.2 FL (7.4-10.4); NEUT% 45.1 % (42.2-75.2); PLT 188 X1000 (130-400); RBC 3.76 XMIL (4.2-5.4); RDW 15.7 % (11.5-14.5); WBC 26.58 X1000 (4.8-10.8)
[2019-06-14] MEDS: MORPHINE IV PRN (23:16)
[2019-06-15 01:44] LABS: ALB/GLOB RATIO 1.7; CALCIUM 8.7 mg/dL (8.8-10.2); POTASSIUM 4.9 mmol/L (3.5-5.1); TOTAL BILIRUBIN 0.22 mg/dL (0.20-1.00); TOTAL PROTEIN 6.4 g/dL (6.3-8.3)
[2019-06-15] MEDS: MORPHINE IV PRN ×3 (02:19→10:03)
--- NOTE | 2019-06-15 02:48 | HISTORY AND PHYSICAL ---
ADDENDUM The patient is a 79-year-old lady with past medical history of CKD stage 5, hypertension, who tried to ambulate without her walker, fell after she lost her balance. She did not hit her head, did not lose any consciousness. She was unable to stand up because there was intense pain in the left hip. PHYSICAL EXAMINATION: VITAL SIGNS: Blood pressure 168/65, pulse rate 83, respirations 16, temperature is 99.4 degrees. She is 94% on room air. GENERAL: Pleasant, elderly woman. CARDIOVASCULAR: Notable for 2 to 3/6 ejection systolic murmur. LUNGS: Clear lungs. EXTREMITIES: Trace to 1+ pitting edema in both lower extremities. Good distal pulse volumes. The patient will be admitted and Dr. Jacobs will see in the morning. Patient's medications will need to be renally adjusted during her stay to avoid toxicity. Bowel regimen instituted. Optimal pain medications will be instituted. Avoid any potentially nephrotoxic medications. The patient does have a history of type 2 diabetes and I recommend patient be on a sliding scale in view of her renal function. cc: Kodi Fuentes MD
--- NOTE | 2019-06-15 03:45 | EKG Report ---
Test Performed on : 06/14/2019 9:49:45 PM Test Reason : pain Blood Pressure : / mmHG Vent. Rate : 081 BPM Atrial Rate : 081 BPM P-R Int : 212 ms QRS Dur : 148 ms QT Int : 428 ms P-R-T Axes : 054 -57 083 degrees QTc Int : 497 ms Sinus rhythm. with 1st degree AV block. Right bundle branch block Left anterior fascicular block Bifascicular block Left ventricular hypertrophy with repolarization abnormality Abnormal ECG When compared with ECG of 23-NOV-2018 17:19, Sinus rhythm. has replaced Idioventricular rhythm. Vent. rate has increased BY 41 BPM Unconfirmed Result
--- NOTE | 2019-06-15 03:55 | EKG Report ---
Test Performed on : 06/15/2019 03:38:37 AM Test Reason : Fall,Weakness,Left Hip Fracture Blood Pressure : / mmHG Vent. Rate : 076 BPM Atrial Rate : 076 BPM P-R Int : 200 ms QRS Dur : 144 ms QT Int : 436 ms P-R-T Axes : 052 -55 062 degrees QTc Int : 490 ms Normal sinus rhythm. Right bundle branch block Left anterior fascicular block Bifascicular block Left ventricular hypertrophy with repolarization abnormality Abnormal ECG When compared with ECG of 14-JUN-2019 21:49, (Unconfirmed) No significant change was found Confirmed by Michael Jarquin MD ([id number]) on 06/18/2019 8:28:34 AM
[2019-06-15 04:16] LABS: URINE SOURCE CATH
[2019-06-15 04:17] LABS: BILIRUBIN URINE NEGATIVE (NEGATIVE); BLOOD URINE TRACE (NEGATIVE); COLOR YELLOW; GLUCOSE URINE 70 mg/dL (NEGATIVE); KETONE URINE NEGATIVE (NEGATIVE); LEUKOCYTES URINE NEGATIVE (NEGATIVE); NITRITE URINE NEGATIVE (NEGATIVE); PROTEIN URINE 200 mg/dL (NEGATIVE); SP GRAVITY URINE 1.013; TURBIDITY URINE CLEAR (CLEAR); UROBILINOGEN URINE NORMAL (NORMAL)
[2019-06-15 04:18] LABS: UR EPITHELIAL CELLS <10 /HPF (<10); URINE BACTERIA NEGATIVE /HPF; URINE RBC <10 /HPF (<10); URINE WBC <10 /HPF (<10)
[2019-06-15] MEDS: DUONEB (A & A) INH SCH ×8 (05:28→23:12)
[2019-06-15 05:57] LABS: BASO% 0.1 % (0.0-0.8); EOS% 1.1 % (0.0-10.0); HEMATOCRIT 27.6 % (37.0-47.0); HEMOGLOBIN 9.1 g/dL (12.0-16.0); IMM GRAN% 0.4 % (0.0-0.5); LYMPH# 11.79 X1000 (1.2-3.4); LYMPH% 53.8 % (20.5-51.1); MCH 27.3 PG (27-31); MCV 82.9 FL (81-99); MONO# 0.77 X1000 (0.11-0.59); MONO% 3.5 % (1.7-9.3); MPV 11.2 FL (7.4-10.4); NEUT% 41.1 % (42.2-75.2); PLT 155 X1000 (130-400); RBC 3.33 XMIL (4.2-5.4); RDW 15.3 % (11.5-14.5); WBC 21.91 X1000 (4.8-10.8)
[2019-06-15 05:58] LABS: BASO# 0.03 X1000 (0.0-0.2); EOS# 0.24 X1000 (0.0-0.7); IMM GRAN# 0.08 X1000 (0.0-0.04)
[2019-06-15 06:00] LABS: INR 1.2; PROTIME 15.4 Seconds (11.0-16.0)
[2019-06-15 06:01] LABS: PTT 32.7 Seconds (22.3-41.8)
[2019-06-15 06:11] LABS: EOS 2 % (1-10); LYMPHS 46 % (21-51); SEGS 52 % (42-75)
[2019-06-15] MEDS: CATAPRES PO SCH ×3 (06:45→21:26)
[2019-06-15] MEDS: PRILOSEC PO SCH (06:45)
[2019-06-15 06:58] LABS: CALCIUM 8.6 mg/dL (8.8-10.2); CREATININE 4.4 mg/dL (0.5-0.9)
--- NOTE | 2019-06-15 08:07 | ORTHOPAEDICS CONSULTATION ---
DATE: 06/15/2019 CHIEF COMPLAINT: "My left hip hurts." HISTORY OF PRESENT ILLNESS: A 79-year-old female with a history of hypertension and renal disease, status post a fall last night. She was admitted with a left hip fracture by the hospitalist service. I was consulted for orthopedic management. PAST MEDICAL HISTORY: Significant for hypertension and CKD stage 5. She is a household ambulator. Resides with her family in the area. Medicines are as listed per her intake form. PHYSICAL EXAM: Reveals both upper extremities to be relatively atraumatic. She is nontender over the right lower extremity. There is tenderness to motion over the left hip. Compartments were soft. She appears to be motor and sensory intact. X-rays reviewed show a base of the neck intertrochanteric left hip fracture. ASSESSMENT: Basilar left intertrochanteric hip fracture. PLAN: If she is medically stable we will plan on surgical stabilization of the hip today. Risks benefits were discussed including no guarantees and risk of anesthesia, infection, damage to tendon, nerve, or blood vessel, blood clots, loss of fixation, failure of the implant and other imponderables and she is willing to proceed. We will plan on proceeding with that later today. cc: Fili Jacobs MD
--- NOTE | 2019-06-15 08:56 | PROGRESS NOTE ---
DATE: 06/15/2019 SUBJECTIVE: A 79-year-old with a history of chronic kidney disease stage V, hypertension, tried to ambulate with a walker and lost her balance. Did not hit her head. Did not lose consciousness. Unable to stand up because of intense pain. Patient has diabetes mellitus type 2. She is comfortable at the present time. Her femur x-ray showed left femur neck fracture. Her chest x-ray showed no injury and was clear. No sign of infiltrate. Her knee x-ray with no acute bony abnormality. OBJECTIVE: General: On exam today, she is a little bit groggy, but she does answer questions appropriately. Vital Signs: Temperature 99.7 degrees, pulse 75, respirations 16, blood pressure 163/58. Eyes: Pupils are equal and round. Lungs: Lungs are clear in all lung smith. Cardiovascular exam: Regular rate without murmur or S3. Abdomen: Soft. Skin: Warm and dry. Extremities: Her feet with trace edema ankle to mid rojas. : Urine output was about 1400 mL. ASSESSMENT AND PLAN: 1. Basilar left intertrochanteric hip fracture. So, plan is surgical stabilization of the hip per Dr. Jacobs. 2. Diabetes mellitus type 2. Will follow pattern sugars. 3. Chronic kidney disease stage V. We will make sure Dr. Nicholson is involved. Volume status looks okay at this point. REVIEW OF HER ORDERS: She is on Norvasc 10 mg a day, clonidine 0.1 mg t.i.d., Colace 100 mg daily, Apresoline 75 mg t.i.d. iron carbonyl ascorbic acid 1 b.i.d., Prilosec 20 mg a day, polyethylene glycol or MiraLAX 17 g p.o. daily, Lyrica 75 mg a day, Zoloft 100 mg daily, and Zocor 40 mg at bedtime. For pain, she is getting morphine 2 mg IV q. 3 hours p.r.n. REVIEW OF HER LABS: White count was a little elevated; it was 26,000 this morning and now it is 21,910, hematocrit is 27, hemoglobin 9.1, platelet count 155,000. Sodium 138, potassium 5.0, chloride 105. BUN 57, creatinine 4.0, which is stable from yesterday. Calcium is 8.6. I think she is okay for surgery. We will ask Dr. Nicholson to follow along. cc: Yovani Melgoza MD
[2019-06-15] MEDS ORDERED: COLACE PO SCH (09:00)
[2019-06-15] MEDS ORDERED: KEFZOL 2 GM/D5W 2 GM/50 ML IVPB ONE (10:42)
[2019-06-15] MEDS ORDERED: NEOSPORIN G.U. IRRIGANT ONE (10:42)
[2019-06-15] MEDS ORDERED: MILK OF MAGNESIA PO PRN (12:50)
[2019-06-15] MEDS ORDERED: ZOFRAN IV PRN (12:50)
[2019-06-15] MEDS ORDERED: MORPHINE IV PRN (12:50)
[2019-06-15] MEDS ORDERED: HALDOL IV PRN (13:00)
[2019-06-15] MEDS: NS 1,000 ML IV SCH (13:07)
[2019-06-15] MEDS: APRESOLINE PO SCH ×2 (13:11→17:51)
[2019-06-15] MEDS: HUMULIN R SUBQ SCH ×4 (13:11→21:24)
--- NOTE | 2019-06-15 13:26 | NEPHROLOGY CONSULTATION ---
DATE: 06/15/2019 REASON FOR CONSULTATION: Chronic kidney disease and assistance with management. ATTENDING PHYSICIAN: Dr. Melgoza. HISTORY OF PRESENT ILLNESS: Ms. 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 Baseline creatinine is approximately 3. She has been following with us for an extended time and we have recommended dialysis in the past but she has not been willing to accept that. At her last 2 office visits she has been well compensated and eating well and ambulatory and certainly has not required intervention. She had a fall yesterday on her porch. No loss of consciousness. No palpitations or other prodromal symptoms. She suffered immediate and severe pain in the left hip. She was brought to the emergency room for evaluation where films demonstrate a left femoral neck fracture. She has been evaluated by Orthopedics who plans surgical intervention today. She is NPO currently. No shortness of breath, nausea, vomiting, chest discomfort etc. PAST MEDICAL HISTORY: As above. She also has hypertension, diabetes, hyperlipidemia. HOME MEDICATIONS: Include amlodipine, insulin, sertraline, simvastatin, clonidine, furosemide, albuterol ipratropium, iron, pantoprazole, MiraLAX, Augmentin, hydralazine, fluconazole. ALLERGIES: IV contrast. SOCIAL HISTORY: Lives with her daughter. No alcohol or tobacco. FAMILY HISTORY: Otherwise noncontributory. REVIEW OF SYSTEMS: Otherwise noncontributory. PHYSICAL EXAMINATION: Vital Signs: Blood pressure 163/58, heart rate 75, respirations 16, temperature 99.7 degrees. General: She is an elderly woman lying in bed. She is awake and alert but her speech is not always understandable. Skin: Warm and dry. Conjunctivae are pink. Pupils are equal. Oropharynx is clear. Normal tongue. Normal teeth. Neck: Supple. Trachea is midline. Neck veins are not distended. Heart: PMI is nondisplaced. Regular rate and rhythm without murmurs, rubs, gallops. Lungs: Have equal excursion, equal breath sounds. No crackles or wheezes. Abdomen: Soft, nontender. Bowel sounds present. No organomegaly, masses, bruits. Extremities: No edema, clubbing or cyanosis. Tenderness over the left hip. Neurologic: Grossly nonfocal. IMPRESSION: Chronic kidney disease stage 5. At or near her baseline. Electrolytes/acid base/volume status are all acceptable and I have no opposition to her going to the operating room today for open reduction and internal fixation of her left hip. Avoid nonsteroidal anti- inflammatory drugs. Will follow with you. cc: Kishore Nicholson MD MTDD
--- NOTE | 2019-06-15 14:23 | OPERATIVE NOTE ---
PROCEDURE DATE: 06/15/2019 PREOP DIAGNOSIS: Basilar left intertrochanteric hip fracture. POSTOP DIAGNOSIS: Basilar left intertrochanteric hip fracture. PROCEDURE: Trochanteric fixation nail fixation left hip. SURGEON: Lala Jacobs MD. ANESTHESIA: General. COMPLICATION: None. PROCEDURE IN DETAIL: This 79-year-old female with a base of the neck/trochanteric fracture presents for surgical fixation. Risks, benefits, and no guarantees were discussed and she is willing to proceed. She was taken to the operating room and satisfactory anesthesia obtained. The left hip was positioned on the [place] table and prepped and draped in usual sterile fashion. A time-out was taken to confirm operative site, procedure, and patient. Gentle longitudinal traction and internal rotation was utilized to reduce the hip near anatomically under fluoroscopic guidance. Afterwards, a 1 inch incision was made proximal to greater trochanter and dissection carried down through the skin and deep fascia to the tip of the trochanter. Under fluoroscopic guidance, a guide pin was advanced through the tip of the trochanter and down the intramedullary canal. This was reamed with a TFN reamer. The fracture pattern was noted to be a basilar neck pattern and suitable for short TFN fixation. An 11 mm wide short TFN was then inserted after reaming over the guidewire into the intramedullary canal of the femur. Accessory lateral portal was made and the guide system for the guide pin advanced across the fracture and into the central aspect of the femoral head under multiplanar guidance using the fluoroscopy. Care was taken to avoid any articular penetration. A 95 length helical blade was selected, inserted over the guidewire, securing proximal fixation with the implant. The distal guide was then used to place a 42 bicortical screw through the distal aspect of the implant securing distal fixation. The guide was removed and the C-arm used to verify accurate fracture reduction and hardware placement. The wounds were irrigated and closed in layers with 2-0 Vicryl followed by vanessa. Sterile dressings were applied and she was recovered from anesthesia and transferred to the recovery room in stable condition. No intraoperative complications were noted. Instrument count and sponge count was correct at the time of closure. cc: Fili aJcobs MD
[2019-06-15] MEDS: OXY IR PO PRN ×2 (14:36→18:17)
[2019-06-15] MEDS: TYLENOL PO SCH ×2 (14:42→21:26)
[2019-06-15] MEDS: ZOLOFT PO SCH (17:32)
[2019-06-15] MEDS: KEFZOL 1 GM/D5W 1 GM/50 ML IVPB IV SCH (17:44)
[2019-06-15] MEDS: ICAR-C PO SCH ×2 (17:50→21:26)
[2019-06-15] MEDS: MIRALAX PO SCH (17:52)
[2019-06-15] MEDS: LYRICA PO SCH (17:52)
[2019-06-15] MEDS: NORVASC PO SCH (17:52)
[2019-06-15 18:41] LABS: CK-MB 3.53 ng/mL (0.0-5.0)
--- NOTE | 2019-06-15 21:10 | EKG Report ---
Test Performed on : 06/15/2019 8:00:14 PM Test Reason : Change in rhythm from SR to Afib. Blood Pressure : / mmHG Vent. Rate : 070 BPM Atrial Rate : 060 BPM P-R Int : 000 ms QRS Dur : 138 ms QT Int : 434 ms P-R-T Axes : 000 -55 058 degrees QTc Int : 468 ms Atrial fibrillation. with a competing junctional pacemaker. Right bundle branch block Left anterior fascicular block Bifascicular block Moderate voltage criteria for LVH, may be normal variant Abnormal ECG When compared with ECG of 15-JUN-2019 03:38, (Unconfirmed) Atrial fibrillation. has replaced Sinus rhythm. Confirmed by Michael Jarquin MD ([id number]) on 06/18/2019 8:29:07 AM
[2019-06-15] MEDS: COLACE PO SCH (21:26)
[2019-06-16] MEDS: KEFZOL 1 GM/D5W 1 GM/50 ML IVPB IV SCH ×2 (01:36→02:54)
[2019-06-16] MEDS: NS 1,000 ML IV SCH ×2 (01:37→14:44)
[2019-06-16] MEDS: COLACE PO SCH ×2 (02:53→23:19)
[2019-06-16] MEDS: ICAR-C PO SCH ×4 (02:54→23:38)
[2019-06-16] MEDS: DUONEB (A & A) INH SCH ×6 (03:21→23:29)
--- NOTE | 2019-06-16 04:15 | HISTORY AND PHYSICAL ---
PRIMARY CARE PROVIDER: Dr. Sekou Ovalle. PEDAL ASSEMBLER: Dr. Nicholson. DATE AND TIME: 06/15/2019 at 0150. CHIEF COMPLAINT: A fall with left hip pain. HISTORY OF PRESENT ILLNESS: The patient is a 79-year-old female who presented to the ER at [place] on June 14 at 2033 hours with complaint of left hip pain and not being able to bear weight and ambulate after a fall. The patient and the patient's daughter both assisted with providing the history of present illness and past medical history. They state that she was outside on her patio, was trying to ambulate without her walker, which she normally uses intermittently to help with ambulation. The patient states that she lost her balance and fell, landing on her left hip. After the fall, she did have intense left hip pain and was unable to ambulate or bear weight. The patient states that she did not hit her head, she had no loss of consciousness. She denies any other pain or injury except for in her left hip area. She is alert and oriented x4. She is answering questions appropriately and following commands. The patient and her daughter both state that she has been a little more weak than normal, and has recently been sick with bronchitis and was taking antibiotic of amoxicillin. We are trying to verify at this time how many doses of this that she has left. Though they state that she has been progressively getting better since being placed on antibiotic and albuterol nebulizer as well as something for cough. Though other than this, the patient denies any dizziness, headache, chest pain, shortness of breath. She is reporting a cough, though the patient and the daughter state this has improved. She denies any abdominal pain, any nausea, vomiting, or diarrhea. She denies any dysuria. She does have some chronic swelling in her bilateral lower extremities, though her daughter states this is common for her secondary to her renal disease. Upon evaluation in the ER, x-ray of her femur and pelvis x-ray did show a left femoral neck fracture. Chest x-ray showed no acute abnormalities. We did perform an EKG given that she reported feeling more weak than normal, it did show normal sinus rhythm with a right bundle branch block and a left anterior fascicular block. Though, this has been present on previous EKGs. CK was 84, though troponin was 0.023, this may be secondary to her renal function. The patient is denying any chest pain, at this time, though given her weakness, we will go ahead and do a series of cardiac enzymes. All other vital signs are within normal limits. Dr. Jacobs with Orthopedic surgery has been consulted. He will see her in the morning as well. We will keep her NPO at this time until she is evaluated by Orthopedic surgery. REVIEW OF SYSTEMS: A 14-point review of systems was conducted with the patient, and all were negative except for pertinent positives mentioned above HPI. PAST MEDICAL HISTORY: 1. Diabetes mellitus type 2. 2. Chronic kidney disease. 3. Hypertension. 4. CLL. 5. Heart murmur. 6. Hyperlipidemia. PAST SURGICAL HISTORY: 1. Right ankle surgery. 2. Sinus surgery. SOCIAL HISTORY: The patient, at this time, does live with her daughter, she helps care for her. She does require intermittent assistance with a walker for ambulation. There is no history of tobacco, alcohol or illicit drug use. FAMILY HISTORY: Positive for her Mother having a history of hypertension and diabetes mellitus. Her Father had a history of hypertension. ALLERGIES: Patient has not had an allergic reaction to IV contrast dye, though the patient's daughter states that they have been told that she cannot have this due to her renal function. HOME MEDICATIONS: 1. DuoNeb treatments 3 mL inhaled 4 times a day. 2. Amlodipine 10 mg p.o. daily. 3. Augmentin. She is currently taking this antibiotic for bronchitis. We are trying to verify how many doses she has of this left that she needs to complete. 4. Catapres 0.1 mg p.o. t.i.d. 5. Plavix 75 mg p.o. at bedtime. 6. Diflucan 100 mg p.o. daily p.r.n. 7. Lasix 40 mg p.o. daily p.r.n. 8. Apresoline 75 mg p.o. t.i.d. 9. Lantus 15 units subcutaneously q.a.m. 10. Humalog sliding scale subcutaneously before meals and at bedtime. 11. I-Car C 1 tablet p.o. b.i.d. 12. Protonix 40 mg p.o. daily. 13. MiraLAX 17 g p.o. daily. 14. Lyrica 75 mg p.o. daily. 15. Sertraline 100 mg p.o. daily. 16. Simvastatin 40 mg p.o. at bedtime. DIAGNOSTIC DATA/LABORATORY RESULTS: 1. White blood cell count is 26,508, hemoglobin 10, hematocrit 31, platelet count is 188,000. PT 15.4, INR 1.2, PTT is 32.7. Sodium 139, potassium 4.9, chloride 104, serum bicarb is 23, BUN 54, creatinine 4 with a GFR of 13. Glucose 185, calcium 8.7, magnesium 1.9. Liver function tests within normal limits. CK 84, troponin 0.023. Urinalysis was positive for protein, glucose, and trace blood, though was negative for ketones, nitrites, leukocytes, white blood cells, or bacteria. 2. EKG showed normal sinus rhythm, right bundle branch block and a left anterior fascicular block, at a rate of 76. 3. Chest x-ray showed no injury, the lungs were well expanded. There was no contusion or pneumothorax noted. The heart was not enlarged. The vessels were not distended. There was no infiltrates or effusions identified. This is per Radiology. 4. Left knee x-ray showed no acute bony injury. This is per Radiology. 5. A left femur x-ray showed a left femoral neck fracture. 6. Pelvis x-ray did show a left femoral neck fracture. PHYSICAL EXAMINATION: VITAL SIGNS: Temperature 99.4 degrees, heart rate 83, respirations 16, blood pressure is 168/65 with a MAP of 91, oxygen saturation is 94% on room air. GENERAL: The patient is a pleasant 79-year-old female. She was resting in the inpatient bed. She was in no acute distress. She was awake, alert, and able to answer questions appropriately. HEENT: Head is atraumatic, normocephalic. Pupils are equal, round, reactive to light, were 3 mm bilaterally and brisk. Oral mucosa was moist. Oropharynx clear. NECK: Supple. Trachea midline. CARDIOVASCULAR: Patient has S1-S2 present. She does have a murmur noted, though her daughter states this has been present and is not of new onset. PULMONARY: The patient has symmetrical chest expansion bilaterally. Lung sounds were clear to auscultation in bilateral full smith. ABDOMEN: Soft, nondistended, nontender upon palpation. Bowel sounds are present in all 4 quadrants, were normoactive. EXTREMITIES: No cyanosis noted but the patient does have 1+ pitting edema noted in bilateral lower extremities from approximately below the knee down, though she is able to move all extremities. She is reporting pain in her left lower extremity and left hip. Pulse, motor, and sensory is intact in all extremities. Radial and pedal pulses are 2+ bilaterally. INTEGUMENTARY: Patient skin color is normal for her race, is dry and intact. NEUROLOGICAL: The patient is alert and oriented to person, place, time, and situation. She is able move all extremities. There are no focal neurological deficits noted. ASSESSMENT AND PLAN: 1. Left femoral neck fracture. The patient is NPO at this time. She will be placed on strict bed rest. A Herndon catheter has been placed as well. We will provide p.r.n. pain medication. We have placed a consult with Dr. Jacobs with Orthopedic surgery. We will await his evaluation and further recommendations for management. 2. A fall from a standing position. The patient did have a mechanical fall from a standing position after losing her balance trying to ambulate without her walker. After the fall she was unable to ambulate or bear weight, she was reporting left hip pain. She does have, as mentioned above, a left femoral neck fracture. 3. Hypertension. We will continue her regularly prescribed medications. 4. Chronic kidney disease. The patient's creatinine does appear to be at her baseline of 4 at this time. We will continue to monitor this closely. We will avoid nephrotoxic medications and renally dose her medicines as necessary. 5. Diabetes mellitus. We will place her on a sliding scale regular insulin. We will hold her long-acting insulin, at this time, given that NPO for possible surgery today. 6. History of chronic lymphocytic leukemia. 7. Recent diagnosis of bronchitis. We will continue the patient's DuoNeb treatments that she was receiving at home. We are awaiting for confirmation that the antibiotic she was taking is Augmentin and when her last dose was, and how many doses she has left of this prescription. We will continue to follow. 8. Deep vein thrombosis prophylaxis. At this time, we will hold any anticoagulants given that she will possibly be having surgery today. We will leave this to the discretion of the Orthopedic surgical team. She has been placed on the surgical floor with telemetry. She will have vital signs every 8 hours. We will do strict intake and output. We will repeat a CBC and BMP later this morning as well as a series of cardiac enzymes given that she did report some increased weakness since she had been diagnosed with bronchitis. The patient is denying any chest pain. Her troponin was 0.023, though this may be secondary to her renal disease. Further orders and recommendations pending hospital course, diagnostic studies, and physician evaluations. Dictated by SUJATHA Chatterjee for Kodi Fuentes MD cc: Kodi Fuentes MD MTDD
[2019-06-16 05:54] LABS: HEMATOCRIT 26.2 % (37.0-47.0); HEMOGLOBIN 8.5 g/dL (12.0-16.0)
[2019-06-16] MEDS: TYLENOL PO SCH ×4 (06:31→23:39)
[2019-06-16] MEDS: CATAPRES PO SCH ×3 (06:32→23:19)
[2019-06-16] MEDS: PRILOSEC PO SCH (06:32)
[2019-06-16] MEDS: XARELTO PO SCH (06:32)
[2019-06-16 06:41] LABS: CALCIUM 8.1 mg/dL (8.8-10.2); CREATININE 4.4 mg/dL (0.5-0.9); POTASSIUM 4.8 mmol/L (3.5-5.1)
[2019-06-16] MEDS: HUMULIN R SUBQ SCH ×4 (07:01→23:40)
--- NOTE | 2019-06-16 07:40 | EKG Report ---
Test Performed on : 06/16/2019 06:36:37 AM Test Reason : Poss. New Onset A-Fib Blood Pressure : / mmHG Vent. Rate : 083 BPM Atrial Rate : 083 BPM P-R Int : 210 ms QRS Dur : 148 ms QT Int : 418 ms P-R-T Axes : 035 -46 058 degrees QTc Int : 491 ms Sinus rhythm. with 1st degree AV block. Right bundle branch block Left anterior fascicular block Bifascicular block Left ventricular hypertrophy with repolarization abnormality Abnormal ECG When compared with ECG of 15-JUN-2019 20:00, (Unconfirmed) Sinus rhythm. has replaced Atrial fibrillation. Confirmed by Britton VELEZ, MEloisa Gaines ([id number]) on 06/18/2019 8:29:20 AM
[2019-06-16] MEDS ORDERED: FERROUS SULFATE PO SCH (08:00)
[2019-06-16] MEDS: PERIDEX MT SCH ×3 (09:09→23:38)
[2019-06-16] MEDS: MIRALAX PO SCH (09:09)
[2019-06-16] MEDS: APRESOLINE PO SCH ×3 (09:10→18:26)
[2019-06-16] MEDS: LYRICA PO SCH (09:10)
[2019-06-16] MEDS: NORVASC PO SCH (09:10)
[2019-06-16] MEDS: ZOLOFT PO SCH (09:11)
[2019-06-16] MEDS: OXY IR PO PRN ×2 (09:24→18:31)
--- NOTE | 2019-06-16 09:40 | ORTHOPAEDICS PROGRESS NOTE ---
DATE: 06/16/2019 SUBJECTIVE: Ms. Cedeno is seen status post pinning of her hip. OBJECTIVE: Presently, her vital signs are stable. Her bandage is clean and dry. There is no redness or warmth. She is motor and sensory intact. There are no signs of DVT. ASSESSMENT: She can be gradually mobilized. She can be discharged whenever rehab placement is available. cc: Fili Jacobs MD
--- NOTE | 2019-06-16 13:13 | PROGRESS NOTE ---
DATE: 06/16/2019 SUBJECTIVE: Ms. Cedeno is doing well. She had a good night. No complaints. Pain is much improved. OBJECTIVE: Temperature 98.3 degrees, pulse 86, respirations 18, blood pressure 139/51. Pupils are equal and round. Lungs are clear in all lung smith. Cardiovascular Examination: Regular rhythm and rate without murmur or S3. Abdomen is soft. Skin is warm and dry. Urine output is 1700 mL. Last three blood sugars 141, 194, 223. ASSESSMENT AND PLAN: 1. She is status post pinning of her left hip, doing well. She can gradually mobilize. 2. She had an electrocardiogram that suggested maybe atrial fibrillation. The electrocardiogram this morning was back in sinus rhythm. Her rate has been controlled. 3. Diabetes mellitus type 2. Sugar is under good control. 4. Chronic kidney disease. Volume status and electrolytes look okay. Appears stable. 5. Hypertension. 6. History of chronic lymphocytic leukemia. 7. History of hyperlipidemia. They are going to be looking for rehab. I think they would like to try and go to [facility]. Looking through her orders, I do not see any change at this point. Note that she had a mild acute blood loss anemia. Hematocrit was 31 before surgery and 27 afterwards, and 26 this morning, appears stable. Hemoglobin 8.5. cc: Yovani Melgoza MD
[2019-06-16] MEDS ORDERED: CHLORASEPTIC SPRAY MT PRN (22:57)
[2019-06-17] MEDS: TYLENOL PO SCH ×4 (01:50→17:40)
[2019-06-17] MEDS: NS 1,000 ML IV SCH ×2 (02:42→15:00)
[2019-06-17] MEDS: DUONEB (A & A) INH SCH ×6 (03:13→23:15)
[2019-06-17 03:38] LABS: BASO# 0.02 X1000 (0.0-0.2); BASO% 0.1 % (0.0-0.8); EOS% 0.9 % (0.0-10.0); HEMATOCRIT 26.1 % (37.0-47.0); HEMOGLOBIN 8.3 g/dL (12.0-16.0); IMM GRAN# 0.08 X1000 (0.0-0.04); IMM GRAN% 0.4 % (0.0-0.5); LYMPH# 9.15 X1000 (1.2-3.4); MCH 26.8 PG (27-31); MCHC 31.8 g/dL (33-37); MCV 84.2 FL (81-99); MONO% 3.8 % (1.7-9.3); MPV 10.9 FL (7.4-10.4); NEUT# 11.04 X1000 (1.4-6.5); NEUT% 51.8 % (42.2-75.2); PLT 136 X1000 (130-400); RDW 15.8 % (11.5-14.5); WBC 21.29 X1000 (4.8-10.8)
[2019-06-17 03:46] LABS: CALCIUM 8.1 mg/dL (8.8-10.2); CREATININE 4.5 mg/dL (0.5-0.9); POTASSIUM 4.5 mmol/L (3.5-5.1)
--- NOTE | 2019-06-17 05:37 | Diag Imaging Result Doc PS360 ---
EXAM: CHEST-PORTABLE HISTORY: Fever,rhonchi left lung base TECHNIQUE: Chest single view COMPARISON: 06/14/2019 FINDINGS: The lungs are well expanded. The heart is not enlarged. The vessels are not distended. There are minimal increased markings in the left base. No effusion identified. IMPRESSION: Atelectasis versus a tiny infiltrate left base Electronically signed by Juan Luis Mena 06/17/2019 5:35 AM
[2019-06-17 05:55] LABS: HEMATOCRIT 26.3 % (37.0-47.0); HEMOGLOBIN 8.6 g/dL (12.0-16.0)
--- NOTE | 2019-06-17 07:05 | ORTHOPAEDICS PROGRESS NOTE ---
DATE: 06/17/2019 Ms. Cedeno is seen status post TFN fixation of the hip. She is afebrile with stable vital signs. Her incision is clean and dry. At this point, she is stable surgical postop. She can be mobilized touchdown weightbearing on the left lower extremity. She will need rehab treatment. Chari can be removed in 10 days. I will need to see her back in the office in 3 to 4 weeks for followup x-rays. We will be available as needed at this point. cc: Fili Jacobs MD
[2019-06-17 07:20] LABS: URINE SOURCE CATH
[2019-06-17 07:31] LABS: BILIRUBIN URINE NEGATIVE (NEGATIVE); BLOOD URINE MODERATE (NEGATIVE); COLOR YELLOW; GLUCOSE URINE 70 mg/dL (NEGATIVE); KETONE URINE TRACE mg/dL (NEGATIVE); LEUKOCYTES URINE NEGATIVE (NEGATIVE); NITRITE URINE NEGATIVE (NEGATIVE); PROTEIN URINE 100 mg/dL (NEGATIVE); SP GRAVITY URINE 1.011; TURBIDITY URINE CLEAR (CLEAR); UROBILINOGEN URINE NORMAL (NORMAL)
[2019-06-17 07:50] LABS: UR EPITHELIAL CELLS <10 /HPF (<10); URINE BACTERIA NEGATIVE /HPF; URINE CASTS NONE SEEN; URINE CRYSTALS NONE SEEN; URINE SMALL ROUND CELLS NONE SEEN; URINE WBC <10 /HPF (<10); URINE YEAST NONE SEEN
[2019-06-17] MEDS: XARELTO PO SCH (07:56)
[2019-06-17] MEDS: CATAPRES PO SCH ×3 (07:56→23:36)
[2019-06-17] MEDS: PRILOSEC PO SCH (07:57)
[2019-06-17] MEDS: HUMULIN R SUBQ SCH ×4 (07:57→21:00)
--- NOTE | 2019-06-17 08:25 | PROGRESS NOTE ---
DATE: 06/17/2019 SUBJECTIVE: Ms. Cedeno had a fever last night of 102. X-ray shows a little bit of early infiltrate in the left lower base. She feels comfortable. OBJECTIVE: Vital Signs: Today, she is afebrile at 99.9, pulse 100, respirations 16, blood pressure 144/61. HEENT: Pupils are equal and round. Lungs: Clear in all lung smith anterolaterally. Cardiovascular: Regular rhythm and rate without murmur or S3. Abdomen: Soft. Skin: Warm and dry. Urine output was 6200 mL, so good urine output. ASSESSMENT AND PLAN: 1. Status post TPN fracture of the hip. She is doing well from that standpoint. 2. Fever. X-ray, questionable left atelectasis versus early infiltrate. I am going to treat her for pneumonia. I will put her on ceftriaxone. Encourage incentive spirometry. 3. Chronic lymphocytic leukemia, so underlying immunodeficiency. Will try the ceftriaxone for now to cover pneumococcus and gram-negative. 4. Diabetes mellitus type 2. Sugar is under good control. 5. Hypertension. 6. Hyperlipidemia. REVIEW OF ORDERS: She is on Colace 200 mg at bedtime, Oxy IR 5 mg every 3 hours p.r.n., Norvasc 10 mg a day, Catapres 0.1 mg p.o. t.i.d., ferrous sulfate 325 mg once a day, Apresoline 75 mg, I believe 3 times a day. She is also getting iron with ascorbic acid 1 b.i.d., and MiraLAX 17 grams daily, Lyrica 75 mg daily, Xarelto 10 mg a day. We started her on ceftriaxone 1 gram IV every 24 hours, Zoloft 100 mg daily, Zocor 40 mg at bedtime. I am going to stop her regular ferrous sulfate as she is on iron twice a day already, Icar-C. cc: Yovani Melgoza MD
[2019-06-17] MEDS: OXY IR PO PRN (10:27)
--- NOTE | 2019-06-17 10:27 | Diag Imaging Result Doc PS360 ---
EXAM: CHEST-PORTABLE 06/17/2019 HISTORY: pneumonia TECHNIQUE: AP portable upright at 0938 COMMENT: There is borderline cardiomegaly. The atelectatic changes in the left costophrenic angle region which were demonstrated on 06/17/2019 at 0308 are slightly improved. Otherwise are has been no significant change. IMPRESSION: Improved left lower lobe atelectasis. Electronically signed by Jass Velez 06/17/2019 10:24 AM
[2019-06-17] MEDS: APRESOLINE PO SCH ×3 (10:36→23:35)
[2019-06-17] MEDS: ROCEPHIN 1 GM in NS 50 ML IV SCH (10:36)
[2019-06-17] MEDS: ICAR-C PO SCH ×2 (10:36→23:36)
[2019-06-17] MEDS: MIRALAX PO SCH (10:37)
[2019-06-17] MEDS: NORVASC PO SCH (10:37)
[2019-06-17] MEDS: LYRICA PO SCH (10:37)
[2019-06-17] MEDS: ZOLOFT PO SCH (10:38)
[2019-06-17] MEDS: PERIDEX MT SCH (10:38)
[2019-06-17 14:08] LABS: INR 3.16; PROTIME 33.4 Seconds (11.0-16.0); PTT 65.2 Seconds (22.3-41.8)
--- NOTE | 2019-06-17 14:53 | NEPHROLOGY PROGRESS NOTE ---
DATE: 06/17/2019 SUBJECTIVE: Patient is sitting up in bed. She has had no significant changes overnight. OBJECTIVE: Vital Signs: Temperature 99 degrees, pulse 101, respiratory rate 16, blood pressure 144/61. Intake 2 L. Output 3.4 L. General: This is an elderly female, resting in bed. She is awake, alert, in no acute distress. HEENT: Normocephalic, atraumatic. ASHISH. Conjunctivae are pale. Oral mucosa is moist. Neck: Supple. There is no JVD. Cardiovascular: Regular rate and rhythm. No murmur. Pulmonary: She has equal excursion. There is no overt rales or wheezes. Does have some decreased breath sounds posteriorly. Abdomen: Soft with positive bowel sounds. : Herndon catheter. Extremities: No clubbing, cyanosis. No edema. Integumentary: Skin is warm and dry. LAB DATA: WBC of 21.2, hemoglobin 8.6. Sodium 142, potassium 4.5, CO2 19, creatinine 4.5. IMAGING: She had a chest x-ray this morning that indicated improved left lower atelectasis. ASSESSMENT AND PLAN: 1. Chronic kidney disease stage 5. Close to creatinine on admission. The patient has been willing to accept dialysis in the past. Currently she has no absolute indications that would warrant an emergent intervention. Her urine output has been adequate. We will continue to follow along. 2. Status post pinning left hip. Understand that she will likely go to rehab. We will continue to see her in the office per her scheduled visits. Need to change Xarelto to Eliquis. rg Dictated by SUJATHA Loera for Kishore Nicholson MD Face to face encounter, data reviewed, discussed with Hetal Yen on 06/17/19. I agree with the above assessment and plan of care. rg cc: Kishore Nicholson MD [facility]
[2019-06-17] MEDS: COLACE PO SCH (23:35)
[2019-06-17] MEDS: ELIQUIS PO SCH (23:51)
[2019-06-18] MEDS: PERIDEX MT SCH ×3 (00:40→21:50)
[2019-06-18] MEDS: DUONEB (A & A) INH SCH ×6 (03:41→23:27)
[2019-06-18 05:52] LABS: BASO# 0.01 X1000 (0.0-0.2); BASO% 0.1 % (0.0-0.8); EOS# 0.32 X1000 (0.0-0.7); EOS% 1.6 % (0.0-10.0); HEMATOCRIT 24.8 % (37.0-47.0); IMM GRAN# 0.06 X1000 (0.0-0.04); IMM GRAN% 0.3 % (0.0-0.5); LYMPH# 8.76 X1000 (1.2-3.4); LYMPH% 44.7 % (20.5-51.1); MCH 27.2 PG (27-31); MCHC 32.3 g/dL (33-37); MCV 84.4 FL (81-99); MONO# 0.52 X1000 (0.11-0.59); MONO% 2.7 % (1.7-9.3); MPV 10.8 FL (7.4-10.4); NEUT# 9.94 X1000 (1.4-6.5); NEUT% 50.6 % (42.2-75.2); PLT 147 X1000 (130-400); RBC 2.94 XMIL (4.2-5.4); RDW 15.9 % (11.5-14.5); WBC 19.61 X1000 (4.8-10.8)
[2019-06-18] MEDS: TYLENOL PO SCH ×2 (05:53→11:23)
[2019-06-18] MEDS: CATAPRES PO SCH ×3 (07:52→21:52)
[2019-06-18] MEDS: PRILOSEC PO SCH (07:52)
[2019-06-18] MEDS: ROCEPHIN 1 GM in NS 50 ML IV SCH (07:53)
[2019-06-18] MEDS: HUMULIN R SUBQ SCH ×3 (07:54→21:39)
[2019-06-18] MEDS: OXY IR PO PRN ×3 (08:05→21:51)
--- NOTE | 2019-06-18 09:46 | PROGRESS NOTE ---
DATE: 06/18/2019 Ms. Cedeno had a much better night. She is coughing some, nonproductive. Breathing comfortably. OBJECTIVE: Vital Signs: T max was 99.1 degrees, pulse 93, respirations 14, blood pressure 143/53. HEENT: Pupils are equal and round. Lungs: Are clear in all lung smith. Cardiovascular: Regular rate without murmur or S3. Urine output was 5400 mL. Blood sugar 144, 167, 146. ASSESSMENT AND PLAN: 1. Status post TPN for fracture of her hip, doing well from that standpoint. 2. Fever. X-ray questionable left atelectasis versus early infiltrate, so treating her for pneumonia. Clinically appears better. She is on ceftriaxone. 3. Chronic lymphocytic leukemia with underlying immunodeficiency. 4. Diabetes mellitus type 2. Sugars under good control. 5. Hypertension. 6. Hyperlipidemia. She is hoping to go to rehab and they are exploring this at the present time. Her lab, hematocrit 24, hemoglobin 8. She has chronic kidney disease stage 5 and her creatinine appears to be at baseline. The patient has been willing to accept dialysis in the past. Currently, she has no absolute indications to warrant emergent intervention. Her volume status and urine output appear adequate. cc: Yovani Melgoza MD
[2019-06-18] MEDS: APRESOLINE PO SCH ×3 (11:22→21:52)
[2019-06-18] MEDS: MIRALAX PO SCH (11:22)
[2019-06-18] MEDS: ZOLOFT PO SCH (11:23)
[2019-06-18] MEDS: ELIQUIS PO SCH ×2 (11:23→21:51)
[2019-06-18] MEDS: NORVASC PO SCH (11:23)
[2019-06-18] MEDS: ICAR-C PO SCH ×2 (11:23→21:51)
[2019-06-18] MEDS: LYRICA PO SCH (13:01)
[2019-06-18] MEDS: NS 1,000 ML IV SCH (14:44)
--- NOTE | 2019-06-18 18:06 | NEPHROLOGY PROGRESS NOTE ---
DATE: 06/18/2019 SUBJECTIVE: Patient is sitting up in bed. No new issues. OBJECTIVE: Vital Signs: Temperature 99 degrees, pulse 91, respiratory rate 14, blood pressure 143/53. Intake 2.7 L. Output was not measured. She had multiple incontinent voids. General: This is an elderly female, resting in bed. She does not appear in acute distress. HEENT: Normocephalic, atraumatic. ASHISH. Neck: Supple without JVD. Cardiovascular: Regular rate and rhythm without murmur. Pulmonary: Equal excursion. She is clear bilaterally. Abdomen: Soft, with positive bowel sounds. : Voiding. Extremities: She has no clubbing, cyanosis. She has some dependent edema to the backs of the hips. Integumentary: Her skin remains warm and dry. LAB DATA: WBC of 19.6, hemoglobin 8. I do not have any chemistry panel. ASSESSMENT AND PLAN: 1. Chronic kidney disease stage 5. Creatinine was 4.5 yesterday which is close to her baseline. Again, the patient remains unwilling to accept dialysis at this point and does not have an acute indication. Her urine output prior to transitioning her to voiding have been adequate. She has had multiple voids and does not appear to be retaining fluid at this time. 2. Status post pinning left hip. Patient does have a little bit of dependent edema to the back of the hips from sitting. She has not been able to walk this point. Dictated by SUJATHA Loera for Kishore Nicholson MD Face to face encounter, data reviewed, discussed with Hetal Yen on 06/18/19. I agree with the above assessment and plan of care. cc: Kishore Nicholson MD [facility]
[2019-06-18] MEDS ORDERED: CALMOSEPTINE OINTMENT TOP PRN (18:11)
[2019-06-18] MEDS: COLACE PO SCH (21:51)
[2019-06-19] MEDS: DUONEB (A & A) INH SCH ×6 (03:08→23:34)
[2019-06-19 05:47] LABS: BASO# 0.01 X1000 (0.0-0.2); BASO% 0.1 % (0.0-0.8); EOS# 0.63 X1000 (0.0-0.7); EOS% 3.2 % (0.0-10.0); HEMATOCRIT 25.2 % (37.0-47.0); HEMOGLOBIN 8.1 g/dL (12.0-16.0); IMM GRAN# 0.04 X1000 (0.0-0.04); IMM GRAN% 0.2 % (0.0-0.5); LYMPH# 11.19 X1000 (1.2-3.4); MCH 27.1 PG (27-31); MCHC 32.1 g/dL (33-37); MCV 84.3 FL (81-99); MONO# 0.49 X1000 (0.11-0.59); MONO% 2.5 % (1.7-9.3); MPV 10.9 FL (7.4-10.4); NEUT# 7.62 X1000 (1.4-6.5); PLT 182 X1000 (130-400); RBC 2.99 XMIL (4.2-5.4); RDW 16.1 % (11.5-14.5); WBC 19.98 X1000 (4.8-10.8)
[2019-06-19] MEDS: OXY IR PO PRN ×3 (05:54→22:26)
[2019-06-19] MEDS: CATAPRES PO SCH ×4 (05:55→22:26)
[2019-06-19] MEDS: PRILOSEC PO SCH ×2 (05:55→07:38)
[2019-06-19] MEDS: NS 1,000 ML IV SCH ×2 (05:56→13:20)
[2019-06-19] MEDS: TYLENOL PO SCH ×3 (07:36→17:31)
[2019-06-19] MEDS: HUMULIN R SUBQ SCH ×5 (07:37→21:00)
[2019-06-19] MEDS: ROCEPHIN 1 GM in NS 50 ML IV SCH (07:55)
[2019-06-19] MEDS: APRESOLINE PO SCH ×3 (08:00→22:25)
[2019-06-19] MEDS: ZOLOFT PO SCH (08:02)
[2019-06-19] MEDS: ICAR-C PO SCH ×2 (08:03→22:27)
[2019-06-19] MEDS: ELIQUIS PO SCH ×2 (08:03→22:27)
[2019-06-19] MEDS: PERIDEX MT SCH ×2 (08:03→22:05)
[2019-06-19] MEDS: MIRALAX PO SCH (08:03)
[2019-06-19] MEDS: NORVASC PO SCH (08:03)
[2019-06-19] MEDS: LYRICA PO SCH (08:03)
--- NOTE | 2019-06-19 10:17 | PROGRESS NOTE ---
DATE: 06/19/2019 SUBJECTIVE: Ms. Cedeno had a good night. Slept well. Remains afebrile. She feels good. OBJECTIVE: Vital Signs: Temperature 98.3 degrees, pulse 89, respirations 18, blood pressure 165/65. HEENT: Pupils are equal and round. Lungs: Clear in all lung smith. Cardiovascular: Regular rhythm and rate without murmur or S3. Urine output is 2700 mL. ASSESSMENT AND PLAN: 1. Status post TPN for fracture of her hip. Doing well. Continue physical therapy. Waiting on rehabilitation. I would like to go to [facility]. Waiting on confirmation. 2. Fever. It looked like some atelectasis. We are treating for possible pneumonia. Will follow up chest x-ray. 3. Chronic lymphocytic leukemia. 4. Diabetes mellitus type 2. 5. Hypertension. 6. Hyperlipidemia. REVIEW OF ORDERS: I do not see any change. Will get a chest x-ray again in the morning. cc: Yovani Melgoza MD MTDD
--- NOTE | 2019-06-19 14:54 | NEPHROLOGY PROGRESS NOTE ---
DATE: 06/19/2019 SUBJECTIVE: The patient is sitting up in bed. No complaints. OBJECTIVE: Vital Signs: Temperature 98.9 degrees, pulse 84, respiratory rate 16, blood pressure 154/57. Intake 1.7 liters. Output not measured. General: Elderly female, sitting up in bed. No acute distress. HEENT: Normocephalic, atraumatic. PERRL. Neck: Supple. There is trace JVD. Cardiovascular: Regular rate and rhythm. Pulmonary: Clear bilaterally. Abdomen: Soft. Positive bowel sounds. : Voiding. Extremities: No clubbing, cyanosis. Continues with some dependent edema to the backs of the hips. Integumentary: Skin is warm and dry. LABORATORY DATA: WBC of 19.9. Albumin 2.1. ASSESSMENT AND PLAN: 1. Chronic kidney disease stage 4 to 5. She has been at her historic baseline. We did not have labs this morning when we first saw her, and will make sure those are ordered for the remainder of the week. 2. Status post pinning of left hip. She has been sitting on the side of the bed, has not walked and will need to go to rehab. Dictated by SUJATHA Loera for Kishore Nicholson MD Face to face encounter, data reviewed, discussed with Hetal Yen on 06/19/19. I agree with the above assessment and plan of care. cc: Kishore Nicholson MD [facility]
[2019-06-19] MEDS: ZOCOR PO SCH ×3 (22:26→22:32)
[2019-06-19] MEDS: COLACE PO SCH (22:26)
[2019-06-19] MEDS ORDERED: DESITIN OINTMENT TOP PRN (22:47)
[2019-06-20] MEDS: TYLENOL PO SCH ×4 (03:03→17:13)
[2019-06-20] MEDS: DUONEB (A & A) INH SCH ×6 (03:30→22:53)
[2019-06-20 06:09] LABS: HEMATOCRIT 22.9 % (37.0-47.0); HEMOGLOBIN 7.4 g/dL (12.0-16.0); MCHC 32.3 g/dL (33-37); MCV 86.7 FL (81-99); MPV 10.9 FL (7.4-10.4); RBC 2.64 XMIL (4.2-5.4); RDW 16.2 % (11.5-14.5); WBC 17.78 X1000 (4.8-10.8)
[2019-06-20 06:28] LABS: ALBUMIN 2.8 g/dL (3.5-5.0); CALCIUM 8.5 mg/dL (8.8-10.2); CREATININE 3.5 mg/dL (0.5-0.9); PHOSPHORUS 3.5 mg/dL (2.7-4.5); POTASSIUM 4.1 mmol/L (3.5-5.1)
--- NOTE | 2019-06-20 07:11 | Diag Imaging Result Doc PS360 ---
EXAM: CHEST-PORTABLE 06/20/2019 HISTORY: atelectasis TECHNIQUE: AP portable at 0556 COMMENT: The heart size appears slightly less enlarged than on 06/17/2019. There is some clearing of the left lower lobe and the hemidiaphragm is largely visible at this time. IMPRESSION: Improved atelectasis versus pneumonia left lower lobe. Improved cardiomegaly. Mild pulmonary edema. Electronically signed by Jass Velez 06/20/2019 7:09 AM
--- NOTE | 2019-06-20 07:24 | NEPHROLOGY PROGRESS NOTE ---
DATE: 06/20/2019 SUBJECTIVE: Patient is resting in bed. She has developed a productive cough overnight. She states she had a chest x-ray earlier. OBJECTIVE: Vital Signs: Temperature 98.9 degrees, pulse 87, respiratory rate 20, blood pressure 130/61. Intake 1.4 L. Output has not been measured. She is voiding and incontinent. General: This is an elderly female, resting in bed. She is awake and alert. She has almost a constant productive cough. She is able to produce greenish-yellow sputum. HEENT: Normocephalic, atraumatic. Oral mucosa moist. ASHISH. Conjunctivae are pale. Neck: Supple. There is continued trace JVD. Cardiovascular: Regular rate and rhythm. Pulmonary: She has some scattered rhonchi bilaterally and occasional expiratory wheeze when auscultating during a coughing episode. Abdomen: Soft, with positive bowel sounds. : Continues to void. Extremities: No pretibial edema. She has a dependent edema to the backs of the thighs that continues. Integumentary: Skin is warm and dry. Lab Data: WBC of 17.4, hemoglobin 7.4. Sodium 145, potassium 4.1, CO2 of 19, creatinine 3.5, albumin 2.8. ASSESSMENT AND PLAN: 1. Chronic kidney disease. She has been at her baseline. Her creatinine is down to 3.5 today, which is actually much closer to her historical baseline in a normal setting. We will continue to follow at a distance. 2. Productive cough. She had a chest x-ray ordered by primary. We will defer to them. Simply request renal appropriate dosing on her antibiotics. 3. Electrolytes, acid-base balance, anemia. Her hemoglobin has been slowly dropping. We would not add EPO at this point in time secondary to her elevated white count. Will be transfused as warranted. Dictated by SUJATHA Loera for Kishore Nicholson MD Face to face encounter, data reviewed, discussed with Hetal Yen on 06/20/19. I agree with the above assessment and plan of care. cc: Kishore Nicholson MD [facility]
[2019-06-20] MEDS: ROCEPHIN 1 GM in NS 50 ML IV SCH (08:25)
[2019-06-20] MEDS: PERIDEX MT SCH ×2 (08:25→21:35)
[2019-06-20] MEDS: ICAR-C PO SCH ×2 (08:26→21:35)
[2019-06-20] MEDS: NORVASC PO SCH (08:26)
[2019-06-20] MEDS: ELIQUIS PO SCH ×2 (08:26→21:35)
[2019-06-20] MEDS: MIRALAX PO SCH (08:26)
[2019-06-20] MEDS: CATAPRES PO SCH ×3 (08:26→21:35)
[2019-06-20] MEDS: APRESOLINE PO SCH ×3 (08:26→21:35)
[2019-06-20] MEDS: ZOLOFT PO SCH (08:26)
[2019-06-20] MEDS: NS 1,000 ML IV SCH ×2 (08:27→14:56)
[2019-06-20] MEDS: LYRICA PO SCH (08:29)
[2019-06-20] MEDS: PRILOSEC PO SCH (08:35)
[2019-06-20] MEDS: HUMULIN R SUBQ SCH ×3 (08:37→17:33)
--- NOTE | 2019-06-20 19:18 | PROGRESS NOTE ---
DATE: 06/20/2019 SUBJECTIVE: This patient is feeling better. She is still complaining of cough. Vital signs are stable, but she is still using 3 L of oxygen. She does have left lower lobe pneumonia which is looking better on the new x-ray. She also has some mild pulmonary edema. OBJECTIVE: Vital Signs: Temperature 98.5 degrees, pulse 79, respiratory rate 20, blood pressure 144/49, oxygen saturation 100% on 3 L of nasal cannula. HEENT: Head normocephalic. No trauma. PERRLA. Neck: Supple. No JVD. No masses. Central trachea. Chest: Crepitus at the bases with some rhonchi on the left lower lobe. She has some rales bilaterally as well as at the bases. Abdomen: Soft, nontender, nondistended. No hepatosplenomegaly. Extremities: Left hip pain. The wound looks clean, dry, and intact. She does have an excoriation at the level of the gluteal area of around 2 to 3 cm diameter, clean base, that is painful to palpation as well as to mobilization. Neurologic: This patient is alert. She is eating. She is answering my questions and following commands. LABORATORY: WBC 17.7, hemoglobin 7.4, hematocrit 22.9, platelet 175,000. Sodium 145, potassium 4.1, chloride 115, bicarbonate 19, BUN 48, creatinine 3.5, glucose 166, calcium 8.5, albumin 2.8. ASSESSMENT AND PLAN: 1. Left hip fracture, status post Titanium Trochanteric Fixation Nail System (TFN), postoperative day #5. She seems to be doing better. She is working with physical therapy. The hemoglobin dropped from 8.1 to 7.4. White blood cell count is elevated, but has been chronically elevated due to her history of chronic lymphocytic leukemia. Creatinine trending down from 4.5 to 3.5, and this is really close to her baseline. I will monitor this patient one more night. She is complaining of a lot of pain on that hip and also the hemoglobin dropped from 8.1 to 7.4, so I will keep an eye on this. If tomorrow the hemoglobin is about the same or higher, I will send this patient to the rehab center. If this is lower than that or below 7, I will transfuse the patient and I will discharge her to the rehab center anyway. I had a conversation with the rehab center personnel and they state that they can transfuse this patient and take care of it if needed. 2. Acute on chronic kidney disease. The patient has been willing to accept dialysis in the past, but at this moment she does not have an absolute indication for an emergent intervention. She is making urine. We will monitor. Seems to be her baseline. 3. History of chronic lymphocytic leukemia, so probably this patient has an underlying immune deficiency. Will continue with ceftriaxone. X-ray looks better. 4. Type 2 diabetes. Continue with the same management. 5. Hypertension, stable. 6. Hyperlipidemia, aware. cc: Brandyn Vargas MD
[2019-06-20] MEDS: ZOCOR PO SCH (21:35)
[2019-06-20] MEDS: COLACE PO SCH (21:35)
[2019-06-21] MEDS: DUONEB (A & A) INH SCH ×2 (03:30→07:40)
[2019-06-21 06:31] LABS: HEMATOCRIT 24.1 % (37.0-47.0); HEMOGLOBIN 7.6 g/dL (12.0-16.0); MCH 26.7 PG (27-31); MCHC 31.5 g/dL (33-37); MCV 84.6 FL (81-99); RBC 2.85 XMIL (4.2-5.4); RDW 16.1 % (11.5-14.5); WBC 19.37 X1000 (4.8-10.8)
[2019-06-21] MEDS: HUMULIN R SUBQ SCH ×2 (06:42→06:58)
[2019-06-21] MEDS: TYLENOL PO SCH ×2 (06:42→08:18)
[2019-06-21] MEDS: CATAPRES PO SCH (06:43)
[2019-06-21] MEDS: PRILOSEC PO SCH (06:43)
[2019-06-21 06:50] LABS: ALBUMIN 2.9 g/dL (3.5-5.0); CALCIUM 8.4 mg/dL (8.8-10.2); CREATININE 3.3 mg/dL (0.5-0.9); PHOSPHORUS 3.8 mg/dL (2.7-4.5); POTASSIUM 4.1 mmol/L (3.5-5.1)
[2019-06-21] MEDS: ZOCOR PO SCH (06:57)
[2019-06-21] MEDS: ROCEPHIN 1 GM in NS 50 ML IV SCH (08:16)
[2019-06-21] MEDS: MIRALAX PO SCH (08:17)
[2019-06-21] MEDS: ELIQUIS PO SCH (08:18)
[2019-06-21] MEDS: LYRICA PO SCH (08:18)
[2019-06-21] MEDS: PERIDEX MT SCH (08:18)
[2019-06-21] MEDS: ICAR-C PO SCH (08:18)
[2019-06-21] MEDS: ZOLOFT PO SCH (08:18)
[2019-06-21] MEDS: NORVASC PO SCH (08:18)
[2019-06-21] MEDS: APRESOLINE PO SCH (08:18)
[2019-06-21 08:24] VITALS: BP 160/64
--- NOTE | 2019-06-21 08:34 | DISCHARGE SUMMARY ---
ADMISSION DATE: 06/14/2019 DISCHARGE DATE: DISCHARGE DIAGNOSES: 1. Left hip fracture status post Titanium Trochanteric Fixation Nail System (TFN) system, postoperative day #6. 2. Acute on chronic kidney disease. 3. History of chronic lymphocytic leukemia (CLL). 4. Type 2 diabetes. 5. Hypertension. 6. Dyslipidemia. 7. Left lower lobe pneumonia. PROCEDURES PERFORMED: 1. Hip and pelvis x-ray dated 06/14/2019. Impression: Left femoral neck fracture. 2. Femur x-ray dated 06/14/2019. Impression: Left femoral neck fracture. 3. Chest x-ray dated 06/14/2019. Impression: No injury. 4. Knee x-ray dated 06/14/2019. No acute bony abnormality. 5. Operative note with trochanteric fixation nail of the left hip dated 06/15/2019 by Orthopedic Surgery. 1. Chest x-ray dated 06/17/2019. Impression: Left base infiltrate. 2. Chest x-ray dated 06/17/2019. Impression: Improved left lower lobe atelectasis. 3. Chest x-ray dated 06/20/2019. Impression: Improved atelectasis versus pneumonia left lower lobe, improved cardiomegaly, mild pulmonary edema. CONSULT: Orthopedic surgery department, Dr. Jacobs and nephrology department Dr. Nicholson. HOSPITAL COURSE: A 79-year-old -Serbian female presented to the ER at [place] on 06/14/2019 complaining of left hip pain and not being able to bear weight and ambulate after a fall. She did not hit her head or had any problem or lose consciousness. She denied any other pain or injury except for her left hip area. In the ER, x-ray of the femur showed a left femoral neck fracture. Orthopedic Surgery evaluated this patient and they decided to go ahead and put a Titanium Trochanteric Fixation Nail System (TFN) successfully. Since this patient has a chronic kidney disease which was a little bit above of her baseline, Nephrology Department evaluated the patient. The patient also developed a left lower lobe infiltrate compatible with pneumonia and she has been coughing up phlegm. This is better and she has been placed also on antibiotics and also oxygen supplementation. Physical therapy on board. After the surgery it has been decided to send this patient to a rehab center. Family and patient agree with that. Today this patient is doing much better. She will be discharged to the rehab center. She will continue with antibiotics. She will continue with anticoagulation and home medications as well. At this moment she is using oxygen and I believe she is not on home O2. Hopefully after ambulating and getting completely rid of the infiltrates/pneumonia, we will not need more oxygen supplementation. This patient is tolerating p.o. She has been having constipation. Last bowel movement 3 days ago. We will continue with milk of magnesia and also stool softeners. She is not complaining of abdominal pain. The patient is in stable medical condition. Hemoglobin dropped from 8.1 two days ago to 7.4 yesterday but today is back up a little bit to 7.6. She chronically is having elevated white blood cells due to her CLL. PHYSICAL EXAMINATION: Vitals: Temperature 98 degrees, pulse 81, respiratory rate 20, blood pressure 138/60, oxygen saturation 100% on 3 L of nasal cannula. HEENT: Head normocephalic. No trauma. PERRLA. Neck: Supple. No JVD. No masses. Central trachea. Chest: Crepitus at the bases with some rhonchi on the left lower lobe. Abdomen: Soft, nontender, nondistended. No hepatosplenomegaly Extremities: Left hip pain. The wound looks clean, dry, and intact. She does have an excoriation at the level of the gluteal area around 2 to 3 cm diameter, clean base that is painful to palpation and mobilization. Neurological: The patient is alert. She is eating. She is answering my questions and following commands. LABORATORY: Today WBC 19.3, hemoglobin 7.6, hematocrit 24.1, platelet 199,000. Sodium 142, potassium 4.1, chloride 112, bicarbonate 19, BUN 47, creatinine 3.3, glucose 138, calcium 8.4, albumin 2.9. DISCHARGE MEDICATIONS: 1. DuoNeb 3 mL inhaled every 4 hours. 2. Amlodipine 10 mg p.o. daily. 3. Eliquis 2.5 mg p.o. b.i.d. for 30 more days. 4. Cefdinir 300 mg p.o. daily. 5. Clonidine 0.1 mg p.o. t.i.d. 6. Plavix 75 mg p.o. at bedtime. 7. Docusate 200 mg p.o. at bedtime. 8. Furosemide 40 mg p.o. daily as needed. 9. Hydralazine 75 mg p.o. t.i.d. 10. Lantus 15 units subcu q.a.m. 11. Insulin lispro per protocol. 12. Icar-C 1 tablet p.o. b.i.d. 13. Milk of magnesia 30 mL p.o. daily as needed. 14. Oxycodone IR 5 mg p.o. q.3 hours as needed for pain. 15. Pantoprazole 40 mg p.o. daily. 16. MiraLAX 17 g p.o. daily. 17. Lyrica 75 mg p.o. daily. 18. Sertraline 100 mg p.o. daily. 19. Simvastatin 40 mg p.o. at bedtime. 20. Desitin ointment 1 application on top every 12 hours. DISCHARGE INSTRUCTIONS: This patient will need to continue with wound care at the facility, also follow up as an outpatient with Dr. Nicholson, nephrology department. Follow up with Dr. Jacobs in 3 to 4 weeks, call for appointment. Chari will need to be removed in 7 days. Patient needs rehab/physical therapy. Follow up with primary care doctor as well. TIME SPENT: Time discharging this patient 35 minutes. cc: Brandyn Vargas MD
--- NOTE | 2019-06-21 13:37 | NEPHROLOGY PROGRESS NOTE ---
DATE: 06/21/2019 SUBJECTIVE: She is feeling well. Hoping for discharge today. No shortness of breath. She is coughing some. OBJECTIVE: Vital Signs: Blood pressure 160/64, heart rate 88, respirations 20, T-max. 99.4. General: No acute distress. Skin: Warm and dry. Conjunctivae are pink. Neck: Neck veins are distended. Heart: Regular with a murmur. Lungs: Equal. No crackles. Abdomen: Soft, nontender. Bowel sounds present. Extremities: 2+ edema. No clubbing or cyanosis. IMPRESSION: Chronic kidney disease stage 5. She is at her baseline. Eating well. She does appear modestly volume expanded, so I will give a dose of furosemide 100 mg. No other changes. cc: Kishore Nicholson MD
== END 2019-06-21 11:25 | DRG 480 ==
LOC: P.ED 20:33 → SUATTDRO 22:34 → 4N 22:34
PROVIDERS: ATTEND Internal Medicine

== ENCOUNTER 2019-09-26 00:42 | Inpatient (IN) ==
[2019-09-26] MEDS ORDERED: MORPHINE IV ONE (01:50)
[2019-09-26 02:13] LABS: INR 1.13; PROTIME 14.6 Seconds (11.0-16.0)
[2019-09-26 02:14] LABS: PTT 30.4 Seconds (22.3-41.8)
[2019-09-26 02:31] LABS: ALB/GLOB RATIO 1.6; ALBUMIN 4.4 g/dL (3.5-5.0); CALCIUM 9.3 mg/dL (8.8-10.2); CREATININE 3.7 mg/dL (0.5-0.9); POTASSIUM 3.6 mmol/L (3.5-5.1); TOTAL BILIRUBIN 0.26 mg/dL (0.20-1.00); TOTAL PROTEIN 7.2 g/dL (6.3-8.3)
[2019-09-26 02:59] LABS: BASO# 0.04 X1000 (0.0-0.2); BASO% 0.2 % (0.0-0.8); EOS# 0.43 X1000 (0.0-0.7); HEMATOCRIT 31.6 % (37.0-47.0); HEMOGLOBIN 10.3 g/dL (12.0-16.0); IMM GRAN# 0.09 X1000 (0.0-0.04); IMM GRAN% 0.4 % (0.0-0.5); LYMPH# 12.87 X1000 (1.2-3.4); LYMPH% 58.5 % (20.5-51.1); MCH 27.6 PG (27-31); MCHC 32.6 g/dL (33-37); MCV 84.7 FL (81-99); MONO# 0.89 X1000 (0.11-0.59); MPV 10.6 FL (7.4-10.4); NEUT# 7.69 X1000 (1.4-6.5); NEUT% 34.9 % (42.2-75.2); PLT 241 X1000 (130-400); RBC 3.73 XMIL (4.2-5.4); RDW 13.3 % (11.5-14.5); WBC 22.01 X1000 (4.8-10.8)
--- NOTE | 2019-09-26 03:12 | PROVIDER DOCUMENTATION ---
This chart was entered by Deirdre Jennings Scribe, acting as scribe for Josh Otero MD. HPI-General Adult - General Chief Complaint: Hip Injury Stated Complaint: FALL Time Seen by Provider: 09/26/19 00:42 Source: patient Allergies/Adverse Reactions: Patient Allergies Allergy/AdvReac Type Severity Reaction Status Date / Time Iodinated Contrast Media AdvReac Unknown Verified 06/15/19 02:09 [IV Dye] Home Medications: Home Medication List Medication Instructions Recorded Confirmed Last Taken Type Insulin Lispro [Humalog Kwikpen See Protocol SQ AC + HS 09/14/17 09/26/19 Unknown History [id number]] Sertraline HCl 100 mg PO DAILY 09/14/17 09/26/19 Unknown History Simvastatin 40 mg PO HS 09/14/17 09/26/19 Unknown History Clonidine [Catapres] 0.1 mg PO TID@0700,1200,2000 10/10/18 09/26/19 Unknown History Furosemide [Lasix] 40 mg PO DAILY PRN PRN 10/10/18 09/26/19 Unknown History Insulin Glargine [Lantus] 15 unit SUBQ QAM 10/10/18 09/26/19 Unknown History Iron Carbonyl/Ascorbic Acid 1 ea PO BID #60 tab 11/30/18 09/26/19 Unknown Rx [Icar-C] Pantoprazole Sodium 40 mg PO DAILY #90 tablet. 11/30/18 09/26/19 Unknown Rx Clopidogrel Bisulfate [Clopidogrel] 75 mg PO QHS 06/15/19 09/26/19 06/14/19 21:00 History Pregabalin [Lyrica] 1 tab PO DAILY 09/26/19 09/26/19 Unknown History - History of Present Illness -Gen Adult Nature of Presenting Problems: pt is a 79 yr old female presenting via EMS post fall, pt reports she stood up from lying on the couch and tripped over a cup in the floor, pt reports she fell forward and right leg became caught under her, pt complains of right leg, hip pain. pt denies striking head, no LOC, pt denies any chest pain or dizziness bef ore fall. Location of Pain/Injury: reports: pelvis (right hip), lower extremity (right upper) Pain Radiation: reports: no radiation Quality of Pain: reports: aching Severity: reports: moderate Onset/Duration: reports: abrupt, just prior to arrival Timing: reports: still present Context/Activities at Onset: reports: recent trauma history (fall tonight) Review of Systems - Adult - REVIEW OF SYSTEMS - ADULT Constitutional: reports: no symptoms reported Eyes: reports: no symptoms reported Ears, Nose, Mouth & Throat: reports: no symptoms reported Cardiovascular: denies: chest pain, palpitations, syncope Respiratory: denies: shortness of breath Gastrointestinal: denies: abdominal pain, nausea Genitourinary: reports: no symptoms reported Musculoskeletal: reports: bone pain, joint pain. denies: back pain, neck pain Integumentary: reports: no symptoms reported Neurological: denies: dizziness/vertigo, syncope Psychiatric: reports: no symptoms reported Endocrine: reports: no symptoms reported Hematologic/Lymphatic: reports: no symptoms reported Allergic/Immunologic: reports: no symptoms reported All Other Systems: Reviewed and Negative Past History - Adult - PAST MEDICAL HISTORY-ADULT Review of Records: reports: Old Records Reviewed, Nursing Assessment Review, Medications Reviewed, Social history reviewed & non-contributory. Major Childhood Illnesses: reports: history unknown Cardiovascular: reports: HTN, hyperlipidemia Respiratory: reports: denies history Gastrointestinal: reports: denies history Obstetrical/Gynecological: reports: denies history Genitourinary: reports: kidney disease Musculoskeletal: reports: denies history Neurological: reports: CVA, Seizures/Epilepsy Psychiatric: reports: denies history Endocrine/Immune: reports: Diabetes Other Conditions: reports: other cancer (CLL) - PRIOR SURGERIES/PROCEDURES Surgical/Procedure History: reports: orthopedic (extremity) (right ankle), other (sinus) - IMMUNIZATION STATUS Childhood Immunizations: See Nurse Assessment Flu Vaccine: See Nurse Assessment - FAMILY HISTORY Family History: reviewed, not pertinent - SOCIAL HISTORY Smoking: non-smoker Substance Use: denies Living Situation: family Physical Exam-General - PHYSICAL EXAM-ADULT Initial Vital Signs Reviewed: Yes - CONSTITUTIONAL General Appearance: alert, no apparent distress - EYES Eyes: PERRL/EOMI - HEAD, EARS, NOSE, MOUTH & THROAT HENMT: normocephalic/atraumatic, moist mucous membranes - NECK Neck: non-tender, full range of motion, supple, normal inspection - RESPIRATORY Respiratory: chest non-tender, lungs clear, normal breath sounds - CARDIOVASCULAR Cardiovascular: normal peripheral pulses, regular rate, rhythm - GASTROINTESTINAL (ABDOMEN) Abdominal Exam: non tender, soft - LYMPHATIC Lymphatic: no adenopathy - MUSCULOSKELETAL Back Exam: normal inspection Extremity: normal capillary refill, tenderness (over right hip). negative: pulse deficit, pedal edema - SKIN Integumentary: normal color, normal turgor, warm/dry - NEUROLOGIC Neurologic: grossly normal - PSYCHIATRIC Psych/Mental Status: normal mood/affect Progress - PLAN OF CARE/RESULTS Progress/Plan/Lab Results: Orders Category Date Time Status FEMUR 1 VIEW RIGHT [RAD] Stat Exams 09/26/19 00:57 Ordered KNEE 3 VIEWS RIGHT [RAD] Stat Exams 09/26/19 00:57 Ordered XRAY PELVIS W/HIP 2-3VW RT [RAD] Stat Exams 09/26/19 00:57 Ordered Pt has right hip fracture, spoke with Dr. Isabel and will admit to his service, awaiting call back from Dr. Caal of [facility] for consult. Result Diagrams: 09/26/19 01:08 09/26/19 01:08 Departure - Departure Date of Disposition Decision: 09/26/19 Time of Disposition Decision: 03:12 DIAGNOSIS: Closed right hip fracture Qualifiers: Encounter type: initial encounter Qualified Code(s): S72.001A - Fracture of unspecified part of neck of right femur, initial encounter for closed fracture Disposition: ADMITTED INPATIENT 09 Certified Medical Emergency: Emergent Condition: Stable Referrals and Follow-Ups: None,PCP [Primary Care Provider] - - Critical Care Note This patient required my direct & personal management of CC.: No Attestation - Physician/ YESSICA Attestation Patient care was provided by Advanced Practice Provider:: No The physician spent face to face time with patient:: Yes Advanced Practice Provider documentation review:: Supervising physician onsite and consulted in the evaluation and care of this patient. The physician did have a face to face encounter with the patient. This chart was documented by the indicated scribe, (Deirdre Jennings Scribe) and accurately reflects the services I performed and decisions made by me, Josh Otero MD, as attested by the provider's signature.
[2019-09-26 04:59] LABS: URINE SOURCE CATH
[2019-09-26 05:01] LABS: BILIRUBIN URINE NEGATIVE (NEGATIVE); BLOOD URINE TRACE (NEGATIVE); COLOR YELLOW; GLUCOSE URINE TRACE mg/dL (NEGATIVE); KETONE URINE NEGATIVE (NEGATIVE); LEUKOCYTES URINE LARGE (NEGATIVE); NITRITE URINE NEGATIVE (NEGATIVE); SP GRAVITY URINE 1.012; TURBIDITY URINE HAZY (CLEAR); UROBILINOGEN URINE NORMAL (NORMAL)
[2019-09-26 05:24] LABS: PROTEIN URINE 200 mg/dL (NEGATIVE); UR EPITHELIAL CELLS <10 /HPF (<10); URINE BACTERIA 4+ /HPF; URINE RBC <10 /HPF (<10); URINE WBC TNTC /HPF (<10)
[2019-09-26] MEDS: ZOFRAN IV PRN (06:18)
[2019-09-26] MEDS: MORPHINE IV PRN ×2 (06:19→10:48)
[2019-09-26] MEDS: ROCEPHIN 1 GM in NS 50 ML IV SCH (06:23)
--- NOTE | 2019-09-26 06:57 | Diag Imaging Result Doc PS360 ---
EXAM: CHEST-1 VIEW 09/26/2019 HISTORY: hip TECHNIQUE: AP supine at 0142 COMMENT: The pulmonary vascularity is less engorged than on the previous study of 06/20/2019 and the lungs are clear. IMPRESSION: No evidence of acute disease. Electronically signed by Jass Velez 09/26/2019 6:55 AM
--- NOTE | 2019-09-26 07:20 | EKG Report ---
Test Performed on : 09/26/2019 02:25:46 AM Test Reason : ADMISSION Blood Pressure : / mmHG Vent. Rate : 087 BPM Atrial Rate : 087 BPM P-R Int : 208 ms QRS Dur : 156 ms QT Int : 434 ms P-R-T Axes : 077 -55 088 degrees QTc Int : 522 ms Normal sinus rhythm. Right bundle branch block Left anterior fascicular block Bifascicular block Left ventricular hypertrophy with repolarization abnormality Abnormal ECG When compared with ECG of 16-JUN-2019 06:36, No significant change was found Unconfirmed Result
--- NOTE | 2019-09-26 07:24 | Diag Imaging Result Doc PS360 ---
EXAM: FEMUR MIN 2 VIEWS RIGHT 09/26/2019 HISTORY: fall, leg pain TECHNIQUE: Right femur four views COMMENT: There is an intertrochanteric fracture of the proximal femur. There is otherwise no evidence of acute bony abnormality. There is extensive atherosclerotic calcification in the superficial femoral and popliteal arteries. IMPRESSION: Intertrochanteric fracture on the right. Electronically signed by Jass Velez 09/26/2019 7:21 AM
--- NOTE | 2019-09-26 07:24 | Diag Imaging Result Doc PS360 ---
EXAM: XRAY PELVIS W/HIP 2-3VW RT 09/26/2019 HISTORY: fall TECHNIQUE: AP pelvis and right hip three views COMMENT: There is a right-sided intertrochanteric fracture. There has been previous internal fixation of the left femur. There is generalized osteopenia of the regional skeleton. IMPRESSION: Osteoporosis. Right intertrochanteric fracture. Electronically signed by Jass Velez 09/26/2019 7:22 AM
--- NOTE | 2019-09-26 07:27 | Diag Imaging Result Doc PS360 ---
EXAM: KNEE 3 VIEWS RIGHT 09/26/2019 HISTORY: right knee pain TECHNIQUE: Right knee three views COMMENT: There is extensive arterial calcification. The study is somewhat suboptimal with respect to the AP view. The distal femur is somewhat heterogeneously sclerotic in appearance which is similar in appearance to the previous study of the left femur from 06/14/2019. There is no evidence of acute bony abnormality in the distal femur or proximal tibia and fibula. IMPRESSION: No evidence of acute bony abnormality. Electronically signed by Jass Velez 09/26/2019 7:25 AM
--- NOTE | 2019-09-26 08:53 | ORTHOPAEDICS CONSULTATION ---
DATE: 09/26/2019 CHIEF COMPLAINT: Right hip pain. HISTORY OF PRESENT ILLNESS: Ms. Cedeno is a 79-year-old female who fell early this morning and landed on this right hip. She has had a hip fracture a few months back that was fixed by Dr. Jacobs with a trochanteric femoral nail. Unfortunately, she fell this morning and hurt the hip. She came in to the ER where they did x-rays and diagnosed her with a hip fracture on the right side. Most of her pain is of the right hip. She denies any pain in bilateral upper extremities. She denies any headache or head trauma. PAST MEDICAL HISTORY: She has had a stroke in the past. She has had kidney disease, diabetes, seizures, hypertension. PAST SURGICAL HISTORY: Left trochanteric femoral nailing, sinus surgery, and right ankle surgery. ALLERGIES: Are to contrast dye. MEDICATIONS: Per the medical record. SOCIAL HISTORY: She denies smoking or alcohol use. REVIEW OF SYSTEMS: Positive for this right hip pain. All other systems are essentially negative. PHYSICAL EXAMINATION: General: Ms. Cedeno is lying in bed. She is in no acute distress. Head and neck: Normocephalic, atraumatic. Respirations: Nonlabored breathing. Cardiovascular: Regular rate. Abdomen: Nondistended. Extremities: Right lower extremity exam: She has tenderness to palpation at the hip. She does have 1+ DP pulse. She has good sensation to light touch of the toes. The whole leg is held in external rotated position, it is a little bit short compared to the left side. No tenderness to palpation at the left side. No tenderness to palpation of bilateral upper extremities. RADIOGRAPHS: Two view of the right hip shows an intertrochanteric hip fracture with some comminution. ASSESSMENT: Right intertrochanteric hip fracture. PLAN: I discussed with Ms. Cedeno and her family member about this hip. I would recommend that we do a trochanteric femoral nail on this right side to stabilize everything and get her back ambulating. I went over with them the procedure, risks, benefits, and potential complications. Risks include but are not limited to infection, wound healing problems, damage to nerves, arteries, and veins, numbness, malunion, nonunion, hardware-related issues, continued pain, DVT, and anesthesia-related risk. After discussing these with the patient, she expressed understanding and wished to proceed. She will remain n.p.o. and we will plan on doing this today. cc: Rubio Caal MD
--- NOTE | 2019-09-26 08:55 | HISTORY AND PHYSICAL ---
PRIMARY CARE PHYSICIAN: None. CHIEF COMPLAINT: Fall. HISTORY OF PRESENTING ILLNESS: A 79-year-old female with a history of CLL, chronic kidney disease stage 5, hypertension, diabetes mellitus type 2 and hyperlipidemia. Apparently, had a fall earlier in the morning. She does not really recall what happened, but family found her on the floor with her bed covers on top of her. She was evaluated in the ED. She had imaging done which did show a right hip fracture. Due to her presenting symptoms, she will require admission for further management. At the time of my examination, patient denied any headache, fever, chills, chest pain, shortness of breath or any weight changes, but complained of right hip pain. PAST MEDICAL HISTORY: Includes CLL, chronic kidney disease stage 5, hypertension, diabetes mellitus type 2, hyperlipidemia. PAST SURGICAL HISTORY: Right ankle surgery, sinus surgery, left hip pinning. ALLERGIES: IV contrast. CURRENT MEDICATIONS: Include clonidine 0.1 mg p.o. t.i.d., Plavix 75 mg p.o. at bedtime, Lasix 40 mg p.o. daily, Lantus 15 units subcutaneous q.a.m., pantoprazole 40 mg p.o. daily, Lyrica 75 mg p.o. daily, Sertraline 100 mg p.o. daily, simvastatin 40 mg p.o. at bedtime. SOCIAL HISTORY: No history of smoking, alcohol or illicit drug use. FAMILY HISTORY: No history of coronary disease. REVIEW OF SYSTEMS: Fourteen point review of systems is as in HPI. Other systems negative. PHYSICAL EXAMINATION: GENERAL: Cooperative, friendly, elderly female. She is resting more comfortably now. VITAL SIGNS: Temperature 98 degrees, pulse 86, respirations 18, blood pressure 167/83. HEENT: Extraocular movements intact. PERRLA. NECK: No masses. CHEST: Clear to auscultation. CARDIOVASCULAR: Regular rate and rhythm. ABDOMEN: Soft. Positive bowel sounds. EXTREMITIES: Right hip tenderness. NEUROLOGIC: She is awake, alert, oriented x2. : No bladder distention. SKIN: Warm. LABORATORIES AND STUDIES: WBC 22.01, hemoglobin 10.3, hematocrit 31.6, platelets 241,000. Sodium 140, potassium 3.6, chloride 98, CO2 25, BUN is 46, creatinine 3.7, glucose 122. UA shows large leukocytes and +4 bacteria. ASSESSMENT: This is a 79-year-old female with a history of chronic lymphocytic leukemia, chronic kidney disease, hypertension, diabetes mellitus type 2, who apparently had a fall earlier in the morning. She developed moderate amount of pain in the right hip region. She was evaluated in the ED. She had a right hip fracture by imaging. Case was discussed with Orthopedics who recommended admission for further management assessment. 1. Right hip fracture. 2. Chronic lymphocytic leukemia. 3. Chronic kidney disease. 4. Possible urinary tract infection. 5. Hypertension. 6. Diabetes mellitus type 2. PLAN: 1. Will admit patient to medical floor with telemetry. 2. Will keep patient n.p.o. and give her supportive treatment with gentle hydration, antiemetics, pain control. 3. Orthopedics has been already consulted in the ED. 4. Will hold her home medications for now. 5. Will check urine cultures and start patient on IV antibiotics. 6. Monitor blood glucose and put patient on sliding scale insulin regimen. 7. Will start DVT prophylaxis with Lovenox after her surgery. 8. Will continue to follow and reassess, make further recommendations based on patient's clinical course. cc: Nathanael Isabel MD
[2019-09-26] MEDS: HUMULIN R SUBQ SCH ×3 (09:52→18:24)
[2019-09-26] MEDS ORDERED: XYLOCAINE-MPF 2% ONE (13:18)
[2019-09-26] MEDS ORDERED: DIPRIVAN 1% ONE (13:18)
[2019-09-26] MEDS ORDERED: KEFZOL 1 GM/D5W 1 GM/50 ML IVPB ONE (13:26)
[2019-09-26] MEDS ORDERED: ZOFRAN ONE ×2 (13:44→14:14)
[2019-09-26] MEDS ORDERED: DECADRON ONE (14:14)
[2019-09-26] MEDS ORDERED: MORPHINE IV PRN (14:34)
[2019-09-26] MEDS: DILAUDID ONE ×2 (14:53→14:57)
[2019-09-26] MEDS: LR 1,000 ML IV SCH (18:52)
[2019-09-26] MEDS ORDERED: LASIX PO PRN (19:05)
[2019-09-26] MEDS: COLACE PO SCH (20:04)
[2019-09-26] MEDS: CATAPRES PO SCH (20:06)
[2019-09-26 20:27] LABS: ALBUMIN 3.8 g/dL (3.5-5.0); CALCIUM 8.3 mg/dL (8.8-10.2); CREATININE 3.7 mg/dL (0.5-0.9); POTASSIUM 4.6 mmol/L (3.5-5.1); TOTAL BILIRUBIN 0.21 mg/dL (0.20-1.00); TOTAL PROTEIN 5.7 g/dL (6.3-8.3)
[2019-09-26 20:41] LABS: CK INDEX 1.3 (0.0-2.5); CK-MB 2.46 ng/mL (0.0-5.0)
[2019-09-26 20:43] LABS: BASO# 0.02 X1000 (0.0-0.2); BASO% 0.1 % (0.0-0.8); HEMATOCRIT 24.8 % (37.0-47.0); HEMOGLOBIN 7.8 g/dL (12.0-16.0); IMM GRAN# 0.09 X1000 (0.0-0.04); IMM GRAN% 0.3 % (0.0-0.5); LYMPH# 13.33 X1000 (1.2-3.4); LYMPH% 50.3 % (20.5-51.1); MCH 27.5 PG (27-31); MCHC 31.5 g/dL (33-37); MCV 87.3 FL (81-99); MONO# 1.06 X1000 (0.11-0.59); MPV 10.8 FL (7.4-10.4); NEUT# 11.98 X1000 (1.4-6.5); NEUT% 45.3 % (42.2-75.2); PLT 197 X1000 (130-400); RBC 2.84 XMIL (4.2-5.4); RDW 13.5 % (11.5-14.5); WBC 26.48 X1000 (4.8-10.8)
[2019-09-26 20:54] LABS: INR 1.28; PROTIME 16.3 Seconds (11.0-16.0); PTT 33.7 Seconds (22.3-41.8)
[2019-09-26 21:12] LABS: LYMPHS 48 % (21-51); MONO 2 % (1-9); SEGS 50 % (42-75)
--- NOTE | 2019-09-26 22:02 | OPERATIVE NOTE ---
PROCEDURE DATE: 09/26/2019 PREOPERATIVE DIAGNOSIS: Right intertrochanteric hip fracture. POSTOPERATIVE DIAGNOSIS: Right intertrochanteric hip fracture. PROCEDURE: Right trochanteric femoral nailing. SURGEON: Dr. Rubio Caal. CASING BUILDER: SUJATHA Hamilton, who was an integral part of the case. She helped with all aspects of the case, helping to increase our OR efficiency greatly. ANESTHESIA: General with LMA. BLOOD LOSS: About 50 mL. IMPLANTS: 11 x 360 Synthes trochanteric femoral nail, size 90 helical blade, and 2 distal interlocking screws. DISPOSITION: To PACU, hemodynamically stable. INDICATION FOR PROCEDURE: Ms. Cedeno is a 79-year-old female who presented to the emergency department late last night and was diagnosed with a hip fracture. She was made n.p.o. for today. She was admitted per the hospitalist service who optimized her for surgery. I discussed with her and her family about operative intervention. She expressed understanding and wished to proceed. DESCRIPTION OF PROCEDURE: Ms. Cedeno was identified in the preoperative holding area. The right hip was marked as correct surgical site. She was then wheeled to the operating room and placed supine on the operating table. All bony prominences were well padded. She was induced under general anesthesia. LMA was placed. She was placed in the traction boots on the traction table. Some slight traction was pulled across that right lower extremity. Right lower extremity then prepped with chlorhexidine, gluconate scrub, and then ChloraPrep, and draped in a normal sterile fashion. Surgical pause was performed. We identified the correct patient, correct side, and the correct procedure. Preop antibiotics were given. Fluoroscopic imaging was used to get our reduction. She did have a little bit of medial drift to the distal shaft, but by positioning her on the table, we were able to reduce that really well. I then made an incision just proximal to the greater trochanter. Dissection was carried down. I got my guidewire in good position on the greater trochanter. I drilled in and then passed my ball-tipped guidewire down. I measured it to a 360 right at the superior aspect of the patella. I then reamed up to a size 12 and there was a little bit of bone chatter with the 12. I then placed the 11 x 360 nail down and it helped hold our reduction really well, and the calcar lined up very nicely. I then made a small incision on the mid thigh and I got my guidewire up center-center in the head, drilled and passed my helical blade up. I locked it in place proximally and then took the outrigger guide off. Final images proximally showed that we had a really good reduction in both AP and lateral views and good position of our hardware. I then came down distally and under perfect sokaogon technique put 2 interlocking screws in, one in the dynamic hole and one in the static. Final images were taken and saved. We then closed everything in a layered fashion, 0 Vicryl for the deep layer, 2-0 Vicryl for the subcutaneous, and vanessa on the skin. Island dressings were applied. She was then awoken from general anesthesia, moved to her own bed, and taken to the PACU in stable condition. Postop, she will be weightbear as tolerated, right lower extremity, and we will continue to follow her while she is in the hospital. cc: Rubio Caal MD
[2019-09-26] MEDS: KEFZOL 1 GM/D5W 1 GM/50 ML IVPB IV SCH (23:05)
[2019-09-26] MEDS: ICAR-C PO SCH (23:06)
[2019-09-26] MEDS: TYLENOL PO SCH (23:06)
[2019-09-26] MEDS: PERIDEX MT SCH (23:07)
[2019-09-26] MEDS: ZOCOR PO SCH (23:07)
[2019-09-27 04:12] LABS: URINE SOURCE CATH
[2019-09-27 04:21] LABS: BILIRUBIN URINE NEGATIVE (NEGATIVE); BLOOD URINE MODERATE (NEGATIVE); COLOR YELLOW; GLUCOSE URINE 70 mg/dL (NEGATIVE); KETONE URINE NEGATIVE (NEGATIVE); LEUKOCYTES URINE LARGE (NEGATIVE); NITRITE URINE NEGATIVE (NEGATIVE); PROTEIN URINE 300 mg/dL (NEGATIVE); SP GRAVITY URINE 1.018; TURBIDITY URINE TURBID (CLEAR); UR EPITHELIAL CELLS <10 /HPF (<10); URINE BACTERIA 2+ /HPF; URINE RBC <10 /HPF (<10); URINE WBC TNTC /HPF (<10); UROBILINOGEN URINE NORMAL (NORMAL)
[2019-09-27] MEDS: HUMULIN R SUBQ SCH ×3 (04:35→11:19)
[2019-09-27] MEDS: ROCEPHIN 1 GM in NS 50 ML IV SCH (05:48)
[2019-09-27] MEDS: TYLENOL PO SCH ×3 (05:49→21:18)
[2019-09-27] MEDS: OXY IR PO PRN ×4 (05:56→21:16)
[2019-09-27] MEDS: KEFZOL 1 GM/D5W 1 GM/50 ML IVPB IV SCH ×2 (06:51→14:11)
[2019-09-27] MEDS: PROTONIX PO SCH (06:55)
[2019-09-27] MEDS: CATAPRES PO SCH (07:00)
[2019-09-27 07:09] LABS: CALCIUM 8.4 mg/dL (8.8-10.2); CREATININE 4.7 mg/dL (0.5-0.9); POTASSIUM 4.6 mmol/L (3.5-5.1)
[2019-09-27 07:19] LABS: BASO# 0.01 X1000 (0.0-0.2); BASO% 0.1 % (0.0-0.8); EOS# 0.01 X1000 (0.0-0.7); EOS% 0.1 % (0.0-10.0); HEMATOCRIT 20.8 % (37.0-47.0); HEMOGLOBIN 6.6 g/dL (12.0-16.0); LYMPH# 11.39 X1000 (1.2-3.4); LYMPH% 60.5 % (20.5-51.1); MCH 28.2 PG (27-31); MCHC 31.7 g/dL (33-37); MCV 88.9 FL (81-99); MONO# 1.28 X1000 (0.11-0.59); MONO% 6.8 % (1.7-9.3); MPV 10.8 FL (7.4-10.4); NEUT# 6.14 X1000 (1.4-6.5); NEUT% 32.5 % (42.2-75.2); PLT 160 X1000 (130-400); RBC 2.34 XMIL (4.2-5.4); RDW 13.7 % (11.5-14.5); WBC 18.83 X1000 (4.8-10.8)
[2019-09-27 07:59] LABS: BANDS 1 % (0-1); LYMPHS 62 % (21-51); SEGS 37 % (42-75)
[2019-09-27 08:00] LABS: HYPOCHROM 1+; MICROCYTOSIS 1+
[2019-09-27] MEDS: NORVASC PO SCH (09:01)
[2019-09-27] MEDS: ICAR-C PO SCH ×2 (09:01→21:16)
[2019-09-27] MEDS: MIRALAX PO SCH (09:01)
[2019-09-27] MEDS: FERROUS SULFATE PO SCH (09:01)
[2019-09-27] MEDS: LYRICA PO SCH (09:01)
[2019-09-27] MEDS: ZOLOFT PO SCH (09:01)
[2019-09-27] MEDS: LANTUS INSULIN SUBQ SCH (09:02)
[2019-09-27] MEDS: PERIDEX MT SCH ×2 (09:02→21:16)
[2019-09-27] MEDS: LR 1,000 ML IV SCH (09:04)
[2019-09-27] MEDS ORDERED: TYLENOL PO ONE (12:42)
[2019-09-27] MEDS ORDERED: NS 500 ML IV ONE (12:42)
[2019-09-27] MEDS ORDERED: NS 500 ML IV SCH (15:00)
[2019-09-27] MEDS: HUMALOG SUBQ SCH ×2 (16:52→21:20)
--- NOTE | 2019-09-27 19:48 | ORTHOPAEDICS PROGRESS NOTE ---
DATE: 09/27/2019 SUBJECTIVE: Ms. Cedeno is lying in bed this morning. She says she is feeling a lot better. The hip is not hurting her near as much. OBJECTIVE: Right lower extremity exam, her dressing is clean and dry. She has good dorsiflexion and plantar flexion of the foot and good sensation to light touch to the foot. ASSESSMENT: Status post right trochanteric femoral nailing for intertrochanteric hip fracture. PLAN: Ms. Cedeno is weight bear as tolerated to the right lower extremity. She is going to start working with therapy today to get up and move. We will continue to follow from orthopedic standpoint. cc: Rubio Caal MD
[2019-09-27] MEDS: HEPARIN SUBQ SCH (21:15)
[2019-09-27] MEDS: COLACE PO SCH (21:16)
[2019-09-27] MEDS: ZOCOR PO SCH (21:16)
[2019-09-27] MEDS: PLAVIX PO SCH (21:17)
[2019-09-28] MEDS: OXY IR PO PRN ×3 (01:04→14:22)
[2019-09-28] MEDS: LR 1,000 ML IV SCH (02:44)
[2019-09-28] MEDS: TYLENOL PO SCH ×3 (06:09→22:23)
[2019-09-28] MEDS: ROCEPHIN 1 GM in NS 50 ML IV SCH (06:10)
[2019-09-28] MEDS: PROTONIX PO SCH (06:10)
[2019-09-28] MEDS: HUMALOG SUBQ SCH ×4 (07:29→22:23)
[2019-09-28 07:34] LABS: HEMATOCRIT 24.6 % (37.0-47.0); HEMOGLOBIN 7.9 g/dL (12.0-16.0)
[2019-09-28 07:37] LABS: CALCIUM 8.7 mg/dL (8.8-10.2); CREATININE 4.2 mg/dL (0.5-0.9); POTASSIUM 4.4 mmol/L (3.5-5.1)
--- NOTE | 2019-09-28 07:41 | PROGRESS NOTE ---
DATE: 09/27/2019 SUBJECTIVE: Patient has no complaints. OBJECTIVE: Vital signs: Blood pressure 154/54, heart rate 89, respiratory rate 16, temperature was 100.7 degrees. Cardiovascular: Regular rate and rhythm. Pulmonary: Bilateral breath sounds clear to auscultation. Gastrointestinal: Soft, nontender, nondistended. Bowel sounds positive. LABORATORY DATA: White count 18, hemoglobin and hematocrit 6.6 and 28, platelets 160,000. Creatinine was 4.7. PROBLEM LIST: 1. Right hip fracture. Continue treatment. She is status post open reduction and internal fixation. We will continue to follow closely. 2. Chronic lymphocytic leukemia. We will continue to monitor. 3. Chronic kidney disease. Creatinine is stable. She is not dialysis patient. 4. Type 2 diabetes. Follow blood sugars and continue sliding scale insulin and follow closely. DISPOSITION: Will likely need rehab, although she is not wanting to participate in that. cc: Augustin Mchugh MD
[2019-09-28] MEDS: MIRALAX PO SCH ×3 (08:20→22:25)
[2019-09-28] MEDS: LANTUS INSULIN SUBQ SCH (08:21)
[2019-09-28] MEDS: LYRICA PO SCH (08:21)
[2019-09-28] MEDS: HEPARIN SUBQ SCH ×2 (08:21→22:24)
[2019-09-28] MEDS: NORVASC PO SCH (08:22)
[2019-09-28] MEDS: ICAR-C PO SCH ×2 (08:22→22:23)
[2019-09-28] MEDS: FERROUS SULFATE PO SCH (08:22)
[2019-09-28] MEDS: PERIDEX MT SCH ×2 (08:22→22:24)
[2019-09-28] MEDS: ZOLOFT PO SCH (09:00)
[2019-09-28] MEDS ORDERED: DIFLUCAN PO ONE (15:08)
[2019-09-28] MEDS ORDERED: MORPHINE IV PRN (15:26)
--- NOTE | 2019-09-28 15:52 | Diag Imaging Result Doc PS360 ---
EXAM: CHEST-PORTABLE HISTORY: dyspnea. Rule out pneumoia TECHNIQUE: Single view COMPARISON: 09/26/2019 FINDINGS: Poor inspiratory effort. The heart is not enlarged. The vessels are not distended. There are no infiltrates. No effusion identified. IMPRESSION: No pneumonia Electronically signed by Juan Luis Mena 09/28/2019 3:50 PM
[2019-09-28] MEDS ORDERED: MAXIPIME 2 GM in NS 100 ML IV ONE (16:00)
[2019-09-28] MEDS: CATAPRES PO SCH (17:21)
[2019-09-28] MEDS: ZOCOR PO SCH (22:22)
[2019-09-28] MEDS: PLAVIX PO SCH (22:24)
[2019-09-28] MEDS: COLACE PO SCH (22:24)
--- NOTE | 2019-09-29 00:44 | ORTHOPAEDICS PROGRESS NOTE ---
DATE: 09/28/2019 SUBJECTIVE: Ms. Cedeno is lying in bed this morning. Pain seems controlled. Physical therapy did get her up sitting on the bedside yesterday. OBJECTIVE: Right lower extremity exam, dressing is clean, dry, and intact. She is able to dorsiflex and plantar flex the foot very well. She has good sensation to light touch to the toes. ASSESSMENT: Status post right trochanteric femoral nailing. PLAN: Ms. Cedeno is weight bear as tolerated right lower extremity. Physical therapy will continue to work with her to get out of bed. I would like to see her out of bed for all meals sitting in bedside chair. cc: Rubio Caal MD
--- NOTE | 2019-09-29 01:42 | PROGRESS NOTE ---
DATE: 09/28/2019 INTERVAL HISTORY: No acute events overnight. She continues to spike fever throughout most entire yesterday and she had low-grade fever today as well. SUBJECTIVE: She denies any chest pain or shortness of breath. She is occasionally coughing and is feeling congested. Her daughter is at bedside. She denies any nausea, vomiting. She has not had any bowel movement. She does not have any lower extremity edema. She is complaining of right lower extremity significant pain. OBJECTIVE: Vital signs: Temperature 98.9 degrees, pulse 102, respiratory rate 20, blood pressure 180/90. She is saturating 95% on nasal cannula. General: She is in pain. HEENT: Oral cavity is moist. Lungs: Air entry bilaterally equal. No wheeze, rhonchi, or crackles. Cardiovascular: S1, S2 normal. Tachycardic. No murmur or gallop. Abdomen: Soft, generalized tenderness. Extremities: She does not have any lower extremity edema. She is able to wiggle toes, both lower extremities. She is able to flex her left lower extremity. She has significant pain on active and passive movement of right lower extremity. LABS: Suggest appropriate rise in hemoglobin after blood transfusion yesterday. She does have hyponatremia, hypochloremia, elevated BUN and creatinine in the setting of chronic kidney disease stage 5. Her blood glucose is well acceptable. Blood culture and urine culture in lab, urine culture growing gram-negative rods. ASSESSMENT AND PLAN: 1. Mechanical fall leading to right femoral intertrochanteric comminuted fracture, status post right trochanteric femoral nailing. Today is postoperative day 2. Continue pain management with intravenous morphine and oral oxycodone. Her Herndon catheter has been removed. Continue acetaminophen on a scheduled basis. Continue heparin for DVT prophylaxis. 2. Suspected sepsis due to urinary tract infection. Follow up final urine culture and blood culture results. Considering her previous history of Pseudomonas UTI, I will change antibiotics to intravenous cefepime and follow up final culture results. 3. Acute blood loss anemia due to blood loss sustained during surgery, status post 1 unit of blood transfusion with appropriate rise in hemoglobin. Continue ferrous sulfate. 4. Essential hypertension. She is listed to be taking amlodipine. I will also add her clonidine and other intravenous antihypertensive medication if required. 5. Others: Continue her clopidogrel for history of cerebrovascular accident, long-acting and short-acting insulin for history of insulin-dependent diabetes mellitus, simvastatin for hyperlipidemia, pregabalin and sertraline which are her home medications. Her CKD V is stable. DISPOSITION: We are going to monitor patient inside the hospital. Social work rehab consult has been placed. Chest x-ray and culture results are awaited. Plan of care discussed with the patient's daughter. Her questions have been answered. cc: Remi Bethea MD MTDD
[2019-09-29] MEDS: OXY IR PO PRN ×3 (03:04→13:57)
[2019-09-29] MEDS: PROTONIX PO SCH (06:32)
[2019-09-29] MEDS: TYLENOL PO SCH ×3 (06:32→21:05)
[2019-09-29] MEDS: HUMALOG SUBQ SCH ×4 (06:47→21:01)
[2019-09-29 06:56] LABS: BASO# 0.03 X1000 (0.0-0.2); BASO% 0.1 % (0.0-0.8); EOS# 0.66 X1000 (0.0-0.7); HEMATOCRIT 23.8 % (37.0-47.0); HEMOGLOBIN 7.5 g/dL (12.0-16.0); IMM GRAN# 0.07 X1000 (0.0-0.04); IMM GRAN% 0.3 % (0.0-0.5); LYMPH# 11.71 X1000 (1.2-3.4); LYMPH% 52.8 % (20.5-51.1); MCH 27.7 PG (27-31); MCHC 31.5 g/dL (33-37); MCV 87.8 FL (81-99); MONO# 0.98 X1000 (0.11-0.59); MONO% 4.4 % (1.7-9.3); MPV 10.8 FL (7.4-10.4); NEUT# 8.74 X1000 (1.4-6.5); NEUT% 39.4 % (42.2-75.2); PLT 180 X1000 (130-400); RBC 2.71 XMIL (4.2-5.4); RDW 14.1 % (11.5-14.5); WBC 22.19 X1000 (4.8-10.8)
[2019-09-29 07:03] LABS: EOS 2 % (1-10); HYPOCHROM 1+; LYMPHS 52 % (21-51); MONO 4 % (1-9); SEGS 42 % (42-75)
[2019-09-29 07:06] LABS: CREATININE 4.2 mg/dL (0.5-0.9); POTASSIUM 4.5 mmol/L (3.5-5.1)
[2019-09-29] MEDS: LANTUS INSULIN SUBQ SCH (08:55)
[2019-09-29] MEDS: ZOLOFT PO SCH (09:01)
[2019-09-29] MEDS: ICAR-C PO SCH ×2 (09:01→21:05)
[2019-09-29] MEDS: HEPARIN SUBQ SCH ×2 (09:01→21:06)
[2019-09-29] MEDS: CATAPRES PO SCH ×3 (09:01→17:22)
[2019-09-29] MEDS: NORVASC PO SCH (09:01)
[2019-09-29] MEDS: PERIDEX MT SCH ×2 (09:02→21:06)
[2019-09-29] MEDS: MIRALAX PO SCH ×2 (09:02→21:06)
[2019-09-29] MEDS: FERROUS SULFATE PO SCH (09:02)
[2019-09-29] MEDS: LYRICA PO SCH (09:06)
--- NOTE | 2019-09-29 15:44 | PROGRESS NOTE ---
DATE: 09/29/2019 INTERVAL HISTORY: Ms. Cedeno's chest x-ray was unremarkable. Her blood pressure has been better controlled after addition of clonidine. Her blood count is stable; so is her kidney function. Urine culture was growing E coli which is sensitive to 1st and 3rd generation cephalosporin. SUBJECTIVE: Ms. Cedeno was able to stand up by the side of the bed but required a lot of help. Otherwise, she denies chest pain, shortness of breath, cough, nausea, or vomiting. She has not had any bowel movement yet. Her daughter is at bedside. We discussed about blood counts, treating infection, physical therapy. Answered all of her questions. VITALS: She has been afebrile. Temperature of 98.1 degrees, pulse 73, respiratory rate 20, blood pressure 150/54, saturating 99% on 2 L nasal cannula. PHYSICAL EXAMINATION: General: Not in acute distress. HEENT: Oral cavity is moist. Mild conjunctival pallor. Lungs: Air entry bilaterally equal. No wheeze, rhonchi, crackles. Cardiovascular: S1, S2 normal. No murmur, rub, or gallop. Abdomen: Soft, nontender. Active bowel sounds. Extremities: Her right lower extremity is slightly more swollen than the left. Her right lateral thigh incision does not appear to be soaked. LABS: Suggestive of leukocytosis, normocytic anemia, normal platelet count. She does have elevated BUN and creatinine in the setting of chronic kidney disease stage 5. Her lactate has been normal. Urine culture growing E coli which is sensitive to levofloxacin as well as cefazolin. IMAGING: Chest x-ray yesterday did not have any acute cardiopulmonary process. ASSESSMENT AND PLAN: 1. Mechanical fall leading to right femoral intertrochanteric comminuted fracture status post right trochanteric femoral nailing. Today is postoperative day 3. Continue pain management with oral oxycodone and acetaminophen. Continue heparin for DVT prophylaxis. 2. Acute blood loss anemia due to blood loss sustained during surgery. Status post 1 unit of packed red blood cells with appropriate rise in hemoglobin. Continue ferrous sulfate. 3. Suspected sepsis due to urinary tract infection due to Escherichia coli. Blood culture did not show any growth. Change intravenous antibiotics from cefepime to cefazolin. 4. Essential hypertension. Now better controlled on home amlodipine and clonidine. Continue to monitor. 5. Others. Continue clopidogrel for history of cerebrovascular accident in year 2017, insulin glargine and sliding scale for history of insulin-dependent diabetes mellitus, simvastatin for hyperlipidemia, add lactulose to current bowel regimen for constipation, monitor BMP for chronic kidney disease stage 5. 6. Disposition. The patient's clinical status looks a better today. I will follow up with complete blood count tomorrow to make sure it is showing improvement. She would need rehab. medical staff services manager team on board. Plan of care discussed with the patient and her daughter. I will keep her granddaughter updated tomorrow. Their questions have been answered. cc: Remi Bethea MD
[2019-09-29] MEDS: DULCOLAX PR SCH (15:47)
[2019-09-29] MEDS ORDERED: MAXIPIME 1 GM in NS 50 ML IV SCH (16:00)
[2019-09-29] MEDS: LACTULOSE PO SCH ×2 (17:23→21:10)
[2019-09-29] MEDS ORDERED: CALMOSEPTINE OINTMENT TOP PRN (18:49)
[2019-09-29] MEDS: COLACE PO SCH (21:04)
[2019-09-29] MEDS: PLAVIX PO SCH (21:05)
[2019-09-29] MEDS: ZOCOR PO SCH (21:05)
[2019-09-30] MEDS: DULCOLAX PR SCH (04:27)
[2019-09-30] MEDS: OXY IR PO PRN ×2 (05:57→09:19)
[2019-09-30] MEDS: PROTONIX PO SCH (06:01)
[2019-09-30] MEDS: TYLENOL PO SCH ×3 (07:09→22:03)
[2019-09-30] MEDS: HUMALOG SUBQ SCH ×4 (07:09→22:05)
[2019-09-30 07:12] LABS: BASO# 0.02 X1000 (0.0-0.2); BASO% 0.1 % (0.0-0.8); EOS# 0.66 X1000 (0.0-0.7); HEMATOCRIT 23.4 % (37.0-47.0); HEMOGLOBIN 7.4 g/dL (12.0-16.0); IMM GRAN# 0.07 X1000 (0.0-0.04); IMM GRAN% 0.3 % (0.0-0.5); LYMPH# 12.81 X1000 (1.2-3.4); LYMPH% 58.8 % (20.5-51.1); MCH 27.9 PG (27-31); MCHC 31.6 g/dL (33-37); MCV 88.3 FL (81-99); MONO# 0.75 X1000 (0.11-0.59); MONO% 3.4 % (1.7-9.3); NEUT# 7.49 X1000 (1.4-6.5); NEUT% 34.4 % (42.2-75.2); PLT 205 X1000 (130-400); RBC 2.65 XMIL (4.2-5.4); RDW 14.2 % (11.5-14.5)
[2019-09-30 08:11] LABS: EOS 2 % (1-10); LYMPHS 60 % (21-51); MONO 2 % (1-9); NRBC 1 % (0-0); SEGS 36 % (42-75)
[2019-09-30] MEDS: ICAR-C PO SCH ×2 (09:17→22:03)
[2019-09-30] MEDS: HEPARIN SUBQ SCH ×2 (09:17→22:02)
[2019-09-30] MEDS: MIRALAX PO SCH (09:18)
[2019-09-30] MEDS: FERROUS SULFATE PO SCH (09:18)
[2019-09-30] MEDS: PERIDEX MT SCH ×2 (09:18→22:03)
[2019-09-30] MEDS: LACTULOSE PO SCH ×2 (09:18→22:04)
[2019-09-30] MEDS: ZOLOFT PO SCH (09:18)
[2019-09-30] MEDS: NORVASC PO SCH (09:19)
[2019-09-30] MEDS: LYRICA PO SCH (09:19)
[2019-09-30] MEDS: LANTUS INSULIN SUBQ SCH (09:27)
[2019-09-30] MEDS: CATAPRES PO SCH ×3 (09:28→22:00)
--- NOTE | 2019-09-30 10:41 | ORTHOPAEDICS PROGRESS NOTE ---
DATE: 09/30/2019 SUBJECTIVE DATA: Ms. Cedeno is lying in bed this morning. Her pain is controlled. OBJECTIVE DATA: Right lower extremity exam: Dressing is clean, dry, intact. She is able to dorsiflex and plantar flex the foot well. She is neurovascularly intact. ASSESSMENT: Status post right trochanteric femoral nailing for right hip fracture. PLAN: Ms. Cedeno is weightbearing as tolerated. We are planning on her going to rehab at discharge. They will need to continue to work on mobilizing her. We will plan to follow up with her in 1 to 2 weeks from discharge from the hospital. We would like her out of bed for all meals and really work with physical therapy. Dictated by SUJATHA Hamilton for Rubio Caal MD cc: SUJATHA Hamilton MD
[2019-09-30] MEDS: KEFZOL 500 MG in NS 50 ML IV SCH ×2 (12:37→18:30)
--- NOTE | 2019-09-30 13:37 | PROGRESS NOTE ---
DATE: 09/30/2019 INTERVAL HISTORY: No acute events overnight. Her WBC count has been slowing coming down. She has not been having any fever episodes. Her hemoglobin is stable at 7.4. Her antibiotics have been changed to cefazolin. Her laxatives have been held considering she had a large bowel movement. SUBJECTIVE: Ms. Cedeno denies any chest pain, shortness of breath. She has been occasionally coughing, but she states not a lot. VITALS: On examination, temperature 98.4 degrees, pulse 71, respiratory 16, blood pressure 127/42, saturating 98% on room air. PHYSICAL EXAMINATION: General: On physical examination, Ms. Cedeno does not appear in any acute distress. Oral cavity: Moist. Nasal cavity: Do not have any signs of bleeding. She has mild ear wax without any impaction bilateral ear canal without any pus or blood coming out. Lungs: Air entry bilaterally equal. No wheeze, rhonchi, or crackles. Cardiovascular: S1, S2 normal. No murmur, rub, or gallop. Regular rhythm. Abdomen: Soft. Active bowel sounds. Extremities: She does not have any lower extremity edema. Right lateral thigh incision is intact and dressed. ASSESSMENT AND PLAN: 1. Mechanical fall leading to right femoral intertrochanteric comminuted fracture status post right trochanteric femoral nailing. Today is postoperative day 4. Continue oral oxycodone with acetaminophen as needed for pain and heparin for deep vein thrombosis prophylaxis. 2. Acute blood loss anemia due to blood loss sustained during surgery, status post 1 packed red blood cell with appropriate rise in hemoglobin. Continue ferrous sulfate. 3. Sepsis due to Escherichia coli urinary tract infection. Blood culture did not have any growth. Change intravenous antibiotics from cefepime to cefazolin. She has not had any more fever episodes since almost last 48 hours. I am awaiting her white blood cells to go down further tomorrow. 4. Essential hypertension. Continue home amlodipine and clonidine. 5. Others. Continue clopidogrel for history of cerebrovascular accident in 2017, glargine with sliding scale insulin for history of insulin-dependent diabetes mellitus, simvastatin for hyperlipidemia, lactulose for constipation. She does have history of chronic kidney disease stage V. DISPOSITION: Air Traffic Control Equipment Repairer is working on finding a rehab bed for the patient. My plan is to observe her inside the hospital at least for another 24 hours to ensure her leukocytosis improves. I had in person discussed the plan with the patient's daughter yesterday, and I talked with her granddaughter on the phone. All of her questions have been answered. Today, sitter is by the patient. cc: Remi Bethea MD
[2019-09-30] MEDS: PLAVIX PO SCH (22:03)
[2019-09-30] MEDS: ZOCOR PO SCH (22:03)
[2019-09-30] MEDS: COLACE PO SCH (22:04)
[2019-10-01] MEDS: KEFZOL 500 MG in NS 50 ML IV SCH ×3 (01:37→17:49)
[2019-10-01] MEDS: TYLENOL PO SCH ×3 (06:37→22:37)
[2019-10-01] MEDS: HUMALOG SUBQ SCH ×4 (06:38→22:38)
[2019-10-01] MEDS: PROTONIX PO SCH (06:38)
[2019-10-01 06:52] LABS: BASO# 0.02 X1000 (0.0-0.2); BASO% 0.1 % (0.0-0.8); EOS# 0.53 X1000 (0.0-0.7); EOS% 2.7 % (0.0-10.0); HEMATOCRIT 22.3 % (37.0-47.0); HEMOGLOBIN 6.8 g/dL (12.0-16.0); IMM GRAN# 0.07 X1000 (0.0-0.04); IMM GRAN% 0.4 % (0.0-0.5); LYMPH# 10.98 X1000 (1.2-3.4); LYMPH% 55.2 % (20.5-51.1); MCH 27.3 PG (27-31); MCHC 30.5 g/dL (33-37); MCV 89.6 FL (81-99); MONO# 0.75 X1000 (0.11-0.59); MONO% 3.8 % (1.7-9.3); MPV 10.7 FL (7.4-10.4); NEUT# 7.54 X1000 (1.4-6.5); NEUT% 37.8 % (42.2-75.2); PLT 210 X1000 (130-400); RBC 2.49 XMIL (4.2-5.4); RDW 14.4 % (11.5-14.5); WBC 19.89 X1000 (4.8-10.8)
[2019-10-01 07:40] LABS: EOS 1 % (1-10); LYMPHS 52 % (21-51); SEGS 46 % (42-75)
[2019-10-01 07:41] LABS: CALCIUM 8.8 mg/dL (8.8-10.2); CREATININE 4.3 mg/dL (0.5-0.9); MAGNESIUM 2.5 mg/dL (1.5-2.7); POTASSIUM 4.9 mmol/L (3.5-5.1)
[2019-10-01 07:42] LABS: ANISOCYTOSIS 1+
[2019-10-01] MEDS ORDERED: NS 500 ML IV ONE (10:08)
[2019-10-01 10:25] LABS: RETIC% 2.5 % (0.8-2.1); RETIC-HE 23.1 PG (28.2-36.6)
[2019-10-01 10:34] LABS: IRON SATURATION 21 %; TIBC 108 ug/dL; TOTAL IRON 23 ug/dL (49-151); UNBOUND IRON 85 ug/dL (112-346)
--- NOTE | 2019-10-01 10:41 | Diag Imaging Result Doc PS360 ---
EXAM: CHEST-1 VIEW 10/01/2019 HISTORY: pneumonia TECHNIQUE: AP portable upright at 1030 COMMENT: There is platelike opacity present in the lingula and left lower lobe which has not changed since 09/28/2019 but which is worse than on 09/26/2019. IMPRESSION: Left basilar atelectasis. Electronically signed by Jass Velez 10/01/2019 10:38 AM
[2019-10-01 11:06] LABS: FERRITIN 1264 ng/mL (13-150)
[2019-10-01] MEDS: PERIDEX MT SCH ×2 (11:13→22:39)
[2019-10-01] MEDS: HEPARIN SUBQ SCH ×2 (11:14→22:36)
[2019-10-01] MEDS: ICAR-C PO SCH ×2 (11:14→22:37)
[2019-10-01] MEDS: ZOLOFT PO SCH (11:14)
[2019-10-01] MEDS: LACTULOSE PO SCH (11:14)
[2019-10-01] MEDS: NORVASC PO SCH (11:14)
[2019-10-01] MEDS: FERROUS SULFATE PO SCH (11:14)
[2019-10-01] MEDS: CATAPRES PO SCH ×3 (11:14→22:37)
[2019-10-01] MEDS: LYRICA PO SCH (11:21)
[2019-10-01] MEDS: LANTUS INSULIN SUBQ SCH (11:21)
--- NOTE | 2019-10-01 19:42 | NEPHROLOGY CONSULTATION ---
DATE: 10/01/2019 REASON FOR CONSULTATION: CKD stage 5. HISTORY OF PRESENT ILLNESS: Shraddha Cedeno is a 79-year-old woman who is well known to us. She has known chronic kidney disease stage 5 secondary to diabetes and hypertension. She has been followed for over a year with this level of function and she has been unwilling to proceed with dialysis access or other preparation. She had a recent fall and right hip fracture. She has been through surgery. Her creatinine today is 4.3. 3.7 on presentation. Both of these values are well within her historical baseline. PAST MEDICAL HISTORY: As above. HOME MEDICATIONS: Include insulin, sertraline, simvastatin, clonidine, furosemide, pantoprazole, clopidogrel, amlodipine. ALLERGIES: Iodinated contrast. SOCIAL HISTORY: She lives with her daughter. FAMILY HISTORY: Otherwise noncontributory. REVIEW OF SYSTEMS: Otherwise noncontributory. PHYSICAL EXAMINATION: Vital Signs: Blood pressure 147/55, heart rate 77, respirations 16, afebrile. General: No acute distress. Skin is warm and dry. Conjunctivae are pink and moist. Oropharynx is clear. Normal tongue. Normal teeth. Neck: Supple. Trachea is midline. Neck vein distention is not present. PMI not displaced. Regular rate and rhythm with systolic murmur. No rubs. Lungs: Have equal excursion, equal breath sounds. No crackles, wheezes, accessory muscle use or retractions. Abdomen: Soft, nontender. Bowel sounds present. Extremities: 2+ edema. No clubbing or cyanosis. IMPRESSION: 1. Chronic kidney disease 5D. She is at her historical baseline. Eating well. No overtly uremic symptoms. 2. Electrolytes/acid base/blood pressure in target. 3. Anemia. Hemoglobin is below target and she has 2 units of packed red blood cells ordered. No changes. cc: Kishore Nicholson MD [facility]
--- NOTE | 2019-10-01 21:34 | PROGRESS NOTE ---
DATE: 10/01/2019 SUBJECTIVE: The patient is resting comfortably in bed. She states that she feels better today. No acute events noted overnight. OBJECTIVE: Vital Signs: Temperature 98.7 degrees, blood pressure 150/54, heart rate 75, respirations 16, O2 saturations 97% on room air. General: This is a chronically ill-appearing elderly female lying in bed in no acute distress. Heart: S1, S2 normal. Regular rate and rhythm. Lungs: Clear to auscultation bilaterally. Abdomen: Positive bowel sounds. Soft, nontender, nondistended. Extremities: No edema, no cyanosis. Neurologic: The patient is alert and oriented x4. LABORATORY DATA: White blood cell count 19, hemoglobin 6.8, hemoglobin 22, platelets 210,000. Sodium 139, potassium 4.9, chloride 102, CO2 is 23, BUN 54, creatinine 4.3, glucose 137. DIAGNOSTIC DATA: Chest x-ray shows left basilar atelectasis. ASSESSMENT AND PLAN: 1. Status post right trochanteric femoral nailing. Stable. Continue with physical therapy. 2. Iron deficiency anemia. The patient will receive 1 unit of packed red blood cells today. She is currently on iron supplementation. 3. Chronic kidney disease stage 5. Stable. The patient is followed by Dr. Nicholson. 4. Urinary tract infection secondary to Escherichia coli. Today is day 2 of antibiotic therapy. 5. Leukocytosis. This appears to be predominantly lymphocytes. The patient has a history of chronic lymphocytic leukemia. 6. Hypertension. Continue on the current antihypertensive regimen. 7. History of chronic lymphocytic leukemia. Aware. 8. History of cerebrovascular accident. Continue on Plavix. 9. Diabetes mellitus type 2. Continue on Lantus and sliding scale insulin. 10. Constipation. Continue on laxative therapy. 11. Situational depression. Continue on Zoloft. 12. Disposition. Economic Development Coordinator is working on inpatient rehabilitation placement for the patient. In the meantime, we will continue with physical therapy. cc: MD LEONIDES Mendoza
[2019-10-01] MEDS: ZOCOR PO SCH (22:37)
[2019-10-01] MEDS: PLAVIX PO SCH (22:37)
[2019-10-02] MEDS: COLACE PO SCH ×2 (00:28→22:36)
[2019-10-02] MEDS: LACTULOSE PO SCH ×3 (00:28→22:36)
[2019-10-02] MEDS: KEFZOL 500 MG in NS 50 ML IV SCH ×3 (02:07→17:36)
[2019-10-02] MEDS: HUMALOG SUBQ SCH ×4 (07:00→21:00)
[2019-10-02 07:05] LABS: HEMATOCRIT 29.2 % (37.0-47.0); HEMOGLOBIN 9.2 g/dL (12.0-16.0); MCH 28.3 PG (27-31); MCHC 31.5 g/dL (33-37); MCV 89.8 FL (81-99); MPV 10.5 FL (7.4-10.4); RBC 3.25 XMIL (4.2-5.4); RDW 14.4 % (11.5-14.5); WBC 23.13 X1000 (4.8-10.8)
[2019-10-02 07:43] LABS: ALBUMIN 3.2 g/dL (3.5-5.0); CALCIUM 8.8 mg/dL (8.8-10.2); CREATININE 3.9 mg/dL (0.5-0.9); POTASSIUM 4.8 mmol/L (3.5-5.1)
[2019-10-02] MEDS: TYLENOL PO SCH ×3 (08:10→22:35)
[2019-10-02] MEDS: PROTONIX PO SCH (08:10)
[2019-10-02] MEDS: LANTUS INSULIN SUBQ SCH (08:46)
[2019-10-02] MEDS: ZOLOFT PO SCH (08:46)
[2019-10-02] MEDS: HEPARIN SUBQ SCH ×2 (08:46→22:34)
[2019-10-02] MEDS: ICAR-C PO SCH ×2 (08:46→22:35)
[2019-10-02] MEDS: CATAPRES PO SCH ×3 (08:46→17:36)
[2019-10-02] MEDS: PERIDEX MT SCH ×2 (08:47→22:36)
[2019-10-02] MEDS: NORVASC PO SCH (08:47)
[2019-10-02] MEDS: OXY IR PO PRN ×3 (08:49→19:06)
[2019-10-02] MEDS: LYRICA PO SCH (08:53)
--- NOTE | 2019-10-02 13:23 | NEPHROLOGY PROGRESS NOTE ---
DATE: 10/02/2019 SUBJECTIVE: She is sitting up in bed. Awake alert. Low appetite, but no nausea or vomiting. OBJECTIVE: Vital Signs: Blood pressure 142/55, heart rate 62, respiration 18, afebrile. Generally: Awake, alert, no distress. Skin: Warm and dry. HEENT: Conjunctivae are pink. Oropharynx is moist. Neck: Neck veins are not distended. Heart: Regular. No gallops or rubs. Lungs: Equal. No crackles. Abdomen: Soft, nontender. Bowel sounds present. Extremities: With 1+ edema primarily around the hips, right greater than left. IMPRESSION: Chronic kidney disease stage 5. Modest uremic symptoms that are stable. Renal function is at her historical baseline as of yesterday. Data are pending for today. She appears euvolemic. I asked her to focus on calories and protein in her diet. No other changes. cc: Kishore Nicholson MD
[2019-10-02 16:05] LABS: URINE SOURCE CATH
[2019-10-02 16:34] LABS: BILIRUBIN URINE NEGATIVE (NEGATIVE); BLOOD URINE SMALL (NEGATIVE); COLOR YELLOW; GLUCOSE URINE TRACE mg/dL (NEGATIVE); KETONE URINE NEGATIVE (NEGATIVE); LEUKOCYTES URINE SMALL (NEGATIVE); NITRITE URINE NEGATIVE (NEGATIVE); PROTEIN URINE 100 mg/dL (NEGATIVE); SP GRAVITY URINE 1.015; TURBIDITY URINE HAZY (CLEAR); UROBILINOGEN URINE NORMAL (NORMAL)
[2019-10-02 16:36] LABS: UR EPITHELIAL CELLS <10 /HPF (<10); URINE BACTERIA NEGATIVE /HPF; URINE RBC <10 /HPF (<10); URINE WBC <10 /HPF (<10)
--- NOTE | 2019-10-02 21:11 | PROGRESS NOTE ---
DATE: 10/02/2019 SUBJECTIVE: The patient is resting comfortably in bed. She has no complaints at this time. She is eating well. OBJECTIVE: Vital Signs: Temperature 98.3 degrees, blood pressure 170/64, heart rate 62, respirations 16, O2 saturation 96% on room air. General: This is a chronically ill-appearing elderly female lying in bed in no acute distress. Heart: S1, S2 normal. Regular rate and rhythm. Lungs: Equal air entry bilaterally. No wheezing. No rales. No rhonchi. Abdomen: Positive bowel sounds. Soft, nontender, nondistended. Extremities: No edema, no cyanosis. Neurologic: The patient is alert and oriented x4. LABORATORY DATA: White blood cell count 23, hemoglobin 9.2, hematocrit 29, platelets 237,000. Sodium 141, potassium 4.8, chloride 103, CO2 22, BUN 54, creatinine 3.9, glucose 132, albumin 3.2. ASSESSMENT AND PLAN: 1. Status post right trochanteric femoral nailing. Stable. Continue with physical therapy. 2. Iron deficiency anemia. The patient received 1 unit of packed red blood cells yesterday. Her H and H is improved. Continue to monitor closely. 3. Chronic kidney disease stage 5. Stable. 4. Urinary tract infection secondary to Escherichia coli. The patient has completed a total of 7 days of antibiotic therapy, and urinalysis appears to be clear. We will discontinue the antibiotic therapy today. 5. Leukocytosis secondary to chronic lymphocytic leukemia. The patient has a chronically elevated white blood cell count with predominantly lymphocytes. The patient is followed by Dr. Camacho. 6. Hypertension. Continue on the current antihypertensive regimen. 7. Chronic lymphocytic leukemia. Aware. 8. History of cerebrovascular accident. Continue on Plavix. 9. Diabetes mellitus type 2. Continue on Lantus. 10. Situational depression. Continue on Zoloft. 11. Constipation. Continue with laxative therapy. DISPOSITION: The patient will be discharged to inpatient rehab once insurance approval has been granted. Continue with physical therapy. cc: Sima Mccall MD [facility]
[2019-10-02] MEDS: ZOCOR PO SCH (22:35)
[2019-10-02] MEDS: PLAVIX PO SCH (22:35)
[2019-10-03 06:51] LABS: BASO# 0.02 X1000 (0.0-0.2); BASO% 0.1 % (0.0-0.8); EOS# 0.99 X1000 (0.0-0.7); EOS% 4.3 % (0.0-10.0); HEMATOCRIT 30.9 % (37.0-47.0); HEMOGLOBIN 9.7 g/dL (12.0-16.0); IMM GRAN# 0.16 X1000 (0.0-0.04); IMM GRAN% 0.7 % (0.0-0.5); LYMPH# 12.99 X1000 (1.2-3.4); LYMPH% 56.9 % (20.5-51.1); MCH 28.4 PG (27-31); MCHC 31.4 g/dL (33-37); MCV 90.6 FL (81-99); MONO% 3.5 % (1.7-9.3); MPV 10.7 FL (7.4-10.4); NEUT# 7.87 X1000 (1.4-6.5); NEUT% 34.5 % (42.2-75.2); PLT 260 X1000 (130-400); RBC 3.41 XMIL (4.2-5.4); RDW 14.9 % (11.5-14.5); WBC 22.83 X1000 (4.8-10.8)
[2019-10-03 06:58] LABS: ALBUMIN 3.1 g/dL (3.5-5.0); CALCIUM 8.8 mg/dL (8.8-10.2); CREATININE 4.4 mg/dL (0.5-0.9); PHOSPHORUS 4.5 mg/dL (2.7-4.5); POTASSIUM 4.9 mmol/L (3.5-5.1)
[2019-10-03] MEDS: HUMALOG SUBQ SCH ×4 (07:00→22:06)
[2019-10-03 07:36] LABS: EOS 6 % (1-10); LYMPHS 45 % (21-51); MONO 3 % (1-9); SEGS 45 % (42-75)
[2019-10-03] MEDS: PROTONIX PO SCH (08:17)
[2019-10-03] MEDS: TYLENOL PO SCH ×4 (08:17→22:03)
[2019-10-03] MEDS: LANTUS INSULIN SUBQ SCH (09:22)
[2019-10-03] MEDS: OXY IR PO PRN ×2 (09:23→13:43)
[2019-10-03] MEDS: LYRICA PO SCH (09:24)
[2019-10-03] MEDS: ICAR-C PO SCH ×2 (09:24→20:15)
[2019-10-03] MEDS: NORVASC PO SCH (09:25)
[2019-10-03] MEDS: CATAPRES PO SCH ×3 (09:25→16:54)
[2019-10-03] MEDS: ZOLOFT PO SCH (09:25)
[2019-10-03] MEDS: HEPARIN SUBQ SCH ×2 (09:27→20:10)
[2019-10-03] MEDS: PERIDEX MT SCH ×2 (10:03→20:10)
--- NOTE | 2019-10-03 12:14 | PROGRESS NOTE ---
DATE: 10/03/2019 SUBJECTIVE: The patient is lying in bed, watching TV. She has no complaints at this time. OBJECTIVE: Vital Signs: Blood pressure is 164/59, with a heart rate of 61, respirations are 18, temperature 98.6 degrees oral, with room air saturations 94 to 96 percent. General: This is a chronically ill-appearing female who is sitting up in the bed, watching TV, in no distress. Cardiovascular: Regular rate and rhythm. S1 and S2 are appreciated. She has no murmur. She has no lower extremity edema. Calves are nontender bilaterally, with peripheral pulses palpable x4 extremities. Pulmonary: Breath sounds are clear with no increased work of breathing noted. Chest rises and falls symmetrically with respirations. Chest wall is nontender to palpation. Gastrointestinal: Abdomen is soft, nontender, nondistended. Bowel sounds in all 4 quadrants. Neurologic: She is alert and oriented x3. Labs: WBC is 22.83, with hemoglobin 9.7, hematocrit 30.9, platelets of 260,000. Sodium is 139, potassium 4.9, BUN 55, creatinine 4.4, with glucose ranging from 120 to 170. Albumin is 3.1. Urine culture is pending. ASSESSMENT AND PLAN: 1. Status post right trochanteric femoral nailing. This is stable. She will continue with physical therapy. Orthopedics are following. 2. Iron deficiency anemia. Hemoglobin and hematocrit have improved and remained stable after transfusion. We will continue to trend labs. 3. Chronic kidney disease stage 5. This is stable. She is being followed by nephrology. 4. Escherichia coli urinary tract infection. She completed 7 days of antibiotics. They were discontinued on the . Urine culture was sent on the and results are pending. 5. Leukocytosis secondary to chronic lymphocytic leukemia. 6. Chronic lymphocytic leukemia. The patient is being followed by Dr. Camacho. 7. Hypertension. We will continue her on her current regimen. 8. Cerebrovascular accident. Continue on Plavix. 9. Diabetes mellitus type 2. Continue to pattern blood glucose and Lantus. 10. Situational depression. Continue Zoloft. 11. Constipation. Continue with bowel regimen. 12. Disposition. We are awaiting insurance approval for rehab. Dictated by SUJATHA Castano for Sima Mccall MD cc: SUJATHA Castano MD [facility]
[2019-10-03] MEDS: LACTULOSE PO SCH ×3 (13:36→20:09)
--- NOTE | 2019-10-03 13:58 | PROVIDER PROGRESS NOTE ---
Progress Note Subjective: Voices feeling good, no uremic complaints, surgical pain controlled with PRN medications Objective: temperature 97.8, pulse 62, respirations 17, blood pressure 167/51, 02 sat 93% on room air. General: Elderly -Cypriot female lying in bed in no acute distress HEENT: Normocephalic, atraumatic, pupils equal and reactive, mucous membranes moist, trachea midline Skin: warm and dry Neck: supple, 6 cm JVD noted. Cardiovascular: S1S2 regular rate and rhythm. No gallops. Respiratory: clear anteriorly with equal air movement Abdomen: soft, nontender, nondistended, bowel sounds hypoactive : non inspected Extremities:Trace edema to right hip surgical area with mild tenderness Neurological: alert and oriented to person, place, and time Labs: intake 800, output 4 voids not measured. WBC 22.83, hemoglobin 9.7, hematocrit 30.9, platelet count 260. Sodium 139, potassium 4.9, chloride 102, carbon dioxide 21, BUN 55, creatinine 4.4. Impression: Chronic kidney disease stage 5. Her Creatinine today is 4.4 which is in her historical background. OK with anticipated discharge. No changes. Blood pressure. Above target. Likely due to volume status and she refuses to start dialysis treatment. Anemia. Stable. Fluid volume. Slightly expanded on exam. Electrolytes. Stable. Acid base. Ambulation. Defer to surgical team. Medication review. No changes.
[2019-10-03] MEDS: PLAVIX PO SCH (20:10)
[2019-10-03] MEDS: COLACE PO SCH (20:10)
[2019-10-03] MEDS: ZOCOR PO SCH (20:10)
[2019-10-03] MEDS: ZOFRAN IV PRN (23:23)
[2019-10-04] MEDS: TYLENOL PO SCH ×3 (05:59→20:52)
[2019-10-04] MEDS: PROTONIX PO SCH (05:59)
[2019-10-04] MEDS: HUMALOG SUBQ SCH ×4 (06:01→20:53)
[2019-10-04 07:04] LABS: BASO# 0.02 X1000 (0.0-0.2); BASO% 0.1 % (0.0-0.8); EOS# 0.49 X1000 (0.0-0.7); HEMATOCRIT 29.8 % (37.0-47.0); HEMOGLOBIN 9.4 g/dL (12.0-16.0); IMM GRAN# 0.17 X1000 (0.0-0.04); IMM GRAN% 0.7 % (0.0-0.5); LYMPH% 55.1 % (20.5-51.1); MCH 28.4 PG (27-31); MCHC 31.5 g/dL (33-37); MONO# 0.75 X1000 (0.11-0.59); MONO% 3.1 % (1.7-9.3); MPV 10.4 FL (7.4-10.4); NEUT# 9.55 X1000 (1.4-6.5); PLT 284 X1000 (130-400); RBC 3.31 XMIL (4.2-5.4); RDW 14.9 % (11.5-14.5); WBC 24.48 X1000 (4.8-10.8)
[2019-10-04 07:23] LABS: ALBUMIN 3.1 g/dL (3.5-5.0); CALCIUM 9.1 mg/dL (8.8-10.2); CREATININE 4.2 mg/dL (0.5-0.9); PHOSPHORUS 4.8 mg/dL (2.7-4.5); POTASSIUM 4.7 mmol/L (3.5-5.1)
[2019-10-04 07:48] LABS: LYMPHS 42 % (21-51); MONO 4 % (1-9); SEGS 54 % (42-75)
[2019-10-04] MEDS: PERIDEX MT SCH ×2 (09:25→20:51)
[2019-10-04] MEDS: ZOLOFT PO SCH (09:25)
[2019-10-04] MEDS: LYRICA PO SCH (09:25)
[2019-10-04] MEDS: LACTULOSE PO SCH ×3 (09:25→20:49)
[2019-10-04] MEDS: NORVASC PO SCH (09:25)
--- NOTE | 2019-10-04 09:25 | HEMO/ONC CONSULTATION ---
DATE: 10/04/2019 REASON FOR CONSULTATION: This is a known patient of ours for the treatment of CLL. HISTORY OF PRESENT ILLNESS: Ms. Cedeno is a 79-year-old female with a history of CLL, stage V chronic kidney disease, hypertension, type 2 diabetes and hyperlipidemia. She had a fall on 09/26/2019 and was found by her family members and taken to the ER. The patient states that she does not recall what happened, but her family members found her on the floor with her bed covers on top of her. She did have a right hip fracture. She was admitted for further evaluation and surgery. Dr. Caal performed right intertrochanteric femoral nailing on the . We follow Ms. Cedeno for chronic lymphocytic leukemia. She has been asymptomatic for quite some time now. We also monitor her for anemia. She has had IV iron in the past in our office, most recently 04/11/2019. The patient has not been seen in our office since 04/05/2019. She has had several no-show visits since then. She feels very well and has no complaints today. PAST MEDICAL HISTORY: CLL, stage V chronic kidney disease, hypertension, type 2 diabetes, hyperlipidemia. PAST SURGICAL HISTORY: Includes right ankle surgery, sinus surgery, left hip pinning. SOCIAL HISTORY: Patient denies smoking, alcohol, or illicit drug use. ALLERGIES: IV contrast dye. HOME MEDICATIONS: Amlodipine, clonidine, clopidogrel, Lasix, Lantus, Humalog, lispro, Icar C, oxycodone IR, pantoprazole, MiraLAX, Lyrica, sertraline HCL and simvastatin. REVIEW OF SYSTEMS: Pertinent positives are mentioned in the HPI. PHYSICAL EXAMINATION: Vital Signs: Temperature 98.3 degrees, pulse rate 63, respiratory rate 16, blood pressure 149/50, O2 saturation 96% on room air. She is in 0/10 pain. General: On physical examination, the patient appears in no acute distress. HEENT: Sclerae anicteric. PERRLA. Oral mucosa normal. Cardiovascular: Normal S1, S2. Heart rate and rhythm regular. Respiratory: Normal respiratory effort. Lung sounds clear to auscultation. Abdomen: Soft, nontender, nondistended. Skin: No ecchymosis, petechiae, or rashes noted. Neurological: Awake, alert, and oriented x3. LABORATORY: WBC 24.48, hemoglobin 9.4, hematocrit 29.8, platelet count 284. Creatinine 4.2. Iron 23, iron saturation 21, ferritin 1264, B 12 and folate adequate. ASSESSMENT: 1. Status post right trochanteric femoral nailing. The patient is working with physical therapy. She is healing as expected. She is being followed by Orthopedics. 2. Iron deficiency anemia. The patient has had 2 blood transfusions. Her iron does appear to be low. Her elevated ferritin level is most likely an acute phase reactant. Her B 12 and folate are adequate. We will continue to follow and follow up with her as an outpatient. 3. Stage V chronic kidney disease. Following recommendations per Nephrology. 4. Leukocytosis secondary to chronic lymphocytic leukemia . Her level this year has ranged from 15,000 to 24,000. We will continue to monitor as an outpatient. 5. Deep venous thrombosis prophylaxis. She is being anticoagulated with heparin. 6. Disposition: Please call us if needed over the weekend. Dictated by SUJATHA Hobbs for Adithya Camacho MD cc: Adithya Camacho MD [facility]
[2019-10-04] MEDS: ICAR-C PO SCH ×2 (09:26→20:51)
[2019-10-04] MEDS: CATAPRES PO SCH ×3 (09:26→16:59)
[2019-10-04] MEDS: HEPARIN SUBQ SCH ×2 (09:26→20:52)
[2019-10-04] MEDS: LANTUS INSULIN SUBQ SCH (09:27)
[2019-10-04] MEDS: OXY IR PO PRN (16:33)
--- NOTE | 2019-10-04 20:41 | NEPHROLOGY PROGRESS NOTE ---
DATE: 10/04/2019 SUBJECTIVE: She states she is eating "pretty good." No pain. No shortness of breath, nausea, vomiting. OBJECTIVE: Vital Signs: Blood pressure 149/50, heart rate 63, respirations 16, afebrile. General: No acute distress. Skin: Warm and dry. Neck: Veins are not visible. Heart: Regular. No gallops. Lungs: Equal. No crackles. Abdomen: Soft, nontender. Bowel sounds present. Extremities: Edema 1+, right greater than left. IMPRESSION/PLAN: Chronic kidney disease stage 5. At baseline. Minimal uremic symptoms. Electrolytes/acid base/volume status in target. Hemoglobin is below target, but stable following transfusion. cc: Kishore Nicholson MD
[2019-10-04] MEDS: PLAVIX PO SCH (20:51)
[2019-10-04] MEDS: COLACE PO SCH (20:51)
[2019-10-04] MEDS: ZOCOR PO SCH (20:53)
[2019-10-05] MEDS: OXY IR PO PRN ×2 (05:37→23:56)
[2019-10-05] MEDS: TYLENOL PO SCH ×4 (05:40→21:58)
[2019-10-05] MEDS: PROTONIX PO SCH (06:39)
[2019-10-05] MEDS: HUMALOG SUBQ SCH ×4 (07:00→22:01)
[2019-10-05 07:19] LABS: HEMATOCRIT 31.3 % (37.0-47.0); HEMOGLOBIN 9.8 g/dL (12.0-16.0); MCH 28.6 PG (27-31); MCHC 31.3 g/dL (33-37); MCV 91.3 FL (81-99); MPV 10.2 FL (7.4-10.4); RBC 3.43 XMIL (4.2-5.4); RDW 15.3 % (11.5-14.5); WBC 26.71 X1000 (4.8-10.8)
--- NOTE | 2019-10-05 07:46 | PROGRESS NOTE ---
DATE: 10/04/2019 SUBJECTIVE: The patient is sitting up in bed. She has no complaints. OBJECTIVE: Vital Signs: Temperature 98.1 degrees, blood pressure 148/54, heart rate 69, respiratory rate 16, O2 saturation 94% on room air. General: This is an elderly female, lying in bed in no acute distress. Heart: S1, S2 normal. Regular rate and rhythm. Lungs: Clear to auscultation bilaterally. Abdomen: Positive bowel sounds. Soft, nontender, nondistended. Extremities: No edema, no cyanosis. Neurologic: The patient is alert and oriented x4. LABS: White blood cell count 24, hemoglobin 9.4, hematocrit 29, platelets 284. Sodium 141, potassium 4.7, chloride 103, CO2 23. BUN 55, creatinine 4.2, glucose 127. ASSESSMENT AND PLAN: 1. Status post right trochanteric femoral nailing. Stable. Continue with physical therapy. 2. Iron deficiency anemia. Improved. The patient received 1 unit of packed red blood cells on October 01. 3. Chronic kidney disease stage V. Stable. 4. Urinary tract infection secondary to Escherichia coli. Resolved. 5. Leukocytosis secondary to chronic lymphocytic leukemia. Aware. 6. Hypertension. Controlled. 7. Chronic lymphocytic leukemia. Aware. 8. History of cerebrovascular accident. Continue on Plavix. 9. Diabetes mellitus type 2. Continue on Lantus. 10. Situational depression. Continue on Zoloft. 11. Disposition: Medical Record Clerk is working on inpatient rehabilitation placement for the patient. cc: Sima Mccall MD [facility]
[2019-10-05 08:06] LABS: ALBUMIN 3.4 g/dL (3.5-5.0); CALCIUM 9.1 mg/dL (8.8-10.2); CREATININE 3.9 mg/dL (0.5-0.9); PHOSPHORUS 4.6 mg/dL (2.7-4.5); POTASSIUM 4.9 mmol/L (3.5-5.1)
[2019-10-05] MEDS: LANTUS INSULIN SUBQ SCH (08:32)
[2019-10-05] MEDS: NORVASC PO SCH (08:34)
[2019-10-05] MEDS: LYRICA PO SCH (08:34)
[2019-10-05] MEDS: LACTULOSE PO SCH ×2 (08:35→22:01)
[2019-10-05] MEDS: CATAPRES PO SCH ×3 (08:35→22:02)
[2019-10-05] MEDS: PERIDEX MT SCH ×2 (08:35→21:58)
[2019-10-05] MEDS: ICAR-C PO SCH ×2 (08:35→21:57)
[2019-10-05] MEDS: ZOLOFT PO SCH (08:35)
[2019-10-05] MEDS: HEPARIN SUBQ SCH ×2 (08:36→22:02)
[2019-10-05] MEDS ORDERED: LASIX IV ONE (09:11)
--- NOTE | 2019-10-05 09:15 | Diag Imaging Result Doc PS360 ---
EXAM: CHEST-1 VIEW 10/05/2019 HISTORY: dyspnea TECHNIQUE: Erect AP portable at 0906 COMMENT: There is questionable atelectasis in the left lower lobe. Compared to 10/01/2019 there has been no significant change. The inspiration is somewhat suboptimal. IMPRESSION: Minimal left lower lobe atelectasis. Electronically signed by Jass Velez 10/05/2019 9:13 AM
[2019-10-05] MEDS: ZOCOR PO SCH (21:57)
[2019-10-05] MEDS: PLAVIX PO SCH (21:57)
[2019-10-05] MEDS: COLACE PO SCH (22:00)
--- NOTE | 2019-10-06 02:50 | PROGRESS NOTE ---
DATE: 10/05/2019 SUBJECTIVE: The patient is resting comfortably in bed. She has no complaints at this time. OBJECTIVE: Vital Signs: Temperature 98.1 degrees, blood pressure 167/62, heart rate 70, respirations 16, O2 saturation 97% on room air. General: This is a chronically ill-appearing, elderly female lying in bed, in no acute distress. Heart: S1, S2 normal. Regular rate and rhythm. Lungs: Clear to auscultation bilaterally. Abdomen: Positive bowel sounds. Soft, nontender, nondistended. Extremities: 1+ edema in the lower extremities. Neurologic: The patient is alert and oriented x4. LABS: White blood cell count 26, hemoglobin 9.8, hematocrit 31, platelets 301,000. Sodium 141, potassium 4.9, chloride 102, CO2 of 22, BUN 59, creatinine 3.9. Glucose 123. Chest x-ray shows minimal left lower lobe atelectasis. ASSESSMENT AND PLAN: 1. Status post right trochanteric femoral nailing. Stable. 2. Iron deficiency anemia. Stable. 3. Chronic kidney disease stage 5. Stable. 4. Urinary tract infection secondary to Escherichia coli. Resolved. 5. Chronic lymphocytic leukemia. Aware. 6. History of cerebrovascular accident. Continue on Plavix. 7. Diabetes mellitus type 2. Continue on Lantus. 8. Situational depression. Continue on Zoloft. 9. Hypertension. Controlled. 10. Disposition. The patient will be discharged to inpatient rehab once a bed has been found. cc: Sima Mccall MD
[2019-10-06] MEDS: TYLENOL PO SCH ×3 (06:01→22:20)
[2019-10-06] MEDS: PROTONIX PO SCH ×2 (06:01→09:38)
[2019-10-06 07:13] LABS: BASO# 0.03 X1000 (0.0-0.2); BASO% 0.1 % (0.0-0.8); EOS% 3.3 % (0.0-10.0); HEMATOCRIT 29.1 % (37.0-47.0); HEMOGLOBIN 8.9 g/dL (12.0-16.0); IMM GRAN# 0.15 X1000 (0.0-0.04); IMM GRAN% 0.6 % (0.0-0.5); LYMPH# 13.62 X1000 (1.2-3.4); LYMPH% 56.6 % (20.5-51.1); MCH 27.8 PG (27-31); MCHC 30.6 g/dL (33-37); MCV 90.9 FL (81-99); MONO# 0.76 X1000 (0.11-0.59); MONO% 3.2 % (1.7-9.3); MPV 10.4 FL (7.4-10.4); NEUT# 8.71 X1000 (1.4-6.5); NEUT% 36.2 % (42.2-75.2); PLT 305 X1000 (130-400); RDW 15.1 % (11.5-14.5); WBC 24.07 X1000 (4.8-10.8)
[2019-10-06 07:46] LABS: LYMPHS 72 % (21-51); SEGS 22 % (42-75)
[2019-10-06 08:02] LABS: ALBUMIN 3.1 g/dL (3.5-5.0); CALCIUM 8.8 mg/dL (8.8-10.2); CREATININE 4.1 mg/dL (0.5-0.9); PHOSPHORUS 5.3 mg/dL (2.7-4.5); POTASSIUM 4.9 mmol/L (3.5-5.1)
[2019-10-06] MEDS: ICAR-C PO SCH ×2 (09:38→22:19)
[2019-10-06] MEDS: ZOLOFT PO SCH (09:38)
[2019-10-06] MEDS: LACTULOSE PO SCH ×2 (09:38→22:18)
[2019-10-06] MEDS: NORVASC PO SCH (09:38)
[2019-10-06] MEDS: LYRICA PO SCH (09:38)
[2019-10-06] MEDS: HEPARIN SUBQ SCH ×2 (09:38→22:19)
[2019-10-06] MEDS: PERIDEX MT SCH ×2 (09:39→22:18)
[2019-10-06] MEDS: LANTUS INSULIN SUBQ SCH (09:39)
[2019-10-06] MEDS: HUMALOG SUBQ SCH ×4 (09:39→22:24)
[2019-10-06] MEDS: CATAPRES PO SCH ×3 (09:39→22:23)
[2019-10-06] MEDS: PLAVIX PO SCH (22:18)
[2019-10-06] MEDS: COLACE PO SCH (22:19)
[2019-10-06] MEDS: ZOCOR PO SCH (22:19)
[2019-10-06] MEDS: COREG PO SCH (22:23)
--- NOTE | 2019-10-07 04:16 | PROGRESS NOTE ---
DATE: 10/06/2019 SUBJECTIVE: The patient is resting comfortably in bed. She has no complaints at this time. No acute events noted overnight. OBJECTIVE: Vital Signs: Temperature 98.3 degrees, blood pressure 164/54, heart rate 71, respirations 16, and O2 saturations 95% on room air. General: This is an elderly female lying in bed in no acute distress. Heart: S1, S2 normal. Regular rate and rhythm. Lungs: Equal air entry bilaterally. No wheezing. No rales. No rhonchi. Abdomen: Positive bowel sounds. Soft, nontender, nondistended. Extremities: 1+ edema in the right leg. Trace edema in the left leg. Neurologic: The patient is alert and oriented x3. LABORATORY: White blood cell count 24, hemoglobin 8.9, hematocrit 29, and platelets 305,000. Sodium 145, potassium 4.9, chloride 106, CO2 21, BUN 58, creatinine 4.1, glucose 130, albumin 3.1, and phosphorus 5.3. ASSESSMENT AND PLAN: 1. Status post right trochanteric femoral nailing. Stable. Continue with physical therapy. 2. Iron deficiency anemia. Stable. 3. Chronic kidney disease stage 5. Stable. 4. Urinary tract infection secondary to Escherichia coli, resolved. 5. Uncontrolled hypertension. We will add Coreg. 6. Situational depression. Continue on Zoloft. 7. Diabetes mellitus type 2. Continue on Lantus. 8. History of cerebrovascular accident. Continue on Protonix. 9. CLL. Aware. The patient is followed by Dr. Camacho as outpatient. 10. Disposition. The patient is medically stable for discharge to rehab once a bed is available. cc: Sima Mccall MD
[2019-10-07 06:47] LABS: BASO# 0.03 X1000 (0.0-0.2); BASO% 0.1 % (0.0-0.8); EOS# 1.02 X1000 (0.0-0.7); HEMATOCRIT 28.9 % (37.0-47.0); HEMOGLOBIN 9.2 g/dL (12.0-16.0); IMM GRAN# 0.18 X1000 (0.0-0.04); IMM GRAN% 0.7 % (0.0-0.5); LYMPH% 57.2 % (20.5-51.1); MCH 29.3 PG (27-31); MCHC 31.8 g/dL (33-37); MONO# 0.74 X1000 (0.11-0.59); MONO% 2.9 % (1.7-9.3); MPV 10.5 FL (7.4-10.4); NEUT# 8.88 X1000 (1.4-6.5); NEUT% 35.1 % (42.2-75.2); PLT 297 X1000 (130-400); RBC 3.14 XMIL (4.2-5.4); RDW 15.3 % (11.5-14.5); WBC 25.35 X1000 (4.8-10.8)
[2019-10-07] MEDS: HUMALOG SUBQ SCH ×4 (06:59→21:00)
[2019-10-07 07:16] LABS: ALBUMIN 3.1 g/dL (3.5-5.0); CALCIUM 8.4 mg/dL (8.8-10.2); CREATININE 3.9 mg/dL (0.5-0.9); PHOSPHORUS 5.1 mg/dL (2.7-4.5); POTASSIUM 4.9 mmol/L (3.5-5.1)
[2019-10-07] MEDS: TYLENOL PO SCH (07:30)
[2019-10-07] MEDS: PROTONIX PO SCH ×2 (07:30→12:20)
[2019-10-07] MEDS ORDERED: TYLENOL PO PRN (11:42)
[2019-10-07] MEDS: ICAR-C PO SCH ×2 (11:45→22:31)
[2019-10-07] MEDS: LYRICA PO SCH (11:45)
[2019-10-07] MEDS: COREG PO SCH ×2 (11:46→22:31)
[2019-10-07] MEDS: PERIDEX MT SCH (11:46)
[2019-10-07] MEDS: NORVASC PO SCH (11:46)
[2019-10-07] MEDS: ZOLOFT PO SCH (11:46)
[2019-10-07] MEDS: LANTUS INSULIN SUBQ SCH (11:47)
[2019-10-07] MEDS: HEPARIN SUBQ SCH ×2 (11:47→22:30)
[2019-10-07] MEDS: CATAPRES PO SCH ×3 (11:47→22:33)
[2019-10-07] MEDS: LACTULOSE PO SCH (11:47)
--- NOTE | 2019-10-07 13:03 | NEPHROLOGY PROGRESS NOTE ---
DATE: 10/07/2019 SUBJECTIVE: Patient is sitting up in bed. She has no complaints today. OBJECTIVE: Vital Signs: Temperature 98.4 degrees, pulse 68, respiratory rate 16, blood pressure 160/61. Intake 640 mL, output not measured. General: Elderly female, resting in bed. She is awake and alert. She does not appear in acute distress. HEENT: Normocephalic, atraumatic. ASHISH. Oral mucosa moist. Neck: Supple. There is no JVD. Cardiovascular: Regular rate and rhythm without murmur. Pulmonary: She is clear bilaterally. Equal excursion. Abdomen: Soft. Positive bowel sounds. Genitourinary: Not inspected. Extremities: Trace lower extremity edema. No clubbing, cyanosis. Integumentary: Skin is warm and dry. Neurologic: Grossly nonfocal. LABORATORY DATA: WBC of 25.3, hemoglobin 9.9, sodium 142, potassium 4.9, CO2 of 19, creatinine 3.9. ASSESSMENT AND PLAN: 1. Chronic kidney disease stage 5. She is at her historical baseline. She appears fairly euvolemic on exam, and other labs are acceptable continue to monitor while she is in the hospital. Follow up as an outpatient. 2. Status post right trochanteric femoral nailing, followed by primary, physical therapy, and orthopedics. 3. Hypertension, improving. Continues on Coreg and other home medications. 4. Patient is to go to rehab once a bed becomes available. Dictated by SUJATHA Loera for Kishore Nicholson MD Face to face encounter, data reviewed, discussed with Hetal Yen on 10/07/19. I agree with the above assessment and plan of care. cc: Kishore Nicholson MD [facility]
[2019-10-07] MEDS: OXY IR PO PRN (14:05)
--- NOTE | 2019-10-07 20:25 | PROGRESS NOTE ---
DATE: 10/07/2019 SUBJECTIVE: The patient is resting comfortably in bed. No acute events noted overnight. She has no complaints at this time. OBJECTIVE: Vital Signs: Temperature 98.6 degrees, blood pressure 139/65, heart rate 71, respirations 16, O2 saturation 97% on room air. General: This is a elderly female lying in bed in no acute distress. Heart: S1, S2 normal. Regular rate and rhythm. Lungs: Clear to auscultation bilaterally. Abdomen: Positive bowel sounds. Soft, nontender, nondistended. Extremities: 1+ edema in the right leg. No edema in the left leg. Neurologic: The patient is alert and oriented x4. LABS: White blood cell count 25, hemoglobin 9.2, hematocrit 28, platelets 297,000. Sodium 142, potassium 4.9, chloride 105, BUN 59, creatinine 3.9, glucose 95, albumin 3.1, phosphorus 5.1. ASSESSMENT AND PLAN: 1. Status post right trochanteric femoral nailing. Stable. Continue with physical therapy. 2. Iron-deficiency anemia. Stable. 3. Chronic kidney disease stage 5. Stable. 4. Urinary tract infection secondary to Escherichia coli. Resolved. 5. Hypertension. Continue on the current antihypertensive regimen. 6. Situational depression. Continue on Zoloft. 7. Diabetes mellitus type 2. Continue on Lantus. 8. History of cerebrovascular accident. Continue on Protonix. 9. Chronic lymphocytic leukemia. The patient has a leukocytosis. However, it is predominantly lymphocytes. The patient is followed by Dr. Camacho as outpatient. 10. Disposition. The patient will have a bed available at the [facility] tomorrow. cc: Sim[facility]ccall [facility]
[2019-10-07] MEDS: PLAVIX PO SCH (22:30)
[2019-10-07] MEDS: ZOCOR PO SCH (22:31)
[2019-10-07] MEDS: COLACE PO SCH (22:31)
[2019-10-08] MEDS: PERIDEX MT SCH ×2 (00:06→10:52)
[2019-10-08] MEDS: LACTULOSE PO SCH ×2 (00:06→10:47)
[2019-10-08 07:01] LABS: BASO# 0.02 X1000 (0.0-0.2); BASO% 0.1 % (0.0-0.8); EOS# 0.91 X1000 (0.0-0.7); EOS% 4.1 % (0.0-10.0); HEMATOCRIT 28.3 % (37.0-47.0); HEMOGLOBIN 9.1 g/dL (12.0-16.0); IMM GRAN# 0.11 X1000 (0.0-0.04); IMM GRAN% 0.5 % (0.0-0.5); LYMPH# 13.05 X1000 (1.2-3.4); LYMPH% 58.6 % (20.5-51.1); MCH 29.3 PG (27-31); MCHC 32.2 g/dL (33-37); MONO# 0.72 X1000 (0.11-0.59); MONO% 3.2 % (1.7-9.3); MPV 10.4 FL (7.4-10.4); NEUT# 7.46 X1000 (1.4-6.5); NEUT% 33.5 % (42.2-75.2); PLT 324 X1000 (130-400); RBC 3.11 XMIL (4.2-5.4); RDW 15.2 % (11.5-14.5); WBC 22.27 X1000 (4.8-10.8)
[2019-10-08 07:31] LABS: LYMPHS 56 % (21-51); MONO 2 % (1-9); SEGS 42 % (42-75)
[2019-10-08 07:38] LABS: ALBUMIN 2.8 g/dL (3.5-5.0); CALCIUM 8.6 mg/dL (8.8-10.2); CREATININE 3.5 mg/dL (0.5-0.9); PHOSPHORUS 4.7 mg/dL (2.7-4.5); POTASSIUM 4.4 mmol/L (3.5-5.1)
[2019-10-08] MEDS: HUMALOG SUBQ SCH (08:07)
--- NOTE | 2019-10-08 10:19 | DISCHARGE SUMMARY ---
ADMISSION DATE: 09/26/2019 DISCHARGE DATE: FINAL DISCHARGE DIAGNOSES: 1. Status post right trochanteric femoral nailing secondary to a right intertrochanteric hip fracture. 2. Chronic kidney disease stage 5. 3. Iron deficiency anemia. 4. Urinary tract infection secondary to Escherichia coli. 5. Hypertension. 6. Situational depression. 7. Diabetes mellitus type 2. 8. History of cerebrovascular accident. 9. Chronic lymphocytic leukemia. CONSULTATIONS: 1. Orthopedic consultation with Dr. Caal. 2. Nephrology consultation with Dr. Nicholson. 3. Oncology consultation with Dr. Camacho. IMAGIN. X-ray of the right hip and pelvis which revealed a right intertrochanteric fracture and osteoporosis. 2. Chest x-ray which revealed minimal left lower lobe atelectasis. PROCEDURES: Right trochanteric femoral nailing performed on 09/26/2019. HOSPITAL COURSE: Ms. Cedeno is a 79-year-old female with a history of chronic kidney disease stage 5, hypertension, diabetes mellitus type 2, and CLL, who was brought to the ER after suffering a fall at home. Upon arrival, an x-ray of the right hip and pelvis was done that revealed a right intertrochanteric hip fracture. The patient was admitted to the hospitalist service and orthopedic surgery was consulted. On admission, the patient was noted to have a urinary tract infection and was started on cefazolin. Ultimately, the urine culture came back positive for E. coli. The patient was treated with IV cefazolin for a total of 2 days. She was then switched to Rocephin to complete the course of antibiotic therapy. Nephrology was consulted to follow along for the patient's stage 5 chronic kidney disease. That remained stable throughout the hospitalization. The patient was taken to the OR on 09/26/2019 at which time a right trochanteric femoral nailing was performed. The patient did well postoperatively. She was noted to be anemic and did require a blood transfusion. Following the blood transfusion, the patient's hemoglobin and hematocrit stabilized. The patient was seen by physical therapy. Initially, the family wanted the patient to go to [facility]. However, the patient was unable to participate in physical therapy enough to qualify to go to [facility] so the patient's family decided to send the patient to [facility]. The patient was noted to have a persistent leukocytosis. However, the patient does have CLL. The patient continued to improve clinically. The patient will be discharged to [facility]. DISCHARGE MEDICATIONS: 1. OxyIR 5 mg oral every 6 hours p.r.n. for pain. 2. Zoloft 100 mg p.o. daily. 3. Simvastatin 40 mg p.o. daily. 4. Lantus 15 units subcutaneous every morning. 5. Clonidine 0.1 mg oral 3 times a day. 6. Lasix 40 mg oral daily p.r.n. for edema. 7. Icar-C one tablet oral twice a day. 8. Protonix 40 mg p.o. daily. 9. Plavix 75 mg p.o. daily. 10. Lyrica 75 mg oral daily. 11. MiraLAX 17 g oral daily. 12. Norvasc 10 mg p.o. daily. DISCHARGE DIET: An 1800, ADA diet, low-sodium diet. ACTIVITY: As tolerated. FOLLOWUP INSTRUCTIONS: The patient will need to follow up with Dr. Caal in 2 weeks. cc: Sima Mccall MD
[2019-10-08] MEDS: LANTUS INSULIN SUBQ SCH (10:50)
[2019-10-08] MEDS: ICAR-C PO SCH (10:51)
[2019-10-08] MEDS: HEPARIN SUBQ SCH (10:51)
[2019-10-08] MEDS: PROTONIX PO SCH (10:51)
[2019-10-08] MEDS: NORVASC PO SCH (10:51)
[2019-10-08] MEDS: CATAPRES PO SCH (10:51)
[2019-10-08] MEDS: LYRICA PO SCH (10:51)
[2019-10-08] MEDS: ZOLOFT PO SCH (10:52)
[2019-10-08] MEDS: COREG PO SCH (10:52)
[2019-10-08 12:16] VITALS: BP 161/65
--- NOTE | 2019-10-08 15:43 | PROGRESS NOTE ---
DATE: 10/08/2019 INTERVAL HISTORY: No overnight events. Her vitals were largely within acceptable range. SUBJECTIVE: Ms. Cedeno denies any chest pain, shortness of breath, cough, nausea, vomiting, abdominal pain, burning micturition, or diarrhea. She states she is still needing a lot of help for ambulation. VITAL SIGNS: Temperature 98.3 degrees, pulse 59, respiratory rate 16, blood pressure 150/50, saturating 96% on room air. PHYSICAL EXAMINATION: Lungs: Air entry bilaterally equal. No wheeze, rhonchi, crackles. Cardiovascular: S1, S2 normal. No murmur or gallop. Abdomen: Soft, nontender. Extremities: No lower extremity edema. Her right lateral thigh wound is not soaked. LABS: Suggest hemoglobin of 9.1. Electrolytes are largely within acceptable range. ASSESSMENT AND PLAN: In brief, Ms. Cedeno had presented with a mechanical fall leading to right femoral intertrochanteric comminuted fracture requiring trochanteric femoral nailing. She also had acute blood loss anemia. 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 Her sepsis due to UTI has resolved. My plan is to discharge her to rehab today. I have added subcutaneous heparin 5000 international units every 12 hours for DVT prophylaxis. She is also taking clopidogrel for a history of CVA. The medication change of addition of heparin has been made on her rehab orders. cc: Remi Bethea MD
== END 2019-10-08 14:00 | DRG 481 ==
LOC: SUPCPDRO → ED 00:42 → EDIPHOLD 07:53 → SUATTDRO 07:53 → 4N 08:09
PROVIDERS: ATTEND Internal Medicine

== ENCOUNTER 2019-11-14 15:47 | Inpatient (IN) ==
[2019-11-14] MEDS ORDERED: TYLENOL PO ONE (16:49)
--- NOTE | 2019-11-14 16:57 | PROVIDER DOCUMENTATION ---
HPI-Neurological Disorder - General Chief Complaint: Syncope Stated Complaint: AMS Time Seen by Provider: 11/14/19 16:31 Source: family Allergies/Adverse Reactions: Patient Allergies Allergy/AdvReac Type Severity Reaction Status Date / Time Iodinated Contrast Media AdvReac Kidney Verified 11/14/19 16:35 [IV Dye] disease Home Medications: Home Medication List Medication Instructions Recorded Confirmed Last Taken Type Insulin Lispro [Humalog Kwikpen See Protocol SQ AC + HS 09/14/17 11/14/19 11/14/19 History U-100] Sertraline HCl 100 mg PO DAILY 09/14/17 11/14/19 11/14/19 History Simvastatin 40 mg PO HS 09/14/17 11/14/19 11/14/19 History Clonidine [Catapres] 0.1 mg PO TID@0700,1200,199910/10/18 11/14/19 11/14/19 History Furosemide [Lasix] 40 mg PO DAILY PRN PRN 10/10/18 11/14/19 11/14/19 History Insulin Glargine [Lantus] 15 unit SUBQ QAM 10/10/18 11/14/19 11/14/19 History Iron Carbonyl/Ascorbic Acid 1 ea PO BID #60 tab 11/30/18 11/14/19 11/14/19 Rx [Icar-C] Pantoprazole Sodium 40 mg PO DAILY #90 tablet. 11/30/18 11/14/19 11/14/19 Rx Clopidogrel Bisulfate [Clopidogrel] 75 mg PO QHS 06/15/19 11/14/19 11/14/19 H istory Amlodipine Besylate 10 mg PO DAILY 09/26/19 11/14/19 11/14/19 History Polyethylene Glycol 3350 [Miralax] 1 packet PO DAILY 09/26/19 11/14/19 11/14/19 History Pregabalin [Lyrica] 1 tab PO DAILY 09/26/19 11/14/19 11/14/19 History Oxycodone I.r. [Oxy Ir] 5 mg PO Q6H PRN tab 10/02/19 11/14/19 11/14/19 Rx - History of Present Illness-Neuro Nature of Presenting Problem: patient with a h/o DM, HTN, leukemia, TIA CKD4 had brief episode of unresp onsiveness today. Daughter- an eye witness states that patient was standing with her walker, noted to be shaking and daughter got to her as she was falling down, held her head thereby breaking the fall but said patient was drooling , bit her tongue and became responsive after 5 mins. Patient reports R knee pain as she reportedly twisted the knee when ems came to get her per daughter. daughter chec k pt,s blood sugars and had a reading of 143 after syncopal episode. Character of Altered Mental Status: reports: decreased responsiveness Any recent trauma/injury?: reports: none Character of Deficits: reports: impaired speech New weakness or altered sensation location:: reports: none Cognitive Baseline: alert, oriented x3 Associated Symptoms: reports: loss of consciousness Review of Systems - Adult - REVIEW OF SYSTEMS - ADULT Constitutional: reports: no symptoms reported Eyes: reports: no symptoms reported Ears, Nose, Mouth & Throat: reports: no symptoms reported Cardiovascular: reports: no symptoms reported Respiratory: reports: no symptoms reported Gastrointestinal: reports: no symptoms reported Genitourinary: reports: no symptoms reported Musculoskeletal: reports: see HPI, joint pain (b/l hip and right knee) Integumentary: reports: no symptoms reported Neurological: reports: see HPI Psychiatric: reports: no symptoms reported Endocrine: reports: no symptoms reported Hematologic/Lymphatic: reports: no symptoms reported Allergic/Immunologic: reports: no symptoms reported All Other Systems: Reviewed and Negative Past History - Adult - PAST MEDICAL HISTORY-ADULT Review of Records: reports: Nursing Assessment Review, Medications Reviewed, Social history reviewed & non-contributory. Major Childhood Illnesses: reports: history unknown Cardiovascular: reports: HTN, hyperlipidemia Respiratory: reports: denies history Gastrointestinal: reports: denies history Obstetrical/Gynecological: reports: denies history Genitourinary: reports: kidney disease Musculoskeletal: reports: denies history Neurological: reports: CVA, Seizures/Epilepsy Psychiatric: reports: denies history Endocrine/Immune: reports: Diabetes Other Conditions: reports: other cancer (CLL) - PRIOR SURGERIES/PROCEDURES Surgical/Procedure History: reports: orthopedic (extremity) (right ankle), other (sinus) - IMMUNIZATION STATUS Childhood Immunizations: See Nurse Assessment Flu Vaccine: See Nurse Assessment - FAMILY HISTORY Family History: reviewed, not pertinent - SOCIAL HISTORY Smoking: denies Substance Use: none/never Alcohol Use Frequency: never Physical Exam- Neurological - Physical Exam-Neuro Initial Vital Signs Reviewed: Yes General Appearance: alert, mild distress (due to left knee pain) Eye Exam: bilateral eye: PERRL, EOMI HENMT: normocephalic/atraumatic, moist mucous membranes Head Injury: no evidence of injury Neck: non-tender, full range of motion, supple Respiratory: chest non-tender, lungs clear, normal breath sounds Cardiovascular: regular rate, rhythm Abdominal Exam: non tender, soft Extremity: pedal edema, other Neurologic: hydrography teacher II-XII nml as tested Integumentary: normal color Psych/Mental Status: oriented x 3 - Glascow Coma Scale Best Eye Response: (4) open spontaneously Best Verbal Response: (5) oriented Best Motor Response: (6) obeys commands Progress - PLAN OF CARE/RESULTS Progress/Plan/Lab Results: Vital Signs - 8 hr 11/14/19 16:18 11/14/19 16:24 11/14/19 16:31 Temperature 98.3 F Pulse Rate 102 H Respiratory Rate 20 Blood Pressure 184/102 184/102 192/101 O2 Sat by Pulse Oximetry 97 95 98 11/14/19 17:01 11/14/19 17:31 11/14/19 18:30 Temperature Pulse Rate Respiratory Rate Blood Pressure 176/138 176/83 186/109 O2 Sat by Pulse Oximetry 97 96 98 11/14/19 19:30 11/14/19 20:00 11/14/19 20:25 Temperature Pulse Rate Respiratory Rate Blood Pressure 148/125 O2 Sat by Pulse Oximetry 98 97 97 11/14/19 20:30 11/14/19 21:00 11/14/19 21:17 Temperature Pulse Rate Respiratory Rate Blood Pressure 185/89 O2 Sat by Pulse Oximetry 97 96 99 11/14/19 21:30 11/14/19 21:31 Temperature Pulse Rate Respiratory Rate Blood Pressure 143/61 O2 Sat by Pulse Oximetry 97 98 Laboratory Results - last 24 hr 11/14/19 11/14/19 11/14/19 19:25 19:25 19:25 WBC 26.70 H RBC 3.36 L Hgb 9.8 L Hct 30.7 L MCV 91.4 MCH 29.2 MCHC 31.9 L RDW Std Deviation 14.2 Plt Count 227 MPV 9.8 Immature Gran % (Auto) 0.2 Neut % (Auto) 46.1 Lymph % (Auto) 50.7 [place] % (Auto) 2.6 Eos % (Auto) 0.1 Baso % (Auto) 0.3 Immature Gran # (Auto) 0.06 H Neut # (Auto) 12.31 H Lymph # (Auto) 13.54 H [place] # (Auto) 0.70 H Eos # (Auto) 0.02 Baso # (Auto) 0.07 PT 14.4 INR 1.10 PTT (Actin FS) 23.7 Sodium 139 Potassium 4.2 Chloride 102 Carbon Dioxide 22 L Anion Gap 15 BUN 31 H Creatinine 3.0 H Estimated GFR/1.73 m2 18 BUN/Creatinine Ratio 10 Glucose 144 H POC Glucose Calculated Osmolality 287 Calcium 8.9 Total Bilirubin 0.22 AST 14 ALT 9 L Alkaline Phosphatase 80 Creatine Kinase 48 Troponin T High Sens Total Protein 6.5 Albumin 3.6 Globulin 2.9 Albumin/Globulin Ratio 1.2 Urine Source Urine Color Urine Turbidity Urine pH Ur Specific [place] Urine Protein Ur Glucose (Stick) Ur Ketones (Stick) Urine Blood Urine Nitrite Urine Bilirubin Urobilinogen Dipstick Urine Leukocytes Urine WBC (Auto) Urine RBC (Auto) U Epithel Cells (Auto) Urine Bacteria (Auto) Urine Opiates Screen Ur Oxycodone Screen Ur Methadone, Qual Ur Barbiturates Screen Ur Phencyclidine Scrn Ur Amphetamines Screen U Benzodiazepines Scrn Urine Cocaine Screen U Cannabinoids Screen 11/14/19 11/14/19 11/14/19 19:25 19:28 21:18 WBC RBC Hgb Hct MCV MCH MCHC RDW Std Deviation Plt Count MPV Immature Gran % (Auto) Neut % (Auto) Lymph % (Auto) [place] % (Auto) Eos % (Auto) Baso % (Auto) Immature Gran # (Auto) Neut # (Auto) Lymph # (Auto) [place] # (Auto) Eos # (Auto) Baso # (Auto) PT INR PTT (Actin FS) Sodium Potassium Chloride Carbon Dioxide Anion Gap BUN Creatinine Estimated GFR/1.73 m2 BUN/Creatinine Ratio Glucose POC Glucose 143 H Calculated Osmolality Calcium Total Bilirubin AST ALT Alkaline Phosphatase Creatine Kinase Troponin T High Sens 56 H Total Protein Albumin Globulin Albumin/Globulin Ratio Urine Source CLEAN CATCH Urine Color YELLOW Urine Turbidity CLEAR Urine pH 6.0 Ur Specific [place] 1.012 Urine Protein 100 A Ur Glucose (Stick) NEGATIVE Ur Ketones (Stick) NEGATIVE Urine Blood TRACE A Urine Nitrite NEGATIVE Urine Bilirubin NEGATIVE Urobilinogen Dipstick NORMAL Urine Leukocytes NEGATIVE Urine WBC (Auto) <10 Urine RBC (Auto) <10 U Epithel Cells (Auto) <10 Urine Bacteria (Auto) NEGATIVE Urine Opiates Screen Ur Oxycodone Screen Ur Methadone, Qual Ur Barbiturates Screen Ur Phencyclidine Scrn Ur Amphetamines Screen U Benzodiazepines Scrn Urine Cocaine Screen U Cannabinoids Screen 11/14/19 21:18 WBC RBC Hgb Hct MCV MCH MCHC RDW Std Deviation Plt Count MPV Immature Gran % (Auto) Neut % (Auto) Lymph % (Auto) [place] % (Auto) Eos % (Auto) Baso % (Auto) Immature Gran # (Auto) Neut # (Auto) Lymph # (Auto) [place] # (Auto) Eos # (Auto) Baso # (Auto) PT INR PTT (Actin FS) Sodium Potassium Chloride Carbon Dioxide Anion Gap BUN Creatinine Estimated GFR/1.73 m2 BUN/Creatinine Ratio Glucose POC Glucose Calculated Osmolality Calcium Total Bilirubin AST ALT Alkaline Phosphatase Creatine Kinase Troponin T High Sens Total Protein Albumin Globulin Albumin/Globulin Ratio Urine Source Urine Color Urine Turbidity Urine pH Ur Specific [place] Urine Protein Ur Glucose (Stick) Ur Ketones (Stick) Urine Blood Urine Nitrite Urine Bilirubin Urobilinogen Dipstick Urine Leukocytes Urine WBC (Auto) Urine RBC (Auto) U Epithel Cells (Auto) Urine Bacteria (Auto) Urine Opiates Screen NONE DETECTED Ur Oxycodone Screen PRESUMPTIVE POSITIVE A Ur Methadone, Qual NONE DETECTED Ur Barbiturates Screen NONE DETECTED Ur Phencyclidine Scrn NONE DETECTED Ur Amphetamines Screen NONE DETECTED U Benzodiazepines Scrn NONE DETECTED Urine Cocaine Screen NONE DETECTED U Cannabinoids Screen NONE DETECTED Orders Category Date Time Status Cardiac Monitoring DIRECTED Care 11/14/19 16:46 Active Finger Stick Blood Sugar (ED) DIRECTED Care 11/14/19 16:46 Active Saline Loc NOW Care 11/14/19 16:46 Active CHEST-PORTABLE [RAD] Stat Exams 11/14/19 16:[address] HEAD W/O CONTRAST [CT] Stat Exams 11/14/19 16:46 Completed KNEE 3 VIEWS LEFT [RAD] Stat Exams 11/14/19 17:17 Completed XRAY HIP W/PELVIS BILAT 3-4VWS [RAD] Stat Exams 11/14/19 17:17 Completed BLOOD CULTURE [BLDCUL] Stat Lab 11/14/19 21:33 Ordered CBC WITH ELECTRONIC DIFF [HEME] Stat Lab 11/14/19 19:25 Completed CK PROFILE [SP CHEM] Stat Lab 11/14/19 19:25 Completed COMPREHENSIVE METABOLIC PANEL [CHEM] Stat Lab 11/14/19 19:25 Completed PROTIME WITH INR [COAG] Stat Lab 11/14/19 19:25 Completed PTT [COAG] Stat Lab 11/14/19 19:25 Completed TROPONIN T HIGH SENSITIVITY Stat Lab 11/14/19 19:25 Completed URINALYSIS W/POSS RFLX CULT [URINALYSIS] Stat Lab 11/14/19 21:18 Completed URINE DRUG SCREEN Stat Lab 11/14/19 21:18 Completed Acetaminophen [Tylenol] Med 11/14/19 16:49 Discontinued 650 mg PO NOW ONE Hydralazine [Apresoline] Med 11/14/19 17:22 Discontinued 10 mg IV NOW ONE Morphine Med 11/14/19 20:49 Discontinued 4 mg IV NOW ONE EKG [EKG] Stat Ther 11/14/19 16:46 Ordered Result Diagrams: 11/14/19 19:25 11/14/19 19:25 - XRAY 1 XRAY Study: Chest Impression: See EMR Report (NEGATIVE) 2 XRAY Study: Knee ( EXAM: KNEE 3 VIEWS LEFT HISTORY: left knee pain SANDRA HNIQUE: Three views COMPARISON: None. FINDINGS: Comminuted distal femoral fracture. The proximal shaft overlies the distal shaft anteriorly. There are several displaced small fracture fragments. The bones are osteopenic. Prominent atherosclerosis. IMPRESSION: Distal femoral fracture. Electronically signed by Juan Luis Mena 11/14/2019 6:40 PM) 3 XRAY Study: Chest Impression: See EMR Report (NEGATIVE) 4 XRAY Study: Pelvis, Hip Impression: See EMR Report - CT/MRI 1 CT Study: Head ( EXAM: CT HEAD W/O CONTRAST HISTORY: stroke like symptoms TECHNIQUE: CT head without contrast COMPARISON: 11/23/2018 FINDINGS: No par enchymal hemorrhage. No epidural or subdural hematoma. No subarachnoid hemorrhage. There are chronic microvascular ischemic changes. No mass identified on this noncontrasted exam. No hydrocephalus. No sinus opacification. IMPRESSION: 1.No hemorrhage 2.Chronic microvascular ischemic changes This exam was performed using automated exposure control, adjustment of mA or kV according to patient size, and/or use of iterative reconstruction technique. Electronically signed by Juan Luis Mena 11/14/2019 6:08 PM 11/14/191807 Interpreting Physician: Juan Luis Mena MD Dictated Date/Time: 11/14/191806 cc: Abrahan Cox MD; None,PCP) Departure - Departure Date of Disposition Decision: 11/14/19 Time of Disposition Decision: 22:20 DIAGNOSIS: Syncope Qualifiers: Syncope type: unspecified Qualified Code(s): R55 - Syncope and collapse HTN (hypertension) Qualifiers: Hypertension type: essential hypertension Qualified Code(s): I10 - Essential (primary) hypertension Disposition: ADMITTED INPATIENT 09 Certified Medical Emergency: Emergent Condition: Fair Referrals and Follow-Ups: None,PCP [Primary Care Provider] - - Critical Care Note This patient required my direct & personal management of CC.: No Attestation - Physician/ YESSICA Attestation Patient care was provided by Advanced Practice Provider:: No The physician spent face to face time with patient:: Yes Advanced Practice Provider documentation review:: Supervising physician onsite and consulted in the evaluation and care of this patient. The physician did have a face to face encounter with the patient. - NIH Stroke Scale Level of Consciousness: 0-Alert LOC Questions (ask month and age): 2-Both Incorrect LOC Commands (ask to open & close eyes;make a fist, let go): 2-Both Incorrect Best Gaze (horizontal eye movement): 0-Normal Facial Palsy (show teeth or raise eyebrows & close eyes tght: 0-Symmetrical Movement Motor Function-left arm: 0-Normal Motor Function-right arm: 0-Normal Motor Function-left le-No Movement (unable to left hip knee pain) Motor Function-right le-No Effort Against [place] (reports pain to the right hip site of recent surgery) Limb Ataxia([id number], or heel to rojas): 2-Present in two limbs (hand tremors noted, does occur occationally per daughters) Sensory(pin prick to face,arms,trunk,legs-compare side/side): 0-No Ataxia Best Language(name item/read sentence.Ex-Down to Earth): 1-Mild to Moderate Aphasia Dysarthria(Pt read words or say words Ex.Mama,Tip-Top,Thanks: 0-Normal Articulation Extinction and Inattention: 0-Normal
[2019-11-14] MEDS ORDERED: APRESOLINE IV ONE (17:22)
--- NOTE | 2019-11-14 18:10 | Diag Imaging Result Doc PS360 ---
EXAM: CT HEAD W/O CONTRAST HISTORY: stroke like symptoms TECHNIQUE: CT head without contrast COMPARISON: 11/23/2018 FINDINGS: No parenchymal hemorrhage. No epidural or subdural hematoma. No subarachnoid hemorrhage. There are chronic microvascular ischemic changes. No mass identified on this noncontrasted exam. No hydrocephalus. No sinus opacification. IMPRESSION: 1.No hemorrhage 2.Chronic microvascular ischemic changes This exam was performed using automated exposure control, adjustment of mA or kV according to patient size, and/or use of iterative reconstruction technique. Electronically signed by Juan Luis Mena 11/14/2019 6:08 PM
--- NOTE | 2019-11-14 18:39 | Diag Imaging Result Doc PS360 ---
EXAM: CHEST-PORTABLE HISTORY: stroke like symptoms TECHNIQUE: Single view COMPARISON: 10/05/2019 FINDINGS: The lungs are well expanded. The heart is not enlarged. The vessels are not distended. There are no infiltrates. No effusion identified. IMPRESSION: Negative exam. Electronically signed by Juan Luis Mena 11/14/2019 6:37 PM
--- NOTE | 2019-11-14 18:42 | Diag Imaging Result Doc PS360 ---
EXAM: KNEE 3 VIEWS LEFT HISTORY: left knee pain TECHNIQUE: Three views COMPARISON: None. FINDINGS: Comminuted distal femoral fracture. The proximal shaft overlies the distal shaft anteriorly. There are several displaced small fracture fragments. The bones are osteopenic. Prominent atherosclerosis. IMPRESSION: Distal femoral fracture. Electronically signed by Juan Luis Mena 11/14/2019 6:40 PM
--- NOTE | 2019-11-14 18:46 | Diag Imaging Result Doc PS360 ---
EXAM: XRAY HIP W/PELVIS BILAT 3-4VWS HISTORY: b/l hip pain TECHNIQUE: Five views COMPARISON: 09/26/2019 FINDINGS: Neither hip is dislocated. There are bilateral femoral rods. The lesser trochanter on the left is displaced medially similar to the prior exam. Severe atherosclerosis. A distal femoral fracture on the left is barely included. IMPRESSION: Distal left femoral fracture. Electronically signed by Juan Luis Mena 11/14/2019 6:44 PM
[2019-11-14 19:41] LABS: BASO# 0.07 X1000 (0.0-0.2); BASO% 0.3 % (0.0-0.8); EOS# 0.02 X1000 (0.0-0.7); EOS% 0.1 % (0.0-10.0); HEMATOCRIT 30.7 % (37.0-47.0); HEMOGLOBIN 9.8 g/dL (12.0-16.0); IMM GRAN# 0.06 X1000 (0.0-0.04); IMM GRAN% 0.2 % (0.0-0.5); LYMPH# 13.54 X1000 (1.2-3.4); LYMPH% 50.7 % (20.5-51.1); MCH 29.2 PG (27-31); MCHC 31.9 g/dL (33-37); MCV 91.4 FL (81-99); MONO% 2.6 % (1.7-9.3); MPV 9.8 FL (7.4-10.4); NEUT# 12.31 X1000 (1.4-6.5); NEUT% 46.1 % (42.2-75.2); PLT 227 X1000 (130-400); RBC 3.36 XMIL (4.2-5.4); RDW 14.2 % (11.5-14.5)
[2019-11-14 19:51] LABS: INR 1.1; PROTIME 14.4 Seconds (11.0-16.0)
[2019-11-14 19:52] LABS: PTT 23.7 Seconds (22.3-41.8)
[2019-11-14 19:56] LABS: ALB/GLOB RATIO 1.2; ALBUMIN 3.6 g/dL (3.5-5.0); CALCIUM 8.9 mg/dL (8.8-10.2); POTASSIUM 4.2 mmol/L (3.5-5.1); TOTAL BILIRUBIN 0.22 mg/dL (0.20-1.00); TOTAL PROTEIN 6.5 g/dL (6.3-8.3)
[2019-11-14] MEDS ORDERED: MORPHINE IV ONE (20:49)
[2019-11-14 21:37] LABS: URINE SOURCE CLEAN CATCH
[2019-11-14 21:48] LABS: BILIRUBIN URINE NEGATIVE (NEGATIVE); BLOOD URINE TRACE (NEGATIVE); COLOR YELLOW; GLUCOSE URINE NEGATIVE (NEGATIVE); KETONE URINE NEGATIVE (NEGATIVE); LEUKOCYTES URINE NEGATIVE (NEGATIVE); NITRITE URINE NEGATIVE (NEGATIVE); PROTEIN URINE 100 mg/dL (NEGATIVE); SP GRAVITY URINE 1.012; TURBIDITY URINE CLEAR (CLEAR); UR EPITHELIAL CELLS <10 /HPF (<10); URINE BACTERIA NEGATIVE /HPF; URINE RBC <10 /HPF (<10); URINE WBC <10 /HPF (<10); UROBILINOGEN URINE NORMAL (NORMAL)
[2019-11-14 22:11] LABS: UR AMPHETAMINES QUAL NONE DETECTED (NONE DETECT); UR BARBITUATES QUAL NONE DETECTED (NONE DETECT); UR BENZODIAZEPIN QUAL NONE DETECTED (NONE DETECT); UR CANNABINOIDS QUAL NONE DETECTED (NONE DETECT); UR COCAINE QUAL NONE DETECTED (NONE DETECT); UR METHADONE QUAL NONE DETECTED (NONE DETECT); UR OPIATES QUAL NONE DETECTED (NONE DETECT); UR OXYCODONE QUAL PRESUMPTIVE POSITIVE (NONE DETECT); UR PCP QUAL NONE DETECTED (NONE DETECT)
[2019-11-14] MEDS ORDERED: NS 1,000 ML IV SCH (23:45)
[2019-11-15] MEDS ORDERED: OXY IR PO PRN ×2 (00:34→00:39)
[2019-11-15] MEDS ORDERED: LASIX PO PRN (00:39)
[2019-11-15] MEDS ORDERED: NS 0 ML ONE (00:51)
[2019-11-15] MEDS: MORPHINE IV PRN ×2 (01:07→05:15)
[2019-11-15] MEDS ORDERED: ATIVAN IV PRN (06:37)
[2019-11-15] MEDS ORDERED: HUMULIN R SUBQ SCH ×2 (07:00)
[2019-11-15 07:33] LABS: HEMOGLOBIN A1C 5.5 % (4.8-6.0)
[2019-11-15] MEDS: CATAPRES PO SCH ×3 (08:04→22:03)
--- NOTE | 2019-11-15 10:22 | HISTORY AND PHYSICAL ---
CHIEF COMPLAINT: Brief loss of consciousness. HISTORY OF PRESENT ILLNESS: Ms. Niki Cedeno is a 79-year-old female, who has a history of diabetes mellitus, chronic lymphocytic leukemia, chronic kidney disease, hypertension, hyperlipidemia. The patient did experience a brief period of loss of consciousness prior to admission. It was witnessed by the patient's granddaughter. The patient's granddaughter was able to hold on the patient before she hit the floor. The patient was noted to have lost consciousness for approximately 30 to 40 minutes. She did bite her tongue and she also experienced some tremulous activity. The patient was subsequently brought to the hospital. She had a CT scan of the head done without contrast, which did not reveal any acute findings. X-ray of hip and pelvis showed a distal left femoral fracture. The patient has been admitted to the floor now for further management. PAST MEDICAL HISTORY: Diabetes mellitus. Chronic lymphocytic leukemia. Chronic kidney disease. Hypertension. Hyperlipidemia. SOCIAL HISTORY: The patient is a resident of [facility]. No cigarette smoking, alcohol or drug use. ALLERGIES: She is allergic to contrast IV dye. FAMILY HISTORY: Positive for hypertension, as well as diabetes. PAST SURGICAL HISTORY: She has had surgery for fracture of both hips, right ankle surgery, elbow surgery, cataract extraction, as well as tonsillectomy. MEDICATIONS: Medications include the followin. Plavix 75 mg p.o. daily. 2. Lantus insulin 15 units subcutaneous in a.m. 3. Insulin lispro taken before meals. 4. MiraLAX 17 g daily. 5. Amlodipine 10 mg p.o. daily. 6. Clonidine 0.1 mg p.o. 3 times a day. 7. Lasix 40 mg p.o. daily. 8. Icar C one p.o. twice a day. 9. Oxycodone IR q. 6 hours. 10. Pantoprazole 40 mg p.o. daily. 11. Lyrica 75 mg p.o. daily. 12. Sertraline 100 mg p.o. daily. 13. Simvastatin 40 mg p.o. daily. REVIEW OF SYSTEMS: Constitutional: No fever. SWITCH COUPLER: No headaches. Eyes: She has glasses. ENT: Has sinus problems. Cardiovascular: No chest pain. Respiratory: No cough. GI: No nausea, vomiting, diarrhea, abdominal pains. : No dysuria. Musculoskeletal: She has pain today, left lower extremity. Dermatology: No skin lesions. Hematology: No bleeding problems. Psychiatric: Has anxiety. Endocrinology: No thyroid disease. Allergy/immunology: She does have seasonal allergies. PHYSICAL EXAMINATION: VITAL SIGNS: Temperature is 98.3 degrees, pulse 102, respirations 20, blood pressure 184/102, saturation 95%. HEENT: She is atraumatic, normocephalic. Pupils equal, poorly reactive to light. No oral lesions noted. NECK: Supple. No jugular venous distention. No lymphadenopathy or thyromegaly. CARDIOVASCULAR SYSTEM: S1, S2. RESPIRATORY SYSTEM: Has evidence of good air entry bilaterally. ABDOMEN: Soft, nontender. No masses felt. EXTREMITIES: On the left thigh region, it is indurated as well as tender to palpation. Otherwise, no edema in the lower extremities. CENTRAL NERVOUS SYSTEM: The patient is awake. No obvious focal deficits noted. LABORATORY DATA: WBC is 26.7, hematocrit 30.7, platelets 227. INR is 1.10. Sodium is 139, potassium 4.2, chloride is 102, bicarbonate 22. BUN is 31, creatinine 3.0, glucose 143. Urine drug screen positive for oxycodone. X-RAY DATA: X-ray of the left knee shows a distal femoral fracture. X-ray of the hip and pelvis shows left femoral fracture. CT scan of the brain: No acute findings. X-ray of the chest: Lungs are well-expanded. Heart is not enlarged. Vessels are not distended. There is no infiltrate. There is no effusion. ASSESSMENT AND PLAN: 1. Syncope. Differential diagnosis includes acute cerebrovascular accident, as well as seizure disorder. We will place the patient on seizure precaution. We will obtain a magnetic resonance imaging of the brain, as well as an electroencephalogram. We will get carotid Doppler study, as well as a two-dimensional echocardiogram of the heart. Consult with Neurology. 2. Distal left femoral fracture. Optimize pain control. Consult with Orthopedics for repair of the fractured femur. 3. Diabetes mellitus. Monitor blood sugar levels. Maintain patient on sliding scale insulin. Check hemoglobin A1c level. 4. Chronic lymphocytic leukemia. Aware 5. Chronic kidney disease. Avoid nephrotoxic agents. Consult with Nephrology. 6. Hypertension. Optimize blood pressure control. 7. Deep vein thrombosis prophylaxis. Sequential compression devices. 8. Gastrointestinal prophylaxis. Proton pump inhibitor. 9. Anemia. Check iron studies, B 12, as well as folate levels. cc: Filiberto Harry MD
[2019-11-15] MEDS ORDERED: TYLENOL PO PRN (11:56)
[2019-11-15] MEDS: NORVASC PO SCH (12:17)
[2019-11-15] MEDS ORDERED: BLISTEX MEDICATED BERRY LIP BALM TOP PRN (12:22)
[2019-11-15] MEDS: ICAR-C PO SCH ×2 (12:31→22:03)
[2019-11-15] MEDS: ZOLOFT PO SCH (12:31)
[2019-11-15] MEDS: LYRICA PO SCH (12:32)
[2019-11-15] MEDS: PROTONIX PO SCH (12:32)
--- NOTE | 2019-11-15 12:57 | Diag Imaging Result Doc PS360 ---
ANKLE COMPLETE RIGHT - 11/15/2019 INDICATION: RIGHT ANKLE PAIN, FALL TECHNIQUE: Three views COMPARISON: None FINDINGS: There is a lateral fibula side plate and a medial malleolus fixation screw. No hardware fracture or loosening. Alignment is anatomic. Bones are osteopenic. No acute fractures. There are degenerative heel spurs. IMPRESSION: No definite acute injury. Electronically signed by Mayur Nunes 11/15/2019 12:54 PM
--- NOTE | 2019-11-15 12:57 | Diag Imaging Result Doc PS360 ---
ANKLE COMPLETE LEFT - 11/15/2019 INDICATION: left ankle pain TECHNIQUE: Three views COMPARISON: None FINDINGS: Bones are very osteopenic. Alignment is anatomic. No visible fractures. There are small degenerative heel spurs. IMPRESSION: No acute injury. Electronically signed by Mayur Nunes 11/15/2019 12:55 PM
[2019-11-15] MEDS ORDERED: LOVENOX SUBQ SCH (14:00)
[2019-11-15] MEDS ORDERED: HEPARIN IV PRN ×2 (14:23→15:45)
[2019-11-15] MEDS ORDERED: HEPARIN IV ONE ×2 (14:23→15:45)
[2019-11-15] MEDS ORDERED: HEPARIN 25,000 UNITS/D5W 25,000 UNIT/250 ML IV.SOLN IV SCH (14:30)
[2019-11-15 15:04] LABS: INR 1.23; PROTIME 15.6 Seconds (11.0-16.0); PTT 32.5 Seconds (22.3-41.8)
--- NOTE | 2019-11-15 15:18 | EKG Report ---
Test Performed on : 11/15/2019 2:52:30 PM Test Reason : Baseline EKG Blood Pressure : / mmHG Vent. Rate : 081 BPM Atrial Rate : 081 BPM P-R Int : 210 ms QRS Dur : 144 ms QT Int : 440 ms P-R-T Axes : 070 -55 077 degrees QTc Int : 511 ms Sinus rhythm. with 1st degree AV block. Right bundle branch block Left anterior fascicular block Bifascicular block Left ventricular hypertrophy with repolarization abnormality Abnormal ECG When compared with ECG of 26-SEP-2019 02:25, (Unconfirmed) No significant change was found Confirmed by Neri VELEZ, Andrae Haider ([id number]) on 11/18/2019 5:56:15 PM
--- NOTE | 2019-11-15 17:37 | ECHO REPORT ---
ORDER DATE: 11/15/2019 INDICATION: Syncope. M-MODE MEASUREMENTS: Left ventricle end diastole: 4.0. Left ventricle end systole: 2.5. Posterior wall: 1.0. Interventricular septum: 1.0. Left atrium: 2.9. Aortic diameter: 2.9. SUMMARY OF 2-DIMENSIONAL IMAGIN. Left ventricular function is normal, ejection fraction of 63%. There is no wall motion abnormality noted. There is mild enlargement of the left ventricular chamber. 2. The aortic valve shows a minimal degree of sclerosis. Color flow mapping is unremarkable. There is no stenosis. 3. The mitral valve opens normally. Color flow mapping unremarkable. 4. Pulse wave Doppler of mitral inflow shows reversal of the E/A ratio. The ratio is 0.5. 5. Tissue Doppler of septal and lateral mitral annulus averages 5 cm. There is impaired left ventricular relaxation/diastolic function. 6. The tricuspid valve is unremarkable. There is no pulmonary hypertension. 7. There is no mitral regurgitation of any significant degree. 8. The pulmonic valve is unremarkable. 9. There is no pericardial effusion, no mass, and no thrombus. 10.The left atrium is not dilated. 11.The right-sided chambers do not appear to be dilated. cc: MD Filiberto Bethea MD
--- NOTE | 2019-11-15 19:55 | PROGRESS NOTE ---
DATE: 11/15/2019 INTERVAL HISTORY: Ms. Cedeno was admitted for syncope. According to the history provided to me by the patient's granddaughter, the patient was being transferred to a wheelchair and she was standing with support from the walker, and then she felt dizzy and passed out. She probably had some bloody looking froth coming out of her mouth. She also had jerky movements of upper extremities and probably lower extremities as well. She was unconscious for about 4 or 5 minutes after which she started mumbling. She never had known diagnosis of seizure before, though she had a somewhat similar episode about a year ago. PHYSICAL EXAMINATION: Vital signs: Temperature 99 degrees, pulse 80, respiratory 18, blood pressure 170/66, saturating 98% on room air. General: She is sleepy and is not able to provide meaningful information. Her daughter is at bedside. Not in any acute distress. Oral cavity: Moist. Lungs: Air entry bilaterally equal. No wheeze, rhonchi, or crackles. Cardiovascular: S1, S2 normal. No murmur, rub, or gallop. Abdomen: Soft, nontender. Extremities: Her left lower extremity is shorter than the right. There is also some edema of her left lower extremity. She is able to wiggle toes bilaterally. Intact dorsalis pedis and popliteal pulses. LABS: There is no new CBC than yesterday. I will order a CBC for tomorrow morning. IMAGING: Ankle x-ray on 11/15/2019 did not have any ankle injury. Knee x-ray had comminuted fracture of distal femur. ASSESSMENT AND PLAN: 1. Syncope. Differential includes orthostatic hypotension versus seizure versus others. It is possible that she had orthostatic hypotension, which may have caused transient ischemia of brain, and she may have had jerky movements with bloody froth coming out of her mouth. She could also have had a primary seizure event. For now, I am going to keep her in the hospital with seizure precautions. I will appreciate Neurology recommendations. I will get orthostatic vital signs. CT scan head was unremarkable for acute pathology. In future, I will consider getting an MRI of the brain as necessary. 2. Distal left femoral fracture. Orthopedic team on board and planning surgical intervention on 11/16/2019. I will keep her on morphine as needed for pain management. 3. Left lower extremity popliteal vein acute deep venous thrombosis, as per the preliminary report. I will start her on heparin drip with close eye over her blood counts. 4. Others. She does have a history of chronic lymphocytic leukemia; chronic kidney disease stage 4; essential hypertension; which are currently stable. I will continue her home amlodipine and clonidine. 5. Continue home pantoprazole for chronic gastroesophageal reflux disease; pregabalin for her neuropathy; simvastatin for hyperlipidemia; sertraline for anxiety. DISPOSITION: Continue to monitor patient inside the hospital. Plan of care discussed with the patient and her daughter. All of their questions have been satisfactorily answered. cc: Remi Bethea MD
--- NOTE | 2019-11-15 20:17 | PROGRESS NOTE ---
DATE: 11/15/2019 INTERVAL HISTORY: Ms. Cedeno was admitted for a mechanical fall and a left distal femoral comminuted fracture. The preliminary report of the ultrasound of the lower extremity suggested DVT. VITALS: Temperature 98.8, pulse 70, respiratory rate 16, blood pressure 156/51, saturating 92% on room air. PHYSICAL EXAMINATION: General: Not in acute distress. HEENT: Oral cavity is moist. Lungs: Air entry bilaterally equal. No wheeze, rhonchi, crackles. Cardiovascular: S1 and S2 normal. No murmur, rub or gallop. Abdomen: Soft, nontender. Extremities: No lower extremity edema. She is able to wiggle her toes. She has mild edema of left lower extremity. Left lower extremity is shorter. LABS: Suggestive of leukocytosis, normocytic anemia, normal platelet count, and hemoglobin of 9.8, which is close to her baseline hemoglobin. She does have an INR of 1.2, glucose of 188. Her troponin is only showing a 56 to 68 rise. Her EKG had a sinus rhythm with first-degree AV block, right bundle branch block and left anterior fascicular block. ASSESSMENT AND PLAN: 1. Syncope. Differential includes orthostatic hypotension versus primary seizure event versus others. I will get orthostatic vitals. Keep her on telemetry unit. CT scan head was unremarkable. Carotid Doppler study is pending. Echocardiogram is pending. Appreciate neurology recommendation. 2. Distal left femoral fracture with left popliteal deep venous thrombosis. Orthopaedic team on board, planning surgical intervention on November 16. I will continue her on intravenous morphine as needed for pain management. I will start her on heparin drip for acute deep venous thrombosis. This is likely because of her recent immobilization. Will stop heparin drip 2 to 4 hours prior to surgery. I communicated this plan to the orthopaedic team. 3. Essential hypertension. 4. Chronic lymphocytic leukemia. 5. Chronic kidney disease stage 4, currently stable and at her baseline. 6. I will continue her on her home medications of amlodipine, clonidine and simvastatin for hyperlipidemia. DISPOSITION: Continue monitor patient inside the hospital. Plan of care discussed with the patient's daughter at bedside, and all of her questions have been satisfactorily answered. cc: Remi Bethea MD
--- NOTE | 2019-11-15 20:20 | NEPHROLOGY CONSULTATION ---
DATE: 11/15/2019 REASON FOR CONSULTATION: Chronic kidney disease. HISTORY OF PRESENT ILLNESS: Ms. Cedeno is a 79-year-old woman who is well known to us. She has CKD stage 4 secondary to diabetes and hypertension. We follow her in the office and her renal function is at her historical baseline. She was admitted to the hospital because of an episode of loss of consciousness. It was brief and not associated with any prodrome. She was in rehab because of a recent hip fracture. Her initial evaluation did not disclose any structural cause of her loss of consciousness. She has been told in the past that she has seizures and at that time bit her tongue. The family states she had blood in her mouth yesterday as well. PAST MEDICAL HISTORY: As above. HOME MEDICATIONS: Reviewed. ALLERGIES: Noncontributory. FAMILY HISTORY: Noncontributory. REVIEW OF SYSTEMS: Noncontributory. SOCIAL: Currently in [facility] for rehab. No alcohol or tobacco. PHYSICAL EXAMINATION: Vital Signs: Blood pressure 180/53, heart rate 84, respirations 20, temperature 100.2 degrees. General: No acute distress. Lying in bed. Skin: Warm and dry. Conjunctivae are pink. Pupils are equal. Oropharynx is moist. Neck: Neck veins are not appreciated. Heart: Regular. Heart: PMI nondisplaced. Lungs: Have equal breath sounds, shallow, no crackles. Abdomen: Soft, nontender. Bowel sounds present. Extremities: No significant edema. IMPRESSION: Chronic kidney disease stage 4. She is at her historical baseline. Volume status, electrolytes, and acid base are all in target. Hemoglobin is modestly below target. I have reviewed her medical care and current prescriptions. No changes are required. cc: Kishore Nicholson MD
--- NOTE | 2019-11-15 20:57 | NEUROLOGY CONSULTATION ---
DATE: 11/15/2019 HISTORY OF PRESENT ILLNESS: Ms. Cedeno had an episode of collapse yesterday. I reviewed the admission notes. I do not have firsthand reports available now. I discussed with family member at the bedside who did not witness the episode. Patient has been sedated with morphine and is not able to provide a valid history. Report is that she was being helped from a sitting position to transfer to a wheelchair. She seemed to become blank and unresponsive. She fell. She apparently sustained a hip fracture. She continued poorly responsive for a short time and spontaneously recovered. By the time she was evaluated in the emergency room, she was awake and answering questions, but may not have been completely back to baseline mentally. She has received several doses of morphine in the last 24 hours, and has been groggy for most of that time according to family present now. Family at the bedside reports current appearance is typical for how she has appeared after receiving morphine in the past. She was in the hospital year a ago with a protracted global encephalopathy. Seizure was a concern during part of that admission, but never proven. Initial EEG then showed generalized slowing and very prominent triphasic waves. EEG about a week later showed some improvement. EEG this admission, shows generalized slowing, a little bit more prominent than the prior EEG, and triphasic waves are less prominent now. Noncontrast CT this admission, shows typical chronic changes with nothing focal or acute, no bleeding. LABORATORY DATA: This admission shows WBC 26,000, anemia. BUN in the 30s and stable compared to baseline, blood sugars 130s-150s. Urine drug screen was positive for oxycodone consistent with her home medication list. PAST MEDICAL HISTORY: Diabetes mellitus, hypertension, dyslipidemia, CLL. PHYSICAL EXAMINATION: Ms. Cedeno is supine, sleeping peacefully. With moderate stimulation, she was awake, alert, looked at me, spoke cheerfully and appropriately. Speech is a little bit dysarthric, but easily understood. Language function is intact on brief bedside testing. She seemed quickly back to sleep when not vigorously stimulated. She moves her arms well. After I got her to wake, there was occasional irregular arrhythmic twitch in the arms, maybe a little bit more on the left. This was not clonic activity. I did not examine her legs vigorously in light of recent fracture. Neck is supple. She has good lateral eye movement with passive head turning. Facial motility is symmetric. IMPRESSION/PLAN: Recent collapse, uncertain etiology. Associated features suggest this may not have been primarily seizure or other central nervous system event. I do not think we need to add medicine for seizure control or make any other changes from a neurologic standpoint right now. If she has another episode with more typical seizure features, or if she develops fluctuating level of consciousness not explained by medications, we might consider repeating her EEG. I do not have any specific suggestion otherwise right now from a neurology standpoint. Thanks for asking us to see Ms. Cedeno. cc: MD LEONIDES Pierce III
[2019-11-15] MEDS: DILAUDID IV PRN (22:03)
[2019-11-15] MEDS: ZOCOR PO SCH (22:03)
[2019-11-15 22:26] LABS: HEMATOCRIT 24.7 % (37.0-47.0); HEMOGLOBIN 7.8 g/dL (12.0-16.0); MCH 28.8 PG (27-31); MCHC 31.6 g/dL (33-37); MCV 91.1 FL (81-99); MPV 9.8 FL (7.4-10.4); RBC 2.71 XMIL (4.2-5.4); RDW 14.2 % (11.5-14.5); WBC 22.88 X1000 (4.8-10.8)
[2019-11-16] MEDS ORDERED: HEPARIN 25,000 UNITS/D5W 25,000 UNIT/250 ML IV.SOLN IV SCH (00:29)
[2019-11-16] MEDS: DILAUDID IV PRN ×2 (01:32→03:26)
[2019-11-16] MEDS: CATAPRES PO SCH ×2 (06:40→15:15)
[2019-11-16] MEDS ORDERED: NS 1,000 ML IV SCH (07:30)
[2019-11-16 07:40] LABS: BASO# 0.03 X1000 (0.0-0.2); BASO% 0.2 % (0.0-0.8); EOS# 0.03 X1000 (0.0-0.7); EOS% 0.2 % (0.0-10.0); HEMOGLOBIN 7.1 g/dL (12.0-16.0); IMM GRAN# 0.04 X1000 (0.0-0.04); IMM GRAN% 0.2 % (0.0-0.5); LYMPH# 9.86 X1000 (1.2-3.4); LYMPH% 55.8 % (20.5-51.1); MCH 27.4 PG (27-31); MCHC 29.6 g/dL (33-37); MCV 92.7 FL (81-99); MONO# 1.04 X1000 (0.11-0.59); MONO% 5.9 % (1.7-9.3); NEUT# 6.66 X1000 (1.4-6.5); NEUT% 37.7 % (42.2-75.2); PLT 171 X1000 (130-400); RBC 2.59 XMIL (4.2-5.4); RDW 14.3 % (11.5-14.5); WBC 17.66 X1000 (4.8-10.8)
[2019-11-16 08:23] LABS: CALCIUM 8.7 mg/dL (8.8-10.2); CREATININE 3.5 mg/dL (0.5-0.9); IRON SATURATION 15 %; POTASSIUM 4.6 mmol/L (3.5-5.1); TIBC 143 ug/dL; TOTAL IRON 21 ug/dL (49-151); UNBOUND IRON 122 ug/dL (112-346)
[2019-11-16 08:32] LABS: FERRITIN 818 ng/mL (13-150)
[2019-11-16] MEDS ORDERED: KEFZOL 1 GM/D5W 2 GM/100 ML IVPB ONE (11:03)
[2019-11-16] MEDS ORDERED: DIPRIVAN 1% ONE ×2 (11:27→11:55)
[2019-11-16] MEDS ORDERED: ROBINUL ONE (11:28)
[2019-11-16] MEDS ORDERED: XYLOCAINE-MPF 2% ONE (11:28)
[2019-11-16] MEDS ORDERED: DECADRON ONE (11:30)
[2019-11-16] MEDS ORDERED: ZOFRAN ONE (11:30)
[2019-11-16] MEDS ORDERED: OFIRMEV 1000 MG/ISOTONIC SOLN 1,000 MG/100 ML BOTTLE ONE (11:30)
--- NOTE | 2019-11-16 11:55 | PROGRESS NOTE ---
DATE: 11/16/2019 INTERVAL HISTORY: She was started on heparin drip for left lower extremity popliteal DVT. She did have a drop in her hemoglobin since then, though there was no bleeding noted from nose, mouth, urine or rectum. SUBJECTIVE: She is a little sleepy because of intravenous narcotic pain medication she has been on. Family is currently at bedside. The patient does not appear in a lot of distress. VITALS: Temperature 98.5 degrees, pulse 73, respiratory rate 16, blood pressure 150/60, saturating 95% on room air. PHYSICAL EXAMINATION: Not in acute distress.HEENT: Oral cavity is dry. Lungs: Air entry bilaterally equal. No wheeze, rhonchi, or crackles. Cardiovascular: S1, S2 normal. Not tachycardic. No murmur or gallop. Abdomen: Soft, nontender. Extremities: She has mild edema of left lower extremity especially around the left knee. Her left lower extremity is shorter than the right lower extremity. It is externally rotated and abducted. She has intact popliteal and dorsalis pedis pulses on left lower extremity. Neurologic: She is arousable to verbal stimuli. [place]S: [place] [address], hemoglobin 7.1, platelet of 171,000. She does have elevated BUN and creatinine, which is close to her historic baseline. No new microbiological data, blood cultures or new lab. ASSESSMENT AND PLAN: 1. Syncope. Differential includes orthostatic hypotension leading to vasovagal syncope versus primary seizure event versus other etiologies. CT scan head was unremarkable. Echocardiogram is unremarkable. Followup ultrasound carotid results and monitor her in telemetry unit. 2. Distal left femoral fracture after mechanical fall. Orthopedic team on board and planning surgical intervention on November 16. I will keep her on intravenous hydromorphone as needed for pain and intravenous acetaminophen. 3. Left lower extremity popliteal vein acute DVT based on prelim report. I am holding her heparin drip as she is supposed to go for surgery today, and I will resume her anticoagulation 12 hours after surgery if the Orthopedic team is okay. 4. Anemia. The patient does have chronic anemia. Her current drop in her hemoglobin could be in the setting of some blood loss around the fracture site. There is no overt GI bleeding. I will type and crossmatch and I will transfuse her with goal hemoglobin of more than 7. I will frequently monitor her CBC 5. She does have a history of chronic lymphocytic leukemia explaining her leukocytosis; chronic kidney disease stage 4, being followed up outpatient by Nephrology; essential hypertension which are currently stable. I will continue pantoprazole for chronic GERD; pregabalin for her neuropathy; simvastatin for hyperlipidemia and sertraline for anxiety. DISPOSITION: Continue to monitor patient on surgical floor. Plan of care discussed with the patient's daughter at bedside. I discussed with her about DVT and need for at least 3 to 6 months of anticoagulation. The patient has a gradually declining functional status and I answered all of her questions satisfactorily. ADDENDUM: Patient had hypotension post surgery. I will give her 500 cc IV fluid bolus and start her on IV fluid infusion. cc: Remi Bethea MD MTDD
[2019-11-16] MEDS ORDERED: ZOFRAN IV PRN (13:13)
[2019-11-16] MEDS ORDERED: KEFZOL 1 GM/D5W 1 GM/50 ML IVPB IV SCH (13:15)
[2019-11-16] MEDS: OFIRMEV 1000 MG/ISOTONIC SOLN 1,000 MG/100 ML BOTTLE IV SCH ×2 (13:19→19:54)
[2019-11-16] MEDS: NORVASC PO SCH (13:20)
[2019-11-16] MEDS: ICAR-C PO SCH ×2 (13:20→23:11)
[2019-11-16] MEDS: LYRICA PO SCH ×2 (13:20→20:16)
[2019-11-16] MEDS: PROTONIX PO SCH ×2 (13:20→20:17)
[2019-11-16] MEDS: ZOLOFT PO SCH ×2 (13:21→20:17)
[2019-11-16] MEDS: DILAUDID ONE ×2 (13:23→13:37)
[2019-11-16] MEDS ORDERED: PHENERGAN ONE (13:23)
[2019-11-16] MEDS ORDERED: DILAUDID ONE (13:58)
[2019-11-16] MEDS ORDERED: QUELICIN (DOSE) ONE (14:00)
[2019-11-16] MEDS ORDERED: NS 1,000 ML ONE (14:11)
[2019-11-16] MEDS ORDERED: NS 500 ML IV ONE (15:00)
--- NOTE | 2019-11-16 15:04 | ORTHOPAEDICS PROGRESS NOTE ---
DATE: 11/16/2019 SUBJECTIVE: Ms. Cedeno is lying in bed this morning. The left knee is still bothering her a pretty good bit. Overall pain is controlled. OBJECTIVE: Left knee exam: The knee is swollen and tender to palpation. She is able to move the toes really well. She has a little bit of pain around the left ankle, but she is able to move it. Right lower extremity exam: A little bit tender to palpation around that ankle as well, not really any swelling on exam today. RADIOGRAPHS: Left ankle views show previous hardware in the ankle and all that looks to be intact. I do not see any acute fractures. Right ankle 3 view shows a lot of osteopenic- looking bone but I do not see an acute fracture. ASSESSMENT: Left supracondylar femur fracture. PLAN: I discussed Ms. Cedeno and her caregiver about operative intervention. They both expressed understanding and wished to proceed. We will plan on open reduction and internal fixation distal femur today. She will remain n.p.o. cc: Rubio Caal MD
[2019-11-16 18:02] LABS: BASO# 0.03 X1000 (0.0-0.2); BASO% 0.1 % (0.0-0.8); HEMATOCRIT 19.3 % (37.0-47.0); IMM GRAN# 0.05 X1000 (0.0-0.04); IMM GRAN% 0.2 % (0.0-0.5); LYMPH# 10.23 X1000 (1.2-3.4); LYMPH% 44.1 % (20.5-51.1); MCH 28.8 PG (27-31); MCHC 31.1 g/dL (33-37); MCV 92.8 FL (81-99); MONO# 0.56 X1000 (0.11-0.59); MONO% 2.4 % (1.7-9.3); MPV 9.9 FL (7.4-10.4); NEUT# 12.32 X1000 (1.4-6.5); NEUT% 53.2 % (42.2-75.2); PLT 161 X1000 (130-400); RBC 2.08 XMIL (4.2-5.4); RDW 14.3 % (11.5-14.5); WBC 23.19 X1000 (4.8-10.8)
[2019-11-16 18:17] LABS: LYMPHS 40 % (21-51); MONO 1 % (1-9); SEGS 59 % (42-75)
[2019-11-16 18:18] LABS: LARGE PLATELETS OCCASIONAL
--- NOTE | 2019-11-16 19:42 | OPERATIVE NOTE ---
PROCEDURE DATE: 11/16/2019 PREOPERATIVE DIAGNOSIS: Left supracondylar femur fracture. POSTOPERATIVE DIAGNOSIS: Left supracondylar femur fracture. PROCEDURE: Left supracondylar femur open reduction and internal fixation. SURGEON: Rubio Caal MD SOIL SORT WORKER: None. ANESTHESIA: General with LMA. BLOOD LOSS: 250 mL TOURNIQUET TIME: Just over an hour. IMPLANT: Synthes condylar locking plate and screws for the femur. DISPOSITION: To PACU, hemodynamically stable. INDICATION FOR PROCEDURE: Ms. Cedeno unfortunately fell and fractured her left distal femur I discussed with her and her tire bagger about operative intervention. They both expressed understanding and wished to proceed. DESCRIPTION OF PROCEDURE: Ms. Cedeno was identified in the preoperative holding area. The left knee was marked as the correct surgical site. She was then wheeled to the operating room and placed supine on the operating table. All bony prominences were well padded. She was induced under general anesthesia. LMA was placed. Left lower extremity then prepped with chlorhexidine gluconate scrub and then ChloraPrep, and draped in normal sterile fashion. Surgical pause was performed. We identified the correct patient, correct site and the correct procedure. Preoperative antibiotics were given. I started with a lateral incision. Dissection was carried down through the deep fascia into the bone she was having a little bit of bleeding at that time, and so we put a sterile tourniquet on and inflated that to 300 mmHg. I was then able to get a good reduction. I was able to get her length back. There was a lot of comminution that was there. It was comminuted both anteriorly and posteriorly also. We were able to get her out to length. I then used a 12-hole plate and we spanned that whole area, and spanned all the way up to where her short trochanteric nail is. We made sure everything was lined up and provisionally pinned it both proximally and distally. I then used a whirlybird right in the middle to get the shaft where we needed it to be, and then I secured it proximally with locking screws. We did 4 locking screws that were bicortical and then I did 2 locking screws that were unicortical that were over the short trochanteric nail. I then came distal and put the locking screws in the condyles, and that held everything together really well. Final images were taken, which showed that we had good alignment. I then sutured her IT band back with 0 Vicryl, 2-0 Vicryl for the subcutaneous and vanessa on the skin. Adaptic, 4 x 4s, Sof-Rol and Devante were placed. A knee immobilizer was then placed. She was awoken from general anesthesia, moved to her own bed and taken to the PACU in stable condition. PLAN: Postoperatively she is nonweightbearing on the left lower extremity. We will continue to follow. cc: Rubio Caal MD
[2019-11-16] MEDS: KEFZOL 1 GM/D5W 1 GM/50 ML IVPB IV SCH (19:54)
[2019-11-16] MEDS: OXY IR PO PRN (19:55)
[2019-11-16 20:48] LABS: CALCIUM 8.4 mg/dL (8.8-10.2); POTASSIUM 5.1 mmol/L (3.5-5.1)
[2019-11-16] MEDS: ZOCOR PO SCH (23:09)
[2019-11-16] MEDS: COLACE PO SCH (23:10)
[2019-11-17] MEDS: DILAUDID IV PRN ×4 (02:35→19:07)
[2019-11-17] MEDS: OXY IR PO PRN ×3 (05:22→17:40)
[2019-11-17] MEDS: KEFZOL 1 GM/D5W 1 GM/50 ML IVPB IV SCH ×2 (05:28→18:14)
[2019-11-17] MEDS: OFIRMEV 1000 MG/ISOTONIC SOLN 1,000 MG/100 ML BOTTLE IV SCH ×3 (05:28→21:32)
[2019-11-17 07:16] LABS: CREATININE 3.9 mg/dL (0.5-0.9); MAGNESIUM 1.9 mg/dL (1.5-2.7); POTASSIUM 4.6 mmol/L (3.5-5.1)
[2019-11-17] MEDS: ICAR-C PO SCH ×3 (08:07→21:34)
[2019-11-17] MEDS: PERIDEX MT SCH ×3 (08:07→21:32)
[2019-11-17] MEDS: ZOLOFT PO SCH (08:07)
[2019-11-17] MEDS: LYRICA PO SCH (08:08)
[2019-11-17] MEDS: PROTONIX PO SCH (08:08)
--- NOTE | 2019-11-17 08:35 | PROGRESS NOTE ---
DATE: 11/17/2019 SUBJECTIVE: She had a pretty rough night, did not sleep a whole lot. Daughter showed me some pictures of twitching in her left side and then I saw some twitching on the right side and twitching of the whole arm, just one short twitch. She is awake and alert, and seems to be oriented x3. They said a week ago, there was confusion and when the event happened, she broke her other hip. She just got limp. They were trying to transport her to the wheelchair and she slumped down to the floor, and broke her other hip. She has remained afebrile. They did a bladder scan and she had no retention last night. The patient has a Herndon catheter in place. OBJECTIVE: Vital Signs: Temperature 98.3 degrees, pulse 80, respirations 20, blood pressure 132/44. Pupils are equal and round. Lungs are clear in all lung smith. Cardiovascular Examination: Regular rhythm and rate without murmur or S3. Abdomen is soft. Skin is warm and dry. Urine output is 6200 mL. ASSESSMENT AND PLAN: 1. Open reduction and internal fixation for a left supracondylar femur fracture. 2. There is some myoclonus, question whether she had a seizure. On admission, CT of the head without contrast, no hemorrhage, chronic microvascular changes but syncope. It sounds like she got limp and passed out, includes orthostatic hypotension leading to a vasovagal syncopal episode and possible seizure event. 3. 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 Looking at her lab, she does have an anemia. Hemoglobin was 6.0, hematocrit was 19. Her electrolytes, though, looked pretty good. Sodium is 139, potassium 4.6, chloride 103, BUN 40, creatinine 3.9. 4. Acute kidney injury which I think is new. Looking back at creatinine, actually the lowest her creatinine was back in March 2019 was 2.9. Her creatinine was 3.0 on 11/14/2019. This certainly could lead to some myoclonus. She had an echocardiogram done on 11/14/2019 I think at 1:25. Left ventricular function was normal with ejection fraction of 63%. Mitral valve was normal. Tricuspid valve was unremarkable so looked like a good report. 5. Anemia. They transfused her to try and get her hemoglobin above 7. 6. History of chronic lymphocytic leukemia, which explains her leukocytosis. 7. Chronic kidney disease stage 4. 8. Hypertension. 9. She has chronic gastroesophageal reflux disease. 10. She takes pregabalin for her neuropathy. 11. She has a history of hyperlipidemia. 12. She takes sertraline for anxiety. REVIEW OF ORDERS: Looking back at orders, she is on Colace 200 mg at bedtime, gets Dilaudid p.r.n. pain, oxycodone IR 5 mg q.3 hours p.r.n. She is on heparin 2900 units IV p.r.n., ascorbic acid and iron 1 twice a day, Protonix 40 mg a day, Lyrica 75 mg a day, Zoloft 100 mg a day, Zocor 40 mg at bedtime. For diabetes, her blood sugars 212, 208, 167, 175. cc: Yovani Melgoza MD
[2019-11-17] MEDS: LOVENOX SUBQ SCH ×2 (08:42→21:32)
--- NOTE | 2019-11-17 08:52 | ORTHOPAEDICS PROGRESS NOTE ---
DATE: 11/17/2019 SUBJECTIVE: Ms. Cedeno had a rough night last night. Overall, she had difficulty sleeping secondary to pain. She has also been having some twitching. I was talking to her granddaughter today who said that when she fell on Monday, it looked like a seizure. OBJECTIVE: On left lower extremity examination, dressing is clean, dry, and intact. Knee immobilizer is intact as well. She is moving her toes well. ASSESSMENT: Status post left distal femur open reduction and internal fixation. PLAN: Ms. Cedeno is nonweightbearing to the left lower extremity. She does have a deep venous thrombosis and she is going to be started back on Lovenox. Today, we will have to watch the wound. We do expect some drainage being that she has been on that amount of Lovenox. We will keep an eye on that. I talked with Dr. Melgoza. It sounds like we will get neurology involved tomorrow for a seizure workup and for this twitching which looks like myoclonus. Orthopedics will still be following for this left lower extremity and we will also discuss osteoporosis management with her tomorrow. cc: Rubio Caal MD
[2019-11-17 09:16] LABS: BASO# 0.02 X1000 (0.0-0.2); BASO% 0.1 % (0.0-0.8); HEMATOCRIT 15.1 % (37.0-47.0); HEMOGLOBIN 4.6 g/dL (12.0-16.0); IMM GRAN# 0.05 X1000 (0.0-0.04); IMM GRAN% 0.2 % (0.0-0.5); LYMPH# 12.03 X1000 (1.2-3.4); LYMPH% 51.4 % (20.5-51.1); MCH 27.9 PG (27-31); MCHC 30.5 g/dL (33-37); MCV 91.5 FL (81-99); MONO# 1.28 X1000 (0.11-0.59); MONO% 5.5 % (1.7-9.3); MPV 10.2 FL (7.4-10.4); NEUT# 10.04 X1000 (1.4-6.5); NEUT% 42.8 % (42.2-75.2); PLT 165 X1000 (130-400); RBC 1.65 XMIL (4.2-5.4); WBC 23.42 X1000 (4.8-10.8)
[2019-11-17 10:07] LABS: LYMPHS 52 % (21-51); MONO 5 % (1-9); SEGS 43 % (42-75)
[2019-11-17 10:08] LABS: ANISOCYTOSIS 1+; HYPOCHROM 2+
[2019-11-17 18:49] LABS: BASO# 0.05 X1000 (0.0-0.2); BASO% 0.3 % (0.0-0.8); EOS# 0.07 X1000 (0.0-0.7); EOS% 0.4 % (0.0-10.0); HEMATOCRIT 24.5 % (37.0-47.0); IMM GRAN# 0.06 X1000 (0.0-0.04); IMM GRAN% 0.3 % (0.0-0.5); LYMPH# 9.99 X1000 (1.2-3.4); LYMPH% 50.5 % (20.5-51.1); MCH 28.5 PG (27-31); MCHC 32.7 g/dL (33-37); MCV 87.2 FL (81-99); MONO# 0.98 X1000 (0.11-0.59); MONO% 4.9 % (1.7-9.3); MPV 10.1 FL (7.4-10.4); NEUT# 8.65 X1000 (1.4-6.5); NEUT% 43.6 % (42.2-75.2); PLT 149 X1000 (130-400); RBC 2.81 XMIL (4.2-5.4); RDW 18.2 % (11.5-14.5)
[2019-11-17] MEDS: COLACE PO SCH (21:31)
[2019-11-17] MEDS: ZOCOR PO SCH (21:32)
--- NOTE | 2019-11-18 04:31 | ORTHOPAEDICS CONSULTATION ---
DATE: 11/15/2019 REASON FOR CONSULTATION: Left distal femur fracture. HISTORY OF PRESENT ILLNESS: Ms. Cedeno is a 79-year-old female with a past medical history of diabetes, chronic lymphocytic leukemia, chronic kidney disease, hypertension and hyperlipidemia. Yesterday she was at her granddaughter's house when she had an approximately 30 to 40-minute episode of unconsciousness, where she fell to the side and developed pain in her left leg. She did not hit her head when she fell, as her granddaughter was able to hold her while she was on her way down to the floor. She did bite her tongue during this episode and also experienced some trembling. She was brought to the emergency department, where a CT scan of her head did not reveal any acute findings. X-ray of the left knee did show a left distal femoral fracture. Orthopedics has been consulted for management of this left distal femur fracture. Of note, she was also staying in rehab prior to visiting her granddaughter yesterday, as she had a right trochanteric femoral nailing on 09/26/[address] Caal, for right intertrochanteric fracture. Her daughter states that she has not been ambulating as well as she was when she fractured her left hip. Most of this subjective data was obtained from her daughter, as the patient is sleeping at present and her daughter states she has recently gotten a dose of morphine. PAST MEDICAL HISTORY: Diabetes, chronic lymphocytic leukemia, chronic kidney disease, hypertension, hyperlipidemia. SOCIAL HISTORY: She has been staying at rehab at [facility]. She was visiting with her granddaughter yesterday. She does not smoke any cigarettes or use alcohol or drugs. ALLERGIES: Include IV contrast. FAMILY HISTORY: Positive for hypertension and diabetes. PAST SURGICAL HISTORY: Surgery for fractures of both hips, a right ankle surgery, elbow surgery, cataracts and tonsillectomy. MEDICATIONS: 1. Plavix 75 mg p.o. daily. 2. Lantus 15 units subcutaneous daily in a.m. 3. Insulin, taken before meals. 4. MiraLAX 17 g daily. 5. Amlodipine 10 mg p.o. daily. 6. Clonidine 0.1 mg p.o. 3 times a day. 7. Lasix 40 mg p.o. daily. 8. Icar-C 1 p.o. b.i.d. 9. Oxycodone IR q.6 hours. 10. Pantoprazole 40 mg p.o. daily. 11. Lyrica 75 mg p.o. daily. 12. Sertraline 100 mg p.o. daily. 13. Simvastatin 40 mg p.o. daily. REVIEW OF SYSTEMS: She has not had any fever that her daughter is aware of.Cardiovascular: There has been no chest pain that her daughter is aware of. Respiratory: No cough or URI symptoms. GI: No nausea, vomiting, diarrhea or abdominal pain. Hematologic: No bleeding problems that her daughter is aware of. Otherwise review of systems is negative except as mentioned in the HPI. PHYSICAL EXAMINATION: Ms. Cedeno is lying in bed at this time and she is currently getting her echocardiogram study done. She is not in any acute distress, though she is drowsy since she has just received a dose of morphine. She does have grimacing with palpation of her left distal femur. There is swelling noted, but no open wounds. She also has tenderness with passive dorsiflexion and plantar flexion of her left foot as well. She is able to wiggle her toes upon command. There is no bruising noted to her left ankle. LABORATORY DATA: Her white count is 26.7. Creatinine of 3.0. DIAGNOSTIC DATA: A left knee x-ray reveals a comminuted left distal femoral fracture. The proximal shaft overlies the distal shaft anteriorly. There are several displaced small fracture fragments. A hip and pelvic x-ray shows that neither hip is dislocated. There are bilateral femoral rods. The lesser trochanter on the left is displaced medially, similar to the prior exam. A head CT showed no hemorrhage, but it did reveal chronic microvascular ischemic changes. Her chest x-ray showed a negative exam. PLAN: Treatment options were discussed with Ms. Cedeno's daughter at bedside. It was discussed that we would recommend an open reduction internal fixation of her left distal femur. She had her last Plavix dose on 11/13, as that was her last night in rehab. Dr. Caal is aware of this and states that the patient can go to surgery tonight. She has been held NPO since midnight last night, and as long as she is medically cleared today, she can go to the OR this evening. The risks and benefits of surgery were discussed including, but not limited to, anesthesia, blood clots, infection, bleeding, nerve injury and . Family wishes to proceed at this time. I am also going to order an x-ray of her left ankle due to the amount of pain she had with gentle movement of her ankle. This is most likely referred pain from her distal femoral fracture. We will make sure there is no distal tibial and fibular fracture as well. Dictated by SUJATHA Forte for Jostin Wood MD cc: Jostin Wood MD
[2019-11-18] MEDS: OFIRMEV 1000 MG/ISOTONIC SOLN 1,000 MG/100 ML BOTTLE IV SCH ×3 (05:18→20:37)
[2019-11-18] MEDS: OXY IR PO PRN ×3 (05:18→14:11)
[2019-11-18 07:00] LABS: BASO# 0.01 X1000 (0.0-0.2); BASO% 0.1 % (0.0-0.8); EOS# 0.07 X1000 (0.0-0.7); EOS% 0.4 % (0.0-10.0); HEMATOCRIT 22.9 % (37.0-47.0); HEMOGLOBIN 7.2 g/dL (12.0-16.0); IMM GRAN# 0.06 X1000 (0.0-0.04); IMM GRAN% 0.3 % (0.0-0.5); LYMPH# 9.28 X1000 (1.2-3.4); LYMPH% 47.8 % (20.5-51.1); MCH 27.3 PG (27-31); MCHC 31.4 g/dL (33-37); MCV 86.7 FL (81-99); MONO% 4.6 % (1.7-9.3); MPV 10.6 FL (7.4-10.4); NEUT# 9.08 X1000 (1.4-6.5); NEUT% 46.8 % (42.2-75.2); PLT 172 X1000 (130-400); RBC 2.64 XMIL (4.2-5.4); RDW 18.1 % (11.5-14.5)
--- NOTE | 2019-11-18 07:23 | ORTHOPAEDICS PROGRESS NOTE ---
DATE: 11/18/2019 SUBJECTIVE: Ms. Cedeno is lying in bed this morning. Overall feeling okay. She has some pain in that left knee. OBJECTIVE: Left lower extremity exam: Her dressing is clean, dry, and intact. She is able to move the toes. She remains neurovascularly intact, left lower extremity. ASSESSMENT: 1. Left supracondylar femur fracture, status post open reduction internal fixation. 2. Acute blood loss anemia. PLAN: Ms. Cedeno's hemoglobin and hematocrit did come back low this morning. They are repeating that, and more than likely will be able to give her blood today. Will start working towards rehab placement with our Medical Transport Specialist team. She will remain nonweightbearing to the left lower extremity. cc: Rubio Caal MD
[2019-11-18 07:24] LABS: ESTIMATED GFR 15
[2019-11-18 07:26] LABS: AGAP 12; ALBUMIN 2.8 g/dL (3.5-5.0); ALKALINE PHOSPHATASE 61 U/L (32-104); BUN 37 mg/dL (8-22); CALCIUM 8.2 mg/dL (8.8-10.2); CHLORIDE 107 mmol/L (98-107); COSMO 295; CREATININE 3.6 mg/dL (0.5-0.9); GLUCOSE 162 mg/dL (70-104); GOT 12 U/L (10-30); GPT < 5 U/L (10-36); MAGNESIUM 1.9 mg/dL (1.5-2.7); PHOSPHORUS 4.4 mg/dL (2.7-4.5); POTASSIUM 4.4 mmol/L (3.5-5.1); SODIUM 142 mmol/L (136-145); TCO2 23 mmol/L (25-35); TOTAL BILIRUBIN 0.31 mg/dL (0.20-1.00); TOTAL PROTEIN 5.7 g/dL (6.3-8.3)
[2019-11-18 07:49] LABS: FREE T4 0.83 ng/dL (0.93-1.70); TSH 1.28 uIUmL (0.27-4.20)
--- NOTE | 2019-11-18 10:06 | PROGRESS NOTE ---
DATE: 11/18/2019 SUBJECTIVE: Mrs. Niki Cedeno had a better night. Still having some twitching or myoclonus in the upper extremities. She is eating breakfast and tolerating that well. OBJECTIVE: Vital Signs: Temp 98.6 degrees, pulse 88, respirations 16, blood pressure 177/56. HEENT: Pupils are equal and round. Lungs: Clear in all lung smith. Cardiovascular: Regular rhythm and rate without murmur or S3. Abdomen: Soft. Skin: Warm and dry. Urine output is 2800 mL. ASSESSMENT AND PLAN: 1. Open reduction internal fixation for a left supracondylar femur fracture. Doing well from that standpoint. 2. She has some myoclonus. I do not see any evidence of seizure. I think we are going to get an MRI without contrast of her head today. 3. Acute kidney injury. On her renal function, creatinine is 3.6, which I think is pretty close to baseline. She represents chronic kidney disease. 4. Anemia, which we are transfusing. Hemoglobin is 7. It was down to 5 yesterday. Will continue to follow and transfuse if less than 7. 5. History of chronic lymphocytic leukemia, which explains her leukocytosis. 6. Hypertension. 7. Gastroesophageal reflux. 8. She takes pregabalin for neuropathy. She has a history of hyperlipidemia, history of anxiety, and she has a deep venous thrombosis, for which we are anticoagulating. REVIEW OF ORDERS: She is on Colace 200 mg at bedtime, Oxy IR 5 mg p.o. every 3 hours p.r.n., Lovenox 60 mg subcutaneously every 12 hours, iron carbonyl ascorbic acid 1 b.i.d., Protonix 40 mg daily, Lyrica 75 mg a day, Zoloft 100 mg daily, and Zocor 40 mg at bedtime. LABORATORY DATA: This morning, sodium 142, potassium 4.4, chloride 107, BUN 37, creatinine 3.6. CBC: White blood cell count 19,400, with 47% lymphocytes, hematocrit 22, hemoglobin 7.2, with an MCV of 86. cc: Yovani Melgoza MD
[2019-11-18] MEDS: ZOLOFT PO SCH (10:21)
[2019-11-18] MEDS: PROTONIX PO SCH (10:21)
[2019-11-18] MEDS: ICAR-C PO SCH ×2 (10:21→20:39)
[2019-11-18] MEDS: LOVENOX SUBQ SCH ×2 (10:22→20:38)
[2019-11-18] MEDS: PERIDEX MT SCH ×2 (10:22→20:38)
[2019-11-18] MEDS: LYRICA PO SCH (10:26)
--- NOTE | 2019-11-18 10:39 | NEPHROLOGY PROGRESS NOTE ---
DATE: 11/18/2019 TIME SEEN: 0705. SUBJECTIVE: Ms. Cedeno is resting quietly in bed. Her daughter is at her bedside. She states that she is feeling much better. She has no complaints of chest pain or increased work of breathing. LABORATORY DATA: Her sodium is 142, potassium 4.4, chloride 107, CO2 of 23, BUN 37, creatinine is 3.6, her glucose is 162, she has an anion gap of 12, her calcium is 8.2. Phosphorus 4.4, magnesium 1.9. She has an albumin of 2.8. Her white count is 19.4, hemoglobin 7.2, hematocrit is 22.9, platelet count 172,000. OBJECTIVE: Most Recent Vital Signs: Temperature 99.8 degrees, blood pressure 173/56, heart rate 92, respirations 18. She is on room air. Last recorded saturation was 92%. She has had 3027 in, she has had 1700 out to Herndon catheter. General: This is a 79-year-old, female. She is resting quietly in bed. She appears chronically ill, though no acute distress. Skin: Warm and dry. HEENT: Normocephalic, atraumatic. Conjunctiva is pale pink. She has ASHISH. Mucous membranes are dry. Neck: Supple. Trachea midline. No evidence of JVD. Cardiovascular: She is regular rate and rhythm. She has a systolic murmur with a soft gallop S4. Lungs: Clear to auscultation bilaterally. Equal excursion on room air. Abdomen: Soft, nontender. Positive bowel sounds. Genitourinary: Herndon catheter is in place with adequate urine output. Lower Extremities: She has a splint to her left leg with an Devante wrap to her toes. Toes are warm to touch on the left. No edema on the right. Neurological: She is alert to person and to place. She recognizes myself and other people in the room. ASSESSMENT AND PLAN: 1. Chronic kidney disease stage 4. The patient remains at her historical baseline creatinine of 3.4 to 3.6. Adequate urine output has been documented. No indications for intervention. 2. Fluid volume status. This remains stable. 3. Electrolytes and acid-base balance. These remain in target. 4. Anemia. Hemoglobin is low at 7.2. We will defer to the primary care team in regards with possible transfusion. 5. Left femur fracture. This continues to be followed by Dr. Caal postsurgery. I would like to thank you for allowing us to follow with this patient. Dictated by SUJATHA Vera for Kishore Nicholson MD Face to face encounter, data reviewed, discussed with Maxim Wilson on 11/18/19. I agree with the above assessment and plan of care. cc: SUJATHA Vera MD [facility]
[2019-11-18] MEDS: DILAUDID IV PRN ×3 (12:54→20:38)
--- NOTE | 2019-11-18 13:28 | Diag Imaging Result Doc PS360 ---
EXAM: MRI BRAIN W/O CONTRAST 11/18/2019 HISTORY: questionable seizure, syncopal event TECHNIQUE: T1 sagittal and axial, axial T2, FLAIR, DWI and coronal gradient echo. COMMENT: There is patchy and punctate increased T2-weighted signal intensity in the periventricular white matter of both hemispheres. There is no evidence of bleed, mass effect, or abnormal extra-axial fluid collection. There is no evidence of restricted diffusion. There is some hemosiderin deposition in the left cerebellar hemisphere which is not identifiable on the previous study of 12/18/2017. This may be an artifact. Compared to the previous study there has otherwise been no significant change. IMPRESSION: Chronic ischemic microvascular changes. No evidence of acute intracranial disease. Electronically signed by Jass Velez 11/18/2019 1:26 PM
--- NOTE | 2019-11-18 13:41 | Diag Imaging Result Doc PS360 ---
EXAM: MRA BRAIN W/O CONTRAST 11/18/2019 HISTORY: questionable seizure, syncopal event TECHNIQUE: 3-D [id number] COMMENT: The internal carotid vertebral and basilar arteries are patent. The P1 segment of the right posterior cerebral is atraumatic and there is supplied primarily through the posterior communicating artery. The left posterior cerebral artery demonstrates what appears to be a significant stenosis with poststenotic dilatation. Otherwise there is no evidence of major branch occlusion. There is no evidence of aneurysm. 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 Electronically signed by Jass Velez 11/18/2019 1:38 PM
--- NOTE | 2019-11-18 14:37 | EEG REPORT ---
DATE: 11/15/2019 REFERRING: Filiberto Harry MD NEON TUBE PUMPER: Levi Lizama BACKGROUND INFORMATION/TECHNIQUE: This is a digitally recorded routine EEG with video. HISTORY: A 79-year-old female patient with syncopal spell versus seizure episode. There was tongue biting. She fell and fractured her femur. EEG is ordered to detect evidence of seizures. MEDICATIONS: Include morphine, Lyrica, and Zoloft. EEG FINDINGS: A posterior dominant alpha rhythm is not seen. The background at maximal alertness consists of theta, delta slowing with some intermixed faster frequencies. No definite persistent focal slowing. No definite epileptiform discharges. No seizures. Hyperventilation was not performed. Photic stimulation does not alter the record. No definite drowsiness patterns. Stage N2 sleep is not seen. The EKG demonstrates regular RR intervals. IMPRESSION/CLINICAL CORRELATION: Abnormal routine EEG due to moderate generalized slowing indicative of a moderate nonspecific encephalopathy. No epileptiform discharges or seizures seen on the current study. This does not rule out an underlying seizure disorder. Clinical correlation is recommended. cc: MD Filiberto Guillen MD
--- NOTE | 2019-11-18 14:58 | NEUROLOGY PROGRESS NOTE ---
DATE: 11/18/2019 ROOM: 419. SUBJECTIVE: Daughter at the bedside reports she has seen Ms. Cedeno have a few episodes of twitching without observed altered awareness, but she believes another family member observed possible poor responsiveness on one or 2 occasions over the weekend. OBJECTIVE: On my exam this morning, she is awake, much more alert and attentive, more conversant, brighter than when I saw her a few days ago. There is occasional irregular muscle twitch involving the arms, maybe a little bit more on the left. This is consistent with myoclonus. I did not find definite asterixis. There was no clonic activity or other suggestion of seizure. Brain MRI and brain MRA this morning showed typical age-related changes, nothing acute, nothing really remarkable. EEG earlier this admission showed generalized slowing but no definite epileptiform discharge. I do not have any urgent suggestion. We might consider repeating EEG later and we might consider a prolonged EEG recording depending on her clinical course. If she has episodes more typical of seizure, we could consider adding medicine for seizure control. Thanks for asking Neurology to see Ms. Cedeno. cc: MD LEONIDES Pierce III
[2019-11-18] MEDS: REMERON PO SCH (20:39)
[2019-11-18] MEDS: COLACE PO SCH (20:39)
[2019-11-18] MEDS: ZOCOR PO SCH (20:39)
[2019-11-19] MEDS: OFIRMEV 1000 MG/ISOTONIC SOLN 1,000 MG/100 ML BOTTLE IV SCH ×3 (05:18→21:38)
[2019-11-19 07:16] LABS: HEMATOCRIT 23.8 % (37.0-47.0); HEMOGLOBIN 7.4 g/dL (12.0-16.0)
[2019-11-19 07:38] LABS: ALBUMIN 2.8 g/dL (3.5-5.0); CALCIUM 8.3 mg/dL (8.8-10.2); CREATININE 3.2 mg/dL (0.5-0.9); PHOSPHORUS 3.3 mg/dL (2.7-4.5); POTASSIUM 4.2 mmol/L (3.5-5.1)
--- NOTE | 2019-11-19 07:40 | ORTHOPAEDICS PROGRESS NOTE ---
DATE: 11/19/2019 SUBJECTIVE DATA: Ms. Cedeno is lying in bed. She states she is comfortable. She has been resting well. OBJECTIVE DATA: Left lower extremity exam: Her dressing is clean, dry, and intact. She is in the knee immobilizer. She is able move all the toes and dorsi and plantar flex the foot. She has good sensation in the left lower extremity. ASSESSMENT: 1. Left supracondylar femur fracture status post open reduction, internal fixation. 2. Acute blood loss anemia. LABORATORY DATA: Her hemoglobin and hematocrit are up to 7.2 and 22.9. Her white count 19.4. Her platelet count is 172,000. Her creatinine is trending back down. PLAN: Ms. Cedeno's hemoglobin and hematocrit are headed in the right direction. Her creatinine overall is slowly improving. We will continue to work toward rehab placement. She will continue to be nonweightbearing to the left lower extremity. We will need to see her back in clinic in 2 weeks following her discharge. Dictated by SUJATHA Hamilton for Rubio Caal MD cc: SUJATHA Hamilton MD
--- NOTE | 2019-11-19 09:53 | NEPHROLOGY PROGRESS NOTE ---
DATE: 11/19/2019 Date Seen: 11/19/2019 Time Seen: 0635 SUBJECTIVE: Mr. Cedeno is resting quietly in bed. Nurses state that she has been awake most of the morning. She denies any pain or discomfort. OBJECTIVE: Vital Signs: Temperature 99.1 degrees, blood pressure 191/70, heart rate 91, respirations are 16. She is on 2 L nasal cannula. Last recorded saturation 100%. She has had 1812 in. She has had 2200 out to Herndon catheter. LABORATORY DATA: Sodium 139, potassium 4.2, chloride 102, CO2 24, BUN 32, creatinine 3.2, glucose is 164. Her anion gap is 13. Her calcium is 8.3, phosphorus is 3.3, albumin 2.8. Her hemoglobin 7.4 with hematocrit of 23.8. PHYSICAL EXAMINATION: General: This is a 79-year-old female resting quietly in bed. She appears chronically ill in no acute distress. Skin: Warm and dry. HEENT: Normocephalic, atraumatic. Conjunctiva is pale. She has ASHISH. Mucous membranes are dry. Neck: Supple, trachea midline no evidence of JVD. Cardiovascular: Regular rate and rhythm. She has a systolic murmur with an S4. Lungs: Clear to auscultation bilaterally. Equal excursion. She is on O2. Abdomen: Large, round, soft, nontender. Positive bowel sounds. Genitourinary: Not inspected. Herndon catheter is in place with adequate urine out. Extremities: Have trace edema to the toes below the Devante wrap with the left leg in a splint status postop surgery. Otherwise these are warm and dry. No edema into the left hip region. She has no edema to the right lower extremity. Neurological: She is alert to person and place. ASSESSMENT AND PLAN: 1. Chronic kidney disease stage 4. The patient remains stable at her historical baseline with adequate urine output. 2. Fluid volume status. This is stable, though she does continue with IV fluid infusion. 3. Electrolytes and acid-base balance. These are in target. 4. Anemia. Hemoglobin has improved slightly to 7.4 from 7.2. Continue monitoring. We will defer to Orthopedic and the primary care team for any possible transfusion. 5. Left femur fracture followed by Dr. Caal and primary care. I would like to thank you for allowing us to follow with this patient. Dictated by SUJATHA Vera for Kishore Nicholson MD Face to face encounter, data reviewed, discussed with Maxim Wilson on 11/19/19. I agree with the above assessment and plan of care. cc: SUJATHA Vera MD [facility]
--- NOTE | 2019-11-19 10:08 | PROGRESS NOTE ---
DATE: 11/19/2019 SUBJECTIVE: Ms. Cedeno had a good night. We gave her some Remeron and she slept well. No complaints this morning, comfortable. VITAL SIGNS: Temperature 99.1 degrees, pulse 90, respirations 16, blood pressure 191/70. Last several blood pressures 159/55, 173/56, 152/56. DIAGNOSTIC DATA: We did do a brain MRI. She has chronic mild ischemic microscopic changes. No evidence of acute intracranial disease. ASSESSMENT AND PLAN: 1. Open reduction and internal fixation of left supracondylar femoral fracture, doing well from that standpoint. 2. She had some myoclonus and that seems to have improved, and we did an MRI without contrast of her head, and it was unremarkable. 3. Acute kidney injury. Her renal function is improving. Serum creatinine is 3.2, has come down from 4. 4. Anemia. We gave her a transfusion. Her hemoglobin and hematocrit, hemoglobin 7.4 and hematocrit is 23. 5. History of chronic lymphocytic leukemia. She does have some leukocytosis, predominantly lymphocytes. 6. Hypertension. 7. Gastroesophageal reflux. 8. She is on pregabalin for neuropathy. 9. History of hyperlipidemia. 10. History of anxiety. 11. She has a deep venous thrombosis, for which she is getting anticoagulation. REVIEW OF ORDERS: She is on Remeron 30 mg every night at bedtime, which we tried last night and it work well. She is getting Dilaudid p.r.n. pain, which we will stop. She is getting oxycodone 5 mg every 3 hours p.r.n. pain, Tylenol 650 mg every 6 hours, Lovenox 60 mg subcutaneously every 12, iron carbonyl plus ascorbic acid 1 tablet twice a day, and Protonix 40 mg a day, Lyrica 75 mg a day, and Zocor 40 mg daily. LABORATORY DATA: Review of labs from this morning or from yesterday, white count was down to 19,400, this morning hematocrit 23 and hemoglobin 7.4. Electrolytes from the look good. We will repeat those again in the morning and check her magnesium. She may be able to go to recent rehab soon. cc: Yovani Melgoza MD
[2019-11-19] MEDS: PROTONIX PO SCH (14:34)
[2019-11-19] MEDS: ICAR-C PO SCH ×2 (14:34→21:39)
[2019-11-19] MEDS: LYRICA PO SCH (14:34)
[2019-11-19] MEDS: LOVENOX SUBQ SCH ×2 (14:35→21:38)
[2019-11-19] MEDS: OXY IR PO PRN ×2 (14:35→21:39)
[2019-11-19] MEDS: PERIDEX MT SCH ×2 (14:37→21:39)
[2019-11-19] MEDS: ZOCOR PO SCH (21:39)
[2019-11-19] MEDS: COLACE PO SCH (21:39)
[2019-11-19] MEDS: REMERON PO SCH (21:39)
[2019-11-20] MEDS: OXY IR PO PRN ×3 (04:57→21:41)
[2019-11-20] MEDS: OFIRMEV 1000 MG/ISOTONIC SOLN 1,000 MG/100 ML BOTTLE IV SCH ×3 (04:57→21:38)
[2019-11-20 07:04] LABS: BASO# 0.01 X1000 (0.0-0.2); EOS# 0.16 X1000 (0.0-0.7); EOS% 0.7 % (0.0-10.0); HEMATOCRIT 24.4 % (37.0-47.0); HEMOGLOBIN 7.5 g/dL (12.0-16.0); IMM GRAN# 0.09 X1000 (0.0-0.04); IMM GRAN% 0.4 % (0.0-0.5); LYMPH# 11.39 X1000 (1.2-3.4); LYMPH% 51.6 % (20.5-51.1); MCH 27.4 PG (27-31); MCHC 30.7 g/dL (33-37); MCV 89.1 FL (81-99); MONO# 0.63 X1000 (0.11-0.59); MONO% 2.9 % (1.7-9.3); MPV 10.5 FL (7.4-10.4); NEUT# 9.78 X1000 (1.4-6.5); NEUT% 44.4 % (42.2-75.2); PLT 237 X1000 (130-400); RBC 2.74 XMIL (4.2-5.4); RDW 17.1 % (11.5-14.5); WBC 22.06 X1000 (4.8-10.8)
[2019-11-20 07:28] LABS: CALCIUM 8.5 mg/dL (8.8-10.2); CREATININE 3.1 mg/dL (0.5-0.9); POTASSIUM 4.4 mmol/L (3.5-5.1)
[2019-11-20 07:54] LABS: ALBUMIN 2.7 g/dL (3.5-5.0); CALCIUM 8.1 mg/dL (8.8-10.2); CREATININE 3.1 mg/dL (0.5-0.9); POTASSIUM 4.2 mmol/L (3.5-5.1)
--- NOTE | 2019-11-20 08:04 | PROGRESS NOTE ---
DATE: 11/20/2019 SUBJECTIVE: Ms. Cedeno says she is doing real well. She feels like she is getting better. OBJECTIVE: She remains afebrile, temperature 98.8 degrees, pulse 87, respirations 14, blood pressure 155/65. Pupils are equal and round. Lungs are clear in all lung smith. Cardiovascular Examination: Regular rhythm and rate without murmur or S3. Abdomen is soft. Skin is warm and dry. Urine output is 1800 mL. Blood sugars 288, 163, 185, and 175. ASSESSMENT AND PLAN: 1. Open reduction and internal fixation of left supracondylar femoral fracture, doing well. 2. Had some myoclonus, which has resolved. 3. Sleeping better. We put her on Remeron. This seems to be very helpful for her. 4. Acute kidney injury. Serum creatinine stayed at 3.1 and is stable. Electrolytes: Sodium 141, potassium 4.4, chloride 103, BUN 37, creatinine 3.1. Nephrology is following. She has chronic kidney disease stage 4 and appears to be stable. Her fluid volume looks good. Electrolyte and acid-base balance appear on target. 5. Anemia. We had given her some blood but her hemoglobin is stable at 7.5, hematocrit 24. She does have acute blood loss anemia. She was on heparin. We had changed her to Lovenox. 6. She has a deep venous thrombosis so she is on the Lovenox. 7. Tolerating the physical therapy. She seems to be doing better. Hopefully, can go to rehab tomorrow. She is eating. Her bowels are moving. cc: Yovani Melgoza MD
[2019-11-20] MEDS: LYRICA PO SCH (08:43)
[2019-11-20] MEDS: LOVENOX SUBQ SCH ×2 (08:43→21:39)
[2019-11-20] MEDS: PROTONIX PO SCH (08:43)
[2019-11-20] MEDS: ICAR-C PO SCH ×2 (08:43→21:39)
--- NOTE | 2019-11-20 08:45 | NEPHROLOGY PROGRESS NOTE ---
DATE: 11/20/2019 TIME SEEN: 0715. SUBJECTIVE: Ms. Cedeno is resting quietly in bed. She is a little bit more awake today. She has no complaints. LABORATORY DATA: This a.m., sodium 141, potassium is 4.2, chloride 102, CO2 of 26, BUN 37, creatinine is 3.1, her glucose is 172. The patient has an anion gap of 12. Her calcium is 8.5. Phosphorus of 3, magnesium is 2. Albumin is 2.7. The patient's white count is 22.06, hemoglobin 7.5, hematocrit is 24.4, platelet count 237,000. OBJECTIVE: Most Recent Vital Signs: Temperature 98.2 degrees, blood pressure 163/64, heart rate is 94, respirations 17. She is on room air. Last recorded saturation 98%. She has had 240 in, she has had 1150 out to Herndon catheter. General: This is a 79-year-old, female, who is resting quietly in bed. She appears chronically ill, though no acute distress. Skin: Warm and dry. HEENT: Normocephalic, atraumatic. Conjunctiva is pale. She has ASHISH. Mucous membranes are dry. Neck: Supple. Trachea midline. No evidence of JVD. Cardiovascular: She is regular rate and rhythm. She has a systolic murmur with a gallop. Lungs: Clear to auscultation bilaterally. Equal excursion on O2. Abdomen: Large, round, soft, nontender. Positive bowel sounds. Genitourinary: Not inspected. Herndon catheter is in place with adequate urine out. Extremities: Devante wrap with a splint to her left leg. She has some swelling to the toes below the Devante wrap. These are warm to touch. Right leg has no edema, no clubbing or cyanosis, though she does have just slight edema into her mid hips, which are mostly dependent. Neurological: She is alert to person and to place. ASSESSMENT AND PLAN: 1. Chronic kidney disease stage 4. The patient remains at her historical baseline with adequate urine output. No indications for any intervention. We will continue to monitor. 2. Fluid volume status. This remains stable. 3. Electrolytes, acid-base balance, and anemia. These remain fairly stable with an improvement in her hemoglobin to 7.5. 4. Left femur fracture, followed by Dr. Caal and the primary care team. 5. Leukocytosis. The patient is not currently on any renal dosed antibiotics. We will defer this to the primary care. I would like to thank you for allowing us to follow with this patient. Dictated by SUJATHA Vera for Kishore Nicholson MD Face to face encounter, data reviewed, discussed with Maxim Wilson on 11/20/19. I agree with the above assessment and plan of care. cc: SUJATHA Vera MD [facility]
--- NOTE | 2019-11-20 10:39 | NEUROLOGY PROGRESS NOTE ---
DATE: 11/20/2019 LOCATION: Room 419. SUBJECTIVE: Ms. Cedeno reports no pain at this time. She has not had further episode of collapse, unresponsiveness, unconsciousness or other seizure like behavior. OBJECTIVE: She is awake, alert, attentive. Speech is very slightly dysarthric, but easily understood. She did rapid alternating movements well with the hands. Tone is slightly increased in the left arm, as before. She did well on [id number] testing bilaterally. I did not see definite myoclonus or other abnormal movement today. I do not have any new suggestion from Neurology standpoint. I do not think we have a definite diagnosis of seizure. If she has more episodes of collapse, altered awareness, unconsciousness, or other seizure-like episode, we might consider further workup and addition of medicine for seizure control. I will be glad to see Ms. Cedeno again, inpatient or outpatient. cc: Matthew Whitley III, MD MTDD
[2019-11-20] MEDS: NORVASC PO SCH (15:36)
[2019-11-20] MEDS: DILAUDID IV PRN (18:52)
[2019-11-20] MEDS: COLACE PO SCH ×2 (21:39→21:49)
[2019-11-20] MEDS: REMERON PO SCH ×2 (21:39→21:48)
[2019-11-20] MEDS: ZOCOR PO SCH (21:39)
[2019-11-20] MEDS: CATAPRES PO SCH (21:40)
[2019-11-21] MEDS: OFIRMEV 1000 MG/ISOTONIC SOLN 1,000 MG/100 ML BOTTLE IV SCH ×2 (04:47→12:53)
[2019-11-21 07:52] LABS: ALBUMIN 2.5 g/dL (3.5-5.0); CALCIUM 8.4 mg/dL (8.8-10.2); CREATININE 3.3 mg/dL (0.5-0.9); PHOSPHORUS 3.2 mg/dL (2.7-4.5); POTASSIUM 3.9 mmol/L (3.5-5.1)
[2019-11-21] MEDS: NORVASC PO SCH (08:18)
[2019-11-21] MEDS: ICAR-C PO SCH (08:18)
[2019-11-21] MEDS: LYRICA PO SCH (08:18)
[2019-11-21] MEDS: PROTONIX PO SCH (08:18)
[2019-11-21] MEDS: CATAPRES PO SCH (08:18)
[2019-11-21] MEDS: LOVENOX SUBQ SCH (08:19)
[2019-11-21] MEDS ORDERED: MILK OF MAGNESIA PO PRN (08:24)
--- NOTE | 2019-11-21 08:57 | DISCHARGE SUMMARY ---
ADMISSION DATE: 11/14/2019 DISCHARGE DATE: ADDENDUM: Note, they found a DVT and they had her on some heparin. We changed the heparin and stopped the Plavix because her hematocrit was dropping. Had a lot of postop blood-loss anemia, so she is on Lovenox for her DVT and that is at 60 mg subcutaneously q.12. She will continue that for a couple of months to make sure the DVT resolves. Her hematocrit has remained stable since that time. cc: Yovani Melgoza MD
--- NOTE | 2019-11-21 09:04 | DISCHARGE SUMMARY ---
ADMISSION DATE: 11/14/2019 DISCHARGE DATE: 11/21/2019 DISPOSITION: [facility] in [place]. BRIEF HISTORY OF PRESENT ILLNESS: This is a 79-year-old who came in with a brief loss of consciousness. This is a 79-year-old, history of diabetes mellitus, chronic lymphocytic leukemia, chronic kidney disease, hypertension, hyperlipidemia. She experienced a brief period of loss of consciousness prior to admission, witnessed by her granddaughter. Patient's granddaughter was able to hold the patient before she hit the floor. The patient was noted to have lost consciousness for approximately 30 or 40 minutes. She did bite her tongue and also experienced some tremulous activity. Patient was subsequently brought to the hospital. She had a CT scan of the head, which was done without contrast, which did not reveal any acute findings. X-ray of the hip and pelvis showed distal left femur fracture and so patient admitted with femur fracture and loss of consciousness. PAST MEDICAL HISTORY: 1. Diabetes mellitus type 2. 2. Chronic lymphocytic leukemia. 3. Chronic kidney disease. 4. Hypertension. 5. Hyperlipidemia. ADMISSION DIAGNOSIS: Syncope, and it sounds like this was vasovagal syncope with drop in blood pressure. No true primary seizure event. We obtained an MRI of the brain and did not show any acute pathology and got a carotid Doppler study which was no significant carotid disease, and we did do an echocardiogram of the heart. We had an EEG done, read by Dr. Jansen. It was an abnormal routine EEG due to moderate generalized slowing indicative of moderate nonspecific encephalopathy. No epileptiform discharges or seizure seen. She had an echocardiogram done on 11/15/2019, the left ventricle showed a good ejection fraction of 63%, no significant valvular dysfunction and no pulmonary hypertension. Ankle x-ray done on 11/15/2019, no acute injury. Orthopedic consultation was performed and recommended open reduction and internal fixation of the left distal femur. She had her last Plavix dose on 11/13/2019. Neurology was asked to see in regards to whether there could be any other primary neurologic event such as seizures. Dr. Whitley felt like the cause of collapse was uncertain, associated features suggest this is probably was not a seizure or central neurologic event. She underwent surgery on 11/16/[address] Caal, left supracondylar femur fracture and it was an open reduction and internal fixation. 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 The patient had an MRI of the brain on 11/18/2019 showed chronic ischemic microvascular changes, no evidence of acute intracranial disease, and she did well with physical therapy. She had some mild clonus early on after surgery and this seemed to resolve. She had trouble sleeping, we put her on some Remeron and this seemed to help and she was eating well. Her lab, we did give her 2 units of packed red blood cells. Hemoglobin came down to 4.6, and her hemoglobin has stayed stable at 7.5 and hematocrit 24. We did start back some of her blood pressure medicines but I did not start them back at the same dose as before. I want to make sure she has good blood pressure for rehab. DISCHARGE MEDICATIONS: Norvasc 5 mg a day, Catapres 0.1 mg b.i.d., Colace 200 mg at bedtime, Icar 1 twice a day, Remeron 30 mg p.o. at bedtime, and Oxy IR 5 mg p.o. q.3 hours p.r.n., Protonix 40 mg a day, Lyrica 75 mg a day, Zocor 40 mg a day. cc: Yovani Melgoza MD
[2019-11-21] MEDS: OXY IR PO PRN (10:12)
--- NOTE | 2019-11-21 12:50 | PROVIDER PROGRESS NOTE ---
Progress Note Subjective: she voices an increase in her appetite and less surgical pain. She denies any uremic complaints. Objective: temperature 98.4, pulse 82, respirations 14, blood pressure 187/71, O2 sat 100% on room air. General: elderly -[place] female in no acute distress. HEENT: normocephalic, atraumatic, conjunctiva pink, pupils equal and reactive. Mucous membranes moist. Skin: warm and dry. Neck: supple, no JVD. Cardiovascular: S1S2, regular rate and rhythm. Soft systolic murmur. Respiratory: clear with equal air entry anteriorly. Abdomen: soft, nontender,nondistended, Bowel sounds active. : non-inspected, external catheter with suction. Extremities: Brace to LLE. No obvious edema. Neurological: alert and oriented to person, place, and time. Labs: sodium 136, potassium 3.9, chloride 101, carbon dioxide 24, BUN 37, creatinine 3.3. Intake 330, output 670. Impression: Chronic kidney disease stage four. She is within her historical baseline. She is making adequate urine and has no uremic complaints. No indications for renal replacement therapy at this time. Blood pressure. Elevated. Norvasc and clonidine started yesterday. Observe. Fluid volume. Euvolemic. Electrolytes an acid base balance. In target. Medication review. No changes.
--- NOTE | 2019-11-21 14:09 | Carotid Study ---
DATE: 11/15/2019 STUDY: Bilateral duplex and color flow imaging of the carotid arteries performed using the [employer] Vivid E9 ultrasound system with a 9 L-D transducer. INDICATION: Syncope. FINDINGS: The velocities in cm/sec of both carotid systems were reviewed. There is forward flow in both right and left vertebral arteries. The right ICA/CCA ratio is 0.85 corresponding to a percent stenosis of 40% to 59%. The left ICA/CCA ratio is 0.85 corresponding to a percent stenosis of 0% to 39%. INTERPRETATION: [id number] atherosclerotic disease of the distal common and internal carotid arteries bilaterally, without evidence of a hemodynamically significant lesion in either carotid system. cc: MD Filiberto Pollard MD
--- NOTE | 2019-11-21 14:23 | Extremity Venous Study ---
PROCEDURE NAME: Venous U/S Left Leg - 11/15/2019 PROCEDURE: Left lower extremity venous duplex and color flow imaging study using the [employer] Vivid E9 ultrasound System with a 9 L-D transducer. REFERRING PHYSICIAN: Dr. Bethea. PATIENT PROFILE: A 79-year-old. NURSE TRANSPLANT: Torin. INDICATIONS: Left lower extremity pain and edema suggestive of deep venous thrombosis. FINDINGS: The left common femoral vein and its branches, deep and superficial femoral veins were satisfactorily imaged. They had flow through them and were compressible. The left popliteal vein had evidence of deep venous thrombosis within it. It did not extend more distally below the knee on the left. The superficial veins of the left lower extremity were compressible throughout their length. INTERPRETATION: Short segment deep venous thrombosis involving the left popliteal vein. cc: MD Filiberto Pollard MD
[2019-11-21 16:28] VITALS: BP 141/58
== END 2019-11-21 17:44 | DRG 481 ==
LOC: ED 15:47 → SUATTDRO 23:28 → 4N 23:28
PROVIDERS: ATTEND Emergency Medicine

== ENCOUNTER 2019-11-22 18:10 | Inpatient (IN) ==
--- NOTE | 2019-11-22 20:01 | HISTORY AND PHYSICAL ---
HISTORY OF PRESENT ILLNESS: Mr. Cedeno is a 79-year-old who has a history of diabetes mellitus, chronic lymphocytic leukemia, chronic kidney disease, hypertension and hyperlipidemia. She did experience a brief period of loss of consciousness, according to the daughter, when they were trying to stand her up and she fell. This was while she was at rehab. She was able to help break her fall and she slumped down to the floor, and lost consciousness for 30-40 minutes. Also experienced some tremulous activity. CT scan of the head was done without contrast and did not show any findings. This was on 11/14/2019, but did show a distal left femur fracture. PAST MEDICAL HISTORY: 1. Diabetes mellitus type 2. 2. Chronic lymphocytic leukemia. 3. Chronic kidney disease. 4. Hypertension. 5. Hyperlipidemia. SOCIAL HISTORY: The patient was a resident of [facility]. No history of cigarette smoking, alcohol or drug use. ALLERGIES: She is allergic to contrast dye. FAMILY HISTORY: Positive for hypertension as well as diabetes. PAST SURGICAL HISTORY: She has had a fracture of both hips, right ankle fracture, elbow surgery, cataract extraction and tonsillectomy. MEDICATIONS: Her list of medications when she came in last time was: 1. Plavix 75 mg a day. 2. Lantus insulin 15 units subcutaneously q.a.m. 3. Insulin lispro taken before meals. 4. MiraLAX 17 g a day. 5. Amlodipine 10 mg a day. 6. Clonidine 0.1 mg 3 times a day. 7. Lasix 40 mg a day. 8. Icar-C one twice a day. 9. Oxycodone IR q.6 hours. 10. Pantoprazole 40 mg daily. 11. Lyrica 75 mg a day. 12. Sertraline 100 mg p.o. daily. 13. Simvastatin 40 mg a day. On review of her medications at home, she is on Norvasc 10 mg a day; Catapres 0.1 mg b.i.d.;, Colace 200 mg at bedtime; Lovenox 60 mg subcutaneously q.12; Lantus 15 units subcutaneous q.a.m.; Icar-C one twice a day; Milk of Magnesia 30 mL daily p.r.n.; Remeron 30 mg p.o. at bedtime; oxycodone IR 5 mg p.o. q.3 hours p.r.n.; Protonix 40 mg daily; MiraLAX 1 packet daily; Lyrica, I think 75 mg a day; simvastatin 40 mg a day. REVIEW OF SYSTEMS: She has been doing fairly well from the last hospitalization. We sent her over to rehab. On her last hospital stay she underwent open reduction and internal fixation. Dr. Caal performed a left supracondylar femur open reduction and internal fixation. It was complicated by DVT, I believe in her left leg, and she had some postoperative anemia. Required transfusion of 2 units packed red blood cells. She had some myoclonus during her hospitalization, but really showed improvement, was tolerating physical therapy, was eating. Hemoglobin and hematocrit appeared to remain stable, with a hemoglobin 7.5 to 8 and hematocrit 24, platelet count 237,000. She elected to go to rehab. She has been on Lovenox. We stopped her Plavix, and they had sent her for transfusion. Her hemoglobin had dropped below 7, and she is going to be readmitted to the hospital. We will give her 2 units of blood. We will see if she is dropping her blood count. We will recheck a noninvasive study of her leg, see if she still requires anticoagulant. If we have a drop in blood, we are going to have to probably do a GI workup, so I will plan to put her back in the hospital. PHYSICAL EXAMINATION: GENERAL: In the emergency room temperature 99.4 degrees, pulse 79, respirations 15, blood pressure 155/124. HEENT: Pupils are equal and round. LUNGS: Clear in all lung smith. CARDIOVASCULAR: Regular rhythm and rate without murmur or S3. ABDOMEN: Soft. SKIN: Warm and dry. ASSESSMENT AND PLAN: 1. Anemia, and I suspect this is still postoperative anemia. She is on Lovenox for deep venous thrombosis. We will give her 2 units packed red blood cells and follow her hematocrit. Check B12 and folate. Recheck her T4 and TSH. 2. History of deep venous thrombosis, for which she is on Lovenox. We will continue present dose of Lovenox. We will recheck a noninvasive of her veins of her leg, and see if there is still deep venous thrombosis. 3. Hypertension. Aware. We have tried to limit her blood pressure medicines because I suspect her event that brought her in the hospital 2 weeks ago was a drop in blood pressure. While she was getting physical therapy we did not want her blood pressure to drop excessively. 4. We had done an MRI and MRA of the brain, and there were no new acute changes. She has chronic ischemic microvascular changes. 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 5. She does have chronic renal insufficiency. She has chronic kidney disease stage 4, so we will watch her kidney function and volume status. 6. She has been eating pretty good, and we will we will place her on a diabetic diet. cc: Yovani Melgoza MD
[2019-11-22] MEDS ORDERED: LOVENOX SUBQ SCH (21:05)
[2019-11-22] MEDS ORDERED: REMERON PO SCH (21:05)
[2019-11-22] MEDS ORDERED: TYLENOL PO PRN ×2 (21:05)
[2019-11-22] MEDS: CATAPRES PO SCH (21:05)
[2019-11-22] MEDS ORDERED: MILK OF MAGNESIA PO PRN (21:05)
[2019-11-22] MEDS: COLACE PO SCH (21:05)
[2019-11-22] MEDS ORDERED: ZOFRAN IV PRN (21:05)
[2019-11-22] MEDS: OXY IR PO PRN (21:49)
[2019-11-22 22:37] LABS: BASO# 0.01 X1000 (0.0-0.2); EOS# 0.37 X1000 (0.0-0.7); EOS% 1.8 % (0.0-10.0); HEMATOCRIT 20.3 % (37.0-47.0); HEMOGLOBIN 6.3 g/dL (12.0-16.0); IMM GRAN# 0.15 X1000 (0.0-0.04); IMM GRAN% 0.7 % (0.0-0.5); LYMPH# 10.77 X1000 (1.2-3.4); MCV 90.2 FL (81-99); MONO# 0.79 X1000 (0.11-0.59); MONO% 3.7 % (1.7-9.3); MPV 10.1 FL (7.4-10.4); NEUT# 9.02 X1000 (1.4-6.5); NEUT% 42.8 % (42.2-75.2); PLT 311 X1000 (130-400); RBC 2.25 XMIL (4.2-5.4); RDW 16.3 % (11.5-14.5); WBC 21.11 X1000 (4.8-10.8)
[2019-11-22 22:42] LABS: INR 1.17; PROTIME 15.1 Seconds (11.0-16.0)
[2019-11-22 22:43] LABS: PTT 44.4 Seconds (22.3-41.8)
[2019-11-22 22:54] LABS: ESTIMATED GFR 18
[2019-11-22 23:21] LABS: AGAP 11; ALB/GLOB RATIO 0.9; ALBUMIN 2.7 g/dL (3.5-5.0); ALKALINE PHOSPHATASE 69 U/L (32-104); BUN 36 mg/dL (8-22); CALCIUM 8.2 mg/dL (8.8-10.2); CHLORIDE 103 mmol/L (98-107); COSMO 290; CREATININE 3.1 mg/dL (0.5-0.9); GLUCOSE 109 mg/dL (70-104); GOT 11 U/L (10-30); GPT < 5 U/L (10-36); POTASSIUM 4.6 mmol/L (3.5-5.1); SODIUM 141 mmol/L (136-145); TCO2 27 mmol/L (25-35); TOTAL BILIRUBIN 0.31 mg/dL (0.20-1.00); TOTAL PROTEIN 5.6 g/dL (6.3-8.3)
[2019-11-23] MEDS: ICAR-C PO SCH ×3 (00:47→21:18)
[2019-11-23] MEDS: COLACE PO SCH ×2 (00:47→21:18)
[2019-11-23] MEDS: ZOCOR PO SCH ×2 (00:47→21:18)
[2019-11-23] MEDS: REMERON PO SCH ×2 (00:50→21:18)
[2019-11-23] MEDS: NS 1,000 ML IV SCH (00:50)
--- NOTE | 2019-11-23 09:10 | PROGRESS NOTE ---
DATE: 11/23/2019 SUBJECTIVE: Ms. Cedeno had a good night receiving her 2nd unit of blood, and she states she feels had a good night, slept well. No complaints. Remains afebrile. OBJECTIVE: Vital Signs: Pulse 78, respirations 20, blood pressure 192/68. Her last several blood pressures were 155/124, 171/69, 192/68. Eyes: Pupils are equal and round. Lungs: Lungs are clear in all lung smith. Cardiovascular exam: Regular rhythm and rate without murmur or S3. Abdomen: Soft. Skin: Skin is warm and dry. ASSESSMENT AND PLAN: 1. She was put back in the hospital, received 2 units of packed red blood cells. I think this is still from postoperative blood loss anemia. She is on Lovenox for deep vein thrombosis. I am going to stop the Lovenox and start her on Xarelto, and I am just going to start her at 20 mg oral daily. We will check a complete blood count again this morning. Yesterday, hemoglobin was 6.3, hematocrit 20. 2. Deep vein thrombosis in the leg. We will change Lovenox to Xarelto. 3. Hypertension. I have purposely allowed her blood pressure to kind of stay up. I think she has had a vasovagal event already, and I want to make sure her blood pressure is up for physical therapy. 4. She had a magnetic resonance imaging and magnetic resonance angiogram of the brain. No acute changes. The magnetic resonance angiogram showed left posterior cerebral artery and congenital atresia of P 1 segment of the right posterior cerebral artery. 5. Chronic renal insufficiency. Note that serum creatinine was 3.1, which is stable. We will continue her physical therapy and occupational therapy over the weekend. cc: Yovani Melgoza MD
[2019-11-23] MEDS: NORVASC PO SCH (11:34)
[2019-11-23] MEDS: CATAPRES PO SCH ×2 (11:34→21:18)
[2019-11-23] MEDS: LANTUS INSULIN SUBQ SCH (11:34)
[2019-11-23] MEDS: PROTONIX PO SCH (11:35)
[2019-11-23] MEDS: MIRALAX PO SCH (11:35)
[2019-11-23] MEDS: LYRICA PO SCH (11:38)
[2019-11-23] MEDS: OXY IR PO PRN ×3 (12:48→23:14)
[2019-11-23 15:29] LABS: BASO# 0.03 X1000 (0.0-0.2); BASO% 0.1 % (0.0-0.8); EOS# 0.45 X1000 (0.0-0.7); EOS% 2.2 % (0.0-10.0); HEMOGLOBIN 10.5 g/dL (12.0-16.0); IMM GRAN# 0.15 X1000 (0.0-0.04); IMM GRAN% 0.7 % (0.0-0.5); LYMPH# 11.01 X1000 (1.2-3.4); MCH 29.3 PG (27-31); MCHC 31.8 g/dL (33-37); MCV 92.2 FL (81-99); MONO# 0.72 X1000 (0.11-0.59); MONO% 3.5 % (1.7-9.3); MPV 9.8 FL (7.4-10.4); NEUT# 8.03 X1000 (1.4-6.5); NEUT% 39.5 % (42.2-75.2); PLT 277 X1000 (130-400); RBC 3.58 XMIL (4.2-5.4); RDW 15.7 % (11.5-14.5); WBC 20.39 X1000 (4.8-10.8)
[2019-11-23 15:51] LABS: ESTIMATED GFR 20
[2019-11-23 16:01] LABS: AGAP 14; ALB/GLOB RATIO 0.7; ALBUMIN 2.3 g/dL (3.5-5.0); ALKALINE PHOSPHATASE 76 U/L (32-104); BUN 32 mg/dL (8-22); CALCIUM 8.3 mg/dL (8.8-10.2); CHLORIDE 101 mmol/L (98-107); COSMO 282; CREATININE 2.8 mg/dL (0.5-0.9); GLUCOSE 154 mg/dL (70-104); GOT 13 U/L (10-30); GPT < 5 U/L (10-36); MAGNESIUM 2.2 mg/dL (1.5-2.7); POTASSIUM 4.3 mmol/L (3.5-5.1); SODIUM 136 mmol/L (136-145); TCO2 21 mmol/L (25-35); TOTAL PROTEIN 5.7 g/dL (6.3-8.3)
[2019-11-23 16:43] LABS: ANISOCYTOSIS 2+; LYMPHS 54 % (21-51); SEGS 46 % (42-75)
--- NOTE | 2019-11-23 17:44 | EKG Report ---
Test Performed on : 11/23/2019 06:57:41 AM Test Reason : chest pain Blood Pressure : / mmHG Vent. Rate : 085 BPM Atrial Rate : 085 BPM P-R Int : 228 ms QRS Dur : 146 ms QT Int : 440 ms P-R-T Axes : 077 -41 045 degrees QTc Int : 523 ms Sinus rhythm. with 1st degree AV block. Left axis deviation Right bundle branch block Left ventricular hypertrophy with repolarization abnormality Abnormal ECG When compared with ECG of 15-NOV-2019 14:52, No significant change was found Confirmed by Neri VELEZ, Andrae Haider ([id number]) on 11/24/2019 9:25:07 AM
[2019-11-24] MEDS: XARELTO PO SCH (05:53)
[2019-11-24] MEDS: ICAR-C PO SCH ×2 (09:30→21:05)
[2019-11-24] MEDS: LYRICA PO SCH (09:30)
[2019-11-24] MEDS: PROTONIX PO SCH (09:31)
[2019-11-24] MEDS: CATAPRES PO SCH ×2 (09:31→21:05)
[2019-11-24] MEDS: NORVASC PO SCH (09:32)
[2019-11-24] MEDS: MIRALAX PO SCH (09:37)
[2019-11-24] MEDS: LANTUS INSULIN SUBQ SCH (09:37)
--- NOTE | 2019-11-24 10:10 | PROGRESS NOTE ---
DATE: 11/24/2019 SUBJECTIVE: Ms. Cedeno had a good night's sleep. She was sleeping, easy to arouse, comfortable. She says she feels good. Her hemoglobin is up to 10. OBJECTIVE: Temp 98.2 degrees, pulse 60 respirations 16, blood pressure 143/56. Pupils are equal and round. Lungs are clear in all lung smith. Cardiovascular: Regular rhythm and rate without murmur or S3. Abdomen is soft. Skin is warm and dry urine output is 1600 mL. LABORATORY DATA: Blood sugar [id number]. ASSESSMENT AND PLAN: 1. She was readmitted back to the hospital with blood loss anemia. Gave her 2 units packed red blood cells and her hematocrit came up from 20 to 33, hemoglobin from 6 to 10. We will continue her physical therapy and see if we can get her ready to go to rehab possibly tomorrow. 2. Deep venous thrombosis of the leg. We stopped the Lovenox and the Xarelto. Will check venous studies of her legs tomorrow. 3. Hypertension. Blood pressure I am going to allow to stay up a little bit. Her last several numbers 155/124 171/69, 166/61 43/56. REVIEW OF HER ORDERS: She is getting Colace 200 mg at bedtime, Remeron 30 mg at bedtime, oxycodone IR 5 mg q.3 hours p.r.n. pain. Norvasc 5 mg a day, Catapres 0.1 mg p.o. b.i.d., iron carbonyl ascorbic acid 1 twice a day and Protonix 40 mg a day. MiraLAX 17 g daily, Lyrica 75 mg a day. Xarelto: She is on 10 mg daily and simvastatin 40 mg at bedtime. LABORATORY DATA: From reviewed from yesterday. We will check another CBC in the morning. Electrolytes look good. Serum creatinine actually came down to 2.8. cc: Yovani Melgoza MD
[2019-11-24] MEDS: COLACE PO SCH (21:05)
[2019-11-24] MEDS: ZOCOR PO SCH (21:05)
[2019-11-24] MEDS: REMERON PO SCH (21:05)
[2019-11-24 21:16] LABS: URINE SOURCE CATH
[2019-11-24 21:17] LABS: BILIRUBIN URINE NEGATIVE (NEGATIVE); BLOOD URINE NEGATIVE (NEGATIVE); COLOR YELLOW; GLUCOSE URINE NEGATIVE (NEGATIVE); KETONE URINE NEGATIVE (NEGATIVE); LEUKOCYTES URINE NEGATIVE (NEGATIVE); NITRITE URINE NEGATIVE (NEGATIVE); PH URINE 6.5; PROTEIN URINE 100 mg/dL (NEGATIVE); SP GRAVITY URINE 1.012; TURBIDITY URINE CLEAR (CLEAR); UROBILINOGEN URINE NORMAL (NORMAL)
[2019-11-24 21:19] LABS: UR EPITHELIAL CELLS <10 /HPF (<10); URINE BACTERIA NEGATIVE /HPF; URINE RBC <10 /HPF (<10); URINE WBC <10 /HPF (<10)
[2019-11-25] MEDS: NS 1,000 ML IV SCH (02:58)
[2019-11-25] MEDS: XARELTO PO SCH (05:23)
[2019-11-25 07:40] LABS: CALCIUM 8.7 mg/dL (8.8-10.2); CREATININE 2.8 mg/dL (0.5-0.9); POTASSIUM 4.5 mmol/L (3.5-5.1)
[2019-11-25 08:02] LABS: BASO# 0.02 X1000 (0.0-0.2); BASO% 0.1 % (0.0-0.8); EOS# 0.39 X1000 (0.0-0.7); EOS% 2.2 % (0.0-10.0); HEMATOCRIT 31.1 % (37.0-47.0); HEMOGLOBIN 9.6 g/dL (12.0-16.0); IMM GRAN# 0.09 X1000 (0.0-0.04); IMM GRAN% 0.5 % (0.0-0.5); LYMPH# 9.93 X1000 (1.2-3.4); MCH 28.3 PG (27-31); MCHC 30.9 g/dL (33-37); MCV 91.7 FL (81-99); MONO# 0.67 X1000 (0.11-0.59); MONO% 3.8 % (1.7-9.3); NEUT# 6.33 X1000 (1.4-6.5); NEUT% 36.4 % (42.2-75.2); PLT 346 X1000 (130-400); RBC 3.39 XMIL (4.2-5.4); RDW 15.5 % (11.5-14.5); WBC 17.43 X1000 (4.8-10.8)
[2019-11-25 08:40] LABS: ATYPICAL LYMPH 2 %; BANDS 4 % (0-1); LYMPHS 50 % (21-51); MONO 4 % (1-9); SEGS 40 % (42-75)
[2019-11-25] MEDS: LANTUS INSULIN SUBQ SCH (09:00)
--- NOTE | 2019-11-25 09:00 | PROGRESS NOTE ---
DATE: 11/25/2019 SUBJECTIVE: Ms. Cedeno feels good. She is not eating real well, but she feels good this morning. There was a little bit of confusion last night, but she has been tolerating physical therapy. OBJECTIVE: Vital Signs: She remains afebrile, temperature 98.4 degrees, pulse 60, respirations 14, blood pressure 150/75. HEENT: Pupils are equal and round. Lungs: Clear in all lung smith. Cardiovascular: Regular rhythm and rate without murmur or S3. Extremities: No pedal edema. Urine output is 2200 mL. ASSESSMENT AND PLAN: 1. She was readmitted with blood loss anemia in the face of known deep venous thrombosis. Her white count is 17,430, hematocrit is 31, platelet count is 346,000. Chemistries show sodium 142, potassium 4.5, chloride 103, BUN 36, creatinine 2.8. They have been encouraging. Creatinine has come down a little bit after transfusion. Blood sugars have been 208, 154, 135, 186. 2. Deep venous thrombosis. We are going to check noninvasive studies of both legs and just see where we are. I have changed her from Lovenox to Xarelto. 3. Hypertension. Blood pressure, I have purposely let come up a little bit to keep her from having low blood pressure episodes with rehab. 4. She has a history of chronic lymphocytic leukemia and that is why her white count is a little bit elevated. 5. Chronic kidney disease. Creatinine is about 2.8 and it is stable, so will see where we are. She is ready to go to rehab, I think. We will see if a bed is open, and will get her noninvasive studies done on her legs. cc: Yovani Melgoza MD
[2019-11-25] MEDS: OXY IR PO PRN (09:01)
[2019-11-25] MEDS: LYRICA PO SCH (09:01)
[2019-11-25] MEDS: ICAR-C PO SCH ×2 (09:01→22:42)
[2019-11-25] MEDS: PROTONIX PO SCH (09:01)
[2019-11-25] MEDS: MIRALAX PO SCH (09:01)
[2019-11-25] MEDS: NORVASC PO SCH (09:02)
[2019-11-25] MEDS: CATAPRES PO SCH ×2 (09:02→22:42)
--- NOTE | 2019-11-25 09:22 | DISCHARGE SUMMARY ---
ADMISSION DATE: 11/22/2019 DISCHARGE DATE: 11/25/2019 HOSPITAL COURSE: She was readmitted on 11/22/2019. She had been admitted the week before. A 79- year-old with history of diabetes mellitus, chronic lymphocytic leukemia, chronic kidney disease, hypertension, hyperlipidemia. She experienced a period of loss of consciousness and she broke her hip. They were able to break the fall, but still suffered a fracture. She tolerated rehab well. We had to give her some blood. We found a DVT I believe in the right leg, and so for a time she was on Plavix and heparin. We changed her over to Lovenox, stopped the Plavix and hematocrit appeared stable. She got to the rehab. Hemoglobin was 6.3, hematocrit was 20. Gave her 2 units of packed red blood cells. Hemoglobin came up to 10.5. We have checked for blood in the stool. The plan is to check a noninvasive venous study of the legs, and hopefully get her back to rehab possibly today or tomorrow. Will resume her discharge medications. She will take: Tylenol 650 mg q. 6 hours p.r.n., Norvasc 5 mg a day, Catapres 0.1 mg b.i.d., Colace 200 mg at bedtime, Lantus insulin 15 units subcutaneous q.a.m., Icar C one twice a day, milk of magnesia 30 mL p.r.n., Remeron 30 mg p.o. at bedtime, oxycodone IR 5 mg q. 3 hours p.r.n., Protonix 40 mg daily, MiraLAX 17 g p.o. daily, Lyrica 75 mg a day, Xarelto 10 mg a day, Zocor 40 mg at bedtime. So I am hoping we can get back to rehab. We will see what the bed situation is. cc: Yovani Melgoza MD
[2019-11-25] MEDS: REMERON PO SCH (22:42)
[2019-11-25] MEDS: ZOCOR PO SCH (22:42)
[2019-11-25] MEDS: COLACE PO SCH (22:42)
[2019-11-26] MEDS: NS 1,000 ML IV SCH ×2 (05:43→07:26)
[2019-11-26] MEDS: XARELTO PO SCH (05:44)
[2019-11-26] MEDS: LYRICA PO SCH (08:40)
[2019-11-26] MEDS: ICAR-C PO SCH (08:40)
[2019-11-26] MEDS: LANTUS INSULIN SUBQ SCH (08:41)
[2019-11-26] MEDS: CATAPRES PO SCH (08:41)
[2019-11-26] MEDS: PROTONIX PO SCH (08:41)
[2019-11-26] MEDS: NORVASC PO SCH (08:41)
[2019-11-26] MEDS: MIRALAX PO SCH (08:41)
--- NOTE | 2019-11-26 09:16 | DISCHARGE SUMMARY ---
ADMISSION DATE: 11/22/2019 DISCHARGE DATE: HISTORY OF PRESENT ILLNESS: This is a 79-year-old who was admitted on 11/22/2019. Had a history of diabetes, chronic lymphocytic leukemia, chronic kidney disease, hypertension, hyperlipidemia. She experienced a brief loss of consciousness. According to her daughter, when they tried to stand her up, she slipped down to the floor and she broke her hip. CT of the head was done without contrast. It did not show any findings. The original concern by the daughters were that she had a seizure or stroke, but she did not have any focal neurologic deficits. We think probably she dropped her blood pressure and I suspect this was a vasovagal episode, drop in pressure. PAST MEDICAL HISTORY: 1. Diabetes mellitus type 2. 2. Chronic lymphocytic leukemia. 3. Chronic kidney disease. 4. Hypertension. 5. Hyperlipidemia. HOSPITAL COURSE: She received some blood. Was found to have deep venous thrombosis in the right leg. She received 2 units of packed red blood cells. She has a history of a deep venous thrombosis recently found and a history of hypertension. MRI and MRA of the brain did not show any new acute changes. She showed no signs of seizure difficulty. She did have some myoclonus, some twitching of her muscles in her arms, and began physical therapy and things seemed to improve. I did back down on her blood pressure medicine. She went to [facility]. Hemoglobin dropped below 7 and wanted a transfusion. She was readmitted here, given 2 units of packed red blood cells, and she seemed to respond well. I also took the opportunity to change her from Lovenox to Xarelto. I put her on 10 mg of Xarelto. She seemed to do well, was eating well, and tolerating physical therapy. Hope to try and get her back to [facility]. She is on Norvasc 5 mg a day, Catapres 0.1 mg p.o. b.i.d., Colace 200 mg at bedtime, Lantus insulin 15 units subcutaneous q.a.m., Icar C 1 twice a day, milk of magnesia 30 mL daily p.r.n., Remeron 30 mg p.o. at bedtime, oxycodone or OxyIR 5 mg p.o. q.3 hours p.r.n. pain, Protonix 40 mg a day, MiraLAX 17 g p.o. daily, Lyrica 75 mg p.o. daily, and Xarelto 10 mg p.o. daily, Zocor 40 mg at bedtime. We did noninvasive venous studies and she still has a DVT in the right leg, nothing in the left. Continue present regimen and try and get her back to [facility] today. Her hematocrit was 31, hemoglobin 9.6. cc: Yovani Melgoza MD
[2019-11-26 12:21] VITALS: BP 186/57
== END 2019-11-26 14:09 | DRG 812 ==
LOC: ED 18:10 → EDIPHOLD 22:30 → 4N 23:38
PROVIDERS: ATTEND Emergency Medicine